=== PATIENT | female | born 1930 | race Caucasian/White ===

== ENCOUNTER → 2016-03-02 | Outpatient (CLI) | payer MEDICARE, BC, OTHER ==
[2016-03-02 13:03] LABS: ABG HCO3 38 mmol/L (21-25); ABG PCO2 56 mmHg (35-45); ABG PH 7.45 (7.35-7.45); ABG PO2 78 mmHg (83-108); ABG TCO2 39 mmol/L (19-24)
[2016-03-02 13:18] LABS: Basophils % (A) 0 %; CH 29.3; CHCM 30.8; Eosinophils % (A) 0 %; HCT 46.3 % (34.0-46.0); HDW 2.17; HGB 14.3 gm/dL (11.4-16.0); Hypochromasia Slight; Luc % (Auto) 1; Lymphocytes % (A) 19 %; MCH 29.6 pg (25.0-35.0); MCHC 30.9 g/dL (31.0-37.0); MCV 95.6 fL (80.0-100.0); Mean Platelet Volume 9.8; Monocytes # (A) 0.5 k/uL (0-1.0); Monocytes % (A) 5 %; Neutrophils # (A) 7.9 k/uL (1.3-7.7); Neutrophils % (A) 75 %; RBC 4.85 m/uL (3.80-5.40); RDW 13.2 % (11.5-15.5); WBC 10.6 k/uL (3.8-10.6); WBC (Perox) 10.98
[2016-03-02 13:56] LABS: Blood Urea Nitrogen 21 mg/dL (7-17); Calcium 10.1 mg/dL (8.4-10.2); Chloride 93 mmol/L (98-107); Glucose 91 mg/dL (74-99); Non-African American GFR(MDRD) >60 (>60 ml/min/1.73 sqM); Potassium 4.5 mmol/L (3.5-5.1); Sodium 142 mmol/L (137-145)
[2016-03-02 14:03] LABS: Anion Gap 7 mmol/L; Appearance,Urine Clear (Clear); Bacteria,Urine Rare /hpf; Bilirubin,Urine Negative (Negative); Glucose,Urine (UA) Negative (Negative); Ketones,Urine Negative (Negative); Leukocyte Esterase,Urine Moderate (Negative); Mucus,Urine Rare /hpf; Nitrite,Urine Negative (Negative); Particle Count 2121; Protein,Urine Negative (Negative); RBC,Urine 15 /hpf (0-5); Specific Gravity,Urine 1.014 (1.001-1.035); Squamous Epithelial Cell,Urine 1 /hpf (0-4); UA Billing (MACRO vs. MICRO) MICRO; Urobilinogen,Urine <2.0 mg/dL (<2.0)
[2016-03-02 14:15] LABS: Carbon Dioxide 42 mmol/L (22-30)
== END | disposition home or self-care (01) ==
LOC: LABWHC1 12:19
PROVIDERS: ATTEND Internal Medicine
DX: N39.0 Urinary tract infection, site not specified (principal); E16.2 Hypoglycemia, unspecified; R35.1 Nocturia; R53.1 Weakness; R53.83 Other fatigue; R06.02 Shortness of breath
CPT/HCPCS: 36415; 36600; 80048; 81001; 82306; 82533; 82805; 83036; 85025; 87086

== ENCOUNTER 2016-03-16 10:03 | Day surgery (SDC) | payer MEDICARE, BC, OTHER ==
[2016-03-14 09:22] VITALS: BMI 29.5
[~2016-03-16 10:03] MED LIST: LACTATED RINGERS 1,000 ML IV SCH; MOXIFLOXACIN HCL 0.5% DROPS 3 ML BTL OP ONE; TETRACAINE 0.5% OPHTH (PF) DROPS 4 ML BTL OP ONE; TIMOLOL 0.5% OPHTH SOLN (PF) 0.2 ML DROPERETTE OP ONE
[2016-03-16] MEDS: CYCLOPENTOLATE 1% OPHTH SOLN 2 ML BTL OP ONE ×3 (12:50→13:03)
[2016-03-16] MEDS: PHENYLEPHRINE 2.5% OPHTH DRP 2ML OP NR ×3 (12:53→13:06)
[2016-03-16 12:54] VITALS: RESP 20; TEMP 97.6
[2016-03-16 13:10] LABS: Glucose,Whole Blood 99 mg/dL (75-99)
[2016-03-16] MEDS ORDERED: BALANCED SALT IRRIG SOLN COMB2 15 ML IRRIG.SOLN INTRAOCULA ONE (13:50)
[2016-03-16] MEDS ORDERED: HYALURONATE SODIUM INTRAOCULAR 1 EACH SYRINGE (12MG/ML) INTRAOCULA ONE (13:50)
[2016-03-16] MEDS ORDERED: LIDOCAINE 1% (PF) 10MG/ML VIAL SQ ONE (13:50)
[2016-03-16] MEDS ORDERED: EPINEPHrine (PF) 0.3 ML in BALANCED SALT IRRIG SOLN COMB2 500 ML IRRIGATION ONE ×4 (13:51)
[2016-03-16] MEDS ORDERED: MIDAZOLAM 2 MG/2 ML VIAL ONE (13:53)
[2016-03-16] MEDS ORDERED: fentaNYL (PF) 50 MCG/ML 2 ML AMP ONE (13:53)
--- NOTE | 2016-03-16 14:21 | P.OP ---
Date of Procedure: 03/16/16 Preoperative Diagnosis: NS & CS & PXS & Fuch's corneal dystrophy Postoperative Diagnosis: same Procedure(s) Performed: PIOL, OS Implants: PCB0 19.50 & 13 mm CTR Anesthesia: MAC Surgeon: Sharad Hawkins Estimated Blood Loss (ml): 0 Pathology: none sent Condition: stable Disposition: same day Indications for Procedure: blurry vision Operative Findings: No complications
[2016-03-16 14:49] VITALS: BP 125/68; PULSE 80
[2016-03-16 14:55] LABS: Glucose,Whole Blood 124 mg/dL (75-99)
--- NOTE | 2016-03-16 21:32 | OP ---
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 POSTOPERATIVE DIAGNOSES: 1. 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 OPERATION: Phacoemulsification of cataract and intraocular lens implant of the left eye with a capsular tension ring implantation. ANESTHESIA: Topical. ESTIMATED BLOOD LOSS: None. SPECIMENS REMOVED: None. COMPLICATIONS: OPERATIVE FINDINGS: DESCRIPTION OF PROCEDURE: NARRATIVE: After obtaining the appropriate consent, the patient was brought to the operating room. There she was placed under cardiac monitoring, prepped and draped in the usual sterile manner. She was approached from her left temporal side and at the 5:00 position a 1.1 mm stab blade was used to create a paracentesis port. Through this opening, 1% Xylocaine MPF 50-50 mix of balanced salt solution was injected into the anterior chamber. This was followed by stabilization of the anterior chamber with Viscoat. At the 3:00 position, a 2.5 mm keratome was used to create a self-sealing corneal flap incision in a Langerman fashion. A cystotome was then introduced to begin a continuous tear capsulorrhexis, which was completed using the Utrata forceps. Hydrodissection and hydrodelineation of the lens was accomplished with balanced salt solution. Phacoemulsification of the lens utilizing phaco chop was accomplished in 20 seconds at 13% power. Additional Xylocaine MPF was instilled into the anterior chamber. This was followed by removal of the remaining cortex under irrigation and aspiration as well as careful polishing of the posterior capsule in capsule vacuum mode. Provisc was then used to stabilize the capsular bag. An ADRYAN model [id number] posterior chamber capsular tension ring was inserted into the capsule capsular bag at the equator without any difficulty. This was followed by implantation of an ADRYAN PCB00 19.5 diopter posterior chamber intraocular lens. The remaining viscoelastic was then removed from in and around the intraocular lens as well as the anterior chamber. The eye was brought to normal intraocular pressure through the paracentesis port with balanced salt solution. She was checked for watertight integrity. She then received 2 drops of 0.5% timolol followed by 2 drops of Vigamox, was lightly patched and shielded in the usual manner. There were no complications from the procedure. She tolerated the procedure well and was returned to outpatient recovery in good condition.
== END 2016-03-16 15:17 | disposition home or self-care (01) ==
LOC: OR 10:03
PROVIDERS: ATTEND Ophthalmology
DX: H18.51 Endothelial corneal dystrophy (principal); H25.13 Age-related nuclear cataract, bilateral; H25.013 Cortical age-related cataract, bilateral; H26.8 Other specified cataract; H40.003 Preglaucoma, unspecified, bilateral; E78.5 Hyperlipidemia, unspecified; J44.9 Chronic obstructive pulmonary disease, unspecified; E07.9 Disorder of thyroid, unspecified; Z87.891 Personal history of nicotine dependence; Z79.1 Long term (current) use of non-steroidal anti-inflammatories (NSAID); Z79.899 Other long term (current) drug therapy; Z88.1 Allergy status to other antibiotic agents; Z88.7 Allergy status to serum and vaccine; Z88.8 Allergy status to other drugs, medicaments and biological substances
CPT/HCPCS: 66984; 65290; L8610; C1780; J2250; J0171; J3010; J2001; 99152; 99153

== ENCOUNTER → 2016-06-30 | Outpatient (CLI) | payer MEDICARE, BC, OTHER ==
[2016-06-30 11:26] LABS: ALT 26 U/L (9-52); AST 19 U/L (14-36); Alkaline Phosphatase 49 U/L (38-126); Anion Gap 9 mmol/L; Blood Urea Nitrogen 14 mg/dL (7-17); Calcium 9.4 mg/dL (8.4-10.2); Carbon Dioxide 34 mmol/L (22-30); Chloride 101 mmol/L (98-107); Cholesterol 156 mg/dL (<200); Glucose 114 mg/dL (74-99); HDL Cholesterol 63 mg/dL (40-60); Non-African American GFR(MDRD) >60 (>60 ml/min/1.73 sqM); Potassium 3.6 mmol/L (3.5-5.1); Sodium 144 mmol/L (137-145); Total Bilirubin 0.7 mg/dL (0.2-1.3); Total Protein 6.9 g/dL (6.3-8.2); Triglycerides 120 mg/dL (<150)
== END ==
LOC: LABWHC1 10:25
PROVIDERS: ATTEND Internal Medicine Interventional Cardiology
DX: E78.2 Mixed hyperlipidemia (principal)
CPT/HCPCS: 36415; 80053; 80061

== ENCOUNTER 2016-08-02 13:55 | Emergency (ER) | payer MEDICARE, BC, OTHER ==
[2016-08-02] MEDS ORDERED: KETOROLAC 60 MG/2 ML VIAL IM STA (14:20)
[2016-08-02] MEDS ORDERED: DIAZEPAM 5 MG TAB PO STA (14:21)
--- NOTE | 2016-08-02 14:32 | ED ---
General Adult HPI - General Chief complaint: Back Pain/Injury Stated complaint: back pain Time Seen by Provider: 08/02/16 14:07 Source: patient, family, RN notes reviewed, old records reviewed Mode of arrival: wheelchair Limitations: no limitations - History of Present Illness Initial comments: 86-year-old female presenting for right low back pain. Patient states symptoms been present for the past 2 months and gradually worsening. She states that last night she had significant worsening of her pain while trying to sleep. She states the pain is made worse by positional changes. She states that she sits up does not move the pain seems to resolve. She has tried acetaminophen and ibuprofen which does help the pain overall. She denies any fall or injury associated. She denies any radiation of the pain down her leg. She denies any gait changes. She denies any fevers or chills. She denies any headaches or visual changes. She denies any chest pain or shortness breath. She denies any abdominal pain associated. - Related Data Home Medications Medication Instructions Recorded Confirmed Levothyroxine Sodium [Synthroid] 50 mcg PO QAM 09/25/13 08/02/16 Simvastatin [Zocor] 40 mg PO HS 09/25/13 08/02/16 Montelukast [Singulair] 10 mg PO HS 02/11/16 08/02/16 Albuterol Nebulized [Ventolin 2.5 mg INHALATION QID 03/14/16 08/02/16 Nebulized] Multivitamins, Thera [Multivitamin] 1 tab PO DAILY 03/14/16 08/02/16 predniSONE 5 mg PO QAM 03/14/16 08/02/16 Acetaminophen [Tylenol] 500 mg PO Q4HR PRN 08/02/16 08/02/16 Biotin 5 mg PO DAILY 08/02/16 08/02/16 Previous Rx's Medication Instructions Recorded Cephalexin [Keflex] 500 mg PO BID #14 cap 08/02/16 Diazepam [Valium] 5 mg PO BID PRN #8 tab 08/02/16 HYDROcodone/APAP 5-325MG [[place] 1 tab PO Q6HR PRN #12 tab 08/02/16 5-325] Allergies Allergy/AdvReac Type Severity Reaction Status Date / Time bacitracin Allergy Rash/Hives Verified 08/02/16 14:28 bacitracin zinc Allergy Rash/Hives Verified 08/02/16 14:28 [From Neosporin ([id number])] dimethicone Allergy Rash/Hives Verified 08/02/16 14:28 [From A & D Emollient] glycerin Allergy Rash/Hives Verified 08/02/16 14:28 [From A & D Emollient] neomycin sulfate Allergy Rash/Hives Verified 08/02/16 14:28 [From Neosporin ([id number])] polymyxin B Allergy Rash/Hives Verified 08/02/16 14:28 [From Neosporin ([id number])] stearyl alcohol Allergy Rash/Hives Verified 08/02/16 14:28 [From A & D Emollient] Tetanus Vaccines and Toxoid Allergy swelling Verified 08/02/16 14:28 and severe redness and hardness at site Review of Systems ROS Statement: Those systems with pertinent positive or pertinent negative responses have been documented in the HPI. ROS Other: All systems not noted in ROS Statement are negative. Past Medical History Past Medical History: COPD, Eye Disorder, Hyperlipidemia, Thyroid Disorder Additional Past Medical History / Comment(s): TEAR IN BILATERAL ROTATOR CUFFS, isabel cataracts, current steroid History of Any Multi-Drug Resistant Organisms: None Reported Past Surgical History: Joint Replacement, Orthopedic Surgery Additional Past Surgical History / Comment(s): ATTEMPTED REPAIR OF RIGHT ROTATOR CUFF. BILATERAL KNEE REPLACEMENTS Past Anesthesia/Blood Transfusion Reactions: No Reported Reaction Additional Past Anesthesia/Blood Transfusion Reaction / Comment(s): no hx blood transfusion Past Psychological History: No Psychological Hx Reported Smoking Status: Former smoker Past Alcohol Use History: Occasional Additional Past Alcohol Use History / Comment(s): quit smoking 1992,smoked approx 42 yrs 1ppd Past Drug Use History: None Reported - Past Family History Mother Family Medical History: No Reported History Additional Family Medical History / Comment(s): mother at age 93 of "old age" Father Family Medical History: No Reported History Additional Family Medical History / Comment(s): states at age 89 with no known medical problems General Exam - General Exam Comments Initial Comments: General: Awake and Alert. No acute distress. Does not appear acutely ill. Eyes: JOCY, EOM intact. No nystagmus. No scleral icterus. HENT: Atraumatic, normocephalic. Mucous membranes moist. Trachea midline. Neck: The neck is supple, there is no tenderness or JVD. Cardiovascular: Regular rate and rhythm. No murmur, rub, or gallop is appreciated. Distal pulses intact. Respiratory: Lungs are clear to auscultation bilaterally. No wheezes, rales, rhonchi. No respiratory distress. Gastrointestinal: Soft, Nontender. No rebound or guarding. Non-distended. No masses or organomegaly noted. No CVA tenderness. Musculoskeletal: Tenderness to the right lower back. No gross deformity. No strength deficits. Neurological: A&Ox3. CN II-XII grossly intact, There are no obvious motor or sensory deficits. Coordination appears grossly intact. Speech is normal. Skin: Skin is warm and dry and no rashes or lesions are noted. Psychiatric: Cooperative, appropriate mood & affect, normal judgment. Limitations: no limitations Course Vital Signs 08/02/16 14:03 Temperature 98.1 F Pulse Rate 70 Respiratory 20 Rate Blood Pressure 133/61 O2 Sat by Pulse 98 Oximetry Medical Decision Making - Medical Decision Making 86-year-old female presenting for right low back pain. Has been present for the past 2 months. No trauma or injury. She has no radiation of the pain. Able to ambulate without issue. Vitals are stable, afebrile. Low suspicion of severe or infectious intra-abdominal etiology at this time. X-ray imaging was performed which shows chronic degenerative changes but no acute fractures. Lower suspicion of acute cord compression or cauda equina syndrome at this time. Patient was given medications with improvement of her pain. Urinalysis with evidence of infection and Rx provided. Discussed likely musculoskeletal cause of pain. Discussed plan for pain medication and muscle relaxer for symptomatic treatment. Discussed stretching and ice as needed. Discussed close follow-up with PCP. Discussed follow-up for MRI imaging in 1 week pain is not improving as well as referral to orthospine by PCP. Discussed concerning signs symptoms for immediate return to the ED. Patient and are agreeable with plan and discharge. - Lab Data Lab Results 08/02/16 Range/Units 15:36 Urine Color Yellow Urine Appearance Turbid H (Clear) Urine pH 7.5 (5.0-8.0) Ur Specific [place] 1.017 (1.001-1.035) Urine Protein Negative (Negative) Urine Glucose (UA) Negative (Negative) Urine Ketones Negative (Negative) Urine Blood Negative (Negative) Urine Nitrite Negative (Negative) Urine Bilirubin Negative (Negative) Urine Urobilinogen <2.0 (<2.0) mg/dL Ur Leukocyte Esterase Large H (Negative) Urine WBC 55 H (0-5) /hpf Ur Squamous Epith Cells 1 (0-4) /hpf Amorphous Sediment Moderate H (None) /hpf Disposition Clinical Impression: Right low back pain, UTI (urinary tract infection) Disposition: HOME SELF-CARE Condition: Stable Instructions: Urinary Tract Infection in Women (ED), Acute Low Back Pain (ED) Additional Instructions: Please follow up with your primary doctor in the next week to reevaluate your pain. If it is not improving, discussed getting and MRI and seeing and client delivery specialist. Prescriptions: Cephalexin [Keflex] 500 mg PO BID #14 cap Diazepam [Valium] 5 mg PO BID PRN #8 tab PRN Reason: back spasm HYDROcodone/APAP 5-325MG [[place] 5-325] 1 tab PO Q6HR PRN #12 tab PRN Reason: Pain Referrals: Maria Alejandra Munoz MD [Primary Care Provider] - 1-2 days Time of Disposition: 15:54
--- NOTE | 2016-08-02 15:11 | XR ---
EXAMINATION TYPE: XR lumbar spine 3V DATE OF EXAM: 08/02/2016 COMPARISON: December 03, 2012 HISTORY: Lower back pain, progressively worse over the last couple months TECHNIQUE: 3 views FINDINGS: The upper lumbar dextrocurvature and lower lumbar levocurvature is similar to the prior mitra dy. The advanced degenerative facet and disc changes seen at every level on the prior study have adva nced in the interim. The heights of the vertebral segments is maintained. There is no malalignment. No evidence of fracture. There are no focal bony lesions, and no incidental paraspinal soft tissue findings. IMPRESSION: NO ACUTE PROCESS.
[2016-08-02 15:48] LABS: Amorphous Sediment,Urine Moderate /hpf; Appearance,Urine Turbid (Clear); Bilirubin,Urine Negative (Negative); Glucose,Urine (UA) Negative (Negative); Ketones,Urine Negative (Negative); Leukocyte Esterase,Urine Large (Negative); Nitrite,Urine Negative (Negative); PH, Urine 7.5 (5.0-8.0); Particle Count 20788; Protein,Urine Negative (Negative); Specific Gravity,Urine 1.017 (1.001-1.035); Squamous Epithelial Cell,Urine 1 /hpf (0-4); UA Billing (MACRO vs. MICRO) MICRO; Urobilinogen,Urine <2.0 mg/dL (<2.0); WBC,Urine 55 /hpf (0-5)
[2016-08-02 16:08] VITALS: BP 128/68; PULSE 56; RESP 18; TEMP 97.5
== END 2016-08-02 16:27 | disposition home or self-care (01) ==
LOC: EC 13:55
DX: N39.0 Urinary tract infection, site not specified (principal); M54.5 Low back pain; M47.816 Spondylosis without myelopathy or radiculopathy, lumbar region; J44.9 Chronic obstructive pulmonary disease, unspecified; E78.5 Hyperlipidemia, unspecified; E07.9 Disorder of thyroid, unspecified; Z96.653 Presence of artificial knee joint, bilateral; Z87.891 Personal history of nicotine dependence; Z79.52 Long term (current) use of systemic steroids; Z79.899 Other long term (current) drug therapy; Z88.1 Allergy status to other antibiotic agents; Z88.7 Allergy status to serum and vaccine; Z88.8 Allergy status to other drugs, medicaments and biological substances
CPT/HCPCS: 81001; 72100; 99284; 96372; J1885

== ENCOUNTER 2016-11-16 09:14 | Day surgery (SDC) | payer MEDICARE, BC, OTHER ==
[2016-11-14 10:22] VITALS: BMI 30.7
[~2016-11-16 09:14] MED LIST changes: +DEXAMETHASONE SOD PHOSPHATE 10 MG/ML 1 ML VIAL IV ONE; +LIDOCAINE 1% 20 ML VIAL (10MG/ML) FOR IV START INTRADERMA PRN; +ONDANSETRON 4 MG/2 ML VIAL IVP ONE
[2016-11-16] MEDS: CYCLOPENTOLATE 1% OPHTH SOLN 2 ML BTL OP ONE ×3 (09:29→09:43)
[2016-11-16] MEDS: PHENYLEPHRINE 2.5% OPHTH DRP 2ML OP NR ×3 (09:32→09:46)
[2016-11-16 09:50] VITALS: TEMP 97.8
[2016-11-16] MEDS ORDERED: MIDAZOLAM 2 MG/2 ML VIAL ONE (10:19)
[2016-11-16] MEDS ORDERED: fentaNYL (PF) 50 MCG/ML 2 ML AMP ONE (10:19)
[2016-11-16] MEDS ORDERED: BALANCED SALT IRRIG SOLN COMB2 15 ML IRRIG.SOLN INTRAOCULA ONE (10:25)
[2016-11-16] MEDS ORDERED: LIDOCAINE 1% (PF) 10MG/ML VIAL SQ ONE (10:25)
[2016-11-16] MEDS ORDERED: EPINEPHrine (PF) 0.3 ML in BALANCED SALT IRRIG SOLN COMB2 500 ML IRRIGATION ONE (10:25)
[2016-11-16] MEDS ORDERED: DUOVISC KIT (GREEN BOX) INTRAOCULA ONE (10:27)
--- NOTE | 2016-11-16 10:49 | P.OP ---
Date of Procedure: 11/16/16 Preoperative Diagnosis: NS & CS & PXS & Fuch's corneal dystrophy Postoperative Diagnosis: same Procedure(s) Performed: PIOL OD Implants: PCB00 +19.50 & [id number] Anesthesia: MAC Surgeon: Sharad Hawkins Estimated Blood Loss (ml): 0 Pathology: none sent Condition: stable Disposition: same day Indications for Procedure: blurry vision Operative Findings: No complications
[2016-11-16 10:56] VITALS: RESP 18
[2016-11-16 11:14] VITALS: BP 128/58; PULSE 84
--- NOTE | 2016-11-16 14:45 | OP ---
OPERATIVE REPORT DATE OF SERVICE: 11/16/2016 PREOPERATIVE DIAGNOSES:: 1. Nuclear sclerosis. 2. Cortical sclerosis. 3. Pseudoexfoliation syndrome. 4. Fuch's endothelial corneal dystrophy. POSTOPERATIVE DIAGNOSIS:: Same. OPERATION:: Phacoemulsification of cataract intraocular lens implant of the right eye. SURGEON: Dr. Sharad Hawkins. ANESTHESIA: Topical. ESTIMATED BLOOD LOSS:: None. SPECIMEN TAKEN:: None. NARRATIVE:: After obtaining the appropriate consent, the patient was brought to the Operating Room. There, she was placed under cardiac monitoring, and prepped and draped in the usual sterile manner. She was approached from her right temporal side. At the 11 o'clock position, a 1.1-mm stab blade was used to create a paracentesis port. Through this opening, 1% lidocaine MPF 50:50 mix with BSS was injected into the anterior chamber. This was followed by stabilization of the anterior chamber with Viscoat. At the 9 o'clock position, a 2.5-mm keratome was used to create a self-sealing corneal flap incision in a Langerman's fashion. Through this opening, a cystatome was introduced to begin a continuous tear capsulorrhexis which was completed using the Utrata forceps. Hydrodissection and hydrodelineation of the lens was accomplished with balanced salt solution. Phacoemulsification of the lens was accomplished in 22.55 seconds at 18% power utilizing phaco chop. Additional lidocaine MPF was instilled into the anterior chamber. This was followed by removal of the remaining cortex with irrigation and aspiration and careful polishing of the posterior capsule in capsule vacuum mode. Provisc was then used to stabilize the capsular bag and an ADRYAN STBL 13US capsular tension ring was placed into the capsular bag without difficulty. This was followed by placement of an ADRYAN PCB00 10.5-diopter posterior chamber intraocular lens into the capsular bag. Removal of the viscoelastic in and around the intraocular lens as well as the anterior chamber was accomplished under irrigation and aspiration. The eye was brought to normal intraocular pressure through the paracentesis port and with balanced salt solution. The wounds were confirmed watertight and she patient then received 2 drops of 0.5% timolol followed by 2 drops of moxifloxacin. She was lightly patched and shielded in the usual manner. There were no complications from the procedure. She tolerated the procedure well and was returned to recovery in good condition. MMODL / IJN: [id number] /
== END 2016-11-16 11:38 | disposition home or self-care (01) ==
LOC: OR 09:14
PROVIDERS: ATTEND Ophthalmology
DX: H18.51 Endothelial corneal dystrophy (principal); H25.011 Cortical age-related cataract, right eye; H25.11 Age-related nuclear cataract, right eye; H52.01 Hypermetropia, right eye; H52.223 Regular astigmatism, bilateral; H52.4 Presbyopia; H52.12 Myopia, left eye; I10 Essential (primary) hypertension; E78.5 Hyperlipidemia, unspecified; J44.9 Chronic obstructive pulmonary disease, unspecified; Z99.81 Dependence on supplemental oxygen; E07.9 Disorder of thyroid, unspecified; Z96.653 Presence of artificial knee joint, bilateral; Z96.1 Presence of intraocular lens; Z79.899 Other long term (current) drug therapy; Z79.52 Long term (current) use of systemic steroids; Z88.1 Allergy status to other antibiotic agents; Z88.7 Allergy status to serum and vaccine; Z88.8 Allergy status to other drugs, medicaments and biological substances
CPT/HCPCS: 66984; L8610; C1780; J2250; J0171; J3010; J2001

== ENCOUNTER → 2017-05-04 | Outpatient (CLI) | payer MEDICARE, BC, OTHER ==
[2017-05-04 13:09] LABS: ALT 24 U/L (9-52); AST 18 U/L (14-36); Cholesterol 147 mg/dL (<200); HDL Cholesterol 48 mg/dL (40-60); LDL Cholesterol,Calculated 77 mg/dL (0-99); Triglycerides 108 mg/dL (<150)
== END | disposition home or self-care (01) ==
LOC: LABWHC1 11:34
PROVIDERS: ATTEND Internal Medicine Interventional Cardiology
DX: E78.2 Mixed hyperlipidemia (principal)
CPT/HCPCS: 36415; 80061; 84450; 84460

== ENCOUNTER 2018-12-06 16:39 | Inpatient (IN) | payer MEDICARE, BC, OTHER ==
--- NOTE | 2018-12-06 16:46 | ED ---
SOB HPI - General Stated Complaint: WEAKNESS Time Seen by Provider: 12/06/18 16:44 Source: RN notes reviewed, old records reviewed Limitations: altered mental status (dementia) - History of Present Illness Initial Comments: This is an 88-year-old female the ER for evaluation presented for evaluation of not feeling well. She has some shortness of breath some sleepiness and fatigue some altered mental status, patient was sent in by visiting care for evaluation and management. Patient mostly is having overall complaining of not feeling well and feeling weak, fatigued. MD Complaint: shortness of breath -: days(s) Radiation: other (no pain) Severity: moderate Severity scale (1-10): 4 Consistency: intermittent Improves With: oxygen, rest, bronchodilators Worsens With: exertion, movement Known History Of: COPD, asthma Context: recent URI Associated Symptoms: cough Treatments Prior to Arrival: none - Related Data Home Medications Medication Instructions Recorded Confirmed Simvastatin [Zocor] 40 mg PO DAILY 09/25/13 12/06/18 Montelukast [Singulair] 10 mg PO DAILY 02/11/16 12/06/18 Albuterol Nebulized [Ventolin 2.5 mg INHALATION RT-BID 03/14/16 12/06/18 Nebulized] Multivitamins, Thera [Multivitamin] 1 tab PO DAILY 03/14/16 12/06/18 Cyanocobalamin (Vitamin B-12) 1,000 mcg PO DAILY 12/06/18 12/06/18 [Vitamin B-12] Furosemide [Lasix] 40 mg PO DAILY 12/06/18 12/06/18 Levothyroxine Sodium [Synthroid] 75 mcg PO DAILY 12/06/18 12/06/18 Potassium Chloride ER [K-Dur 10] 10 meq PO DAILY 12/06/18 12/06/18 Prevagen 1 cap PO DAILY 12/06/18 12/06/18 Vit C/E/Zn/Coppr/Lutein/Zeaxan 1 cap PO BID 12/06/18 12/06/18 [Preservision Areds 2 Softgel] predniSONE 5 mg PO DAILY 12/06/18 12/06/18 Allergies Allergy/AdvReac Type Severity Reaction Status Date / Time bacitracin Allergy Rash/Hives Verified 12/06/18 17:34 bacitracin zinc Allergy Rash/Hives Verified 12/06/18 17:34 [From Neosporin ([id number])] dimethicone Allergy Rash/Hives Verified 12/06/18 17:34 [From A & D Emollient] glycerin Allergy Rash/Hives Verified 12/06/18 17:34 [From A & D Emollient] neomycin sulfate Allergy Rash/Hives Verified 12/06/18 17:34 [From Neosporin ([id number])] polymyxin B Allergy Rash/Hives Verified 12/06/18 17:34 [From Neosporin ([id number])] stearyl alcohol Allergy Rash/Hives Verified 12/06/18 17:34 [From A & D Emollient] Tetanus Vaccines and Toxoid Allergy swelling Verified 12/06/18 17:34 and severe redness and hardness at site Review of Systems ROS Statement: Those systems with pertinent positive or pertinent negative responses have been documented in the HPI. ROS Other: All systems not noted in ROS Statement are negative. Past Medical History Past Medical History: COPD, Eye Disorder, Hyperlipidemia, Thyroid Disorder Additional Past Medical History / Comment(s): TEAR RT ROTATOR CUFFS, RT cataracts, O2 @ 2 liters 12/09 History of Any Multi-Drug Resistant Organisms: None Reported Past Surgical History: Joint Replacement, Orthopedic Surgery Additional Past Surgical History / Comment(s): ATTEMPTED REPAIR OF LEFT ROTATOR CUFF. BILATERAL KNEE REPLACEMENTS, LEFT CATARACT Past Anesthesia/Blood Transfusion Reactions: No Reported Reaction Additional Past Anesthesia/Blood Transfusion Reaction / Comment(s): no hx blood transfusion Smoking Status: Former smoker - Past Family History Mother Family Medical History: No Reported History Additional Family Medical History / Comment(s): mother at age 93 of "old age" Father Family Medical History: No Reported History Additional Family Medical History / Comment(s): states at age 89 with no known medical problems General Exam General appearance: alert, in no apparent distress Head exam: Present: atraumatic, normocephalic, normal inspection Eye exam: Present: normal appearance, PERRL, EOMI. Absent: scleral icterus, con junctival injection, periorbital swelling ENT exam: Present: normal exam, mucous membranes dry Neck exam: Present: normal inspection. Absent: tenderness, meningismus, lymphadenopathy Respiratory exam: Present: normal lung sounds bilaterally, wheezes. Absent: respiratory distress, rales, rhonchi, stridor Cardiovascular Exam: Present: regular rate, normal rhythm, normal heart sounds. Absent: systolic murmur, diastolic murmur, rubs, gallop, clicks GI/Abdominal exam: Present: soft, normal bowel sounds. Absent: distended, tenderness, guarding, rebound, rigid Extremities exam: Present: normal inspection, full ROM, normal capillary refill. Absent: tenderness, pedal edema, joint swelling, calf tenderness Back exam: Present: normal inspection Neurological exam: Present: alert, oriented X3, CN II-XII intact Psychiatric exam: Present: normal affect, normal mood Skin exam: Present: warm, dry, intact, normal color. Absent: rash Course Vital Signs 12/06/18 12/06/18 12/06/18 16:43 16:48 16:51 Temperature 98.2 F Pulse Rate 56 L 70 Respiratory 18 16 Rate Blood Pressure 124/77 100/45 O2 Sat by Pulse 96 98 93 L Oximetry 12/06/18 12/06/18 12/06/18 17:00 17:51 18:00 Temperature Pulse Rate 59 L Respiratory 18 Rate Blood Pressure 124/77 94/54 100/45 O2 Sat by Pulse 93 L 95 Oximetry - Reevaluation(s) Reevaluation #1: 12/06/18 16:46 Medical records reviewed Reevaluation #2: 12/06/18 19:24 Patient still feeling very tired difficulty keeping eye open - Consultations Consultation #1: Spoke with Dr. Binh dove for admission Medical Decision Making - Medical Decision Making 71 female the ER for evaluation of weakness not feeling well sleeping, patient is mildly somnolent in the room, CT x-rays are negative. Patient be admitted for continued hydration and monitoring of mental status - Lab Data Result diagrams: 12/06/18 17:20 12/06/18 17:20 Lab Results 12/06/18 12/06/18 12/06/18 Range/Units 17:20 17:20 17:20 WBC 8.1 (3.8-10.6) k/uL RBC 3.96 (3.80-5.40) m/uL Hgb 12.2 (11.4-16.0) gm/dL Hct 38.8 (34.0-46.0) % MCV 97.9 (80.0-100.0) fL MCH 30.9 (25.0-35.0) pg MCHC 31.5 (31.0-37.0) g/dL RDW 13.3 (11.5-15.5) % Plt Count 151 (150-450) k/uL Neutrophils % 65 % Lymphocytes % 24 % Monocytes % 4 % Eosinophils % 3 % Basophils % 3 % Neutrophils # 5.2 (1.3-7.7) k/uL Lymphocytes # 1.9 (1.0-4.8) k/uL Monocytes # 0.3 (0-1.0) k/uL Eosinophils # 0.3 (0-0.7) k/uL Basophils # 0.2 (0-0.2) k/uL PT (9.0-12.0) sec INR (<1.2) APTT (22.0-30.0) sec Sodium 136 L (137-145) mmol/L Potassium 4.6 (3.5-5.1) mmol/L Chloride 95 L (98-107) mmol/L Carbon Dioxide 37 H (22-30) mmol/L Anion Gap 4 mmol/L BUN 18 H (7-17) mg/dL Creatinine 0.43 L (0.52-1.04) mg/dL Est GFR (CKD-EPI)AfAm >90 (>60 ml/min/1.73 sqM) Est GFR (CKD-EPI)NonAf >90 (>60 ml/min/1.73 sqM) Glucose 124 H (74-99) mg/dL Plasma Lactic Acid Antonio 0.9 (0.7-2.0) mmol/L Calcium 8.9 (8.4-10.2) mg/dL Phosphorus 3.7 (2.5-4.5) mg/dL Magnesium 1.9 (1.6-2.3) mg/dL Total Bilirubin 0.6 (0.2-1.3) mg/dL AST 26 (14-36) U/L ALT 21 (9-52) U/L Alkaline Phosphatase 44 (38-126) U/L Creatine Kinase 27 L (30-135) U/L Troponin I (0.000-0.034) ng/mL Total Protein 6.3 (6.3-8.2) g/dL Albumin 3.5 (3.5-5.0) g/dL 12/06/18 12/06/18 Range/Units 17:20 17:20 WBC (3.8-10.6) k/uL RBC (3.80-5.40) m/uL Hgb (11.4-16.0) gm/dL Hct (34.0-46.0) % MCV (80.0-100.0) fL MCH (25.0-35.0) pg MCHC (31.0-37.0) g/dL RDW (11.5-15.5) % Plt Count (150-450) k/uL Neutrophils % % Lymphocytes % % Monocytes % % Eosinophils % % Basophils % % Neutrophils # (1.3-7.7) k/uL Lymphocytes # (1.0-4.8) k/uL Monocytes # (0-1.0) k/uL Eosinophils # (0-0.7) k/uL Basophils # (0-0.2) k/uL PT 11.1 (9.0-12.0) sec INR 1.0 (<1.2) APTT 23.5 (22.0-30.0) sec Sodium (137-145) mmol/L Potassium (3.5-5.1) mmol/L Chloride (98-107) mmol/L Carbon Dioxide (22-30) mmol/L Anion Gap mmol/L BUN (7-17) mg/dL Creatinine (0.52-1.04) mg/dL Est GFR (CKD-EPI)AfAm (>60 ml/min/1.73 sqM) Est GFR (CKD-EPI)NonAf (>60 ml/min/1.73 sqM) Glucose (74-99) mg/dL Plasma Lactic Acid Antonio (0.7-2.0) mmol/L Calcium (8.4-10.2) mg/dL Phosphorus (2.5-4.5) mg/dL Magnesium (1.6-2.3) mg/dL Total Bilirubin (0.2-1.3) mg/dL AST (14-36) U/L ALT (9-52) U/L Alkaline Phosphatase (38-126) U/L Creatine Kinase (30-135) U/L Troponin I <0.012 (0.000-0.034) ng/mL Total Protein (6.3-8.2) g/dL Albumin (3.5-5.0) g/dL - EKG Data -: EKG Interpreted by Me (EKG shows sinus rhythm rate of 62, VT 198, QRS 124, QTc 462) - Radiology Data Radiology results: report reviewed (CT brain and chest x-rays negative for acute disease), image reviewed Disposition Clinical Impression: Dehydration, Weakness Disposition: ADMITTED IP TO THIS [facility] Condition: Fair Is patient prescribed a controlled substance at d/c from ED?: No Referrals: Maria Alejandra Munoz MD [Primary Care Provider] - 1-2 days
[2018-12-06] MEDS ORDERED: SODIUM CHLORIDE 0.9% 1,000 ML IV STA ×3 (16:55→19:25)
[2018-12-06 17:32] LABS: Basophils # (A) 0.2 k/uL (0-0.2); Basophils % (A) 3 %; Eosinophils # (A) 0.3 k/uL (0-0.7); Eosinophils % (A) 3 %; HCT 38.8 % (34.0-46.0); HGB 12.2 gm/dL (11.4-16.0); Lymphocytes # (A) 1.9 k/uL (1.0-4.8); Lymphocytes % (A) 24 %; MCH 30.9 pg (25.0-35.0); MCHC 31.5 g/dL (31.0-37.0); MCV 97.9 fL (80.0-100.0); Mean Platelet Volume 9.1; Monocytes # (A) 0.3 k/uL (0-1.0); Monocytes % (A) 4 %; Neutrophils # (A) 5.2 k/uL (1.3-7.7); Neutrophils % (A) 65 %; Platelet Count 151 k/uL (150-450); RBC 3.96 m/uL (3.80-5.40); RDW 13.3 % (11.5-15.5); WBC 8.1 k/uL (3.8-10.6)
--- NOTE | 2018-12-06 17:41 | XR ---
EXAMINATION TYPE: XR chest 2V DATE OF EXAM: 12/06/2018 COMPARISON: 12/25/2015 HISTORY: Weakness TECHNIQUE: Frontal and lateral views of the chest are obtained. FINDINGS: There is no heart failure nor confluent pneumonic infiltrate. Costophrenic angles are meghana r. Thoracic aorta is atheromatous. There is spurring in the thoracic spine. IMPRESSION: No active cardiopulmonary disease. No significant change.
[2018-12-06 17:43] LABS: ALT 21 U/L (9-52); AST 26 U/L (14-36); African American GFR (CKD) >90 (>60 ml/min/1.73 sqM); Albumin 3.5 g/dL (3.5-5.0); Alkaline Phosphatase 44 U/L (38-126); Anion Gap 4 mmol/L; Blood Urea Nitrogen 18 mg/dL (7-17); Calcium 8.9 mg/dL (8.4-10.2); Carbon Dioxide 37 mmol/L (22-30); Chloride 95 mmol/L (98-107); Creatine Kinase 27 U/L (30-135); Glucose 124 mg/dL (74-99); Magnesium 1.9 mg/dL (1.6-2.3); Partial Thromboplastin Time 23.5 sec (22.0-30.0); Phosphorus 3.7 mg/dL (2.5-4.5); Prothrombin Time 11.1 sec (9.0-12.0); Sodium 136 mmol/L (137-145); Total Bilirubin 0.6 mg/dL (0.2-1.3); Total Protein 6.3 g/dL (6.3-8.2)
[2018-12-06 17:45] LABS: Potassium 4.6 mmol/L (3.5-5.1)
--- NOTE | 2018-12-06 18:11 | CT ---
EXAMINATION TYPE: CT brain wo con DATE OF EXAM: 12/06/2018 COMPARISON: None HISTORY: Altered mental status and weakness. CT DLP: 1092.4 mGycm Automated exposure control for dose reduction was used. FINDINGS: There is cerebral cortical atrophy. There is no mass effect nor midline shift. There is no sign of in tracranial hemorrhage. There is a hypodense 2 x 1 cm area adjacent to the frontal horn left lateral v entricle related to old lacunar infarct. There is mild enlargement of the frontal horn left lateral v entricle. Calvarium is intact. IMPRESSION: CEREBRAL ATROPHY. 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 NO ACUTE ABNORMALITY.
[2018-12-06 20:12] LABS: Amorphous Sediment,Urine Rare /hpf; Appearance,Urine Cloudy (Clear); Bilirubin,Urine Negative (Negative); Blood,Urine Negative (Negative); Color,Urine Yellow; Glucose,Urine (UA) Negative (Negative); Ketones,Urine Negative (Negative); Leukocyte Esterase,Urine Moderate (Negative); Mucus,Urine Rare /hpf; Nitrite,Urine Negative (Negative); Protein,Urine Negative (Negative); RBC,Urine 1 /hpf (0-5); Specific Gravity,Urine 1.016 (1.001-1.035); Squamous Epithelial Cell,Urine 1 /hpf (0-4); Urobilinogen,Urine <2.0 mg/dL (<2.0); WBC,Urine 15 /hpf (0-5)
[2018-12-07] MEDS: LEVOTHYROXINE 75 MCG TAB PO SCH (05:58)
[2018-12-07] MEDS: MONTELUKAST 10 MG TAB PO SCH (07:51)
[2018-12-07] MEDS: ATORVASTATIN 20 MG TAB PO SCH (07:51)
[2018-12-07] MEDS: predniSONE 5 MG TAB PO SCH (07:55)
[2018-12-07] MEDS: ALBUTEROL NEBULIZED 2.5 MG/3 ML INHALATION SCH ×2 (08:31→19:05)
[2018-12-07] MEDS: FUROSEMIDE 40 MG TAB PO SCH (11:21)
--- NOTE | 2018-12-07 15:38 | HP ---
HISTORY AND PHYSICAL DATE OF SERVICE: 12/07/2018 CHIEF COMPLAINTS: Change in mental status, drowsiness, weakness and sleepiness. HISTORY OF PRESENT ILLNESS: This 88-year-old woman with a past medical history of multiple medical problems, including COPD, history of hypertension, hyperlipidemia, history of DJD, being followed by Dr. Munoz in the outpatient setting, is apparently living with her with significant 24-hour care. The family lives in the [place] area. The patient was noted to have some change in mental status and sleepiness and drowsiness. Patient was taken to [facility] and admitted for further evaluation and treatment. There is no history of any fever, rigor or chills. No history of headache, loss of consciousness, seizures at this time. Patient has a history of previous right diabetic ulcer. PAST MEDICAL HISTORY: 1. History of COPD. 2. Hyperlipidemia. 3. Hypothyroidism. 4. History of DJD. 5. History of nicotine dependence. HOME MEDICATIONS: 1. Prednisone 5 mg p.o. daily. 2. Vitamin C/zinc 1 p.o. daily. 3. Zocor 40 mg p.o. daily. 4. Prevagen 1 capsule p.o. daily. 5. K-Dur 10 mEq p.o. daily. 6. Multivitamins 1 p.o. daily. 7. Singulair 10 mg p.o. daily. 8. Synthroid 75 mcg p.o. daily. 9. Lasix 40 mg p.o. daily. 10.Vitamin B12 1000 mcg p.o. daily. 11.Albuterol 2.5 b.i.d. ALLERGIES: MULTIPLE: 1. BACITRACIN. 2. ZINC. 3. DIMETHICONE. 4. GLYCERINE. 5. NEOMYCIN. 6. POLYMYXIN. 7. STEARYL ALCOHOL. 8. TETANUS VACCINE. SOCIAL HISTORY: No history of heart disease or strokes in the family. SOCIAL HISTORY: History of previous smoking. Occasional alcohol intake. REVIEW OF SYSTEMS: ENT: Diminished hearing. Diminished vision. CARDIOVASCULAR SYSTEM: No angina, palpitations. RESPIRATORY SYSTEM: As mentioned earlier. GI: No nausea, vomiting. : No dysuria or retention. NERVOUS SYSTEM: No numbness, weakness. ALLERGY/IMMUNOLOGY: No asthma, hayfever. MUSCULOSKELETAL: As mentioned earlier. HEMATOLOGY/ONCOLOGY: No history of anemia. ENDOCRINE: No history of diabetes, hypothyroidism. CONSTITUTIONAL: As mentioned earlier. DERMATOLOGY: Negative. RHEUMATOLOGY: Negative. PSYCHIATRY: As mentioned earlier. PHYSICAL EXAMINATION: Patient alert and oriented x3. Pulse is 80, blood pressure 119/61, respiration 18, temperature 98.5, pulse ox 96% on 2 L. HEENT: Conjunctivae normal. NECK: No jugular venous distention. CARDIOVASCULAR SYSTEM: S1, S2 muffled. RESPIRATORY SYSTEM: Breath sounds diminished at the bases. A few scattered rhonchi. No crackles. ABDOMEN: Soft, non-tender. No mass palpable. LEGS: No edema. No swelling. NERVOUS SYSTEM: Higher functions as mentioned earlier. Moves all 4 limbs. No focal motor or sensory deficit. LYMPHATICS: No lymph node palpable in neck, axillae or groin. SKIN: No ulcer, rash, bleeding. JOINTS: No active deforming arthropathy. LABS: Labs at this time show WBC 8.1, hemoglobin 12.2. Sodium 136, potassium 4.6. UA noted. ASSESSMENT: 1. Change in mental status, acute metabolic encephalopathy, possibly secondary to urinary tract infection. 2. Urinary tract infection with sepsis possibly, present on admission. 3. 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 Rule out TIA. 4. Hyponatremia. 5. History of chronic obstructive pulmonary disease. 6. Hyperlipidemia. 7. History of hypothyroidism. 8. History of degenerative joint disease. 9. Remote history of nicotine dependence. 10.Obesity; body mass index 31.6. RECOMMENDATIONS AND DISCUSSION: In this 88-year-old women who presented with multiple medical issues, we will monitor the patient closely, continue the current medications, continue with symptomatic treatment. Otherwise, CT scan of the brain was done as part of workup of the emergency room admission which showed an old left frontal lobe lateral infarct. Will continue to monitor. Neurology also will be consulted. I would also recommend broad-spectrum IV antibiotics empirically with cultures to follow up. Overall prognosis is guarded because of multiple complex medical issues. Further recommendations to follow. Discussed with the family at length. A copy of this dictation is being forwarded to Dr. Munoz, who is the primary physician. MMODL / IJN: [id number] /
--- NOTE | 2018-12-07 19:54 | P.CNNES ---
History of Present Illness Consult date: 12/07/18 Requesting physician: Falguni Purcell Reason for Consult: Altered mental status History of Present Illness: Patient is a 88-year-old female, who states that for the last 2 weeks she has been feeling not completely well. She feels like is in a fog. She does not remember what she said 3 minutes ago or what she was doing. Her and other family members also noticed it and it kept on getting worse. As his symptoms persisted, patient was brought to the hospital. Patient admits to not taking enough fluids. Patient underwent computed tomography scan of the head which revealed cerebral atrophy, old left frontal lobe lacunar infarct. No acute abnormality. EKG shows normal sinus rhythm. Chest x-ray showed no acute cardiopulmonary disease. Patient states that she had history of a stroke while she was living in [place] in 2013. She was hospitalized for 8 days and then went to rehab for 3 weeks. Patient denies any hypertension, diabetes. She smoked three fourths pack per day in the past, but quit long time ago. Denies any heavy drinking. Review of Systems Patient denies any problems with vision, headaches, dysphagia, dysarthria, shortness of breath, chest pain, wheezing, abdominal pain. She does have arthritis of her knees, bilateral knee replacements in the past. Past Medical History Past Medical History: COPD, Eye Disorder, Hyperlipidemia, Thyroid Disorder Additional Past Medical History / Comment(s): TEAR RT ROTATOR CUFFS, RT cataracts, O2 @ 2 liters 24/ History of Any Multi-Drug Resistant Organisms: None Reported Past Surgical History: Joint Replacement, Orthopedic Surgery Additional Past Surgical History / Comment(s): ATTEMPTED REPAIR OF LEFT ROTATOR CUFF. BILATERAL KNEE REPLACEMENTS, LEFT CATARACT Past Anesthesia/Blood Transfusion Reactions: No Reported Reaction Additional Past Anesthesia/Blood Transfusion Reaction / Comment(s): no hx blood transfusion Past Psychological History: No Psychological Hx Reported Smoking Status: Former smoker Past Alcohol Use History: None Reported Additional Past Alcohol Use History / Comment(s): quit smoking 1992,smoked ap prox 42 yrs 1ppd Past Drug Use History: None Reported - Past Family History Mother Family Medical History: No Reported History Additional Family Medical History / Comment(s): mother at age 93 of "old age" Father Family Medical History: No Reported History Additional Family Medical History / Comment(s): states at age 89 with no known medical problems Medications and Allergies Home Medications Medication Instructions Recorded Confirmed Type Simvastatin [Zocor] 40 mg PO DAILY 09/25/13 12/06/18 History Montelukast [Singulair] 10 mg PO DAILY 02/11/16 12/06/18 History Albuterol Nebulized [Ventolin 2.5 mg INHALATION RT-BID 03/14/16 12/06/18 History Nebulized] Multivitamins, Thera [Multivitamin] 1 tab PO DAILY 03/14/16 12/06/18 History Cyanocobalamin (Vitamin B-12) 1,000 mcg PO DAILY 12/06/18 12/06/18 History [Vitamin B-12] Furosemide [Lasix] 40 mg PO DAILY 12/06/18 12/06/18 History Levothyroxine Sodium [Synthroid] 75 mcg PO DAILY 12/06/18 12/06/18 History Potassium Chloride ER [K-Dur 10] 10 meq PO DAILY 12/06/18 12/06/18 History Prevagen 1 cap PO DAILY 12/06/18 12/06/18 History Vit C/E/Zn/Coppr/Lutein/Zeaxan 1 cap PO BID 12/06/18 12/06/18 History [Preservision Areds 2 Softgel] predniSONE 5 mg PO DAILY 12/06/18 12/06/18 History Allergies Allergy/AdvReac Type Severity Reaction Status Date / Time bacitracin Allergy Rash/Hives Verified 12/06/18 17:34 bacitracin zinc Allergy Rash/Hives Verified 12/06/18 17:34 [From Neosporin ([id number])] dimethicone Allergy Rash/Hives Verified 12/06/18 17:34 [From A & D Emollient] glycerin Allergy Rash/Hives Verified 12/06/18 17:34 [From A & D Emollient] neomycin sulfate Allergy Rash/Hives Verified 12/06/18 17:34 [From Neosporin ([id number])] polymyxin B Allergy Rash/Hives Verified 12/06/18 17:34 [From Neosporin ([id number])] stearyl alcohol Allergy Rash/Hives Verified 12/06/18 17:34 [From A & D Emollient] Tetanus Vaccines and Toxoid Allergy swelling Verified 12/06/18 17:34 and severe redness and hardness at site Physical Examination - Vital Signs Vital Signs: Vital Signs Temp Pulse Pulse Resp BP BP BP 12/07/18 19:15 80 16 12/07/18 19:05 85 16 12/07/18 16:11 133/61 118/61 115/60 12/07/18 15:47 12/07/18 13:56 98.8 F 57 L 18 12/07/18 08:46 82 12/07/18 08:36 80 12/07/18 05:34 98.5 F 70 18 12/06/18 20:23 97.7 F 71 18 132/58 BP Pulse Ox 12/07/18 19:15 12/07/18 19:05 12/07/18 16:11 12/07/18 15:47 97 12/07/18 13:56 111/69 97 12/07/18 08:46 12/07/18 08:36 12/07/18 05:34 119/61 96 12/06/18 20:23 97 Intake and Output 12/07/18 12/07/18 12/07/18 06:59 14:59 22:59 Intake Total 540 Balance 540 Intake: Oral 540 Other: Voiding Method Bedside Commode Bedside Commode # Voids 1 4 On examination patient is an elderly female, very pleasant, in no acute distress. Patient is alert and awake oriented Pleasant person. Patient knows it is November 2018, and that she is in [facility], and the current president, her date of , and her age. Affect is normal. Speech and language functions are normal. On cranial nerve examination pupils are round and reacting to light. Visual lazo are full. Extraocular muscles are intact. Face is symmetric and tongue protrudes to the midline. On muscle strength testing there is no pronator drift and the strength is normal in arms and legs distally and proximally. Reflexes are very hypoactive and plantars downgoing. Tone and bulk of muscles normal. No ataxia for [id number] testing. Gait deferred. No obvious bruit, S1 and S2 is audible. Results Patient's cholesterol is 147, LDL 69, HDL 48 and triglycerides 108. Hemoglobin A1c 6.0 on 03/02/2016. Urine showed moderate leukocyte esterase, 15 WBCs and rare bacteria. - Laboratory Findings CBC and BMP: 12/06/18 17:20 12/06/18 17:20 Abnormal Lab Findings: Abnormal Labs 12/06/18 12/06/18 17:20 19:54 Sodium 136 L Chloride 95 L Carbon Dioxide 37 H BUN 18 H Creatinine 0.43 L Glucose 124 H Creatine Kinase 27 L Urine Appearance Cloudy H Ur Leukocyte Esterase Moderate H Urine WBC 15 H Amorphous Sediment Rare H Urine Mucus Rare H Assessment and Plan Assessment: * Altered mental status, likely due to metabolic encephalopathy. Exact cause is uncertain, possibly due to dehydration, hyponatremia and possible ?UTI. * Abnormal CT head, with evidence of old stroke in the left frontal subcortical region. This occurred in 2013, and patient has no residual deficits. Plan: * Hydration * Patient is on antibiotics for possible UTI. * We will check B12, folate, TSH. * Suggest starting aspirin 81 mg daily for stroke prevention, if no medical contraindication. Will defer to internal medicine. * Neurology coverage not available on the weekend. * Thank you very much for allowing me to participate in care of your patient.
[2018-12-08] MEDS: LEVOTHYROXINE 75 MCG TAB PO SCH (05:35)
[2018-12-08] MEDS: ALBUTEROL NEBULIZED 2.5 MG/3 ML INHALATION SCH ×2 (07:28→19:50)
[2018-12-08] MEDS: ATORVASTATIN 20 MG TAB PO SCH (07:58)
[2018-12-08] MEDS: CYANOCOBALAMIN 500 MCG TAB PO SCH (07:58)
[2018-12-08] MEDS: FUROSEMIDE 40 MG TAB PO SCH (07:58)
[2018-12-08] MEDS: POTASSIUM CHLORIDE ER 10 MEQ TAB.ER.PRT PO SCH (07:58)
[2018-12-08] MEDS: MULTIVITAMINS, THERA 1 EACH TAB PO SCH (07:58)
[2018-12-08] MEDS: MONTELUKAST 10 MG TAB PO SCH (07:58)
[2018-12-08] MEDS: predniSONE 5 MG TAB PO SCH (08:03)
[2018-12-08 08:08] LABS: Basophils # (A) 0.1 k/uL (0-0.2); Basophils % (A) 1 %; Eosinophils # (A) 0.2 k/uL (0-0.7); Eosinophils % (A) 2 %; HCT 37.7 % (34.0-46.0); HGB 11.4 gm/dL (11.4-16.0); Hypochromasia Slight; Lymphocytes # (A) 2.1 k/uL (1.0-4.8); Lymphocytes % (A) 28 %; MCH 30.3 pg (25.0-35.0); MCHC 30.2 g/dL (31.0-37.0); MCV 100.3 fL (80.0-100.0); Mean Platelet Volume 9.2; Monocytes # (A) 0.4 k/uL (0-1.0); Monocytes % (A) 6 %; Neutrophils # (A) 4.6 k/uL (1.3-7.7); Neutrophils % (A) 62 %; Platelet Count 130 k/uL (150-450); RBC 3.76 m/uL (3.80-5.40); RDW 13.1 % (11.5-15.5); WBC 7.5 k/uL (3.8-10.6)
[2018-12-08 08:23] LABS: African American GFR (CKD) >90 (>60 ml/min/1.73 sqM); Anion Gap 3 mmol/L; Blood Urea Nitrogen 12 mg/dL (7-17); Calcium 8.6 mg/dL (8.4-10.2); Carbon Dioxide 36 mmol/L (22-30); Chloride 100 mmol/L (98-107); Glucose 103 mg/dL (74-99); Potassium 4.3 mmol/L (3.5-5.1); Sodium 139 mmol/L (137-145)
[2018-12-08] MEDS: IOPAMIDOL CONTRAST (ORAL USE) VIAL PO PRN ×2 (11:47→12:46)
--- NOTE | 2018-12-08 13:31 | US ---
EXAMINATION TYPE: US venous doppler duplex LE LT DATE OF EXAM: 12/08/2018 1:09 PM COMPARISON: NONE CLINICAL HISTORY: Left leg swelling. Left leg swelling. SIDE PERFORMED: Left TECHNIQUE: The lower extremity deep venous system is examined utilizing real time linear array sonog sheila with graded compression, doppler sonography and color-flow sonography. VESSELS IMAGED: External Iliac Vein (EIV) Common Femoral Vein Deep Femoral Vein Greater Saphenous Vein * Femoral Vein Popliteal Vein Small Saphenous Vein * Proximal Calf Veins (* superficial vessels) Left Leg: Negative for DVT No popliteal fossa lesion is seen. IMPRESSION: EXAMINATION IS NEGATIVE FOR DVT IN THE LEFT LEG.
--- NOTE | 2018-12-08 14:14 | CT ---
EXAMINATION TYPE: CT abdomen pelvis wo con DATE OF EXAM: 12/08/2018 COMPARISON: 07/01/2008 HISTORY: distention CT DLP: 1065.3 mGycm Automated exposure control for dose reduction was used. TECHNIQUE: Helical acquisition of images was performed from the lung bases through the pelvis. There is oral contrast. FINDINGS: There is some infiltrate and atelectasis and pleural thickening at the left lung base. Heart size is normal. There is decreased attenuation in the posterior spleen that could relate to splenic cyst or infarct. Liver shows no focal defect. There are small calcified gallstones. There is no evidence of pancreatic mass. The stomach appears intact. There is no adrenal mass. Kidneys have normal size. There is no hydronephrosis. There is no retroperi toneal adenopathy. Ureters are not dilated. Bladder distends smoothly. There is no inguinal hernia. T here is wall thickening of the mid sigmoid colon. There are numerous sigmoid diverticula. There is no mesenteric edema. There is no ascites or free air. There is no sign of a bowel obstructio n. There are multiple diverticula throughout the remainder of the colon. Appendix appears normal. The re is multilevel spondylotic changes in the lumbar spine. There is mild thoracolumbar dextroscoliosis . There is no compression fracture. Bony pelvis is intact. IMPRESSION: EXTENSIVE COLONIC DIVERTICULOSIS WITHOUT DEFINITE DIVERTICULITIS. CHOLELITHIASIS. LEFT BASILAR PULMONARY INFILTRATES AND ATELECTASIS IN PLEURAL THICKENING THAT IS NEW COMPARED TO OLD EXAM.
--- NOTE | 2018-12-08 17:35 | PN ---
PROGRESS NOTE DATE OF SERVICE: 12/08/2018 This 88-year-old woman who was admitted with change in mental status and acute metabolic encephalopathy secondary to UTI is being closely monitored. The patient also had possible sepsis. The patient also had multiple CT scans, including CT scan of the abdomen and pelvis because of persistent discomfort, which showed extensive colonic diverticulosis, without any diverticulitis, and cholelithiasis. Left basilar atelectasis also was noted. The patient is on broad-spectrum IV antibiotics. Cultures are pending at this time. Multiple consultants are following the patient closely. Neurology also has seen the patient and recommended antiplatelet agents in the form of aspirin [address] scan showed evidence of old stroke in the left frontal subcortical region which occurred in 2013. Past medical history reviewed. REVIEW OF SYSTEMS: CARDIOVASCULAR SYSTEM: No angina, palpitations. RESPIRATORY SYSTEM: No cough. GI: As mentioned earlier. : No dysuria or retention. NERVOUS SYSTEM: As mentioned earlier. CURRENT MEDICATIONS: Reviewed. They include: 1. Ventolin 2.5 b.i.d. 2. Lipitor 20 mg daily. 3. Rocephin 1 gram IV daily. 4. Vitamin B12 1000 mcg p.o. daily. 5. Lasix 40 mg daily. 6. Synthroid 75 mcg p.o. daily. 7. Singulair 10 mg p.o. daily. 8. Multivitamins 1 p.o. daily. 9. K-Dur. 10.Prednisone 5 mg p.o. daily. PHYSICAL EXAMINATION: Patient is alert, oriented x3. Pulse 71, blood pressure 123/72, respirations 16, temperature 98.2, pulse ox 96% on 2 L. HEENT: Conjunctivae normal. NECK: No jugular venous distention. CARDIOVASCULAR SYSTEM: S1, S2 muffled. RESPIRATORY SYSTEM: Breath sounds diminished at the bases. No rhonchi. No crackles. ABDOMEN: Soft, non-tender. No mass palpable. LEGS: No edema. No swelling. NERVOUS SYSTEM: Higher functions as mentioned earlier. Moves all 4 limbs. Mild diffuse weakness. No focal deficit. LYMPHATICS: No lymph node palpable in neck, axillae or groin. SKIN: No ulcer, rash, bleeding. JOINTS: No active deforming arthropathy. LABS: WBC 7.5, hemoglobin 11.4. Sodium 139, potassium 4.3. Creatinine is 0.40. Otherwise, vitamin B12 was 1946 and cortisol is 13. UA noted. Cultures are pending at this time. ASSESSMENT: 1. Change in mental status, acute metabolic encephalopathy, possibly secondary to urinary tract infection. 2. Urinary tract infection with possible sepsis, present on admission. 3. 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 4. Hyponatremia. 5. History of chronic obstructive pulmonary disease. 6. Hyperlipidemia. 7. History of hypothyroidism. 8. History of degenerative joint disease. 9. Remote history of nicotine dependence. 10.Obesity with body mass index of 31.6. RECOMMENDATIONS AND DISCUSSION: I recommend to continue current medications, continue with the monitoring, symptomatic treatment. Continue with the antiplatelet agents. Continue with antibiotics. Follow the cultures. Continue the DVT prophylaxis. Repeat labs will be ordered. Guarded prognosis because of multiple complex medical issues. PT/OT evaluation. Increase ambulation. I had a detailed discussion with the family yesterday. Further recommendations to follow. MMODL / IJN: [id number] /
[2018-12-08] MEDS: HEPARIN SODIUM,PORCINE 5,000 UNIT/ML 1 ML VIAL SQ SCH (21:20)
[2018-12-09] MEDS: LEVOTHYROXINE 75 MCG TAB PO SCH (05:27)
[2018-12-09] MEDS: ALBUTEROL NEBULIZED 2.5 MG/3 ML INHALATION SCH ×2 (07:45→21:01)
[2018-12-09] MEDS: FUROSEMIDE 40 MG TAB PO SCH (08:21)
[2018-12-09] MEDS: MULTIVITAMINS, THERA 1 EACH TAB PO SCH (08:21)
[2018-12-09] MEDS: CYANOCOBALAMIN 500 MCG TAB PO SCH (08:21)
[2018-12-09] MEDS: predniSONE 5 MG TAB PO SCH (08:21)
[2018-12-09] MEDS: POTASSIUM CHLORIDE ER 10 MEQ TAB.ER.PRT PO SCH (08:21)
[2018-12-09] MEDS: HEPARIN SODIUM,PORCINE 5,000 UNIT/ML 1 ML VIAL SQ SCH ×2 (08:21→21:43)
[2018-12-09] MEDS: ATORVASTATIN 20 MG TAB PO SCH (08:21)
[2018-12-09] MEDS: MONTELUKAST 10 MG TAB PO SCH (08:21)
[2018-12-09 09:36] LABS: Basophils % (A) 1 %; Eosinophils # (A) 0.2 k/uL (0-0.7); Eosinophils % (A) 2 %; HCT 40.8 % (34.0-46.0); HGB 12.6 gm/dL (11.4-16.0); Hypochromasia Slight; Lymphocytes # (A) 3.1 k/uL (1.0-4.8); Lymphocytes % (A) 35 %; MCH 30.7 pg (25.0-35.0); MCHC 30.9 g/dL (31.0-37.0); MCV 99.4 fL (80.0-100.0); Mean Platelet Volume 8.5; Monocytes # (A) 0.3 k/uL (0-1.0); Monocytes % (A) 4 %; Neutrophils # (A) 5.1 k/uL (1.3-7.7); Neutrophils % (A) 57 %; Platelet Count 156 k/uL (150-450); RBC 4.11 m/uL (3.80-5.40); RDW 12.9 % (11.5-15.5); WBC 8.8 k/uL (3.8-10.6)
[2018-12-09 09:41] LABS: African American GFR (CKD) >90 (>60 ml/min/1.73 sqM); Anion Gap 8 mmol/L; Blood Urea Nitrogen 11 mg/dL (7-17); Calcium 8.8 mg/dL (8.4-10.2); Carbon Dioxide 35 mmol/L (22-30); Chloride 97 mmol/L (98-107); Glucose 185 mg/dL (74-99); Potassium 4.2 mmol/L (3.5-5.1); Sodium 140 mmol/L (137-145)
--- NOTE | 2018-12-09 20:41 | PN ---
PROGRESS NOTE DATE OF SERVICE: 12/09/2018 This 88-year-old woman who was admitted with generalized weakness and change in mental status and possible UTI. After antibiotics the patient improved significantly. No chest pain. No palpitations. No fever. Patient also had abdominal and pelvis CAT scan because of increased abdominal swelling, which showed extensive colon diverticulosis and cholelithiasis. Otherwise, no other acute abnormality was noted. The patient also had venous Doppler which showed no evidence of any DVT in the left leg. No chest pain. No palpitations. No fever. EXAM: Alert and oriented x3. Pulse is 75, blood pressure 130/72. No orthostatic changes. Respiration 20, temperature 98, pulse ox 98% on 2 L. HEENT: Conjunctivae normal. Oral mucosa moist. NECK: No jugular venous distention. No lymph node enlargement. CARDIOVASCULAR: S1, S2. RESPIRATORY: Diminished breath sounds at the bases. Scattered rhonchi and crackles. ABDOMEN: Soft, nontender. LEGS: No edema, no swelling. NERVOUS SYSTEM: No focal deficits. LAB STUDIES: CBC within normal. Sodium 140, potassium 4.2. ASSESSMENT: 1. Change in mental status metabolic encephalopathy possibly secondary to urinary tract infection. 2. Urinary tract infection with possible sepsis, present on admission. 3. Old left frontal infarct. 4. Hyponatremia. 5. History of chronic obstructive pulmonary disease. 6. Hyperlipidemia. 7. History of hypothyroidism. 8. History of degenerative joint disease. 9. Remote history of nicotine dependence. 10.Obesity with body mass index 31.6. RECOMMENDATIONS AND DISCUSSION: In this 88-year-old woman with multiple complex medical issues, we will monitor the patient closely, continue the current management and symptomatic treatment. Continue the antibiotics. Cultures are pending. PT/OT evaluation, increase ambulation. Possible return home once the patient is improved significantly. Further recommendations to follow. MMODL / IJN: [id number] /
[2018-12-10] MEDS: LEVOTHYROXINE 75 MCG TAB PO SCH (05:13)
[2018-12-10] MEDS: ALBUTEROL NEBULIZED 2.5 MG/3 ML INHALATION SCH ×2 (08:18→20:30)
[2018-12-10] MEDS: FUROSEMIDE 40 MG TAB PO SCH (08:59)
[2018-12-10] MEDS: POTASSIUM CHLORIDE ER 10 MEQ TAB.ER.PRT PO SCH (08:59)
[2018-12-10] MEDS: MULTIVITAMINS, THERA 1 EACH TAB PO SCH (08:59)
[2018-12-10] MEDS: CYANOCOBALAMIN 500 MCG TAB PO SCH (08:59)
[2018-12-10] MEDS: MONTELUKAST 10 MG TAB PO SCH (08:59)
[2018-12-10] MEDS: HEPARIN SODIUM,PORCINE 5,000 UNIT/ML 1 ML VIAL SQ SCH ×2 (08:59→21:08)
[2018-12-10] MEDS: ATORVASTATIN 20 MG TAB PO SCH (08:59)
[2018-12-10] MEDS: predniSONE 5 MG TAB PO SCH (09:00)
[2018-12-10 11:38] LABS: African American GFR (CKD) >90 (>60 ml/min/1.73 sqM); Anion Gap 4 mmol/L; Blood Urea Nitrogen 12 mg/dL (7-17); Calcium 9.2 mg/dL (8.4-10.2); Carbon Dioxide 37 mmol/L (22-30); Chloride 99 mmol/L (98-107); Glucose 112 mg/dL (74-99); Potassium 3.8 mmol/L (3.5-5.1); Sodium 140 mmol/L (137-145)
[2018-12-10 12:02] LABS: Basophils % (A) 1 %; Eosinophils # (A) 0.2 k/uL (0-0.7); Eosinophils % (A) 3 %; HGB 12.7 gm/dL (11.4-16.0); Hypochromasia Slight; Lymphocytes # (A) 2.1 k/uL (1.0-4.8); Lymphocytes % (A) 27 %; MCH 31.2 pg (25.0-35.0); MCHC 31.8 g/dL (31.0-37.0); MCV 98.1 fL (80.0-100.0); Mean Platelet Volume 8.5; Monocytes # (A) 0.5 k/uL (0-1.0); Monocytes % (A) 6 %; Neutrophils # (A) 4.9 k/uL (1.3-7.7); Neutrophils % (A) 62 %; Platelet Count 157 k/uL (150-450); RBC 4.08 m/uL (3.80-5.40); RDW 12.8 % (11.5-15.5); WBC 7.9 k/uL (3.8-10.6)
[2018-12-10] MEDS: ASPIRIN 81 MG PO SCH (12:38)
--- NOTE | 2018-12-10 18:01 | P.PN ---
Subjective Progress Note Date: 12/10/18 Patient feels tired. Offers no neurological symptoms. Objective - Vital Signs Vital signs: Vital Signs Temp 97.4 F L 12/10/18 12:55 Pulse 70 12/10/18 12:55 Resp 18 12/10/18 15:57 BP 147/76 12/10/18 12:55 Pulse Ox 96 12/10/18 12:55 Intake & Output 12/09/18 12/10/18 12/10/18 18:59 06:59 18:59 Intake Total 540 Balance 540 Intake: Oral 540 Other: Voiding Method Bedside Commode Bedside Commode Bedside Commode # Voids 2 1 3 # Bowel Movements 0 2 - Exam Her mental status, speech and language functions are normal. Patient is well oriented. Strength is normal. - Labs CBC & Chem 7: 12/10/18 10:36 12/10/18 10:36 Labs: Abnormal Lab Results - Last 24 Hours (Table) 12/10/18 Range/Units 10:36 Carbon Dioxide 37 H (22-30) mmol/L Glucose 112 H (74-99) mg/dL Assessment and Plan Assessment: * Altered mental status, likely due to metabolic encephalopathy. Exact cause is uncertain, possibly due to dehydration, hyponatremia and possible ?UTI. * Abnormal CT head, with evidence of old stroke in the left frontal subcortical region. This occurred in 2013, and patient has no residual deficits. Plan: * Hydration * Patient is on antibiotics for possible UTI. * B12 1946, folate >24, TSH 2.63 normal. * Continue aspirin 81 mg daily. * Neurologically clear for discharge. * Will sign off.
--- NOTE | 2018-12-10 22:03 | P.PN ---
Subjective Progress Note Date: 12/10/18 Principal diagnosis: Altered mental status secondary to metabolic encephalopathy and infection Acute urinary tract infection Patient is a 88-year-old female with a known history of hypothyroidism, hyperlipidemia, COPD on home oxygen and previous history of smoking was admitted due to altered mental status and possible urinary tract infection. Patient was also complaining of abdominal pain on admission and CT of the abdomen and pelvis showed diverticulosis. No evidence of diverticulitis. Bilateral lower extremity duplex scan is negative. Patient was seen by neurology due to altered mental status. Neurologic workup has been negative so far. Patient does have a history of prior CVA. Aspirin was started. On 12/10/2018 Patient says that she feels very weak and does get short of breath and walk to the bathroom. Patient does have underlying COPD and wears 2 L oxygen by nasal cannula. No evidence of wheezing on examination. Patient is being continued on ceftriaxone for possible urinary tract infection. Cultures showed no growth so far. B12 1946, folate >24, TSH 2.63 normal. Patient has been afebrile overnight. Encourage ambulation. PTOT and Possible discharge in next 24 hours. Objective - Vital Signs Vital signs: Vital Signs Temp 97.4 F L 12/10/18 12:55 Pulse 76 12/10/18 20:42 Resp 18 12/10/18 15:57 BP 147/76 12/10/18 12:55 Pulse Ox 96 12/10/18 12:55 Intake & Output 12/10/18 12/10/18 12/11/18 06:59 18:59 06:59 Intake Total 540 Balance 540 Intake: Oral 540 Other: Voiding Method Bedside Commode Bedside Commode # Voids 1 3 # Bowel Movements 2 - Exam PHYSICAL EXAMINATION: Patient is lying in the bed comfortably, no acute distress, awake alert and oriented. Generalized weakness.. HEENT: Normocephalic. Neck is supple. Pupils reactive. Nostrils clear. Oral cavity is moist. Ears reveal no drainage. Neck reveals no JVD, carotid bruits, or thyromegaly. CHEST EXAMINATION: Trachea is central. Symmetrical expansion. Bibasilar diminished air entry. Lung lazo clear to auscultation and percussion. CARDIAC: Normal S1, S2 with no gallops. No murmurs ABDOMEN: Soft. Bowel sounds normal. No organomegaly. No abdominal bruits. Extremities: reveal no edema. No clubbing or cyanosis Neurologically awake, alert, oriented x3 with well-coordinated movements. Able to move all extremities while in bed. No focal deficits noted Skin: No rash or skin lesions. Psychiatric: Coperative. Nonsuicidal Musculoskeletal: No joint swelling or deformity. Normal range of motion. - Labs CBC & Chem 7: 12/10/18 10:36 12/10/18 10:36 Labs: Abnormal Lab Results - Last 24 Hours (Table) 12/10/18 Range/Units 10:36 Carbon Dioxide 37 H (22-30) mmol/L Glucose 112 H (74-99) mg/dL Assessment and Plan Assessment: Altered mental status possible metabolic encephalopathy improved now Acute urinary tract infection Previous history of CVA With old left frontal infarct Medical debility COPD on home oxygen and steroid dependent Chronic hypoxic respiratory failure secondary to COPD Hypothyroidism Degenerative joint disease Obesity with BMI 31.6 History of smoking DVT prophylaxis with heparin subcu Plan: Patient will be continued on antibiotics in the form of ceftriaxone. PTOT and increase ambulation. Continue with oxygen therapy and breathing treatments as needed. Anticipate discharged home tomorrow. Further recommendations based on the clinical course. Prognosis is guarded. Time with Patient: Greater than 30
[2018-12-11] MEDS: LEVOTHYROXINE 75 MCG TAB PO SCH (05:53)
[2018-12-11] MEDS: ALBUTEROL NEBULIZED 2.5 MG/3 ML INHALATION SCH (09:05)
[2018-12-11] MEDS: HEPARIN SODIUM,PORCINE 5,000 UNIT/ML 1 ML VIAL SQ SCH (09:35)
[2018-12-11] MEDS: CYANOCOBALAMIN 500 MCG TAB PO SCH (09:36)
[2018-12-11] MEDS: MONTELUKAST 10 MG TAB PO SCH (09:36)
[2018-12-11] MEDS: MULTIVITAMINS, THERA 1 EACH TAB PO SCH (09:36)
[2018-12-11] MEDS: POTASSIUM CHLORIDE ER 10 MEQ TAB.ER.PRT PO SCH (09:36)
[2018-12-11] MEDS: FUROSEMIDE 40 MG TAB PO SCH (09:36)
[2018-12-11] MEDS: ATORVASTATIN 20 MG TAB PO SCH (09:36)
[2018-12-11] MEDS: ASPIRIN 81 MG PO SCH (09:36)
[2018-12-11] MEDS: predniSONE 5 MG TAB PO SCH (09:36)
[2018-12-11 15:48] VITALS: BP 113/59; PULSE 89; RESP 16; TEMP 97.7
--- NOTE | 2018-12-11 16:12 | P.DS ---
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 Patient will follow-up with primary care provider upon discharge. Total time taken is 35 minutes. History of present illness This is an 88-year-old female who was recently admitted with altered mental status and possible urinary tract infection and was being closely monitored. During hospitalization patient was also having abdominal pain and CT of the abdomen and pelvis was done showing diverticulosis with no evidence of diverticulitis. Patient also underwent a Doppler study of the bilateral lower extremity showing negative at this time. During hospitalization patient was seen by neurology and was cleared for discharge with the start of aspirin and will follow-up with primary care provider upon discharge. Patient is O2 dependent via nasal cannula at 2 L and is maintaining that at this time. Patient would like to go home today. Patient states that she feels better and has more strength. Currently patient's condition is stable and will be discharged today. Patient denies any chest pain, shortness of breath, or palpitations at this time. Patient is afebrile. Patient denies any nausea or vomiting and is tolerating diet. Cultures of the urine have remained negative and patient was treated adequately for 5 days on IV ceftriaxone. Guarded prognosis. On exam vital signs are stable. Temp is 98F, pulse is 71, respirations are 18, blood pressure is 109/52, oxygen saturation is 98% on 2 L via nasal cannula. Cardio S1 and S2 are present. Respiratory system shows diminished breath sounds at the bases with no wheezing noted. Abdomen is soft and nontender. Nervous system shows no focal deficits. Please refer to medication reconciliation sheet for a list of medications. Patient Condition at Discharge: Fair Plan - Discharge Summary Discharge Rx Participant: No New Discharge Prescriptions: New Aspirin 81 mg PO DAILY 30 Days #30 chew Continue Simvastatin [Zocor] 40 mg PO DAILY Montelukast [Singulair] 10 mg PO DAILY Multivitamins, Thera [Multivitamin (formulary)] 1 tab PO DAILY Albuterol Nebulized [Ventolin Nebulized] 2.5 mg INHALATION RT-BID predniSONE 5 mg PO DAILY Levothyroxine Sodium [Synthroid] 75 mcg PO DAILY Furosemide [Lasix] 40 mg PO DAILY Vit C/E/Zn/Coppr/Lutein/Zeaxan [Preservision Areds 2 Softgel] 1 cap PO BID Prevagen 1 cap PO DAILY Potassium Chloride ER [K-Dur 10] 10 meq PO DAILY Cyanocobalamin (Vitamin B-12) [Vitamin B-12] 1,000 mcg PO DAILY Discharge Medication List Simvastatin [Zocor] 40 mg PO DAILY 09/25/13 [History] Montelukast [Singulair] 10 mg PO DAILY 02/11/16 [History] Albuterol Nebulized [Ventolin Nebulized] 2.5 mg INHALATION RT-BID 03/14/16 [History] Multivitamins, Thera [Multivitamin (formulary)] 1 tab PO DAILY 03/14/16 [History] Cyanocobalamin (Vitamin B-12) [Vitamin B-12] 1,000 mcg PO DAILY 12/06/18 [History] Furosemide [Lasix] 40 mg PO DAILY 12/06/18 [History] Levothyroxine Sodium [Synthroid] 75 mcg PO DAILY 12/06/18 [History] Potassium Chloride ER [K-Dur 10] 10 meq PO DAILY 12/06/18 [History] Prevagen 1 cap PO DAILY 12/06/18 [History] Vit C/E/Zn/Coppr/Lutein/Zeaxan [Preservision Areds 2 Softgel] 1 cap PO BID 12/06/18 [History] predniSONE 5 mg PO DAILY 12/06/18 [History] Aspirin 81 mg PO DAILY 30 Days #30 chew 12/11/18 [Rx] Follow up Appointment(s)/Referral(s): Maria Alejandra Munoz MD [Primary Care Provider] - 12/27/18 2:45 pm (will See RITESH Self :)) Patient Instructions/Handouts: Urinary Tract Infection in Women (DC) Activity/Diet/Wound Care/Special Instructions: [facility] [phone] Activity limited until follow up follow up with primary care provider upon discharge continue current diet Discharge Disposition: HOME WITH HOME HEALTH SERVICES
--- NOTE | 2018-12-15 13:44 | CDI ---
Documentation Clarification Form Date: 12/15/18 From: Maral Jackson box office agent Phone: If you have a question about this query, please contact Mikala Najera, Head Animal Keeper at [phone] between 8am and 5pm. Admit Date: 12/10/18 Discharge Date: 12/11/18 Patient Name: Autumn Rubio Visit Number: [id number] ATTENTION: The Clinical Documentation Specialists (CDI) and [facility] Coding Staff appreciate your assistance in clarifying documentation. Please respond to the clarification below the line at the bottom and electronically sign. The CDI & [facility] Coding staff will review the response and follow-up if needed. Please note: Queries are made part of the Legal Health Record. If you have any questions, please contact the author of this message via ITS. Dear Dr. Aron Purcell The patient presented with dehydration and weakness. Possible sepsis is documented in your 12/07 - 12/09 progress notes but not documented in the discharge summary or day of discharge. History/Risk Factors: UTI, metabolic encephalopathy Clinical Indicators: No fever, no elevated white count, normal lactic acid WBC: 8.1 Lactic acid: 0.9 Blood cultures: Not tested Vitals signs on admission: T. 98.2, P. 56, R. 18, BP 124/77 Treatment: Antibiotics: IV Rocephin IV Bolus: 1 liter bolus then at 100 mls/hr In your professional opinion, please clarify if these findings signify one of the following conditions: Condition Sepsis ruled out SIRS, without underlying infectious process Sepsis Other, please specify Unable to determine Sepsis MTDD
== END 2018-12-11 17:08 | disposition home health service (06) | DRG 871 ==
LOC: EC 16:39 → 4MS4W 19:24 → OBSVTOIN 12-10 13:52
PROVIDERS: ADMIT Hospitalist; ATTEND Hospitalist
DX: A41.9 Sepsis, unspecified organism (principal); G93.41 Metabolic encephalopathy; N39.0 Urinary tract infection, site not specified; E87.1 Hypo-osmolality and hyponatremia; J96.11 Chronic respiratory failure with hypoxia; J98.11 Atelectasis; E86.0 Dehydration; J44.9 Chronic obstructive pulmonary disease, unspecified; Z99.81 Dependence on supplemental oxygen; F03.90 Unspecified dementia, unspecified severity, without behavioral disturbance, psychotic disturbance, mood disturbance, and anxiety; E03.9 Hypothyroidism, unspecified; E66.9 Obesity, unspecified; E78.5 Hyperlipidemia, unspecified; I10 Essential (primary) hypertension; K57.30 Diverticulosis of large intestine without perforation or abscess without bleeding; K80.20 Calculus of gallbladder without cholecystitis without obstruction; M19.90 Unspecified osteoarthritis, unspecified site; H26.9 Unspecified cataract; R19.00 Intra-abdominal and pelvic swelling, mass and lump, unspecified site; Z68.31 Body mass index [BMI] 31.0-31.9, adult; Z86.73 Personal history of transient ischemic attack (TIA), and cerebral infarction without residual deficits; Z87.891 Personal history of nicotine dependence; Z96.653 Presence of artificial knee joint, bilateral; Z98.42 Cataract extraction status, left eye; Z96.1 Presence of intraocular lens; Z79.52 Long term (current) use of systemic steroids; Z79.890 Hormone replacement therapy; Z79.899 Other long term (current) drug therapy; Z88.1 Allergy status to other antibiotic agents; Z88.7 Allergy status to serum and vaccine; Z88.8 Allergy status to other drugs, medicaments and biological substances
CPT/HCPCS: 36415; 70450; 71046; 74176; 80048; 80053; 81001; 82533; 82550; 82607; 82746; 83605; 83735; 84100; 84443; 84484; 85025; 85610; 85730; 87086; 93005; 94640; 94760; 96360; 96361; 99285

== ENCOUNTER 2019-04-19 16:36 | Inpatient (IN) | payer MEDICARE, BC, OTHER ==
[2019-04-19] MEDS ORDERED: methylPREDNISolone SOD SUCCI 125 MG/2 ML VIAL IV STA (16:47)
--- NOTE | 2019-04-19 16:51 | ED ---
SOB HPI - General Chief Complaint: Shortness of Breath Stated Complaint: ROBERT, weakness Time Seen by Provider: 04/19/19 16:36 Source: patient, EMS, RN notes reviewed Mode of arrival: EMS - History of Present Illness Initial Comments: This is a 88-year-old female who presents by EMS with complaints of shortness of breath. It has been going on for the last week getting progressively worse she's had a cough but no overt phlegm. She has generalized weakness she denies any overt fevers chills or sweats. She has of a history of COPD and is on home oxygen. She was given the last treatment in route she does states she feels improved. She has been taking Lasix. She denies any new peripheral edema no phlegm production with her cough no trouble urinating. No other modifying f actors MD Complaint: shortness of breath - Related Data Home Medications Medication Instructions Recorded Confirmed Simvastatin [Zocor] 40 mg PO DAILY 09/25/13 12/06/18 Montelukast [Singulair] 10 mg PO DAILY 02/11/16 12/06/18 Albuterol Nebulized [Ventolin 2.5 mg INHALATION RT-BID 03/14/16 12/06/18 Nebulized] Multivitamins, Thera [Multivitamin 1 tab PO DAILY 03/14/16 12/06/18 (formulary)] Cyanocobalamin (Vitamin B-12) 1,000 mcg PO DAILY 12/06/18 12/06/18 [Vitamin B-12] Furosemide [Lasix] 40 mg PO DAILY 12/06/18 12/06/18 Levothyroxine Sodium [Synthroid] 75 mcg PO DAILY 12/06/18 12/06/18 Potassium Chloride ER [K-Dur 10] 10 meq PO DAILY 12/06/18 12/06/18 Prevagen 1 cap PO DAILY 12/06/18 12/06/18 Vit C/E/Zn/Coppr/Lutein/Zeaxan 1 cap PO BID 12/06/18 12/06/18 [Preservision Areds 2 Softgel] predniSONE 5 mg PO DAILY 12/06/18 12/06/18 Previous Rx's Medication Instructions Recorded Aspirin 81 mg PO DAILY 30 Days #30 chew 12/11/18 Allergies Allergy/AdvReac Type Severity Reaction Status Date / Time bacitracin Allergy Rash/Hives Verified 12/06/18 17:34 bacitracin zinc Allergy Rash/Hives Verified 12/06/18 17:34 [From Neosporin ([id number])] dimethicone Allergy Rash/Hives Verified 12/06/18 17:34 [From A & D Emollient] glycerin Allergy Rash/Hives Verified 12/06/18 17:34 [From A & D Emollient] neomycin sulfate Allergy Rash/Hives Verified 12/06/18 17:34 [From Neosporin ([id number])] polymyxin B Allergy Rash/Hives Verified 12/06/18 17:34 [From Neosporin ([id number])] stearyl alcohol Allergy Rash/Hives Verified 12/06/18 17:34 [From A & D Emollient] Tetanus Vaccines and Toxoid Allergy swelling Verified 12/06/18 17:34 and severe redness and hardness at site Review of Systems ROS Statement: Those systems with pertinent positive or pertinent negative responses have been documented in the HPI. ROS Other: All systems not noted in ROS Statement are negative. Past Medical History Past Medical History: COPD, Eye Disorder, Hyperlipidemia, Thyroid Disorder Additional Past Medical History / Comment(s): TEAR RT ROTATOR CUFFS, RT cataracts, O2 @ 2 liters 24/ History of Any Multi-Drug Resistant Organisms: None Reported Past Surgical History: Joint Replacement, Orthopedic Surgery Additional Past Surgical History / Comment(s): ATTEMPTED REPAIR OF LEFT ROTATOR CUFF. BILATERAL KNEE REPLACEMENTS, LEFT CATARACT Past Anesthesia/Blood Transfusion Reactions: No Reported Reaction Additional Past Anesthesia/Blood Transfusion Reaction / Comment(s): no hx blood transfusion Past Psychological History: No Psychological Hx Reported Smoking Status: Former smoker Past Alcohol Use History: Daily Past Drug Use History: None Reported - Past Family History Mother Family Medical History: No Reported History Additional Family Medical History / Comment(s): mother at age 93 of "old age" Father Family Medical History: No Reported History Additional Family Medical History / Comment(s): states at age 89 with no known medical problems General Exam - General Exam Comments Initial Comments: This is a well-developed well-nourished awake alert oriented 3 female Limitations: no limitations General appearance: alert, anxious Head exam: Present: atraumatic, normocephalic, normal inspection Eye exam: Present: normal appearance, PERRL, EOMI. Absent: scleral icterus, conjunctival injection, periorbital swelling ENT exam: Present: mucous membranes dry Neck exam: Present: normal inspection, full ROM, other (No stridor JVD or bruits). Absent: tenderness, meningismus, lymphadenopathy Respiratory exam: Present: decreased breath sounds. Absent: respiratory distress, wheezes, rales, rhonchi, stridor Cardiovascular Exam: Present: regular rate, normal rhythm, normal heart sounds. Absent: systolic murmur, diastolic murmur, rubs, gallop, clicks GI/Abdominal exam: Present: soft, normal bowel sounds. Absent: distended, tenderness, guarding, rebound, rigid Extremities exam: Present: normal inspection, full ROM, normal capillary refill. Absent: tenderness, pedal edema, joint swelling, calf tenderness Back exam: Present: normal inspection Neurological exam: Present: alert, oriented X3, CN II-XII intact Psychiatric exam: Present: normal affect, normal mood Skin exam: Present: warm, dry, intact, normal color. Absent: rash Course Vital Signs 04/19/19 04/19/19 04/19/19 16:37 16:45 17:19 Temperature 97.8 F Pulse Rate 98 84 Respiratory 22 20 18 Rate Blood Pressure 143/62 98/76 O2 Sat by Pulse 99 96 Oximetry 04/19/19 18:25 Temperature Pulse Rate 76 Respiratory 18 Rate Blood Pressure 127/57 O2 Sat by Pulse 97 Oximetry - Reevaluation(s) Reevaluation #1: 04/19/19 18:59 Reevaluation patient reveals improvement breast sounds show diminished however. Medical Decision Making - Medical Decision Making Did discuss the findings with the patient the patient family presentation consistent with COPD exacerbation dehydration - Lab Data Result diagrams: 04/19/19 16:55 04/19/19 16:55 Lab Results 04/19/19 04/19/19 04/19/19 Range/Units 16:55 16:55 16:55 WBC 13.4 H (3.8-10.6) k/uL RBC 4.25 (3.80-5.40) m/uL Hgb 12.7 (11.4-16.0) gm/dL Hct 40.7 (34.0-46.0) % MCV 95.8 (80.0-100.0) fL MCH 29.9 (25.0-35.0) pg MCHC 31.2 (31.0-37.0) g/dL RDW 12.8 (11.5-15.5) % Plt Count 142 L (150-450) k/uL Neutrophils % 75 % Lymphocytes % 20 % Monocytes % 3 % Eosinophils % 1 % Basophils % 0 % Neutrophils # 10.0 H (1.3-7.7) k/uL Lymphocytes # 2.7 (1.0-4.8) k/uL Monocytes # 0.4 (0-1.0) k/uL Eosinophils # 0.2 (0-0.7) k/uL Basophils # 0.0 (0-0.2) k/uL PT 10.9 (9.0-12.0) sec INR 1.1 (<1.2) APTT 20.3 L (22.0-30.0) sec Sodium 136 L (137-145) mmol/L Potassium 4.8 (3.5-5.1) mmol/L Chloride 90 L (98-107) mmol/L Carbon Dioxide 39 H (22-30) mmol/L Anion Gap 7 mmol/L BUN 18 H (7-17) mg/dL Creatinine 0.40 L (0.52-1.04) mg/dL Est GFR (CKD-EPI)AfAm >90 (>60 ml/min/1.73 sqM) Est GFR (CKD-EPI)NonAf >90 (>60 ml/min/1.73 sqM) Glucose 104 H (74-99) mg/dL Plasma Lactic Acid Antonio (0.7-2.0) mmol/L Calcium 9.5 (8.4-10.2) mg/dL Magnesium 2.1 (1.6-2.3) mg/dL Total Bilirubin 0.7 (0.2-1.3) mg/dL AST 32 (14-36) U/L ALT 16 (4-34) U/L Alkaline Phosphatase 55 (38-126) U/L Creatine Kinase 24 L (30-135) U/L Troponin I (0.000-0.034) ng/mL NT-Pro-B Natriuret Pep pg/mL Total Protein 7.1 (6.3-8.2) g/dL Albumin 4.0 (3.5-5.0) g/dL Influenza Type A RNA (Not Detectd) Influenza Type B (PCR) (Not Detectd) 04/19/19 04/19/19 04/19/19 Range/Units 16:55 16:55 16:55 WBC (3.8-10.6) k/uL RBC (3.80-5.40) m/uL Hgb (11.4-16.0) gm/dL Hct (34.0-46.0) % MCV (80.0-100.0) fL MCH (25.0-35.0) pg MCHC (31.0-37.0) g/dL RDW (11.5-15.5) % Plt Count (150-450) k/uL Neutrophils % % Lymphocytes % % Monocytes % % Eosinophils % % Basophils % % Neutrophils # (1.3-7.7) k/uL Lymphocytes # (1.0-4.8) k/uL Monocytes # (0-1.0) k/uL Eosinophils # (0-0.7) k/uL Basophils # (0-0.2) k/uL PT (9.0-12.0) sec INR (<1.2) APTT (22.0-30.0) sec Sodium (137-145) mmol/L Potassium (3.5-5.1) mmol/L Chloride (98-107) mmol/L Carbon Dioxide (22-30) mmol/L Anion Gap mmol/L BUN (7-17) mg/dL Creatinine (0.52-1.04) mg/dL Est GFR (CKD-EPI)AfAm (>60 ml/min/1.73 sqM) Est GFR (CKD-EPI)NonAf (>60 ml/min/1.73 sqM) Glucose (74-99) mg/dL Plasma Lactic Acid Antonio 1.2 (0.7-2.0) mmol/L Calcium (8.4-10.2) mg/dL Magnesium (1.6-2.3) mg/dL Total Bilirubin (0.2-1.3) mg/dL AST (14-36) U/L ALT (4-34) U/L Alkaline Phosphatase (38-126) U/L Creatine Kinase (30-135) U/L Troponin I 0.013 (0.000-0.034) ng/mL NT-Pro-B Natriuret Pep 1450 pg/mL Total Protein (6.3-8.2) g/dL Albumin (3.5-5.0) g/dL Influenza Type A RNA (Not Detectd) Influenza Type B (PCR) (Not Detectd) 04/19/19 Range/Units 16:55 WBC (3.8-10.6) k/uL RBC (3.80-5.40) m/uL Hgb (11.4-16.0) gm/dL Hct (34.0-46.0) % MCV (80.0-100.0) fL MCH (25.0-35.0) pg MCHC (31.0-37.0) g/dL RDW (11.5-15.5) % Plt Count (150-450) k/uL Neutrophils % % Lymphocytes % % Monocytes % % Eosinophils % % Basophils % % Neutrophils # (1.3-7.7) k/uL Lymphocytes # (1.0-4.8) k/uL Monocytes # (0-1.0) k/uL Eosinophils # (0-0.7) k/uL Basophils # (0-0.2) k/uL PT (9.0-12.0) sec INR (<1.2) APTT (22.0-30.0) sec Sodium (137-145) mmol/L Potassium (3.5-5.1) mmol/L Chloride (98-107) mmol/L Carbon Dioxide (22-30) mmol/L Anion Gap mmol/L BUN (7-17) mg/dL Creatinine (0.52-1.04) mg/dL Est GFR (CKD-EPI)AfAm (>60 ml/min/1.73 sqM) Est GFR (CKD-EPI)NonAf (>60 ml/min/1.73 sqM) Glucose (74-99) mg/dL Plasma Lactic Acid Antonio (0.7-2.0) mmol/L Calcium (8.4-10.2) mg/dL Magnesium (1.6-2.3) mg/dL Total Bilirubin (0.2-1.3) mg/dL AST (14-36) U/L ALT (4-34) U/L Alkaline Phosphatase (38-126) U/L Creatine Kinase (30-135) U/L Troponin I (0.000-0.034) ng/mL NT-Pro-B Natriuret Pep pg/mL Total Protein (6.3-8.2) g/dL Albumin (3.5-5.0) g/dL Influenza Type A RNA Not Detected (Not Detectd) Influenza Type B (PCR) Not Detected (Not Detectd) - EKG Data -: EKG Interpreted by Me (Sinus rhythm first-degree AV block rate was 85. Interval 3 QRS duration 12) - Radiology Data Radiology results: report reviewed (I did review the imaging and report no acute findings.), image reviewed Disposition Clinical Impression: Acute exacerbation of chronic obstructive pulmonary disease, Dehydration, Renal insufficiency syndrome Disposition: ADMITTED IP TO THIS HOSP Condition: Fair Referrals: Maria Alejandra Munoz MD [Primary Care Provider] - 1-2 days
[2019-04-19 17:07] LABS: Basophils % (A) 0 %; Eosinophils # (A) 0.2 k/uL (0-0.7); Eosinophils % (A) 1 %; HCT 40.7 % (34.0-46.0); HGB 12.7 gm/dL (11.4-16.0); Lymphocytes # (A) 2.7 k/uL (1.0-4.8); Lymphocytes % (A) 20 %; MCH 29.9 pg (25.0-35.0); MCHC 31.2 g/dL (31.0-37.0); MCV 95.8 fL (80.0-100.0); Mean Platelet Volume 10.4; Monocytes # (A) 0.4 k/uL (0-1.0); Monocytes % (A) 3 %; Neutrophils % (A) 75 %; Platelet Count 142 k/uL (150-450); RBC 4.25 m/uL (3.80-5.40); RDW 12.8 % (11.5-15.5); WBC 13.4 k/uL (3.8-10.6)
[2019-04-19 17:17] LABS: ALT 16 U/L (4-34); AST 32 U/L (14-36); African American GFR (CKD) >90 (>60 ml/min/1.73 sqM); Alkaline Phosphatase 55 U/L (38-126); Blood Urea Nitrogen 18 mg/dL (7-17); Calcium 9.5 mg/dL (8.4-10.2); Chloride 90 mmol/L (98-107); Creatine Kinase 24 U/L (30-135); Glucose 104 mg/dL (74-99); Magnesium 2.1 mg/dL (1.6-2.3); Non-African American GFR(CKD) >90 (>60 ml/min/1.73 sqM); Sodium 136 mmol/L (137-145); Total Bilirubin 0.7 mg/dL (0.2-1.3); Total Protein 7.1 g/dL (6.3-8.2)
--- NOTE | 2019-04-19 17:22 | XR ---
EXAMINATION TYPE: XR chest 2V DATE OF EXAM: 04/19/2019 COMPARISON: Prior chest x-ray December 06, 2018. HISTORY: Difficulty breathing. TECHNIQUE: Frontal and lateral views of the chest are obtained. FINDINGS: There is no new suspicious focal air space opacity, pleural effusion, or pneumothorax seen . Persistent elevated left hemidiaphragm and cardiomegaly with atherosclerotic thoracic aorta. Persis tent degenerative change in spine and both shoulders. IMPRESSION: Chronic changes and cardiomegaly without new suspicious acute pulmonary process.
[2019-04-19 17:23] LABS: INR 1.1 (<1.2); Prothrombin Time 10.9 sec (9.0-12.0)
[2019-04-19 17:24] LABS: Anion Gap 7 mmol/L; Carbon Dioxide 39 mmol/L (22-30)
[2019-04-19 17:25] LABS: Potassium 4.8 mmol/L (3.5-5.1)
[2019-04-19 17:27] LABS: Partial Thromboplastin Time 20.3 sec (22.0-30.0)
[2019-04-19] MEDS: IPRATROPIUM-ALBUTEROL 3 ML NEB INHALATION SCH (19:29)
[2019-04-19] MEDS: SODIUM CHLORIDE 0.9% 1,000 ML IV SCH (20:14)
[2019-04-19] MEDS: VIT A,C & E-LUTEIN-MINERALS 1 EACH TAB PO SCH (21:12)
[2019-04-20] MEDS: IPRATROPIUM-ALBUTEROL 3 ML NEB INHALATION SCH ×6 (00:33→20:34)
[2019-04-20] MEDS: methylPREDNISolone SOD SUCCI 125 MG/2 ML VIAL IV SCH ×3 (01:36→12:14)
[2019-04-20] MEDS: SODIUM CHLORIDE 0.9% 1,000 ML IV SCH ×3 (05:20→20:58)
[2019-04-20] MEDS: LEVOTHYROXINE 75 MCG TAB PO SCH (06:00)
[2019-04-20] MEDS: MULTIVITAMINS, THERA 1 EACH TAB PO SCH (08:28)
[2019-04-20] MEDS: CYANOCOBALAMIN 500 MCG TAB PO SCH (08:28)
[2019-04-20] MEDS: POTASSIUM CHLORIDE ER 10 MEQ TAB.ER.PRT PO SCH (08:28)
[2019-04-20] MEDS: ASPIRIN 81 MG PO SCH (08:28)
[2019-04-20] MEDS: MONTELUKAST 10 MG TAB PO SCH (08:28)
[2019-04-20] MEDS: ATORVASTATIN 20 MG TAB PO SCH (08:28)
[2019-04-20] MEDS: VIT A,C & E-LUTEIN-MINERALS 1 EACH TAB PO SCH ×2 (08:29→20:57)
[2019-04-20] MEDS ORDERED: NON FORMULARY DRUG (Prevagen 1 CAP) PO SCH (09:00)
[2019-04-20] MEDS ORDERED: FUROSEMIDE 40 MG TAB PO SCH (09:00)
[2019-04-20] MEDS ORDERED: ONDANSETRON 4 MG/2 ML VIAL IVP PRN (13:13)
--- NOTE | 2019-04-20 13:53 | P.HPIM ---
History of Present Illness a 71-year-old pleasant female came in with complaint of nausea vomiting denied any significant epigastric abdominal pain. Patient is actually admitted for shortness of breath she does have some shortness of breath and not in signifi cant COPD exacerbation denied any fever chills denied any significant cough. Patient does have history of COPD on home oxygen uses 2 L of oxygen. Patient denied anyfever chills chest x-ray did not show any pneumonia patient denied any dysuria. Review of Systems REVIEW OF SYSTEMS: CONSTITUTIONAL: No fever, no malaise, no fatigue. HEENT: No recent visual problems or hearing problems. Denied any sore throat. CARDIOVASCULAR: No chest pain, orthopnea, PND, no palpitations, no syncope. PULMONARY: no hemoptysis. GASTROINTESTINAL: as mentioned in HPI NEUROLOGICAL: No headaches, no weakness, no numbness. HEMATOLOGICAL: Denies any bleeding or petechiae. GENITOURINARY: Denies any burning micturition, frequency, or urgency. MUSCULOSKELETAL/RHEUMATOLOGICAL: Denies any joint pain, swelling, or any muscle pain. ENDOCRINE: Denies any polyuria or polydipsia. The rest of the 14-point review of systems is negative. Past Medical History Past Medical History: COPD, Eye Disorder, Hyperlipidemia, Thyroid Disorder Additional Past Medical History / Comment(s): TEAR RT ROTATOR CUFFS, RT cataracts, O2 @ 2 liters 12/09 History of Any Multi-Drug Resistant Organisms: None Reported Past Surgical History: Joint Replacement, Orthopedic Surgery Additional Past Surgical History / Comment(s): ATTEMPTED REPAIR OF LEFT ROTATOR CUFF. BILATERAL KNEE REPLACEMENTS, LEFT CATARACT Past Anesthesia/Blood Transfusion Reactions: No Reported Reaction Additional Past Anesthesia/Blood Transfusion Reaction / Comment(s): no hx blood transfusion Past Psychological History: No Psychological Hx Reported Smoking Status: Former smoker Past Alcohol Use History: Daily Additional Past Alcohol Use History / Comment(s): quit smoking 1992,smoked approx 42 yrs 1ppd Past Drug Use History: None Reported - Past Family History Mother Family Medical History: No Reported History Additional Family Medical History / Comment(s): mother at age 93 of "old age" Father Family Medical History: No Reported History Additional Family Medical History / Comment(s): states at age 89 with no known medical problems Medications and Allergies Home Medications Medication Instructions Recorded Confirmed Type Simvastatin [Zocor] 40 mg PO HS 09/25/13 04/19/19 History Montelukast [Singulair] 10 mg PO HS 02/11/16 04/19/19 History Albuterol Nebulized [Ventolin 2.5 mg INHALATION RT-QID PRN 03/14/16 04/19/19 History Nebulized] Multivitamins, Thera [Multivitamin 1 tab PO DAILY 03/14/16 04/19/19 History (formulary)] Cyanocobalamin (Vitamin B-12) 1,000 mcg PO DAILY 12/06/18 04/19/19 History [Vitamin B-12] Furosemide [Lasix] 40 mg PO DAILY 12/06/18 04/19/19 History Levothyroxine Sodium [Synthroid] 75 mcg PO DAILY 12/06/18 04/19/19 History Potassium Chloride ER [K-Dur 10] 10 meq PO DAILY 12/06/18 04/19/19 History Prevagen 1 cap PO DAILY 12/06/18 04/19/19 History Vit C/E/Zn/Coppr/Lutein/Zeaxan 1 cap PO BID 12/06/18 04/19/19 History [Preservision Areds 2 Softgel] predniSONE 5 mg PO DAILY 12/06/18 04/19/19 History Aspirin 81 mg PO DAILY 30 Days #30 chew 12/11/18 04/19/19 Rx Acetaminophen [Tylenol Extra 500 mg PO DAILY PRN 04/19/19 04/19/19 History Strength] Biotin 10,000 mcg PO DAILY 04/19/19 04/19/19 History Furosemide [Lasix] 20 mg PO HS PRN 04/19/19 04/19/19 History Allergies Allergy/AdvReac Type Severity Reaction Status Date / Time bacitracin Allergy Rash/Hives Verified 04/19/19 19:55 bacitracin zinc Allergy Rash/Hives Verified 04/19/19 19:55 [From Neosporin ([id number])] dimethicone Allergy Rash/Hives Verified 04/19/19 19:55 [From A & D Emollient] glycerin Allergy Rash/Hives Verified 04/19/19 19:55 [From A & D Emollient] neomycin sulfate Allergy Rash/Hives Verified 04/19/19 19:55 [From Neosporin ([id number])] polymyxin B Allergy Rash/Hives Verified 04/19/19 19:55 [From Neosporin ([id number])] stearyl alcohol Allergy Rash/Hives Verified 04/19/19 19:55 [From A & D Emollient] Tetanus Vaccines and Toxoid Allergy swelling Verified 04/19/19 19:55 and severe redness and hardness at site Physical Exam Vitals: Vital Signs Temp Pulse Pulse Resp BP BP Pulse Ox 04/20/19 12:29 97.5 F L 85 16 119/56 96 04/20/19 11:38 68 04/20/19 11:27 64 04/20/19 08:08 76 04/20/19 08:03 68 04/20/19 05:11 98.0 F 51 L 16 120/67 98 04/19/19 21:20 98.3 F 83 18 149/72 96 04/19/19 20:17 98.6 F 70 22 123/66 95 04/19/19 20:14 98.6 F 70 22 123/66 95 04/19/19 19:38 87 04/19/19 19:31 82 04/19/19 18:25 76 18 127/57 97 04/19/19 17:19 84 18 98/76 96 04/19/19 16:45 20 04/19/19 16:37 97.8 F 98 22 143/62 99 Intake and Output 04/19/19 04/20/19 04/20/19 22:59 06:59 14:59 Intake Total 800 Balance 800 Intake: Oral 800 Other: Voiding Method Toilet Toilet # Voids 1 2 1 Weight 83.007 kg PHYSICAL EXAMINATION: GENERAL: The patient is alert and oriented x3, not in any acute distress. Well developed, well nourished. HEENT: Pupils are round and equally reacting to light. EOMI. No scleral icterus. No conjunctival pallor. Normocephalic, atraumatic. No pharyngeal erythema. No thyromegaly. CARDIOVASCULAR: S1 and S2 present. No murmurs, rubs, or gallops. PULMONARY: mildly decreased air entry into bilateral lung lazo ABDOMEN: Soft, nontender, nondistended, normoactive bowel sounds. No palpable organomegaly. MUSCULOSKELETAL: No joint swelling or deformity. EXTREMITIES: No cyanosis, clubbing, or pedal edema. NEUROLOGICAL: Gross neurological examination did not reveal any focal deficits. SKIN: No rashes. Results CBC & Chem 7: 04/19/19 16:55 04/19/19 16:55 Labs: Abnormal Lab Results - Last 24 Hours (Table) 04/19/19 04/19/19 04/19/19 Range/Units 16:55 16:55 16:55 WBC 13.4 H (3.8-10.6) k/uL Plt Count 142 L (150-450) k/uL Neutrophils # 10.0 H (1.3-7.7) k/uL APTT 20.3 L (22.0-30.0) sec Sodium 136 L (137-145) mmol/L Chloride 90 L (98-107) mmol/L Carbon Dioxide 39 H (22-30) mmol/L BUN 18 H (7-17) mg/dL Creatinine 0.40 L (0.52-1.04) mg/dL Glucose 104 H (74-99) mg/dL Creatine Kinase 24 L (30-135) U/L Thrombosis Risk Factor Assmnt - Choose All That Apply Any of the Below Risk Factors Present?: Yes Each Factor Represents 1 point: Abnormal pulmonary function (COPD), Obesity (BMI >25) Other Risk Factors: Yes Each Risk Factor Represents 3 Points: Age 75 years or older Other congenital or acquired thrombophilia - If yes, enter type in comment: No Thrombosis Risk Factor Assessment Total Risk Factor Score: 5 Thrombosis Risk Factor Assessment Level: High Risk Assessment and Plan Plan: -nausea vomiting: Secondary to possibly peptic ulcer disease or gastritis patient is on the steroids at home. Patient was started on Protonix Zofran will monitor overnight patient is a concern for cc of normal saline which will be continued -COPD with mild exacerbation patient will not require any systemic steroids patient will be started on inhaled steroids and inhalational treatments -leukocytosis secondary to systemic steroids no evidence of infection of pneumonia -hyperlipidemia Hypothyroidism
[2019-04-20] MEDS: PANTOPRAZOLE 40 MG/10 ML VIAL IVP SCH ×2 (15:10→20:57)
[2019-04-20] MEDS: BUDESONIDE 0.5 MG/2 ML NEBU INHALATION SCH (20:34)
[2019-04-21] MEDS: IPRATROPIUM-ALBUTEROL 3 ML NEB INHALATION SCH ×7 (00:59→23:57)
[2019-04-21] MEDS: LEVOTHYROXINE 75 MCG TAB PO SCH (05:50)
[2019-04-21] MEDS: BUDESONIDE 0.5 MG/2 ML NEBU INHALATION SCH ×2 (07:51→20:40)
[2019-04-21] MEDS: PANTOPRAZOLE 40 MG/10 ML VIAL IVP SCH (08:04)
[2019-04-21] MEDS: ENOXAPARIN 40 MG/0.4 ML SYRINGE SQ SCH (08:05)
[2019-04-21] MEDS: MONTELUKAST 10 MG TAB PO SCH (10:04)
[2019-04-21] MEDS: MULTIVITAMINS, THERA 1 EACH TAB PO SCH (10:04)
[2019-04-21] MEDS: CYANOCOBALAMIN 500 MCG TAB PO SCH (10:04)
[2019-04-21] MEDS: VIT A,C & E-LUTEIN-MINERALS 1 EACH TAB PO SCH ×2 (10:04→19:56)
[2019-04-21] MEDS: ASPIRIN 81 MG PO SCH (10:04)
[2019-04-21] MEDS: ATORVASTATIN 20 MG TAB PO SCH (10:04)
[2019-04-21] MEDS: POTASSIUM CHLORIDE ER 10 MEQ TAB.ER.PRT PO SCH (10:04)
[2019-04-21] MEDS: predniSONE 5 MG TAB PO SCH (10:05)
[2019-04-21] MEDS: SODIUM CHLORIDE 0.9% 1,000 ML IV SCH (10:08)
--- NOTE | 2019-04-21 14:16 | P.PN ---
Subjective a 88-year-old female came in with nausea vomiting which was believed secondary to gastritis or peptic is a disease patient is on Protonix doing better today nausea improved but still unable to eatmuch of her breakfast prefer to stay 1 more night in the hospital. Patient had mild COPD exacerbation wheezing completely resolved at this time decreased air entry into bilateral lung lazo Constitutional: Denied any fatigue denied any fever. Cardio vascular: denied any chest pain, palpitations Gastrointestinal denied any nausea vomiting Pulmonary: Denied any shortness of breath cough Neurologic denied any new focal deficits All inpatient medications were reviewed and appropriate changes in these medications as dictated in the interval history and assessment and plan. Objective - Vital Signs Vital signs: Vital Signs Temp 97.0 F L 04/21/19 13:08 Pulse 97 04/21/19 13:08 Resp 18 04/21/19 13:08 BP 109/66 04/21/19 13:08 Pulse Ox 98 04/21/19 13:08 Intake & Output 04/20/19 04/21/19 04/21/19 18:59 06:59 18:59 Intake Total 800 700 Balance 800 700 Intake: Oral 800 700 Other: Voiding Method Toilet Toilet Toilet # Voids 1 1 1 # Bowel Movements 1 - Exam PHYSICAL EXAMINATION: GENERAL: The patient is alert and oriented x3, not in any acute distress. Well developed, well nourished. HEENT: Pupils are round and equally reacting to light. EOMI. No scleral icterus. No conjunctival pallor. Normocephalic, atraumatic. No pharyngeal erythema. No thyromegaly. CARDIOVASCULAR: S1 and S2 present. No murmurs, rubs, or gallops. PULMONARY: decreased air entry into bilateral lung lazo. ABDOMEN: Soft, nontender, nondistended, normoactive bowel sounds. No palpable organomegaly. MUSCULOSKELETAL: No joint swelling or deformity. EXTREMITIES: No cyanosis, clubbing, or pedal edema. NEUROLOGICAL: Gross neurological examination did not reveal any focal deficits. SKIN: No rashes. - Labs CBC & Chem 7: 04/19/19 16:55 04/19/19 16:55 Labs: Microbiology - Last 24 Hours (Table) 04/19/19 17:00 Blood Culture - Preliminary Blood No Growth after 24 hours Assessment and Plan Plan: -nausea vomiting: Secondary to possibly peptic ulcer disease or gastritis patient is on the steroids at home. Patient was started on Protonix Zofran , doing better possibility of discharge tomorrow -COPD with mild exacerbation patient will not require any systemic steroids patient will be started on inhaled steroids and inhalational treatments -leukocytosis secondary to systemic steroids no evidence of infection of pneumonia -hyperlipidemia Hypothyroidism
[2019-04-21] MEDS: PANTOPRAZOLE 40 MG TABLET PO SCH (17:06)
[2019-04-22] MEDS: IPRATROPIUM-ALBUTEROL 3 ML NEB INHALATION SCH ×6 (02:01→23:36)
[2019-04-22] MEDS: LEVOTHYROXINE 75 MCG TAB PO SCH (05:40)
[2019-04-22] MEDS: ASPIRIN 81 MG PO SCH (07:03)
[2019-04-22] MEDS: ENOXAPARIN 40 MG/0.4 ML SYRINGE SQ SCH (07:04)
[2019-04-22] MEDS: MONTELUKAST 10 MG TAB PO SCH (07:04)
[2019-04-22] MEDS: predniSONE 5 MG TAB PO SCH (07:04)
[2019-04-22] MEDS: MULTIVITAMINS, THERA 1 EACH TAB PO SCH (07:04)
[2019-04-22] MEDS: ATORVASTATIN 20 MG TAB PO SCH (07:04)
[2019-04-22] MEDS: PANTOPRAZOLE 40 MG TABLET PO SCH ×2 (07:04→16:02)
[2019-04-22] MEDS: POTASSIUM CHLORIDE ER 10 MEQ TAB.ER.PRT PO SCH (07:04)
[2019-04-22] MEDS: CYANOCOBALAMIN 500 MCG TAB PO SCH (07:04)
[2019-04-22] MEDS: VIT A,C & E-LUTEIN-MINERALS 1 EACH TAB PO SCH ×2 (07:04→20:50)
[2019-04-22] MEDS: SODIUM CHLORIDE 0.9% 1,000 ML IV SCH (07:05)
[2019-04-22 08:09] LABS: HCT 37.2 % (34.0-46.0); HGB 11.3 gm/dL (11.4-16.0); Hypochromasia Slight; MCHC 30.3 g/dL (31.0-37.0); MCV 98.9 fL (80.0-100.0); Mean Platelet Volume 10.2; Platelet Count 139 k/uL (150-450); RBC 3.76 m/uL (3.80-5.40); RDW 13.3 % (11.5-15.5); WBC 14.1 k/uL (3.8-10.6)
[2019-04-22 08:35] LABS: African American GFR (CKD) >90 (>60 ml/min/1.73 sqM); Anion Gap 6 mmol/L; Blood Urea Nitrogen 17 mg/dL (7-17); Carbon Dioxide 33 mmol/L (22-30); Chloride 98 mmol/L (98-107); Glucose 127 mg/dL (74-99); Non-African American GFR(CKD) 87 (>60 ml/min/1.73 sqM); Potassium 4.9 mmol/L (3.5-5.1); Sodium 137 mmol/L (137-145)
[2019-04-22] MEDS ORDERED: FUROSEMIDE 20 MG TAB PO SCH (10:15)
--- NOTE | 2019-04-22 11:02 | XR ---
EXAMINATION TYPE: XR chest 2V DATE OF EXAM: 04/22/2019 COMPARISON: 04/19/2019 HISTORY: Shortness of breath TECHNIQUE: Frontal and lateral views of the chest are obtained. FINDINGS: There are trace bilateral pleural effusions, left greater than right and mild interstitial pulmonary edema. Associated bibasilar airspace disease likely atelectasis. Cardiomediastinal silhoue tte is upper limits of normal. Diffuse osseous demineralization is seen with moderate degenerative ch sofi of the spine. Degenerative changes of the shoulders are also noted. Pulmonary hyperinflation and flattening of the diaphragms relates underlying COPD. IMPRESSION: 1. Fluid overload with mild interstitial edema and trace pleural effusions (left greater than right). Consider cardiogenic fluid overload. 2. Radiographic sequela of COPD.
[2019-04-22] MEDS: BUDESONIDE 0.5 MG/2 ML NEBU INHALATION SCH ×2 (11:03→19:23)
--- NOTE | 2019-04-22 12:40 | P.CNPUL ---
History of Present Illness Consult date: 04/22/19 Reason for consult: dyspnea, COPD Chief complaint: Dyspnea, weakness History of present illness: 88-year-old white female patient who follows with Dr. Savage for primary care services with past medical history of severe COPD with the baseline FEV1 of 0.77 L or 40% of predicted, on maintenance dose of prednisone, chronic hypoxemic respiratory failure on home oxygen, hypothyroidism, former smoker, osteoarthritis with previous history of bilateral knee replacements, left cataract surgery. Patient was brought into the hospital per EMS on 04/19/2019 for evaluation of worsening shortness of breath that has been going on for over a week. Patient had a cough but no phlegm production, she is complaining of generalized weakness, but denied any fever, chills or sweats. Patient was also complaining of nausea and vomiting. Patient denied any new peripheral edema, denied any chest pain, denied any hemoptysis. Chest x-ray showed chronic changes with cardiomegaly, without new suspicious acute pulmonary process. Bloo d work showed white blood cell count of 13.4, hemoglobin of 12.7, sodium was 136, potassium is 4.8, chloride was 90, CO2 is 39, BUN was 18 and creatinine was 0.40, LFTs are within normal limits, plasma lactic acid was normal at 1.2, proBNP was 1450, troponin was 0.013, influenza screen was negative. Patient was started on breathing treatments, Pulmicort, she is on her maintenance dose of prednisone. Today's follow-up chest x-ray showed of fluid overload with mild interstitial edema and trace pleural effusions left greater than right, and patient was started on IV Lasix at 20 mg twice daily Review of Systems All systems: negative Constitutional: Reports weakness, Denies chills, Denies fever Eyes: denies blurred vision, denies pain Ears, nose, mouth and throat: Denies headache, Denies sore throat Cardiovascular: Denies shortness of breath Respiratory: Reports cough, Reports dyspnea, Reports home oxygen, Reports wheezing Gastrointestinal: Reports nausea, Reports vomiting, Denies abdominal pain, Denies diarrhea Genitourinary: Denies dysuria, Denies hematuria Musculoskeletal: Denies myalgias Integumentary: Denies pruritus, Denies rash Neurological: Denies numbness, Denies weakness Psychiatric: Denies anxiety, Denies depression Endocrine: Denies fatigue, Denies weight change Past Medical History Past Medical History: COPD, Eye Disorder, Hyperlipidemia, Thyroid Disorder Additional Past Medical History / Comment(s): TEAR RT ROTATOR CUFFS, RT cataracts, O2 @ 2 liters 12/09 History of Any Multi-Drug Resistant Organisms: None Reported Past Surgical History: Joint Replacement, Orthopedic Surgery Additional Past Surgical History / Comment(s): ATTEMPTED REPAIR OF LEFT ROTATOR CUFF. BILATERAL KNEE REPLACEMENTS, LEFT CATARACT Past Anesthesia/Blood Transfusion Reactions: No Reported Reaction Additional Past Anesthesia/Blood Transfusion Reaction / Comment(s): no hx blood transfusion Past Psychological History: No Psychological Hx Reported Smoking Status: Former smoker Past Alcohol Use History: Daily Additional Past Alcohol Use History / Comment(s): quit smoking 1992,smoked approx 42 yrs 1ppd Past Drug Use History: None Reported - Past Family History Mother Family Medical History: No Reported History Additional Family Medical History / Comment(s): mother at age 93 of "old age" Father Family Medical History: No Reported History Additional Family Medical History / Comment(s): states at age 89 with no known medical problems Medications and Allergies Home Medications Medication Instructions Recorded Confirmed Type Simvastatin [Zocor] 40 mg PO HS 09/25/13 04/19/19 History Montelukast [Singulair] 10 mg PO HS 02/11/16 04/19/19 History Albuterol Nebulized [Ventolin 2.5 mg INHALATION RT-QID PRN 03/14/16 04/19/19 History Nebulized] Multivitamins, Thera [Multivitamin 1 tab PO DAILY 03/14/16 04/19/19 History (formulary)] Cyanocobalamin (Vitamin B-12) 1,000 mcg PO DAILY 12/06/18 04/19/19 History [Vitamin B-12] Furosemide [Lasix] 40 mg PO DAILY 12/06/18 04/19/19 History Levothyroxine Sodium [Synthroid] 75 mcg PO DAILY 12/06/18 04/19/19 History Potassium Chloride ER [K-Dur 10] 10 meq PO DAILY 12/06/18 04/19/19 History Prevagen 1 cap PO DAILY 12/06/18 04/19/19 History Vit C/E/Zn/Coppr/Lutein/Zeaxan 1 cap PO BID 12/06/18 04/19/19 History [Preservision Areds 2 Softgel] predniSONE 5 mg PO DAILY 12/06/18 04/19/19 History Aspirin 81 mg PO DAILY 30 Days #30 chew 12/11/18 04/19/19 Rx Acetaminophen [Tylenol Extra 500 mg PO DAILY PRN 04/19/19 04/19/19 History Strength] Biotin 10,000 mcg PO DAILY 04/19/19 04/19/19 History Furosemide [Lasix] 20 mg PO HS PRN 04/19/19 04/19/19 History Allergies Allergy/AdvReac Type Severity Reaction Status Date / Time bacitracin Allergy Rash/Hives Verified 04/19/19 19:55 bacitracin zinc Allergy Rash/Hives Verified 04/19/19 19:55 [From Neosporin ([id number])] dimethicone Allergy Rash/Hives Verified 04/19/19 19:55 [From A & D Emollient] glycerin Allergy Rash/Hives Verified 04/19/19 19:55 [From A & D Emollient] neomycin sulfate Allergy Rash/Hives Verified 04/19/19 19:55 [From Neosporin ([id number])] polymyxin B Allergy Rash/Hives Verified 04/19/19 19:55 [From Neosporin ([id number])] stearyl alcohol Allergy Rash/Hives Verified 04/19/19 19:55 [From A & D Emollient] Tetanus Vaccines and Toxoid Allergy swelling Verified 04/19/19 19:55 and severe redness and hardness at site Physical Exam Vitals: Vital Signs Temp Pulse Pulse Resp BP Pulse Ox 04/22/19 11:24 96 04/22/19 11:04 96 04/22/19 06:09 102 H 04/22/19 05:58 92 L 04/22/19 05:56 102 H 04/22/19 04:30 97.5 F L 63 20 158/57 100 04/21/19 21:15 97.3 F L 90 22 144/74 98 04/21/19 20:51 80 16 04/21/19 20:40 84 16 04/21/19 15:18 76 04/21/19 15:08 84 04/21/19 13:08 97.0 F L 97 18 109/66 98 Intake and Output 04/21/19 04/22/19 04/22/19 22:59 06:59 14:59 Intake Total 900 100 Balance 900 100 Intake: Oral 900 100 Other: Voiding Method Toilet Bedside Commode # Voids 1 2 2 GENERAL EXAM: Alert, very pleasant, 88-year-old white female on 2 L of oxygen a pulse ox of 97% comfortable in no apparent distress. HEAD: Normocephalic/atraumatic. EYES: Normal reaction of pupils, equal size. Conjunctiva pink, sclera white. NOSE: Clear with pink turbinates. THROAT: No erythema or exudates. NECK: No masses, no JVD, no thyroid enlargement, no adenopathy. CHEST: No chest wall deformity. Symmetrical expansion. LUNGS: Equal air entry with some bibasilar crackles, overall diminished breath sounds, CVS: Regular rate and rhythm, normal S1 and S2, no gallops, no murmurs, no rubs ABDOMEN: Soft, nontender. No hepatosplenomegaly, normal bowel sounds, no guarding or rigidity. EXTREMITIES: No clubbing, mild pretibial edema, no cyanosis, 2+ pulses and upper and lower extremities. MUSCULOSKELETAL: Muscle strength and tone normal. SPINE: No scoliosis or deformity SKIN: No rashes CENTRAL NERVOUS SYSTEM: Alert and oriented -3. No focal deficits, tone is normal in all 4 extremities. PSYCHIATRIC: Alert and oriented -3. Appropriate affect. Intact judgment and insight. Results - Laboratory Findings CBC and BMP: 04/22/19 07:37 04/22/19 07:37 PT/INR, D-dimer PT 10.9 sec (9.0-12.0) 04/19/19 16:55 INR 1.1 (<1.2) 04/19/19 16:55 Abnormal lab findings: Abnormal Labs 04/19/19 04/19/19 04/19/19 16:55 16:55 16:55 WBC 13.4 H RBC Hgb MCHC Plt Count 142 L Neutrophils # 10.0 H APTT 20.3 L Sodium 136 L Chloride 90 L Carbon Dioxide 39 H BUN 18 H Creatinine 0.40 L Glucose 104 H Calcium Creatine Kinase 24 L 04/22/19 04/22/19 07:37 07:37 WBC 14.1 H RBC 3.76 L Hgb 11.3 L MCHC 30.3 L Plt Count 139 L Neutrophils # APTT Sodium Chloride Carbon Dioxide 33 H BUN Creatinine 0.51 L Glucose 127 H Calcium 8.0 L Creatine Kinase - Diagnostic Findings Chest x-ray: report reviewed, image reviewed Assessment and Plan Plan: Assessment: #1. Acute exacerbation of chronic obstructive pulmonary disease, and component of fluid overload evident on today's chest x-ray on 04/22/2019. Initial chest x-ray on presentation on 04/19/2019 did not show evidence of acute pulmonary process. Influenza screen is negative, patient is afebrile #2. Nausea and vomiting, on presentation, improved #3. Chronic hypoxemic respiratory failure related to severe COPD, and patient has an FEV1 of 0.77 L or 40% of predicted. Patient is also on maintenance dose of prednisone #4. Hypothyroidism #5. Hyperlipidemia #6. Former smoker #7. Osteoarthritis, with history of bilateral knee replacement #8. Cataracts Plan: Continue current medical treatment, IV Lasix, nebulized bronchodilators, steroids. Repeat chest x-ray in the morning, repeat lab work in the morning. We'll continue to follow I performed a history & physical examination of the patient and discussed their management with my nurse practitioner, Lin Martinez. I reviewed the nurse practitioner's note and agree with the documented findings and plan of care. Lung sounds are positive for some basilar crackles. The findings and the impression was discussed with the patient. I attest to the documentation by the nurse practitioner. Time with Patient: Greater than 30
--- NOTE | 2019-04-22 13:05 | P.PN ---
Subjective Progress Note Date: 04/22/19 Principal diagnosis: 88-year-old female came in with nausea vomiting which was believed secondary to gastritis or peptic is a disease patient is on Protonix doing better today naus ea improved but still unable to eatmuch of her breakfast prefer to stay 1 more night in the hospital. Patient had mild COPD exacerbation wheezing completely resolved at this time decreased air entry into bilateral lung lazo Constitutional: Denied any fatigue denied any fever. Cardio vascular: denied any chest pain, palpitations Gastrointestinal denied any nausea vomiting Pulmonary: Denied any shortness of breath cough Neurologic denied any new focal deficits 04/22/2019 Patient is seen and evaluated in follow-up today stating that she is having some shortness of breath and had some labored breathing overnight and felt like she was unable to catch her breath. Repeat chest x-ray was done today showing some mild fluid overload with a trace of pleural effusions left greater than right. Will resume Lasix and give 20 mg twice daily of IV and will likely transition back to oral tomorrow. Repeat chest x-ray in the morning. Patient to continue on home dose of prednisone along with breathing treatments. Instructed the patient to increase activity as tolerated she has been laying in bed. Currently no reports of chest pain or palpitations. Patient is afebrile. Nausea and vomiting has subsided and patient is tolerating diet. Objective - Vital Signs Vital signs: Vital Signs Temp 97.5 F L 04/22/19 04:30 Pulse 96 04/22/19 11:24 Resp 20 04/22/19 04:30 BP 158/57 04/22/19 04:30 Pulse Ox 92 L 04/22/19 05:58 Intake & Output 04/21/19 04/22/19 04/22/19 18:59 06:59 18:59 Intake Total 1000 700 Balance 1000 700 Intake: Oral 1000 700 Other: Voiding Method Toilet Bedside Commode # Voids 1 2 2 - Exam GENERAL: The patient is alert and oriented x3, not in any acute distress. Well developed, well nourished. HEENT: Pupils are round and equally reacting to light. EOMI. No scleral icterus. No conjunctival pallor. Normocephalic, atraumatic. No pharyngeal erythema. No thyromegaly. CARDIOVASCULAR: S1 and S2 present. No murmurs, rubs, or gallops. PULMONARY: decreased air entry into bilateral lung lazo. Mild crackles noted on exam ABDOMEN: Soft, nontender, nondistended, normoactive bowel sounds. No palpable organomegaly. MUSCULOSKELETAL: No joint swelling or deformity. EXTREMITIES: No cyanosis, clubbing, or pedal edema. NEUROLOGICAL: Gross neurological examination did not reveal any focal deficits. SKIN: No rashes. - Labs CBC & Chem 7: 04/22/19 07:37 04/22/19 07:37 Labs: Abnormal Lab Results - Last 24 Hours (Table) 04/22/19 04/22/19 Range/Units 07:37 07:37 WBC 14.1 H (3.8-10.6) k/uL RBC 3.76 L (3.80-5.40) m/uL Hgb 11.3 L (11.4-16.0) gm/dL MCHC 30.3 L (31.0-37.0) g/dL Plt Count 139 L (150-450) k/uL Carbon Dioxide 33 H (22-30) mmol/L Creatinine 0.51 L (0.52-1.04) mg/dL Glucose 127 H (74-99) mg/dL Calcium 8.0 L (8.4-10.2) mg/dL Microbiology - Last 24 Hours (Table) 04/19/19 17:00 Blood Culture - Preliminary Blood No Growth after 48 hours Assessment and Plan Assessment: -nausea vomiting: Secondary to possibly peptic ulcer disease or gastritis patient is on the steroids at home. Patient was started on Protonix Zofran, resolved. Patient is tolerating diet -COPD with mild exacerbation patient will not require any systemic steroids patient will be started on inhaled steroids and inhalational treatments -Shortness of breath secondary to mild fluid overload as seen on chest x-ray, will resume Lasix and repeat chest x-ray tomorrow -leukocytosis secondary to systemic steroids no evidence of infection of pneumonia -hyperlipidemia -Hypothyroidism
[2019-04-22] MEDS: FUROSEMIDE 10 MG/ML 2 ML VIAL IV SCH (20:50)
[2019-04-23] MEDS: IPRATROPIUM-ALBUTEROL 3 ML NEB INHALATION SCH ×3 (03:55→11:12)
[2019-04-23 05:28] VITALS: BP 123/71; RESP 22; TEMP 97.9
[2019-04-23] MEDS: LEVOTHYROXINE 75 MCG TAB PO SCH (05:39)
[2019-04-23] MEDS: BUDESONIDE 0.5 MG/2 ML NEBU INHALATION SCH (07:30)
--- NOTE | 2019-04-23 07:53 | XR ---
EXAMINATION TYPE: XR chest 1V portable DATE OF EXAM: 04/23/2019 COMPARISON: 04/22/2019 HISTORY: Shortness of breath TECHNIQUE: Single frontal view of the chest is obtained. FINDINGS: Bilateral consolidation and pleural effusion noted. The heart is enlarged. Arthropathy of the shoulders. No sizable pneumothorax. Hyperinflation suggests COPD. Atherosclerotic change aorta. IMPRESSION: 1. COPD with superimposed CHF favored over interstitial pneumonia correlate clinically. No significan t interval change.
[2019-04-23] MEDS: ENOXAPARIN 40 MG/0.4 ML SYRINGE SQ SCH (09:04)
[2019-04-23] MEDS: ATORVASTATIN 20 MG TAB PO SCH (09:04)
[2019-04-23] MEDS: PANTOPRAZOLE 40 MG TABLET PO SCH (09:05)
[2019-04-23] MEDS: VIT A,C & E-LUTEIN-MINERALS 1 EACH TAB PO SCH (09:05)
[2019-04-23] MEDS: MONTELUKAST 10 MG TAB PO SCH (09:05)
[2019-04-23] MEDS: FUROSEMIDE 10 MG/ML 2 ML VIAL IV SCH (09:05)
[2019-04-23] MEDS: MULTIVITAMINS, THERA 1 EACH TAB PO SCH (09:05)
[2019-04-23] MEDS: CYANOCOBALAMIN 500 MCG TAB PO SCH (09:05)
[2019-04-23] MEDS: ASPIRIN 81 MG PO SCH (09:05)
[2019-04-23] MEDS: POTASSIUM CHLORIDE ER 10 MEQ TAB.ER.PRT PO SCH (09:05)
[2019-04-23] MEDS: predniSONE 5 MG TAB PO SCH (09:06)
[2019-04-23 10:01] LABS: African American GFR (CKD) >90 (>60 ml/min/1.73 sqM); Anion Gap 6 mmol/L; Blood Urea Nitrogen 12 mg/dL (7-17); Calcium 8.1 mg/dL (8.4-10.2); Carbon Dioxide 34 mmol/L (22-30); Chloride 96 mmol/L (98-107); Glucose 184 mg/dL (74-99); Non-African American GFR(CKD) 84 (>60 ml/min/1.73 sqM); Potassium 4.4 mmol/L (3.5-5.1); Sodium 136 mmol/L (137-145)
[2019-04-23 11:24] VITALS: PULSE 98
--- NOTE | 2019-04-23 13:08 | P.PN ---
Subjective Progress Note Date: 04/23/19 Principal diagnosis: Dyspnea, COPD 88-year-old white female patient who follows with Dr. Savage for primary care services with past medical history of severe COPD with the baseline FEV1 of 0.77 L or 40% of predicted, on maintenance dose of prednisone, chronic hypoxemic respiratory failure on home oxygen, hypothyroidism, former smoker, osteoarthritis with previous history of bilateral knee replacements, left cataract surgery. Patient was brought into the hospital per EMS on 04/19/2019 for evaluation of worsening shortness of breath that has been going on for over a week. Patient had a cough but no phlegm production, she is complaining of generalized weakness, but denied any fever, chills or sweats. Patient was also complaining of nausea and vomiting. Patient denied any new peripheral edema, denied any chest pain, denied any hemoptysis. Chest x-ray showed chronic c hanges with cardiomegaly, without new suspicious acute pulmonary process. Blood work showed white blood cell count of 13.4, hemoglobin of 12.7, sodium was 136, potassium is 4.8, chloride was 90, CO2 is 39, BUN was 18 and creatinine was 0.40, LFTs are within normal limits, plasma lactic acid was normal at 1.2, proBNP was 1450, troponin was 0.013, influenza screen was negative. Patient was started on breathing treatments, Pulmicort, she is on her maintenance dose of prednisone. Today's follow-up chest x-ray showed of fluid overload with mild interstitial edema and trace pleural effusions left greater than right, and patient was started on IV Lasix at 20 mg twice daily. On 04/23/2019 patient seen in follow-up on medical surgical floor, she states her breathing is improving, she has been diuresed, she is in negative fluid balance, today's chest x-ray has been reviewed showing interstitial prominence likely related to fluid overload, clinically patient is feeling better, less dyspneic, she is on 2 L of oxygen her pulse ox of 91%. Patient is hoping to be able to go home today, from pulmonary perspective she stable for discharge home, she can continue on oral prednisone oral diuretics, nebulized treatments at home. She will need outpatient follow-up Objective - Vital Signs Vital signs: Vital Signs Temp 97.9 F 04/23/19 05:26 Pulse 98 04/23/19 11:24 Resp 22 04/23/19 05:26 BP 123/71 04/23/19 05:26 Pulse Ox 91 L 04/23/19 05:26 Intake & Output 04/22/19 04/23/19 04/23/19 18:59 06:59 18:59 Other: Voiding Method Bedside Commode Bedside Commode # Voids 4 2 # Bowel Movements 1 - Exam GENERAL EXAM: Alert, very pleasant, 88-year-old white female on 2 L of oxygen a pulse ox of 97% comfortable in no apparent distress. HEAD: Normocephalic/atraumatic. EYES: Normal reaction of pupils, equal size. Conjunctiva pink, sclera white. NOSE: Clear with pink turbinates. THROAT: No erythema or exudates. NECK: No masses, no JVD, no thyroid enlargement, no adenopathy. CHEST: No chest wall deformity. Symmetrical expansion. LUNGS: Equal air entry with some bibasilar crackles, overall diminished breath sounds, CVS: Regular rate and rhythm, normal S1 and S2, no gallops, no murmurs, no rubs ABDOMEN: Soft, nontender. No hepatosplenomegaly, normal bowel sounds, no guarding or rigidity. EXTREMITIES: No clubbing, mild pretibial edema, no cyanosis, 2+ pulses and upper and lower extremities. MUSCULOSKELETAL: Muscle strength and tone normal. SPINE: No scoliosis or deformity SKIN: No rashes CENTRAL NERVOUS SYSTEM: Alert and oriented -3. No focal deficits, tone is normal in all 4 extremities. PSYCHIATRIC: Alert and oriented -3. Appropriate affect. Intact judgment and insight. - Labs CBC & Chem 7: 04/22/19 07:37 04/23/19 08:42 Labs: Abnormal Lab Results - Last 24 Hours (Table) 04/23/19 Range/Units 08:42 Sodium 136 L (137-145) mmol/L Chloride 96 L (98-107) mmol/L Carbon Dioxide 34 H (22-30) mmol/L Glucose 184 H (74-99) mg/dL Calcium 8.1 L (8.4-10.2) mg/dL Microbiology - Last 24 Hours (Table) 04/19/19 17:00 Blood Culture - Preliminary Blood No Growth after 72 hours Assessment and Plan Plan: Assessment: #1. Acute exacerbation of chronic obstructive pulmonary disease, and component of fluid overload evident on today's chest x-ray on 04/22/2019. Initial chest x-ray on presentation on 04/19/2019 did not show evidence of acute pulmonary process. Influenza screen is negative, patient is afebrile #2. Nausea and vomiting, on presentation, improved #3. Chronic hypoxemic respiratory failure related to severe COPD, and patient has an FEV1 of 0.77 L or 40% of predicted. Patient is also on maintenance dose of prednisone #4. Hypothyroidism #5. Hyperlipidemia #6. Former smoker #7. Osteoarthritis, with history of bilateral knee replacement #8. Cataracts Plan: Patient can be switched over to oral Lasix, she is feeling better, less dyspneic and wheezy, vital signs are stable, open to be able to go home today, from pulmo nary perspective she is stable for discharge, she can continue on her maintenance dose of oral prednisone 5 mg daily, oral steroids, and breathing treatments, she'll need outpatient follow-up with Dr. Amos in the office in one to 2 weeks I performed a history & physical examination of the patient and discussed their management with my nurse practitioner, Lin Martinez. I reviewed the nurse practitioner's note and agree with the documented findings and plan of care. Lung sounds are positive for some basilar crackles. The findings and the impression was discussed with the patient. I attest to the documentation by the nurse practitioner. Time with Patient: Less than 30
--- NOTE | 2019-04-23 13:40 | P.DS ---
Providers Date of admission: 04/21/19 08:25 Expected date of discharge: 04/23/19 Attending physician: Rosalinda Banks Consults: 04/20/19 13:51 Consult Physician Routine Consulting Provider: Jae Lau Consult Reason/Comments: copd Do you want consulting provider notified?: Yes Primary care physician: Maria Alejandra Munoz [facility] Course: Final diagnosis -nausea vomiting: Secondary to possibly peptic ulcer disease or gastritis -COPD with mild exacerbation -Shortness of breath secondary to mild fluid overload -leukocytosis secondary to systemic steroids -hyperlipidemia -Hypothyroidism Discharge disposition Patient is being discharged in a stable condition with guarded prognosis to home and will follow-up with Dr. Munoz in the outpatient setting upon discharge. Patient will continue with home care with [facility] along with [facility] in the outpatient setting. Total time taken is 35 minutes. History of present illness This is an 88-year-old female who was recently admitted with nausea and vomiting that was possibly due to gastritis or peptic ulcer disease and was being closely monitored. Patient was also found to have a mild acute exacerbation of her COPD with some slight wheezing noted on exam along with shortness of breath. Chest x-ray yesterday showed some mild fluid volume overload and her Lasix was resumed but as IV. Patient will resume resumed on her normal dose of 40 mg in the morning and 20 mg at night and will be following up with Dr. Munoz in the outpatient setting as discussed and scheduled. Patient normally wears 2-3 L of oxygen all the time and will continue with this. Repeat chest x-ray today shows improvement. Currently no reports of chest pain, shortness of breath, or palpitations. Patient is afebrile. No reports of nausea vomiting and patient is tolerating diet. Patient would like to go home today. Currently patient's condition is stable and is ready for discharge today. On exam vital signs are stable. Temp is 97.9F, pulse is 90, respirations are 22, blood pressure 123/71, oxygen saturation is 91-93% on 2 L via nasal cannula. Cardio S1, S2 are muffled. Respiratory shows diminished breath sounds at the bases with no wheezing or rhonchi noted. Abdomen is soft, mildly distended, nontender. Nervous system shows no focal deficits. Please refer to medication reconciliation sheet for a list of medications. Patient Condition at Discharge: Fair Plan - Discharge Summary Discharge Rx Participant: No New Discharge Prescriptions: Continue Simvastatin [Zocor] 40 mg PO HS Montelukast [Singulair] 10 mg PO HS Multivitamins, Thera [Multivitamin (formulary)] 1 tab PO DAILY Albuterol Nebulized [Ventolin Nebulized] 2.5 mg INHALATION RT-QID PRN PRN Reason: Shortness Of Breath predniSONE 5 mg PO DAILY Levothyroxine Sodium [Synthroid] 75 mcg PO DAILY Furosemide [Lasix] 40 mg PO DAILY Vit C/E/Zn/Coppr/Lutein/Zeaxan [Preservision Areds 2 Softgel] 1 cap PO BID Prevagen 1 cap PO DAILY Potassium Chloride ER [K-Dur 10] 10 meq PO DAILY Cyanocobalamin (Vitamin B-12) [Vitamin B-12] 1,000 mcg PO DAILY Aspirin 81 mg PO DAILY 30 Days #30 chew Furosemide [Lasix] 20 mg PO HS PRN PRN Reason: Edema Biotin 10,000 mcg PO DAILY Acetaminophen [Tylenol Extra Strength] 500 mg PO DAILY PRN PRN Reason: Pain Discharge Medication List Simvastatin [Zocor] 40 mg PO HS 09/25/13 [History] Montelukast [Singulair] 10 mg PO HS 02/11/16 [History] Albuterol Nebulized [Ventolin Nebulized] 2.5 mg INHALATION RT-QID PRN 03/14/16 [History] Multivitamins, Thera [Multivitamin (formulary)] 1 tab PO DAILY 03/14/16 [History] Cyanocobalamin (Vitamin B-12) [Vitamin B-12] 1,000 mcg PO DAILY 12/06/18 [History] Furosemide [Lasix] 40 mg PO DAILY 12/06/18 [History] Levothyroxine Sodium [Synthroid] 75 mcg PO DAILY 12/06/18 [History] Potassium Chloride ER [K-Dur 10] 10 meq PO DAILY 12/06/18 [History] Prevagen 1 cap PO DAILY 12/06/18 [History] Vit C/E/Zn/Coppr/Lutein/Zeaxan [Preservision Areds 2 Softgel] 1 cap PO BID 12/06/18 [History] predniSONE 5 mg PO DAILY 12/06/18 [History] Aspirin 81 mg PO DAILY 30 Days #30 chew 12/11/18 [Rx] Acetaminophen [Tylenol Extra Strength] 500 mg PO DAILY PRN 04/19/19 [History] Biotin 10,000 mcg PO DAILY 04/19/19 [History] Furosemide [Lasix] 20 mg PO HS PRN 04/19/19 [History] Follow up Appointment(s)/Referral(s): Maria Alejandra Munoz MD [Primary Care Provider] - 04/30/19 9:45 am Patient Instructions/Handouts: Dehydration (DC), COPD (Chronic Obstructive Pulmonary Disease) (DC) Activity/Diet/Wound Care/Special Instructions: [facility] [phone] Activity limited until follow up follow up with primary care provider upon discharge continue current diet Discharge Disposition: HOME WITH HOME HEALTH SERVICES
== END 2019-04-23 13:48 | disposition home health service (06) | DRG 191 ==
LOC: EC 16:36 → 6NMEDSUR 19:02 → OBSVTOIN 04-21 08:25
PROVIDERS: ADMIT Internal Medicine; ATTEND Internal Medicine
DX: J44.1 Chronic obstructive pulmonary disease with (acute) exacerbation (principal); J96.11 Chronic respiratory failure with hypoxia; D72.829 Elevated white blood cell count, unspecified; T38.0X5A Adverse effect of glucocorticoids and synthetic analogues, initial encounter; E87.70 Fluid overload, unspecified; E03.9 Hypothyroidism, unspecified; E78.5 Hyperlipidemia, unspecified; E86.0 Dehydration; K29.70 Gastritis, unspecified, without bleeding; M19.90 Unspecified osteoarthritis, unspecified site; N28.9 Disorder of kidney and ureter, unspecified; K27.9 Peptic ulcer, site unspecified, unspecified as acute or chronic, without hemorrhage or perforation; Z98.42 Cataract extraction status, left eye; Z79.82 Long term (current) use of aspirin; Z79.890 Hormone replacement therapy; Z79.899 Other long term (current) drug therapy; Z87.891 Personal history of nicotine dependence; Z96.653 Presence of artificial knee joint, bilateral; Z99.81 Dependence on supplemental oxygen; Z88.1 Allergy status to other antibiotic agents; Z88.8 Allergy status to other drugs, medicaments and biological substances
CPT/HCPCS: 36415; 71045; 71046; 80048; 80053; 82550; 83605; 83735; 83880; 84484; 85025; 85027; 85610; 85730; 87040; 87502; 93005; 94640; 96374; 99285

== ENCOUNTER 2019-04-24 12:14 | Inpatient (IN) | payer MEDICARE, BC, OTHER ==
--- NOTE | 2019-04-24 13:04 | ED ---
General Adult HPI - General Chief complaint: Shortness of Breath Stated complaint: SOB Time Seen by Provider: 04/24/19 12:20 Source: patient, RN notes reviewed, old records reviewed Mode of arrival: ambulatory Limitations: no limitations - History of Present Illness Initial comments: This is an 89-year-old female presents emergency Department with difficulty breathing. Patient states she has a history of COPD and congestive heart failure. Patient states she just discharged from the hospital yesterday. Patient states this morning she woke up and she just had a hard time breathing she took inhaler and her nebulized treatment and she states it only helped her for a short period time and she felt like she couldn't get a deep breath. Patient did not take her pulse ox at home but when the fire department came they told her she was 96%. Patient states she wears oxygen 24 7. Patient denies any chest pain or palpitations. Patient denies any cough today. Patient denies any fever. Patient denies any abdominal pain patient denies nausea vomiting diarrhea. Patient denies any lightheadedness or dizziness. - Related Data Home Medications Medication Instructions Recorded Confirmed Simvastatin [Zocor] 40 mg PO HS 09/25/13 04/19/19 Montelukast [Singulair] 10 mg PO HS 02/11/16 04/19/19 Albuterol Nebulized [Ventolin 2.5 mg INHALATION RT-QID PRN 03/14/16 04/19/19 Nebulized] Multivitamins, Thera [Multivitamin 1 tab PO DAILY 03/14/16 04/19/19 (formulary)] Cyanocobalamin (Vitamin B-12) 1,000 mcg PO DAILY 12/06/18 04/19/19 [Vitamin B-12] Furosemide [Lasix] 40 mg PO DAILY 12/06/18 04/19/19 Levothyroxine Sodium [Synthroid] 75 mcg PO DAILY 12/06/18 04/19/19 Potassium Chloride ER [K-Dur 10] 10 meq PO DAILY 12/06/18 04/19/19 Prevagen 1 cap PO DAILY 12/06/18 04/19/19 Vit C/E/Zn/Coppr/Lutein/Zeaxan 1 cap PO BID 12/06/18 04/19/19 [Preservision Areds 2 Softgel] predniSONE 5 mg PO DAILY 12/06/18 04/19/19 Acetaminophen [Tylenol Extra 500 mg PO DAILY PRN 04/19/19 04/19/19 Strength] Biotin 10,000 mcg PO DAILY 04/19/19 04/19/19 Furosemide [Lasix] 20 mg PO HS PRN 04/19/19 04/19/19 Previous Rx's Medication Instructions Recorded Aspirin 81 mg PO DAILY 30 Days #30 chew 12/11/18 Allergies Allergy/AdvReac Type Severity Reaction Status Date / Time bacitracin Allergy Rash/Hives Verified 04/24/19 12:25 bacitracin zinc Allergy Rash/Hives Verified 04/24/19 12:25 [From Neosporin ([id number])] dimethicone Allergy Rash/Hives Verified 04/24/19 12:25 [From A & D Emollient] glycerin Allergy Rash/Hives Verified 04/24/19 12:25 [From A & D Emollient] neomycin sulfate Allergy Rash/Hives Verified 04/24/19 12:25 [From Neosporin ([id number])] polymyxin B Allergy Rash/Hives Verified 04/24/19 12:25 [From Neosporin ([id number])] stearyl alcohol Allergy Rash/Hives Verified 04/24/19 12:25 [From A & D Emollient] Tetanus Vaccines and Toxoid Allergy swelling Verified 04/24/19 12:25 and severe redness and hardness at site Review of Systems ROS Statement: Those systems with pertinent positive or pertinent negative responses have been documented in the HPI. ROS Other: All systems not noted in ROS Statement are negative. Past Medical History Past Medical History: COPD, Eye Disorder, Hyperlipidemia, Thyroid Disorder Additional Past Medical History / Comment(s): TEAR RT ROTATOR CUFFS, RT cataracts, O2 @ 2 liters 24/ History of Any Multi-Drug Resistant Organisms: None Reported Past Surgical History: Joint Replacement, Orthopedic Surgery Additional Past Surgical History / Comment(s): ATTEMPTED REPAIR OF LEFT ROTATOR CUFF. BILATERAL KNEE REPLACEMENTS, LEFT CATARACT Past Anesthesia/Blood Transfusion Reactions: No Reported Reaction Additional Past Anesthesia/Blood Transfusion Reaction / Comment(s): no hx blood transfusion Past Psychological History: No Psychological Hx Reported Smoking Status: Former smoker Past Alcohol Use History: Daily Past Drug Use History: None Reported - Past Family History Mother Family Medical History: No Reported History Additional Family Medical History / Comment(s): mother at age 93 of "old age" Father Family Medical History: No Reported History Additional Family Medical History / Comment(s): states at age 89 with no known medical problems General Exam - General Exam Comments Initial Comments: GENERAL: Patient is well-developed and well-nourished. Patient is nontoxic and well- hydrated and is in mild distress. ENT: Neck is soft and supple. No significant lymphadenopathy is noted. Oropharynx is clear. Moist mucous membranes. Neck has full range of motion without monica citing any pain. EYES: The sclera were anicteric and conjunctiva were pink and moist. Extraocular movements were intact and pupils were equal round and reactive to light. Eyelids were unremarkable. PULMONARY: Diminished breath sounds throughout CARDIOVASCULAR: There is a regular rate and rhythm without any murmurs gallops or rubs. ABDOMEN: Soft and nontender with normal bowel sounds. SKIN: Skin is clear with no lesions or rashes and otherwise unremarkable. NEUROLOGIC: Patient is alert and oriented x3. Cranial nerves II through XII are grossly intact. Motor and sensory are also intact. Normal speech, volume and content. Symmetrical smile. MUSCULOSKELETAL: Normal extremities with adequate strength and full range of motion. LYMPHATICS: No significant lymphadenopathy is noted PSYCHIATRIC: Normal psychiatric evaluation. Limitations: no limitations Course Vital Signs 04/24/19 04/24/19 04/24/19 12:20 13:07 15:20 Temperature 98.3 F Pulse Rate 89 89 87 Respiratory 26 H 18 18 Rate Blood Pressure 125/73 122/50 114/52 O2 Sat by Pulse 94 L 91 L 93 L Oximetry Medical Decision Making - Medical Decision Making EKG shows sinus rhythm at 92 bpm ND interval 64. QRS is under 12 QT interval 334 QTC is 413. Patient's EKG shows right bundle branch block. Patient has T- wave inversions in all precordial leads. This was seen on previous EKG. There. Chest x-ray shows congestive heart.. I gave the patient Nitropaste and I gave the patient some Lasix. Spoke with Dr. Purcell he agreed to admit the patient admitted the patient continued Lasix Nitropaste on the floor. I consult cardiology. I wrote admitting orders. - Lab Data Result diagrams: 04/24/19 13:32 04/24/19 13:32 Lab Results 0304/24/19 04/24/19 Range/Units 13:32 13:32 13:32 WBC 12.0 H (3.8-10.6) k/uL RBC 3.83 (3.80-5.40) m/uL Hgb 11.6 (11.4-16.0) gm/dL Hct 37.4 (34.0-46.0) % MCV 97.7 (80.0-100.0) fL MCH 30.3 (25.0-35.0) pg MCHC 31.0 (31.0-37.0) g/dL RDW 13.2 (11.5-15.5) % Plt Count 142 L (150-450) k/uL Neutrophils % 85 % Lymphocytes % 11 % Monocytes % 2 % Eosinophils % 1 % Basophils % 0 % Neutrophils # 10.3 H (1.3-7.7) k/uL Lymphocytes # 1.3 (1.0-4.8) k/uL Monocytes # 0.3 (0-1.0) k/uL Eosinophils # 0.1 (0-0.7) k/uL Basophils # 0.0 (0-0.2) k/uL PT 10.9 (9.0-12.0) sec INR 1.1 (<1.2) APTT 19.1 L (22.0-30.0) sec Sodium 139 (137-145) mmol/L Potassium 4.7 (3.5-5.1) mmol/L Chloride 97 L (98-107) mmol/L Carbon Dioxide 37 H (22-30) mmol/L Anion Gap 5 mmol/L BUN 15 (7-17) mg/dL Creatinine 0.39 L (0.52-1.04) mg/dL Est GFR (CKD-EPI)AfAm >90 (>60 ml/min/1.73 sqM) Est GFR (CKD-EPI)NonAf >90 (>60 ml/min/1.73 sqM) Glucose 145 H (74-99) mg/dL Plasma Lactic Acid Antonio (0.7-2.0) mmol/L Calcium 8.7 (8.4-10.2) mg/dL Magnesium 2.1 (1.6-2.3) mg/dL Total Bilirubin 1.0 (0.2-1.3) mg/dL AST 55 H (14-36) U/L ALT 80 H (4-34) U/L Alkaline Phosphatase 48 (38-126) U/L Troponin I (0.000-0.034) ng/mL NT-Pro-B Natriuret Pep pg/mL Total Protein 6.5 (6.3-8.2) g/dL Albumin 3.7 (3.5-5.0) g/dL 04/24/19 04/24/19 04/24/19 Range/Units 13:32 13:32 13:32 WBC (3.8-10.6) k/uL RBC (3.80-5.40) m/uL Hgb (11.4-16.0) gm/dL Hct (34.0-46.0) % MCV (80.0-100.0) fL MCH (25.0-35.0) pg MCHC (31.0-37.0) g/dL RDW (11.5-15.5) % Plt Count (150-450) k/uL Neutrophils % % Lymphocytes % % Monocytes % % Eosinophils % % Basophils % % Neutrophils # (1.3-7.7) k/uL Lymphocytes # (1.0-4.8) k/uL Monocytes # (0-1.0) k/uL Eosinophils # (0-0.7) k/uL Basophils # (0-0.2) k/uL PT (9.0-12.0) sec INR (<1.2) APTT (22.0-30.0) sec Sodium (137-145) mmol/L Potassium (3.5-5.1) mmol/L Chloride (98-107) mmol/L Carbon Dioxide (22-30) mmol/L Anion Gap mmol/L BUN (7-17) mg/dL Creatinine (0.52-1.04) mg/dL Est GFR (CKD-EPI)AfAm (>60 ml/min/1.73 sqM) Est GFR (CKD-EPI)NonAf (>60 ml/min/1.73 sqM) Glucose (74-99) mg/dL Plasma Lactic Acid Antonio 1.5 (0.7-2.0) mmol/L Calcium (8.4-10.2) mg/dL Magnesium (1.6-2.3) mg/dL Total Bilirubin (0.2-1.3) mg/dL AST (14-36) U/L ALT (4-34) U/L Alkaline Phosphatase (38-126) U/L Troponin I 0.022 (0.000-0.034) ng/mL NT-Pro-B Natriuret Pep 2660 pg/mL Total Protein (6.3-8.2) g/dL Albumin (3.5-5.0) g/dL Disposition Clinical Impression: Acute pulmonary edema Disposition: ADMITTED IP TO THIS HOSP Referrals: Maria Alejandra Munoz MD [Primary Care Provider] - 1-2 days Time of Disposition: 16:15
--- NOTE | 2019-04-24 13:24 | XR ---
EXAMINATION TYPE: XR chest 2V DATE OF EXAM: 04/24/2019 COMPARISON: 04/23/2019 TECHNIQUE: PA and lateral views submitted. HISTORY: Shortness of breath FINDINGS: Diffuse interstitial pattern with small bilateral effusions and basilar consolidation. Atheroscleroti c change aorta. Heart size stable. Hypertrophic degenerative changes spine. Arthropathy shoulders. IMPRESSION: 1. Correlate for CHF.
[2019-04-24 13:56] LABS: Basophils % (A) 0 %; Eosinophils # (A) 0.1 k/uL (0-0.7); Eosinophils % (A) 1 %; HCT 37.4 % (34.0-46.0); HGB 11.6 gm/dL (11.4-16.0); Lymphocytes # (A) 1.3 k/uL (1.0-4.8); Lymphocytes % (A) 11 %; MCH 30.3 pg (25.0-35.0); MCV 97.7 fL (80.0-100.0); Mean Platelet Volume 10.4; Monocytes # (A) 0.3 k/uL (0-1.0); Monocytes % (A) 2 %; Neutrophils # (A) 10.3 k/uL (1.3-7.7); Neutrophils % (A) 85 %; Platelet Count 142 k/uL (150-450); RBC 3.83 m/uL (3.80-5.40); RDW 13.2 % (11.5-15.5)
[2019-04-24 14:14] LABS: ALT 80 U/L (4-34); AST 55 U/L (14-36); African American GFR (CKD) >90 (>60 ml/min/1.73 sqM); Albumin 3.7 g/dL (3.5-5.0); Alkaline Phosphatase 48 U/L (38-126); Anion Gap 5 mmol/L; Blood Urea Nitrogen 15 mg/dL (7-17); Calcium 8.7 mg/dL (8.4-10.2); Carbon Dioxide 37 mmol/L (22-30); Chloride 97 mmol/L (98-107); Glucose 145 mg/dL (74-99); Magnesium 2.1 mg/dL (1.6-2.3); Non-African American GFR(CKD) >90 (>60 ml/min/1.73 sqM); Sodium 139 mmol/L (137-145); Total Protein 6.5 g/dL (6.3-8.2)
[2019-04-24 14:18] LABS: Potassium 4.7 mmol/L (3.5-5.1)
[2019-04-24 14:24] LABS: INR 1.1 (<1.2); Prothrombin Time 10.9 sec (9.0-12.0)
[2019-04-24 14:39] LABS: Partial Thromboplastin Time 19.1 sec (22.0-30.0)
[2019-04-24] MEDS ORDERED: FUROSEMIDE 10 MG/ML 4 ML VIAL IV STA (15:38)
[2019-04-24] MEDS ORDERED: NITROGLYCERIN OINT 1 INCH/GM PACKET TOPICAL STA (15:38)
[2019-04-24] MEDS ORDERED: ASPIRIN 325 MG TAB PO STA (16:15)
[2019-04-24] MEDS ORDERED: ACETAMINOPHEN TAB 500 MG TAB PO PRN (19:23)
[2019-04-24] MEDS ORDERED: IPRATROPIUM-ALBUTEROL 3 ML NEB INHALATION PRN (19:24)
--- NOTE | 2019-04-24 20:09 | HP ---
HISTORY AND PHYSICAL CHIEF COMPLAINT: Shortness of breath. HISTORY OF PRESENT ILLNESS: This 89-year-old woman with a past medical history of multiple medical problems, including COPD, history of hypertension, hyperlipidemia, history of possible CHF, being followed by Dr. Munoz in the outpatient setting, was recently admitted with nausea and vomiting with possible acute gastritis as well as some shortness of breath. Patient improved significantly. Patient went home, but after going home the patient's family noted that the patient was extremely short of breath and the patient had a hard time breathing despite nebulizer treatment. Because of increasing shortness of breath, the patient was taken to [facility] and admitted for evaluation and treatment. The patient wears oxygen /, pulse ox found to be 96%. Chest x-ray showed evidence of CHF. Patient was admitted for further evaluation and treatment. Other evaluation showed a BNP of 2660, troponin 0.022. EKG showed right bundle branch block. The patient has seen Cardiology previously. There is no history of any fever, rigor or chills. No history of headache, loss of consciousness, seizures at this time. PAST MEDICAL HISTORY: History of COPD, history of hypertension, hyperlipidemia, history of CHF, DJD. HOME MEDICATIONS: 1. Prednisone 5 mg p.o. daily. 2. Vitamin C and zinc 1 p.o. daily. 3. Zocor 40 mg at bedtime. 4. Prevagen 1 capsule p.o. daily. 5. K-Dur 10 mEq p.o. daily. 6. Multivitamins 1 p.o. daily. 7. Singulair 10 mg at bedtime. 8. Synthroid 75 mcg p.o. daily. 9. Lasix 20 mg at bedtime p.r.n. and 40 mg p.o. daily. 10.Vitamin B12 1000 mcg p.o. daily. 11.Biotin 10,000 mcg p.o. daily. 12.Aspirin 81 mg daily. 13.Ventolin 2.5 q.i.d. p.r.n. 14.Tylenol 500 mg daily p.r.n. ALLERGIES: BACTRIM, BACITRACIN, GLYCERINE, NEOMYCIN, POLYMYXIN B FAMILY HISTORY: No history of heart disease or strokes in the family. SOCIAL HISTORY: Previous history of smoking. Occasional alcohol intake. REVIEW OF SYSTEMS: ENT: Diminished hearing. Diminished vision. CARDIOVASCULAR SYSTEM: As mentioned earlier. RESPIRATORY SYSTEM: As mentioned earlier. GI: No nausea, vomiting, diarrhea. : No dysuria or retention. NERVOUS SYSTEM: No numbness, weakness. ALLERGY/IMMUNOLOGY: No asthma, hayfever. MUSCULOSKELETAL: As mentioned earlier. HEMATOLOGY/ONCOLOGY: No history of anemia. ENDOCRINE: No history of diabetes, hypothyroidism. CONSTITUTIONAL: As mentioned earlier. DERMATOLOGY: Negative. RHEUMATOLOGY: Negative. PSYCHIATRY: As mentioned earlier. PHYSICAL EXAMINATION: Patient alert and oriented x3. Pulse is 89, blood pressure 125/73, respiration 26, temperature 98.3, pulse ox 94% on 2 L. HEENT: Conjunctivae normal. Oral mucosa moist. NECK: No jugular venous distention. No carotid bruit. No lymph node enlargement. CARDIOVASCULAR SYSTEM: S1, S2 muffled. No S3. No S4. RESPIRATORY SYSTEM: Breath sounds diminished at the bases. Bilateral scattered rhonchi and crackles. Expiratory wheezing also present. ABDOMEN: Soft, non-tender. LEGS: Minimal edema. NERVOUS SYSTEM: Higher functions as mentioned earlier. Moves all 4 limbs. No focal motor or sensory deficit. LYMPHATICS: No lymph node palpable in neck, axillae or groin. SKIN: No ulcer, rash, bleeding. JOINTS: No active deforming arthropathy. LABS/IMAGING: WBC 12, hemoglobin 11.6. Sodium 139, potassium 4.7. Glucose is 145. AST is 55, ALT is 80. Troponin 0.022. NT-proBNP is 2660. Chest x-ray was reviewed personally by me. ASSESSMENT: 1. Shortness of breath, possibly a combination of congestive heart failure, acute exacerbation, ejection fraction unknown, as well as chronic obstructive pulmonary disease, acute exacerbation. 2. Increased white count. 3. Increased AST, ALT, possibly secondary to congestive heart failure. 4. Increased carbon dioxide. 5. Chronic obstructive pulmonary disease history. 6. Right bundle branch block on EKG. 7. Hyperlipidemia. 8. Hypothyroidism. 9. Degenerative joint disease. 10.Rotator cuff tear. 11.Remote history of nicotine dependence. RECOMMENDATIONS AND DISCUSSION: In this 89-year-old woman who presented with multiple complex medical issues, we will monitor the patient closely. Will institute intensive bronchodilator treatment as well as IV Lasix. Monitor fluid/electrolyte balance closely. Fluid restriction 1200 mL per 24 hours. Consult Cardiology and Pulmonology. I would recommend a 2D echo with Doppler, a set of troponins. The family is also inquiring about the feasibility of stent placement if it is indicated. Discussed the various diagnoses, prognosis and implications. Will await the consultants' input, also. Otherwise, resume the home medications. Prognosis extremely guarded, as mentioned earlier. Proton pump inhibitors as well as DVT prophylaxis also will be done. Will continue to monitor. Prognosis guarded. Discussed with the patient, as mentioned earlier, and the family, who understand and agree. Further recommendations to follow. MMODL / IJN: [id number] / RACHAEL
[2019-04-24 20:57] LABS: Glucose,Whole Blood 222 mg/dL (75-99)
[2019-04-24 21:02] LABS: ALT 80 U/L (4-34); AST 44 U/L (14-36); African American GFR (CKD) >90 (>60 ml/min/1.73 sqM); Albumin 3.8 g/dL (3.5-5.0); Alkaline Phosphatase 57 U/L (38-126); Anion Gap 6 mmol/L; Blood Urea Nitrogen 16 mg/dL (7-17); Calcium 8.9 mg/dL (8.4-10.2); Carbon Dioxide 39 mmol/L (22-30); Chloride 93 mmol/L (98-107); Glucose 167 mg/dL (74-99); Non-African American GFR(CKD) 87 (>60 ml/min/1.73 sqM); Potassium 4.4 mmol/L (3.5-5.1); Sodium 138 mmol/L (137-145); Total Bilirubin 0.5 mg/dL (0.2-1.3); Total Protein 6.6 g/dL (6.3-8.2)
[2019-04-24] MEDS: methylPREDNISolone SOD SUCCI 125 MG/2 ML VIAL IV SCH (21:26)
[2019-04-24] MEDS: INSULIN ASPART (NovoLOG) 100 UNIT/ML VIAL SQ SCH (21:26)
[2019-04-24] MEDS: ATORVASTATIN 20 MG TAB PO SCH (21:27)
[2019-04-24] MEDS: PANTOPRAZOLE 40 MG/10 ML VIAL IVP SCH (21:27)
[2019-04-24] MEDS: MONTELUKAST 10 MG TAB PO SCH (21:27)
[2019-04-24] MEDS: NITROGLYCERIN OINT 1 INCH/GM PACKET TOPICAL SCH (21:27)
[2019-04-24] MEDS: HEPARIN SODIUM,PORCINE 5,000 UNIT/ML 1 ML VIAL SQ SCH (21:27)
[2019-04-24] MEDS: VIT A,C & E-LUTEIN-MINERALS 1 EACH TAB PO SCH (21:30)
[2019-04-24] MEDS: IPRATROPIUM-ALBUTEROL 3 ML NEB INHALATION SCH (21:55)
[2019-04-24] MEDS: SYMBICORT 160-4.5 MCG INHALER INHALATION SCH (21:55)
[2019-04-24] MEDS: FUROSEMIDE 10 MG/ML 4 ML VIAL IV SCH (23:38)
[2019-04-25 00:04] LABS: Appearance,Urine Clear (Clear); Bacteria,Urine Rare /hpf; Bilirubin,Urine Negative (Negative); Blood,Urine Negative (Negative); Color,Urine Yellow; Glucose,Urine (UA) Negative (Negative); Hyaline Casts,Urine 3 /lpf (0-2); Ketones,Urine Trace (Negative); Leukocyte Esterase,Urine Small (Negative); Mucus,Urine Occasional /hpf; Nitrite,Urine Negative (Negative); PH, Urine 5.5 (5.0-8.0); Protein,Urine Trace (Negative); RBC,Urine <1 /hpf (0-5); Specific Gravity,Urine 1.021 (1.001-1.035); Squamous Epithelial Cell,Urine <1 /hpf (0-4); Urobilinogen,Urine <2.0 mg/dL (<2.0); WBC,Urine 10 /hpf (0-5)
[2019-04-25] MEDS: methylPREDNISolone SOD SUCCI 125 MG/2 ML VIAL IV SCH ×3 (00:38→12:06)
[2019-04-25 06:04] LABS: Glucose,Whole Blood 157 mg/dL (75-99)
[2019-04-25] MEDS: LEVOTHYROXINE 75 MCG TAB PO SCH (06:37)
[2019-04-25] MEDS: INSULIN ASPART (NovoLOG) 100 UNIT/ML VIAL SQ SCH ×4 (06:37→21:01)
[2019-04-25] MEDS: NITROGLYCERIN OINT 1 INCH/GM PACKET TOPICAL SCH (08:16)
[2019-04-25] MEDS: CYANOCOBALAMIN 500 MCG TAB PO SCH (08:16)
[2019-04-25] MEDS: HEPARIN SODIUM,PORCINE 5,000 UNIT/ML 1 ML VIAL SQ SCH (08:16)
[2019-04-25] MEDS: PANTOPRAZOLE 40 MG/10 ML VIAL IVP SCH ×2 (08:16→20:43)
[2019-04-25] MEDS: FUROSEMIDE 10 MG/ML 4 ML VIAL IV SCH ×2 (08:17→20:43)
[2019-04-25] MEDS: MULTIVITAMINS, THERA 1 EACH TAB PO SCH (08:17)
[2019-04-25] MEDS: VIT A,C & E-LUTEIN-MINERALS 1 EACH TAB PO SCH ×2 (08:17→20:43)
[2019-04-25] MEDS: POTASSIUM CHLORIDE ER 10 MEQ TAB.ER.PRT PO SCH (08:17)
[2019-04-25] MEDS: IPRATROPIUM-ALBUTEROL 3 ML NEB INHALATION SCH ×4 (08:49→20:43)
[2019-04-25] MEDS: SYMBICORT 160-4.5 MCG INHALER INHALATION SCH ×2 (08:49→20:43)
[2019-04-25] MEDS ORDERED: NON FORMULARY DRUG (Prevagen 1 CAP) PO SCH (09:00)
[2019-04-25] MEDS ORDERED: NON FORMULARY DRUG (Biotin [Biotin] 10,000 MCG) PO SCH (09:00)
--- NOTE | 2019-04-25 11:08 | CONS ---
CONSULTATION Mrs. Rubio is an 89-year-old female with a known history of hyperlipidemia, history of chronic obstructive lung disease, who was recently discharged from the hospital after admission with dyspnea. She was thought to be have evidence of COPD. After going home, she came back with persistent dyspnea, mild cough. She had no chest pain. She had no dizziness or palpitation. She has no significant peripheral edema. No clear PND nor orthopnea. Her prior workup including an echocardiogram 2015 that revealed no evidence of segmental wall motion abnormality with mild mitral and tricuspid regurgitation. She had a cardiac catheterization in 2007 that showed no evidence of obstructive disease. The patient has not been taking her diuretics on a regular basis. MEDICATION: Her medications at home included prednisone, simvastatin 40 mg daily, Singulair, Lasix, which she has not been taking regularly, levothyroxine 0.075 mg daily and aspirin once a day. REVIEW OF SYSTEMS: RESPIRATORY SYSTEM: She had dyspnea on exertion, the cough. She has history of obstructive lung disease. GI SYSTEM: No recent GI bleed. No peptic ulcer disease. She was nauseated. SYSTEM: No dysuria or hematuria. NERVOUS SYSTEM: No stroke or seizure. PHYSICAL EXAMINATION: She is an 89-year-old female, alert, oriented, in no apparent distress. Blood pressure 127/70 with the heart rate in 70s. HEAD: Normocephalic. EYES: Sclerae nonicteric. NECK: Good upstroke. No bruit. LUNGS: With decreased air exchange. She has few scattered rhonchi. HEART: Regular rate and rhythm. S1, S2. No S3 with systolic murmur. No diastolic murmur. No rub. ABDOMEN: Soft, nontender, obese. Positive bowel sounds. No organomegaly. EXTREMITIES: Trace edema. LAB DATA: EKG revealed a right bundle branch block with what appeared to be atrial tachycardia with a rate of 92. NT proBNP 2660. Troponin 0.022. BUN and creatinine 15 and 0.39. Potassium 4.7. Hemoglobin of 11.6. Chest x-ray is suggestive of congestion. Reviewing her old EKG, she had similar arrhythmia during her last admission. IMPRESSION: 1. Symptoms of progressive dyspnea probably related to an element of congestive heart failure. In the past, she had preserved systolic function. She may have had an element of chronic obstructive pulmonary disease exacerbation. 2. Atrial tachycardia versus atrial flutter was not noted on an EKG done in November of 2018. New, the patient is unaware of the arrhythmia. 3. History of hyperlipidemia. RECOMMENDATION: From the cardiac standpoint, the patient has been initiated on intravenous diuretics. I will obtain echocardiogram with Doppler to further evaluate her left ventricular systolic function. Will continue her on IV diuretic for another 24 hours. I will initiate treatment with anticoagulation. Follow her renal function and depending on her progress, further recommendation will be made. Thank you for this consult. We will follow with you. PAOLAL / IJN: [id number] /
--- NOTE | 2019-04-25 11:22 | ECHOF ---
Referral Reason:chf MEASUREMENTS -------- HEIGHT: 167.6 cm WEIGHT: 81.6 kg BP: 104/56 RVIDd: 3.6 cm (< 3.3) IVSd: 1.4 cm (0.6 - 1.1) LVIDd: 3.7 cm (3.9 - 5.3) LVPWd: 1.5 cm (0.6 - 1.1) IVSs: 2.2 cm LVIDs: 1.6 cm LVPWs: 1.2 cm LAESV Index (A-L): 47.19 ml/m Ao Diam: 3.0 cm (2.0 - 3.7) AV Cusp: 1.6 cm (1.5 - 2.6) LA Diam: 4.2 cm (2.7 - 3.8) MV EXCURSION: 12.104 mm (> 18.000) MV EF SLOPE: 76 mm/s (70 - 150) EPSS: 0.4 cm MV E Paul: 1.00 m/s MV DecT: 227 ms MV A Paul: 0.37 m/s MV E/A Ratio: 2.69 RAP: 5.00 mmHg RVSP: 44.85 mmHg TAPSE: 23.43 mm FINDINGS -------- Sinus rhythm. This was a technically difficult study with suboptimal views. The left ventricular size is normal. There is moderate concentric left ventricular hypertrophy. O verall left ventricular systolic function is normal with, an EF between 55 - 60 %. Increased LAP Gr reagan 2 Diastolic Dysfunction. The right ventricle is mildly enlarged. LA is severely dilated >40 ml/m2 The right atrial size is normal. Lumason used The aortic valve is trileaflet and appears structurally normal. The mitral valve is normal. There is trace mitral regurgitation. The tricuspid valve appears structurally normal. Mild tricuspid regurgitation present. There is m ild to moderate pulmonary hypertension. The right ventricular systolic pressure, as measured by Dop pler, is 44.85mmHg. There is no pulmonic regurgitation present. The aortic root size is normal. IVC Not well visulized. There is a trivial pericardial effusion present. CONCLUSIONS -------- 1. Sinus rhythm. 2. This was a technically difficult study with suboptimal views. 3. The left ventricular size is normal. 4. There is moderate concentric left ventricular hypertrophy. 5. Overall left ventricular systolic function is normal with, an EF between 55 - 60 %. 6. Increased LAP Grade 2 Diastolic Dysfunction. 7. The right ventricle is mildly enlarged. 8. LA is severely dilated >40 ml/m2 9. The right atrial size is normal. 10. Lumason used 11. The aortic valve is trileaflet and appears structurally normal. 12. The mitral valve is normal. 13. There is trace mitral regurgitation. 14. The tricuspid valve appears structurally normal. 15. Mild tricuspid regurgitation present. 16. There is mild to moderate pulmonary hypertension. 17. The right ventricular systolic pressure, as measured by Doppler, is 44.85mmHg. 18. There is no pulmonic regurgitation present. 19. The aortic root size is normal. 20. IVC Not well visulized. 21. There is a trivial pericardial effusion present. MACHINIST APPRENTICE WOOD: Sloane Garcia RDCS
[2019-04-25 11:53] LABS: Glucose,Whole Blood 237 mg/dL (75-99)
[2019-04-25] MEDS ORDERED: ASPIRIN 325 MG TAB PO SCH (12:00)
[2019-04-25] MEDS: APIXABAN 2.5 MG TABLET PO SCH ×2 (12:05→20:43)
[2019-04-25] MEDS: METOPROLOL TARTRATE 25 MG TAB PO SCH ×2 (12:05→20:43)
[2019-04-25 13:28] VITALS: BMI 29.0
--- NOTE | 2019-04-25 13:38 | P.CNPUL ---
History of Present Illness Consult date: 04/25/19 Reason for consult: dyspnea History of present illness: 88-year-old female patient was recently hospitalized for COPD exacerbation and CHF exacerbation and mild fluid overload. She also had some nausea and emesis secondary to peptic ulcer disease/gastritis. The patient was admitted to the hospital on 04/20/2019 4D symptoms. She was also found to be in respiratory distress. Chest x-ray showed some mild fluid overload. She was given Lasix IV. Her outpatient medications were resumed and ultimately she was discharged home on oral Lasix 40 mg in the morning and 20 mg in the evening. The patient wears oxygen between 2 and 3 L per minute nasal cannula. Her chest x-ray at the time of discharge had shown improvement in the volume status. She was afebrile. Following her discharge, the patient became again shortness of breath and she came back to the emergency department. She stated that she woke up and she was having hard time breathing. She took her inhalers and nebulized medication which gave her limited relief and she stated she was unable to breathe in deep. The fire department came in and her pulse ox was 96%. She was on oxygen at 2 L. No fever. No nausea vomiting or abdominal pain. No lightheadedness or dizziness. In comparison, the chest x-ray is showing small bilateral pleural effusions and mild pulmonary vessel congestion. The white cell count was 12. The renal function was stable at creatinine of 0.5. Coagulation profile was within normal limits. The proBNP level was 2660. TSH was 0.7. Echo that was done showed an ejection fraction of 55-60% with grade 2 diastolic heart failure and the RV was mildly enlarged and there was evidence of mild to moderate pulmonary hypertension with a PA pressure of 44. No other significant valvular abnormalities in the aortic valve and a mitral valve was structurally within normal limits. Influenza screen was negative. She is currently on IV Lasix 40 mg every 12 hours. She is also on Symbicort as maintenance, IV Solu-Medrol, DuoNeb nebulized treatments around the clock and she is on long-term and anticoagulation with Eliquis. past medical history of severe COPD with the baseline FEV1 of 0.77 L or 40% of predicted, on maintenance dose of prednisone, chronic hypoxemic respiratory failure on home oxygen, hypothyroidism, former smoker, osteoarthritis with previous history of bilateral knee replacements, left cataract surgery Review of Systems Constitutional: Reports weakness, Denies chills, Denies fever Eyes: denies blurred vision, denies pain Ears, nose, mouth and throat: Denies headache, Denies sore throat Cardiovascular: Denies shortness of breath Respiratory: Reports cough, Reports dyspnea, Reports home oxygen, Reports wheezing Gastrointestinal: Reports nausea, Reports vomiting, Denies abdominal pain, Denies diarrhea Genitourinary: Denies dysuria, Denies hematuria Musculoskeletal: Denies myalgias Integumentary: Denies pruritus, Denies rash Neurological: Denies numbness, Denies weakness Psychiatric: Denies anxiety, Denies depression Endocrine: Denies fatigue, Denies weight change Past Medical History Past Medical History: COPD, Eye Disorder, Hyperlipidemia, Thyroid Disorder Additional Past Medical History / Comment(s): TEAR RT ROTATOR CUFFS, RT cataracts, O2 @ 2 liters 12/09 History of Any Multi-Drug Resistant Organisms: None Reported Past Surgical History: Joint Replacement, Orthopedic Surgery Additional Past Surgical History / Comment(s): ATTEMPTED REPAIR OF RT ROTATOR CUFF. BILATERAL KNEE REPLACEMENTS, LEFT CATARACT Past Anesthesia/Blood Transfusion Reactions: No Reported Reaction Additional Past Anesthesia/Blood Transfusion Reaction / Comment(s): no hx blood transfusion Past Psychological History: No Psychological Hx Reported Smoking Status: Former smoker Past Alcohol Use History: Daily Additional Past Alcohol Use History / Comment(s): quit smoking 1992,smoked approx 42 yrs 1ppd Past Drug Use History: None Reported - Past Family History Mother Family Medical History: No Reported History Additional Family Medical History / Comment(s): mother at age 93 of "old age" Father Family Medical History: No Reported History Additional Family Medical History / Comment(s): states at age 89 with no known medical problems Medications and Allergies Home Medications Medication Instructions Recorded Confirmed Type Simvastatin [Zocor] 40 mg PO HS 09/25/04/24/19 History Montelukast [Singulair] 10 mg PO HS 02/11/16 04/24/19 History Albuterol Nebulized [Ventolin 2.5 mg INHALATION RT-Q4H PRN 03/14/16 04/25/19 History Nebulized] Multivitamins, Thera [Multivitamin 1 tab PO DAILY 03/14/16 04/24/19 History (formulary)] Cyanocobalamin (Vitamin B-12) 1,000 mcg PO DAILY 12/06/18 04/24/19 History [Vitamin B-12] Furosemide [Lasix] 40 mg PO DAILY 12/06/18 04/24/19 History Levothyroxine Sodium [Synthroid] 75 mcg PO DAILY 12/06/18 04/24/19 History Potassium Chloride ER [K-Dur 10] 10 meq PO DAILY 12/06/18 04/24/19 History Prevagen 1 cap PO DAILY 12/06/18 04/24/19 History Vit C/E/Zn/Coppr/Lutein/Zeaxan 1 cap PO BID 12/06/18 04/24/19 History [Preservision Areds 2 Softgel] predniSONE 5 mg PO DAILY 12/06/18 04/24/19 History Aspirin 81 mg PO DAILY 30 Days #30 chew 12/11/18 04/24/19 Rx Acetaminophen [Tylenol Extra 500 mg PO DAILY PRN 04/19/19 04/24/19 History Strength] Biotin 10,000 mcg PO DAILY 04/19/19 04/24/19 History Furosemide [Lasix] 20 mg PO HS PRN 04/19/19 04/24/19 History Allergies Allergy/AdvReac Type Severity Reaction Status Date / Time bacitracin Allergy Rash/Hives Verified 04/24/19 18:43 bacitracin zinc Allergy Rash/Hives Verified 04/24/19 18:43 [From Neosporin ([id number])] dimethicone Allergy Rash/Hives Verified 04/24/19 18:43 [From A & D Emollient] glycerin Allergy Rash/Hives Verified 04/24/19 18:43 [From A & D Emollient] neomycin sulfate Allergy Rash/Hives Verified 04/24/19 18:43 [From Neosporin ([id number])] polymyxin B Allergy Rash/Hives Verified 04/24/19 18:43 [From Neosporin ([id number])] stearyl alcohol Allergy Rash/Hives Verified 04/24/19 18:43 [From A & D Emollient] Tetanus Vaccines and Toxoid Allergy swelling Verified 04/24/19 18:43 and severe redness and hardness at site Physical Exam Vitals: Vital Signs Temp Pulse Pulse Resp BP BP Pulse Ox 04/25/19 12:00 87 16 108/63 98 04/25/19 11:49 16 04/25/19 09:00 77 04/25/19 08:49 76 04/25/19 08:00 97.5 F L 65 16 127/74 95 04/25/19 03:55 97.1 F L 60 18 104/56 96 04/25/19 00:39 97.8 F 79 16 136/72 95 04/24/19 22:06 84 04/24/19 21:56 88 04/24/19 21:15 98.1 F 87 18 126/78 96 04/24/19 18:11 88 16 120/72 4 L 04/24/19 15:20 87 18 114/52 93 L Intake and Output 04/24/19 04/25/19 04/25/19 22:59 06:59 14:59 Output Total 850 1150 250 Balance -850 -1150 -250 Output: Urine 850 1150 250 Other: # Voids 1 Weight 81.647 kg 81.647 kg Results - Laboratory Findings CBC and BMP: 04/24/19 13:32 04/24/19 19:39 ABG WBC 12.0 k/uL (3.8-10.6) H 04/24/19 13:32 RBC 3.83 m/uL (3.80-5.40) 04/24/19 13:32 Hgb 11.6 gm/dL (11.4-16.0) 04/24/19 13:32 Hct 37.4 % (34.0-46.0) 04/24/19 13:32 MCV 97.7 fL (80.0-100.0) 04/24/19 13:32 MCH 30.3 pg (25.0-35.0) 04/24/19 13:32 MCHC 31.0 g/dL (31.0-37.0) 04/24/19 13:32 RDW 13.2 % (11.5-15.5) 04/24/19 13:32 Plt Count 142 k/uL (150-450) L 04/24/19 13:32 Neutrophils % 85 % 04/24/19 13:32 Lymphocytes % 11 % 04/24/19 13:32 Monocytes % 2 % 04/24/19 13:32 Eosinophils % 1 % 04/24/19 13:32 Basophils % 0 % 04/24/19 13:32 Neutrophils # 10.3 k/uL (1.3-7.7) H 04/24/19 13:32 Lymphocytes # 1.3 k/uL (1.0-4.8) 04/24/19 13:32 Monocytes # 0.3 k/uL (0-1.0) 04/24/19 13:32 Eosinophils # 0.1 k/uL (0-0.7) 04/24/19 13:32 Basophils # 0.0 k/uL (0-0.2) 04/24/19 13:32 PT 10.9 sec (9.0-12.0) 04/24/19 13:32 INR 1.1 (<1.2) 04/24/19 13:32 APTT 19.1 sec (22.0-30.0) L 04/24/19 13:32 Sodium 138 mmol/L (137-145) 04/24/19 19:39 Potassium 4.4 mmol/L (3.5-5.1) 04/24/19 19:39 Chloride 93 mmol/L (98-107) L 04/24/19 19:39 Carbon Dioxide 39 mmol/L (22-30) H 04/24/19 19:39 Anion Gap 6 mmol/L 04/24/19 19:39 BUN 16 mg/dL (7-17) 04/24/19 19:39 Creatinine 0.50 mg/dL (0.52-1.04) L 04/24/19 19:39 Est GFR (CKD-EPI)AfAm >90 (>60 ml/min/1.73 sqM) 04/24/19 19:39 Est GFR (CKD-EPI)NonAf 87 (>60 ml/min/1.73 sqM) 04/24/19 19:39 Glucose 167 mg/dL (74-99) H 04/24/19 19:39 POC Glucose (mg/dL) 237 mg/dL (75-99) H 04/25/19 11:52 POC Glu Caustics Loader ID Sherri Bello 04/25/19 11:52 Plasma Lactic Acid Antonio 1.5 mmol/L (0.7-2.0) 04/24/19 13:32 Calcium 8.9 mg/dL (8.4-10.2) 04/24/19 19:39 Magnesium 2.1 mg/dL (1.6-2.3) 04/24/19 13:32 Total Bilirubin 0.5 mg/dL (0.2-1.3) 04/24/19 19:39 AST 44 U/L (14-36) H 04/24/19 19:39 ALT 80 U/L (4-34) H 04/24/19 19:39 Alkaline Phosphatase 57 U/L (38-126) 04/24/19 19:39 Troponin I 0.022 ng/mL (0.000-0.034) 04/24/19 13:32 NT-Pro-B Natriuret Pep 2660 pg/mL 04/24/19 13:32 Total Protein 6.6 g/dL (6.3-8.2) 04/24/19 19:39 Albumin 3.8 g/dL (3.5-5.0) 04/24/19 19:39 TSH 0.727 mIU/L (0.465-4.680) 04/24/19 19:39 Urine Color Yellow 04/24/19 23:49 Urine Appearance Clear (Clear) 04/24/19 23:49 Urine pH 5.5 (5.0-8.0) 04/24/19 23:49 Ur Specific [place] 1.021 (1.001-1.035) 04/24/19 23:49 Urine Protein Trace (Negative) H 04/24/19 23:49 Urine Glucose (UA) Negative (Negative) 04/24/19 23:49 Urine Ketones Trace (Negative) H 04/24/19 23:49 Urine Blood Negative (Negative) 04/24/19 23:49 Urine Nitrite Negative (Negative) 04/24/19 23:49 Urine Bilirubin Negative (Negative) 04/24/19 23:49 Urine Urobilinogen <2.0 mg/dL (<2.0) 04/24/19 23:49 Ur Leukocyte Esterase Small (Negative) H 04/24/19 23:49 Urine RBC <1 /hpf (0-5) 04/24/19 23:49 Urine WBC 10 /hpf (0-5) H 04/24/19 23:49 Ur Squamous Epith Cells <1 /hpf (0-4) 04/24/19 23:49 Urine Bacteria Rare /hpf (None) H 04/24/19 23:49 Hyaline Casts 3 /lpf (0-2) H 04/24/19 23:49 Urine Mucus Occasional /hpf (None) H 04/24/19 23:49 PT/INR, D-dimer PT 10.9 sec (9.0-12.0) 04/24/19 13:32 INR 1.1 (<1.2) 04/24/19 13:32 Abnormal lab findings: Abnormal Labs 04/24/19 04/24/19 04/24/19 13:32 13:32 13:32 WBC 12.0 H Plt Count 142 L Neutrophils # 10.3 H APTT 19.1 L Chloride 97 L Carbon Dioxide 37 H Creatinine 0.39 L Glucose 145 H POC Glucose (mg/dL) AST 55 H ALT 80 H Urine Protein Urine Ketones Ur Leukocyte Esterase Urine WBC Urine Bacteria Hyaline Casts Urine Mucus 04/24/19 04/24/19 04/24/19 19:39 20:55 23:49 WBC Plt Count Neutrophils # APTT Chloride 93 L Carbon Dioxide 39 H Creatinine 0.50 L Glucose 167 H POC Glucose (mg/dL) 222 H AST 44 H ALT 80 H Urine Protein Trace H Urine Ketones Trace H Ur Leukocyte Esterase Small H Urine WBC 10 H Urine Bacteria Rare H Hyaline Casts 3 H Urine Mucus Occasional H 04/25/19 04/25/19 06:03 11:52 WBC Plt Count Neutrophils # APTT Chloride Carbon Dioxide Creatinine Glucose POC Glucose (mg/dL) 157 H 237 H AST ALT Urine Protein Urine Ketones Ur Leukocyte Esterase Urine WBC Urine Bacteria Hyaline Casts Urine Mucus - Diagnostic Findings Chest x-ray: image reviewed Assessment and Plan Plan: #1. Acute exacerbation of chronic obstructive pulmonary disease, and component of fluid overload treated recently and discharged home 24 hours ago. The patient came into the hospital for worsening shortness of breath and chest x- rays showing a component of mild pulmonary vascular congestion and small bilater al pleural effusions. #2. Severe COPD with a baseline of one of 40% of predicted, 0.77 L #3. Chronic hypoxemic respiratory failure related to severe COPD #4. Hypothyroidism #5. Hyperlipidemia #6. Former smoker #7. Osteoarthritis, with history of bilateral knee replacement #8. Cataracts #9 history of atrial flutter maintained on long-term anticoagulation with Eliquis and the rate is controlled for now, but she seems to be in A. fib rhythm. #10 diastolic heart failure with mild to moderate pulmonary hypertension secondary neck. Plan Continue IVs Lasix for another 24 hours Repeat chest x-ray in the morning This continued IV Solu-Medrol and put the patient prednisone burst taper Monitor electrolytes Long-term anticoagulation with Eliquis We'll continue to follow. Consider a CAT scan of the chest if no improvement in her shortness of breath.
--- NOTE | 2019-04-25 15:50 | P.PN ---
Subjective Progress Note Date: 04/25/19 Principal diagnosis: This is an 89-year-old female who was recently admitted with increasing shortness of breath and congestive heart failure and is being closely monitored. Multiple medical consultations are following. Patient continues to have shortness of breath with exertion and has become quite weak requiring assistance to get up and with position changes. PT/OT to evaluate the patient. Discussed with the patient and family members at the bedside at length today about the possibility of rehab once patient is stabilized and they mentioned that they have 24/7 care with clinical Homecare and comfort keepers but are not opposed to looking into options of possible ECF upon discharge. Case management and social work will be consulted. Currently no reports of chest pain or palpitations. Patient continues to have shortness of breath. Patient is afebrile. No reports of nausea or vomiting. Patient is maintained on IV Lasix and will continue at this time. Patient underwent echo today showing overall left ventricular systolic function is normal with an EF between 55 and 60% with increased LEP grade 2 diastolic dysfunction with a trace of mitral regurgitation along with mild tricuspid regurgitation present, mild to moderate pulmonary hypertension is also noted. Cardiology and pulmonary following. Repeat chest x-ray in the morning. Will continue to monitor closely. Review of systems: Cardiovascular: No reports of chest pain or palpitations Respiratory: Reports shortness of breath, no reports of cough GI: No reports of nausea, vomiting, or diarrhea : No reports of dysuria or retention Constitutional: No reports of fever, reports generalized weakness Endocrine: No history of diabetes, or hypothyroidism Active Medications Acetaminophen (Tylenol Tab) 500 mg PO DAILY PRN PRN Reason: Pain Albuterol/Ipratropium (Duoneb 0.5 Mg-3 Mg/3 Ml Soln) 3 ml INHALATION RT-QID [facility] Last Admin: 04/25/19 11:47 Dose: Not Given Documented by: Albuterol/Ipratropium (Duoneb 0.5 Mg-3 Mg/3 Ml Soln) 3 ml INHALATION RT-QID PRN PRN Reason: Shortness Of Breath Or Wheezing Apixaban (Eliquis) 2.5 mg PO BID [facility] Last Admin: 04/25/19 12:05 Dose: 2.5 mg Documented by: Aspirin (Aspirin) 81 mg PO DAILY [facility] Atorvastatin Calcium (Lipitor) 20 mg PO HS [facility] Last Admin: 04/24/19 21:27 Dose: 20 mg Documented by: Budesonide/Formoterol Fumarate (Symbicort 160-4.5 Mcg Inhaler) 2 puff INHALATION RT-BID [facility] Last Admin: 04/25/19 08:49 Dose: 2 puff Documented by: Cyanocobalamin (Vitamin B-12) 1,000 mcg PO DAILY [facility] Last Admin: 04/25/19 08:16 Dose: 1,000 mcg Documented by: Furosemide (Lasix) 40 mg IV Q12HR [facility] Insulin Aspart (Novolog) 0 unit SQ [facility]; Protocol Last Admin: 04/25/19 12:06 Dose: 3 unit Documented by: Levothyroxine Sodium (Synthroid) 75 mcg PO 0630 [facility] Last Admin: 04/25/19 06:37 Dose: 75 mcg Documented by: Metoprolol Tartrate (Lopressor) 25 mg PO BID [facility] Last Admin: 04/25/19 12:05 Dose: 25 mg Documented by: Montelukast Sodium (Singulair) 10 mg PO HS [facility] Last Admin: 04/24/19 21:27 Dose: 10 mg Documented by: Multivitamins (Theragran) 1 each PO DAILY [facility] Last Admin: 04/25/19 08:17 Dose: 1 each Documented by: Multivitamins/Minerals (Ivite) 1 each PO BID [facility] Last Admin: 04/25/19 08:17 Dose: 1 each Documented by: Pantoprazole Sodium (Protonix) 40 mg IVP BID [facility] Last Admin: 04/25/19 08:16 Dose: 40 mg Documented by: Potassium Chloride (K-Dur 10) 10 meq PO DAILY [facility] Last Admin: 04/25/19 08:17 Dose: 10 meq Documented by: Prednisone () 30 mg PO DAILY [facility] Objective - Vital Signs Vital signs: Vital Signs Temp 97.5 F L 04/25/19 08:00 Pulse 87 04/25/19 12:00 Resp 16 04/25/19 12:00 BP 108/63 04/25/19 12:00 Pulse Ox 98 04/25/19 12:00 Intake & Output 04/24/19 04/25/19 04/25/19 18:59 06:59 18:59 Output Total 850 1150 250 Balance -850 -1150 -250 Weight 81.647 kg 81.647 kg Output: Urine 850 1150 250 Other: # Voids 1 - Exam Gen: This is a 89-year-old female sitting up in the chair awake, alert and rob ented 3, well-developed, well-nourished. Temp is 97.5F, pulse is 87, respirations are 16, blood pressure is 108/63, oxygen saturation is 98% on 2 L via nasal cannula. HEENT: Head is atraumatic, normocephalic. Pupils equal, round. Sclerae is anicteric. NECK: Supple. No JVD. No lymphadenopathy. No thyromegaly. LUNGS: Breath sounds diminished at the bases with some bilateral scattered rhonchi and crackles noted. Some mild expiratory wheezing also noted. No intercostal retractions. HEART: S1, S2 are muffled ABDOMEN: Soft. Obese. Bowel sounds are present. No masses. No tenderness. EXTREMITIES: No pedal edema. No calf tenderness. NEUROLOGICAL: Patient is awake, alert and oriented x3. Cranial nerves 2 through 12 are grossly intact. - Labs CBC & Chem 7: 04/24/19 13:32 04/24/19 19:39 Labs: Abnormal Lab Results - Last 24 Hours (Table) 04/24/19 04/24/19 04/24/19 Range/Units 19:39 20:55 23:49 Chloride 93 L (98-107) mmol/L Carbon Dioxide 39 H (22-30) mmol/L Creatinine 0.50 L (0.52-1.04) mg/dL Glucose 167 H (74-99) mg/dL POC Glucose (mg/dL) 222 H (75-99) mg/dL AST 44 H (14-36) U/L ALT 80 H (4-34) U/L Urine Protein Trace H (Negative) Urine Ketones Trace H (Negative) Ur Leukocyte Esterase Small H (Negative) Urine WBC 10 H (0-5) /hpf Urine Bacteria Rare H (None) /hpf Hyaline Casts 3 H (0-2) /lpf Urine Mucus Occasional H (None) /hpf 04/25/19 04/25/19 Range/Units 06:03 11:52 Chloride (98-107) mmol/L Carbon Dioxide (22-30) mmol/L Creatinine (0.52-1.04) mg/dL Glucose (74-99) mg/dL POC Glucose (mg/dL) 157 H 237 H (75-99) mg/dL AST (14-36) U/L ALT (4-34) U/L Urine Protein (Negative) Urine Ketones (Negative) Ur Leukocyte Esterase (Negative) Urine WBC (0-5) /hpf Urine Bacteria (None) /hpf Hyaline Casts (0-2) /lpf Urine Mucus (None) /hpf Assessment and Plan Assessment: Shortness of breath, possibly a combination of congestive heart failure, acute exacerbation with chronic diastolic dysfunction, ejection fraction 55- 60%, as well as chronic obstructive pulmonary disease, acute exacerbation Increased white blood count Increased AST, ALT, possibly secondary to congestive heart failure Increased carbon dioxide levels Chronic obstructive pulmonary disease history Right bundle-branch block on EKG Hyperlipidemia Hypothyroidism Degenerative joint disease Rotator cuff tear remote history of nicotine dependence Recommendations and discussion: Recommend to continue current medications, management, and symptomatic treatment. Patient to continue with IV Lasix diuresis at this time. Will repeat chest x-ray in the morning. Will continue to monitor vital signs and labs closely. PT/OT to evaluate the patient for possible ECF rehab placement. Patient to continue with bronchodilators at this time. Pulmonary and cardiology are following. Due to multiple complex medical issues, prognosis is guarded. Further recommendations to follow.
[2019-04-25 17:27] LABS: Glucose,Whole Blood 161 mg/dL (75-99)
[2019-04-25 20:39] LABS: Glucose,Whole Blood 209 mg/dL (75-99)
[2019-04-25] MEDS: ATORVASTATIN 20 MG TAB PO SCH (20:43)
[2019-04-25] MEDS: MONTELUKAST 10 MG TAB PO SCH (20:43)
[2019-04-26 06:13] LABS: Glucose,Whole Blood 130 mg/dL (75-99)
[2019-04-26] MEDS: INSULIN ASPART (NovoLOG) 100 UNIT/ML VIAL SQ SCH ×4 (06:37→20:55)
[2019-04-26] MEDS: LEVOTHYROXINE 75 MCG TAB PO SCH (06:57)
[2019-04-26] MEDS: IPRATROPIUM-ALBUTEROL 3 ML NEB INHALATION SCH ×4 (07:03→19:59)
[2019-04-26] MEDS: SYMBICORT 160-4.5 MCG INHALER INHALATION SCH ×2 (07:03→19:59)
[2019-04-26 08:10] LABS: African American GFR (CKD) >90 (>60 ml/min/1.73 sqM); Anion Gap 5 mmol/L; Blood Urea Nitrogen 25 mg/dL (7-17); Calcium 8.4 mg/dL (8.4-10.2); Carbon Dioxide 39 mmol/L (22-30); Chloride 92 mmol/L (98-107); Glucose 114 mg/dL (74-99); Non-African American GFR(CKD) 83 (>60 ml/min/1.73 sqM); Potassium 3.9 mmol/L (3.5-5.1); Sodium 136 mmol/L (137-145)
[2019-04-26] MEDS ORDERED: ASPIRIN 81 MG PO SCH (09:00)
[2019-04-26] MEDS: POTASSIUM CHLORIDE ER 10 MEQ TAB.ER.PRT PO SCH (10:07)
[2019-04-26] MEDS: METOPROLOL TARTRATE 25 MG TAB PO SCH ×2 (10:07→20:55)
[2019-04-26] MEDS: PANTOPRAZOLE 40 MG/10 ML VIAL IVP SCH (10:08)
[2019-04-26] MEDS: APIXABAN 2.5 MG TABLET PO SCH ×2 (10:08→20:55)
[2019-04-26] MEDS: CYANOCOBALAMIN 500 MCG TAB PO SCH (10:08)
[2019-04-26] MEDS: VIT A,C & E-LUTEIN-MINERALS 1 EACH TAB PO SCH ×2 (10:08→20:55)
[2019-04-26] MEDS: predniSONE 10 MG TAB PO SCH (10:08)
[2019-04-26] MEDS: MULTIVITAMINS, THERA 1 EACH TAB PO SCH (10:09)
[2019-04-26] MEDS: FUROSEMIDE 10 MG/ML 4 ML VIAL IV SCH (10:09)
[2019-04-26 12:06] LABS: Glucose,Whole Blood 102 mg/dL (75-99)
--- NOTE | 2019-04-26 13:06 | PN ---
PROGRESS NOTE Mrs. Rubio is an 89-year-old female who presented with symptoms of progressive dyspnea. She is feeling better at this time. Her breathing is better. She has some cough, but improving. She denies any chest pain. No dizziness. No palpitation. She denies any nausea. On the monitor, she was noted to be in initially possible atrial tachycardia, but appears to be more atrial fibrillation with controlled ventricular response at this time. She had an echocardiogram performed yesterday that revealed an ejection fraction of 55% to 60% with mild to moderate pulmonary hypertension and mild tricuspid regurgitation. She continues to be at this time on Eliquis 2.5 mg twice a day, aspirin 81 mg daily, Lipitor 20 mg daily, metoprolol tartrate 25 mg twice a day, prednisone and Lasix 40 mg IV q.12 hours. PHYSICAL EXAMINATION: Blood pressure 149/60 with the heart rate in the 70s. LUNGS: Clear. HEART: Irregular, irregular. S1, S2. No S3. No rub. ABDOMEN: Soft, nontender. EXTREMITIES: No edema. LAB DATA: Lab data revealed BUN and creatinine 25 and 0.58, potassium 3.9, sodium 136. IMPRESSION: 1. Symptoms of progressive dyspnea with a combination of exacerbation of chronic obstructive pulmonary disease and probable element of mild congestive heart failure with diastolic dysfunction. 2. Atrial fibrillation. Rate controlled. 3. History of hyperlipidemia. RECOMMENDATION: I will switch her to oral diuretics. I will stop her aspirin at this time. Continue the rest of medical regimen. Increase her level activity and depending on her progress, further recommendation will be made. I will expect she should be able to be discharged soon. MMODL / IJN: [id number] /
--- NOTE | 2019-04-26 15:31 | P.PN ---
Subjective Progress Note Date: 04/26/19 88-year-old female patient was recently hospitalized for COPD exacerbation and CHF exacerbation and mild fluid overload. She also had some nausea and emesis secondary to peptic ulcer disease/gastritis. The patient was admitted to the hospital on 04/20/2019 4D symptoms. She was also found to be in respiratory distress. Chest x-ray showed some mild fluid overload. She was given Lasix IV. Her outpatient medications were resumed and ultimately she was discharged home on oral Lasix 40 mg in the morning and 20 mg in the evening. The patient wears oxygen between 2 and 3 L per minute nasal cannula. Her chest x-ray at the time of discharge had shown improvement in the volume status. She was afebrile. Following her discharge, the patient became again shortness of breath and she came back to the emergency department. She stated that she woke up and she was having hard time breathing. She took her inhalers and nebulized medication which gave her limited relief and she stated she was unable to breathe in deep. The fire department came in and her pulse ox was 96%. She was on oxygen at 2 L. No fever. No nausea vomiting or abdominal pain. No lightheadedness or dizziness. In comparison, the chest x-ray is showing small bilateral pleural effusions and mild pulmonary vessel congestion. The white cell count was 12. The renal function was stable at creatinine of 0.5. Coagulation profile was within normal limits. The proBNP level was 2660. TSH was 0.7. Echo that was done showed an ejection fraction of 55-60% with grade 2 diastolic heart failure and the RV was mildly enlarged and there was evidence of mild to moderate pulmonary hypertension with a PA pressure of 44. No other significant valvular abnormalities in the aortic valve and a mitral valve was structurally within no rmal limits. Influenza screen was negative. She is currently on IV Lasix 40 mg every 12 hours. She is also on Symbicort as maintenance, IV Solu-Medrol, DuoNeb nebulized treatments around the clock and she is on long-term and anticoagulation with Eliquis. past medical history of severe COPD with the baseline FEV1 of 0.77 L or 40% of predicted, on maintenance dose of prednisone, chronic hypoxemic respiratory failure on home oxygen, hypothyroidism, former smoker, osteoarthritis with previous history of bilateral knee replacements, left cataract surgery On 04/26/2019 patient seen in follow-up on selective care unit, she states she is breathing easier, and feeling better, still diuresing. She is in -1620 ML fluid balance over the last 24 hours, no lower extremity edema, lung sounds reveal normal crackles at the left lower base, no rhonchi, no wheezing. Patient has been transitioned to oral Lasix, she is maintaining negative fluid balance, continues with breathing treatments. Today's labs have been reviewed BNP was done showing sodium of 136, potassium is 3.9, chloride is 92, CO2 39, BUN of 25 creatinine 0.58 Objective - Vital Signs Vital signs: Vital Signs Temp 98.3 F 04/26/19 08:25 Pulse 53 L 04/26/19 12:00 Resp 17 04/26/19 12:00 BP 94/51 04/26/19 12:00 Pulse Ox 97 04/26/19 12:00 Intake & Output 04/25/19 04/26/19 04/26/19 18:59 06:59 18:59 Intake Total 480 500 Output Total 1150 950 Balance -670 -950 500 Weight 81.647 kg 80.5 kg Intake: Oral 480 500 Output: Urine 1150 950 Other: Voiding Method Toilet # Voids 1 - Exam GENERAL EXAM: Alert, very pleasant, 89-year-old white female, on 2 L of oxygen comfortable in no apparent distress. HEAD: Normocephalic/atraumatic. EYES: Normal reaction of pupils, equal size. Conjunctiva pink, sclera white. NOSE: Clear with pink turbinates. THROAT: No erythema or exudates. NECK: No masses, no JVD, no thyroid enlargement, no adenopathy. CHEST: No chest wall deformity. Symmetrical expansion. LUNGS: Equal air entry with minimal basilar crackles, no wheeze, rhonchi or dullness. CVS: Regular rate and rhythm, normal S1 and S2, no gallops, no murmurs, no rubs ABDOMEN: Soft, nontender. No hepatosplenomegaly, normal bowel sounds, no guarding or rigidity. EXTREMITIES: No clubbing, no edema, no cyanosis, 2+ pulses and upper and lower extremities. MUSCULOSKELETAL: Muscle strength and tone normal. SPINE: No scoliosis or deformity SKIN: No rashes CENTRAL NERVOUS SYSTEM: Alert and oriented -3. No focal deficits, tone is normal in all 4 extremities. PSYCHIATRIC: Alert and oriented -3. Appropriate affect. Intact judgment and insight. - Labs CBC & Chem 7: 04/24/19 13:32 04/26/19 06:41 Labs: Abnormal Lab Results - Last 24 Hours (Table) 04/25/19 04/25/19 04/26/19 Range/Units 17:26 20:38 06:09 Sodium (137-145) mmol/L Chloride (98-107) mmol/L Carbon Dioxide (22-30) mmol/L BUN (7-17) mg/dL Glucose (74-99) mg/dL POC Glucose (mg/dL) 161 H 209 H 130 H (75-99) mg/dL 04/26/19 04/26/19 Range/Units 06:41 12:05 Sodium 136 L (137-145) mmol/L Chloride 92 L (98-107) mmol/L Carbon Dioxide 39 H (22-30) mmol/L BUN 25 H (7-17) mg/dL Glucose 114 H (74-99) mg/dL POC Glucose (mg/dL) 102 H (75-99) mg/dL Assessment and Plan Plan: Assessment: #1. Acute exacerbation of chronic obstructive pulmonary disease, and component of fluid overload treated recently and discharged home 24 hours ago. The patient came into the hospital for worsening shortness of breath and chest x- rays showing a component of mild pulmonary vascular congestion and small b ilateral pleural effusions. #2. Severe COPD with a baseline of one of 40% of predicted, 0.77 L #3. Chronic hypoxemic respiratory failure related to severe COPD #4. Hypothyroidism #5. Hyperlipidemia #6. Former smoker #7. Osteoarthritis, with history of bilateral knee replacement #8. Cataracts #9 history of atrial flutter maintained on long-term anticoagulation with Eliquis and the rate is controlled for now, but she seems to be in A. fib rhythm. #10 diastolic heart failure with mild to moderate pulmonary hypertension secondary neck. Plan: Continue current medical treatment, oral prednisone, oral diuretics, patient is maintaining negative fluid balance breathing easier, fluid volume status is improving, continue breathing treatments, increase activity as tolerated. Fol low-up chest x-ray in the morning I performed a history & physical examination of the patient and discussed their management with my nurse practitioner, Lin Martinez. I reviewed the nurse practitioner's note and agree with the documented findings and plan of care. Lung sounds are positive for diminished breath sounds. The findings and the impression was discussed with the patient. I attest to the documentation by the nurse practitioner. Time with Patient: Less than 30
--- NOTE | 2019-04-26 15:43 | P.PN ---
Subjective Progress Note Date: 04/26/19 Principal diagnosis: This is an 89-year-old female who was recently admitted with increasing shortness of breath and congestive heart failure and is being closely monitored. Multiple medical consultations are following. Patient continues to have shortness of breath with exertion and has become quite weak requiring assistance to get up and with position changes. PT/OT to evaluate the patient. Discussed with the patient and family members at the bedside at length today about the possibility of rehab once patient is stabilized and they mentioned that they have 24/ care with clinical Home[facility] and [facility] keep[facility] but are not opposed to looking into options of possible ECF upon discharge. Case management and social work will be consulted. Currently no reports of chest pain or palpitations. Patient continues to have shortness of breath. Patient is afebrile. No reports of nausea or vomiting. Patient is maintained on IV Lasix and will continue at this time. Patient underwent echo today showing overall left ventricular systolic function is normal with an EF between 55 and 60% with increased LEP grade 2 diastolic dysfunction with a trace of mitral regurgitation along with mild tricuspid regurgitation present, mild to moderate pulmonary hypertension is also noted. Cardiology and pulmonary following. Repeat chest x-ray in the morning. Will continue to monitor closely. 04/26/2019 Patient is seen and evaluated in follow-up today and states that her breathing and shortness of breath has improved although continues to have some shortness of breath with exertion. PT/OT following. Patient currently remains on 40 mg of by mouth Lasix twice daily and will continue at this time. Patient to continue with bronchodilators and oral prednisone at this time. Will continue to monitor vital signs and labs closely. Current creatinine today is 0.58. Presently no reports of chest pain or palpitations. Patient is afebrile. No reports of nausea or vomiting and patient is tolerating diet. Patient continues to be weak but is getting up in the room with her walker. Discussed with the patient at length about possible discharge planning needs and at this time patient will continue with home care and patient mentioned that her son and [id number] are working on potentially [place] living facility. Will continue to monitor closely. Objective - Vital Signs Vital signs: Vital Signs Temp 98.3 F 04/26/19 08:25 Pulse 53 L 04/26/19 12:00 Resp 17 03/06/20 12:00 BP 94/51 04/26/19 12:00 Pulse Ox 97 04/26/19 12:00 Intake & Output 04/25/19 04/26/19 04/26/19 18:59 06:59 18:59 Intake Total 480 500 Output Total 1150 950 Balance -670 -950 500 Weight 81.647 kg 80.5 kg Intake: Oral 480 500 Output: Urine 1150 950 Other: Voiding Method Toilet # Voids 1 - Exam Gen: This is a 89-year-old female sitting up in the chair awake, alert and oriented 3, well-developed, well-nourished. Temp is 98.3, pulse is 89, respirations are 18, blood pressure is 149/65, oxygen saturation is 94% on room air. HEENT: Head is atraumatic, normocephalic. Pupils equal, round. Sclerae is anicteric. NECK: Supple. No JVD. No lymphadenopathy. No thyromegaly. LUNGS: Breath sounds diminished at the bases with some bilateral scattered rhonchi and crackles noted. Some mild expiratory wheezing also noted. No intercostal retractions. HEART: S1, S2 are muffled ABDOMEN: Soft. Obese. Bowel sounds are present. No masses. No tenderness. EXTREMITIES: No pedal edema. No calf tenderness. NEUROLOGICAL: Patient is awake, alert and oriented x3. Cranial nerves 2 through 12 are grossly intact. - Labs CBC & Chem 7: 04/24/19 13:32 04/26/19 06:41 Labs: Abnormal Lab Results - Last 24 Hours (Table) 04/25/19 04/25/19 04/26/19 Range/Units 17:26 20:38 06:09 Sodium (137-145) mmol/L Chloride (98-107) mmol/L Carbon Dioxide (22-30) mmol/L BUN (7-17) mg/dL Glucose (74-99) mg/dL POC Glucose (mg/dL) 161 H 209 H 130 H (75-99) mg/dL 04/26/19 04/26/19 Range/Units 06:41 12:05 Sodium 136 L (137-145) mmol/L Chloride 92 L (98-107) mmol/L Carbon Dioxide 39 H (22-30) mmol/L BUN 25 H (7-17) mg/dL Glucose 114 H (74-99) mg/dL POC Glucose (mg/dL) 102 H (75-99) mg/dL Assessment and Plan Assessment: Shortness of breath, possibly a combination of congestive heart failure, acute exacerbation with chronic diastolic dysfunction, ejection fraction 55- 60%, as well as chronic obstructive pulmonary disease, acute exacerbation Increased white blood count Increased AST, ALT, possibly secondary to congestive heart failure Increased carbon dioxide levels Chronic obstructive pulmonary disease history Right bundle-branch block on EKG Hyperlipidemia Hypothyroidism Degenerative joint disease Rotator cuff tear remote history of nicotine dependence Recommendations and discussion: Recommend to continue current medications, management, and symptomatic treatment. Patient to continue with Lasix diuresis at this time. Transitioned oral Lasix and oral prednisone. Will repeat chest x-ray in the morning. Will continue to monitor vital signs and labs closely. PT/OT following. Patient to continue with bronchodilators at this time. Pulmonary and cardiology are f ollowing. Due to multiple complex medical issues, prognosis is guarded. Further recommendations to follow.
[2019-04-26] MEDS: FUROSEMIDE 40 MG TAB PO SCH (16:41)
[2019-04-26 17:18] LABS: Glucose,Whole Blood 192 mg/dL (75-99)
[2019-04-26 20:40] LABS: Glucose,Whole Blood 192 mg/dL (75-99)
[2019-04-26] MEDS: PANTOPRAZOLE 40 MG TABLET PO SCH (20:55)
[2019-04-26] MEDS: ATORVASTATIN 20 MG TAB PO SCH (20:55)
[2019-04-26] MEDS: MONTELUKAST 10 MG TAB PO SCH (20:55)
[2019-04-27 06:13] LABS: Glucose,Whole Blood 104 mg/dL (75-99)
[2019-04-27] MEDS: INSULIN ASPART (NovoLOG) 100 UNIT/ML VIAL SQ SCH ×4 (06:20→20:16)
[2019-04-27] MEDS: LEVOTHYROXINE 75 MCG TAB PO SCH (06:20)
[2019-04-27 06:56] LABS: African American GFR (CKD) >90 (>60 ml/min/1.73 sqM); Blood Urea Nitrogen 22 mg/dL (7-17); Calcium 8.4 mg/dL (8.4-10.2); Chloride 93 mmol/L (98-107); Glucose 93 mg/dL (74-99); Non-African American GFR(CKD) 80 (>60 ml/min/1.73 sqM); Potassium 3.9 mmol/L (3.5-5.1); Sodium 137 mmol/L (137-145)
[2019-04-27 07:03] LABS: Anion Gap 6 mmol/L
[2019-04-27 07:05] LABS: Carbon Dioxide 38 mmol/L (22-30)
[2019-04-27] MEDS: IPRATROPIUM-ALBUTEROL 3 ML NEB INHALATION SCH ×4 (07:43→18:50)
[2019-04-27] MEDS: SYMBICORT 160-4.5 MCG INHALER INHALATION SCH ×2 (07:43→18:50)
--- NOTE | 2019-04-27 07:45 | XR ---
EXAMINATION TYPE: XR chest 2V DATE OF EXAM: 04/27/2019 COMPARISON: Chest x-ray 3 days earlier. HISTORY: CHF and shortness of breath TECHNIQUE: Frontal and lateral views of the chest are obtained. FINDINGS: Persistent cardiomegaly with mild central vascular congestion and small left greater than r ight pleural effusions and associated bibasilar atelectasis and/or infiltrate. Atherosclerotic change aortic knob. Osseous structures are demineralized. IMPRESSION: Overall stable findings, findings consistent with CHF exacerbation redemonstrated as the re is cardiomegaly with mild central vascular congestion and small left greater than right bilateral pleural effusions with associated bibasilar atelectasis and/or infiltrate are all redemonstrated.
[2019-04-27] MEDS: METOPROLOL TARTRATE 25 MG TAB PO SCH ×2 (08:36→20:15)
[2019-04-27] MEDS: CYANOCOBALAMIN 500 MCG TAB PO SCH (08:36)
[2019-04-27] MEDS: FUROSEMIDE 40 MG TAB PO SCH ×2 (08:36→15:17)
[2019-04-27] MEDS: APIXABAN 2.5 MG TABLET PO SCH ×2 (08:36→20:15)
[2019-04-27] MEDS: MULTIVITAMINS, THERA 1 EACH TAB PO SCH (08:37)
[2019-04-27] MEDS: predniSONE 10 MG TAB PO SCH (08:37)
[2019-04-27] MEDS: POTASSIUM CHLORIDE ER 10 MEQ TAB.ER.PRT PO SCH (08:37)
[2019-04-27] MEDS: PANTOPRAZOLE 40 MG TABLET PO SCH ×2 (08:37→20:16)
[2019-04-27] MEDS: VIT A,C & E-LUTEIN-MINERALS 1 EACH TAB PO SCH ×2 (11:33→20:19)
[2019-04-27 12:26] LABS: Glucose,Whole Blood 118 mg/dL (75-99)
--- NOTE | 2019-04-27 12:33 | P.PN ---
Subjective Progress Note Date: 04/27/19 This is a pleasant 89-year-old female patient who presented with symptoms of progressive dyspnea. She's been diuresis with IV Lasix. Overall she is feeling somewhat better. She continues to have some dyspnea on exertion but I believe this is at her baseline. She does have a bit of a cough but this is improving and is nonproductive at this time. She denies any complaints of chest discomfort, palpitations or dizziness. She denies any complaints of nausea. She feels that her edema has improved. She was found to be in atrial fibrillation with controlled ventricular response and is anticoagulated on Eliquis. She is currently on by mouth diuretics. Labs and vital signs are stable. She continues on Lipitor 20 mg by mouth daily at bedtime, Lasix 40 mg by mouth twice a day, Eliquis 0.5 mg by mouth twice a day and metoprolol titrate 25 mg by mouth twice a day. Objective - Vital Signs Vital signs: Vital Signs Temp 97.6 F 04/27/19 08:00 Pulse 60 04/27/19 11:14 Resp 16 04/27/19 08:00 BP 110/49 04/27/19 08:00 Pulse Ox 98 04/27/19 08:00 Intake & Output 04/26/19 04/27/19 04/27/19 18:59 06:59 18:59 Intake Total 1000 236 120 Output Total 1700 1000 Balance -700 -764 120 Weight 77.2 kg Intake: Oral 1000 236 120 Output: Urine 1700 1000 Other: Voiding Method Toilet Toilet - Exam PHYSICAL EXAMINATION: HEENT: Head is atraumatic, normocephalic. Pupils equal, round. Neck is supple. There is no elevated jugular venous pressure. HEART EXAMINATION: Heart sounds irregularly irregular, S1 and S2 normal. No murmur or gallop heard. CHEST EXAMINATION: Lungs are clear to auscultation and precussion. No chest wall tenderness is noted on palpation or with deep breathing. ABDOMEN: Soft, nontender. Bowel sounds are heard. No organomegaly noted. EXTREMITIES: 2+ peripheral pulses with evidence of mild peripheral edema and no calf tenderness noted. NEUROLOGIC patient is awake, alert and oriented x3. . - Labs CBC & Chem 7: 04/24/19 13:32 04/27/19 06:05 Labs: Abnormal Lab Results - Last 24 Hours (Table) 04/26/19 04/26/19 04/27/19 Range/Units 17:17 20:38 06:05 Chloride 93 L (98-107) mmol/L Carbon Dioxide 38 H (22-30) mmol/L BUN 22 H (7-17) mg/dL POC Glucose (mg/dL) 192 H 192 H (75-99) mg/dL 04/27/19 04/27/19 Range/Units 06:12 12:18 Chloride (98-107) mmol/L Carbon Dioxide (22-30) mmol/L BUN (7-17) mg/dL POC Glucose (mg/dL) 104 H 118 H (75-99) mg/dL Assessment and Plan Assessment: #1 symptoms of progressive dyspnea with combination of exacerbation of chronic COPD and probable element of mild diastolic congestive heart failure #2 atrial fibrillation with controlled ventricular response #3 hyperlipidemia Plan: From cardiology's perspective, medications were reviewed and will continue the same. From our standpoint, patient may be discharged home and follow-up as an outpatient. HAND ALMOND BLANCHER note has been reviewed, I agree with a documented findings and plan of care. Patient was seen and examined.
--- NOTE | 2019-04-27 12:36 | P.PN ---
Subjective Progress Note Date: 04/27/19 88-year-old female patient was recently hospitalized for COPD exacerbation and CHF exacerbation and mild fluid overload. She also had some nausea and emesis secondary to peptic ulcer disease/gastritis. The patient was admitted to the hospital on 04/20/2019 4D symptoms. She was also found to be in respiratory distress. Chest x-ray showed some mild fluid overload. She was given Lasix IV. Her outpatient medications were resumed and ultimately she was discharged home on oral Lasix 40 mg in the morning and 20 mg in the evening. The patient wears oxygen between 2 and 3 L per minute nasal cannula. Her chest x-ray at the time of discharge had shown improvement in the volume status. She was afebrile. Following her discharge, the patient became again shortness of breath and she came back to the emergency department. She stated that she woke up and she was having hard time breathing. She took her inhalers and nebulized medication which gave her limited relief and she stated she was unable to breathe in deep. The fire department came in and her pulse ox was 96%. She was on oxygen at 2 L. No fever. No nausea vomiting or abdominal pain. No lightheadedness or dizziness. In comparison, the chest x-ray is showing small bilateral pleural effusions and mild pulmonary vessel congestion. The white cell count was 12. The renal function was stable at creatinine of 0.5. Coagulation profile was within normal limits. The proBNP level was 2660. TSH was 0.7. Echo that was done showed an ejection fraction of 55-60% with grade 2 diastolic heart failure and the RV was mildly enlarged and there was evidence of mild to moderate pulmonary hypertension with a PA pressure of 44. No other significant valvular abnormalities in the aortic valve and a mitral valve was structurally within normal limits. Influenza screen was negative. She is currently on IV Lasix 40 mg every 12 hours. She is also on Symbicort as maintenance, IV Solu-Medrol, DuoNeb nebulized treatments around the clock and she is on long-term and anticoagulation with Eliquis. past medical history of severe COPD with the baseline FEV1 of 0.77 L or 40% of predicted, on maintenance dose of prednisone, chronic hypoxemic respiratory failure on home oxygen, hypothyroidism, former smoker, osteoarthritis with previous history of bilateral knee replacements, left cataract surgery On 04/26/2019 patient seen in follow-up on selective care unit, she states she is breathing easier, and feeling better, still diuresing. She is in -1620 ML fluid balance over the last 24 hours, no lower extremity edema, lung sounds reveal normal crackles at the left lower base, no rhonchi, no wheezing. Patient has been transitioned to oral Lasix, she is maintaining negative fluid balance, continues with breathing treatments. Today's labs have been reviewed BNP was done showing sodium of 136, potassium is 3.9, chloride is 92, CO2 39, BUN of 25 creatinine 0.58 On 04/27/2019 the patient is feeling better. No new complaints. She has been diuresed adequately. He is on bronchodilators. She is on a prednisone burst taper. No cough sputum production chest tightness or wheezing. Renal function is stable with a creatinine of 0.6. She is currently on oxygen at 2 L in the pulse ox is 90%. She's been negative fluid balance over the past 48 hours. She is on long-term anticoagulation with Eliquis. She is on Symbicort as chitra ntenance. Prednisone is at 30 mg as part of a burst taper. Objective - Vital Signs Vital signs: Vital Signs Temp 97.6 F 04/27/19 08:00 Pulse 60 04/27/19 11:14 Resp 16 04/27/19 08:00 BP 110/49 04/27/19 08:00 Pulse Ox 98 04/27/19 08:00 Intake & Output 04/26/19 04/27/19 04/27/19 18:59 06:59 18:59 Intake Total 1000 236 120 Output Total 1700 1000 Balance -700 -764 120 Weight 77.2 kg Intake: Oral 1000 236 120 Output: Urine 1700 1000 Other: Voiding Method Toilet Toilet - Exam GENERAL EXAM: Alert, very pleasant, 89-year-old white female, on 2 L of oxygen comfortable in no apparent distress. HEAD: Normocephalic/atraumatic. EYES: Normal reaction of pupils, equal size. Conjunctiva pink, sclera white. NOSE: Clear with pink turbinates. THROAT: No erythema or exudates. NECK: No masses, no JVD, no thyroid enlargement, no adenopathy. CHEST: No chest wall deformity. Symmetrical expansion. LUNGS: Equal air entry with minimal basilar crackles, no wheeze, rhonchi or dullness. CVS: Regular rate and rhythm, normal S1 and S2, no gallops, no murmurs, no rubs ABDOMEN: Soft, nontender. No hepatosplenomegaly, normal bowel sounds, no guarding or rigidity. EXTREMITIES: No clubbing, no edema, no cyanosis, 2+ pulses and upper and lower extremities. MUSCULOSKELETAL: Muscle strength and tone normal. SPINE: No scoliosis or deformity SKIN: No rashes CENTRAL NERVOUS SYSTEM: Alert and oriented -3. No focal deficits, tone is normal in all 4 extremities. PSYCHIATRIC: Alert and oriented -3. Appropriate affect. Intact judgment and insight. - Labs CBC & Chem 7: 04/24/19 13:32 04/27/19 06:05 Labs: Abnormal Lab Results - Last 24 Hours (Table) 04/26/19 04/26/19 04/27/19 Range/Units 17:17 20:38 06:05 Chloride 93 L (98-107) mmol/L Carbon Dioxide 38 H (22-30) mmol/L BUN 22 H (7-17) mg/dL POC Glucose (mg/dL) 192 H 192 H (75-99) mg/dL 04/27/19 04/27/19 Range/Units 06:12 12:18 Chloride (98-107) mmol/L Carbon Dioxide (22-30) mmol/L BUN (7-17) mg/dL POC Glucose (mg/dL) 104 H 118 H (75-99) mg/dL Assessment and Plan Plan: #1. Acute exacerbation of chronic obstructive pulmonary disease, and component of fluid overload treated recently and discharged home 24 hours ago. The patient came into the hospital for worsening shortness of breath and chest x- rays showing a component of mild pulmonary vascular congestion and small bilateral pleural effusions. #2. Severe COPD with a baseline of one of 40% of predicted, 0.77 L #3. Chronic hypoxemic respiratory failure related to severe COPD #4. Hypothyroidism #5. Hyperlipidemia #6. Former smoker #7. Osteoarthritis, with history of bilateral knee replacement #8. Cataracts #9 history of atrial flutter maintained on long-term anticoagulation with Eliquis and the rate is controlled for now, but she seems to be in A. fib rhythm. #10 diastolic heart failure with mild to moderate pulmonary hypertension. Plan The patient has been diuresed adequately. The patient is currently on Lasix 40 mg by mouth twice a day and IV Lasix has been discontinued. Prednisone burst taper Long-term anticoagulation with Eliquis The follow-up chest x-ray shows some small bilateral pleural effusions. Some mild four-vessel congestion is still present. Clinically improved. We'll continue to follow.
[2019-04-27 16:45] LABS: Glucose,Whole Blood 203 mg/dL (75-99)
[2019-04-27 20:10] LABS: Glucose,Whole Blood 197 mg/dL (75-99)
[2019-04-27] MEDS: ATORVASTATIN 20 MG TAB PO SCH (20:15)
[2019-04-27] MEDS: MONTELUKAST 10 MG TAB PO SCH (20:16)
--- NOTE | 2019-04-27 21:18 | PN ---
PROGRESS NOTE DATE OF SERVICE: 04/27/2019 This 89-year-old woman who was admitted with shortness of breath, possibly combination of CHF, COPD, is being closely monitored at this time. No chest pain. No palpitations. No fever. EXAM: Alert and oriented times three. Pulse is 66. Blood pressure 120/60, respirations 15, temperature 98.2, pulse ox 97% on 2 L. HEENT: Conjunctivae normal. NECK: No JVD. CARDIOVASCULAR: S1, S2 muffled. RESPIRATORY SYSTEM: Breath sounds diminished at the bases. A few scattered rhonchi and crackles. Abdomen soft nontender. LEGS are no edema. No swelling. CENTRAL NERVOUS SYSTEM: No focal deficits. LABS: Glucose 203. Other labs are noted. ASSESSMENT: 1. Shortness of breath multifactorial with possible congestive heart failure acute exacerbation, acute on chronic diastolic dysfunction, ejection fraction 50 to 60%, as well as chronic obstructive pulmonary disease acute exacerbation. 2. Increased WBC. 3. Increased AST, ALT, possibly secondary to congestive heart failure. 4. Increased CO2. 5. Chronic obstructive pulmonary disease history. 6. Right bundle branch block on the EKG. 7. Hyperlipidemia. 8. Hypothyroidism. 9. History of degenerative joint disease. 10.Rotator cuff tear. 11.Remote history of nicotine dependence. 12.Chronic hypoxic respiratory failure. RECOMMENDATIONS AND DISCUSSION: Recommend to continue current medications, symptomatic treatment, management and follow closely with Pulmonary and Cardiology. Most recent chest x-ray which was done today which was reviewed by me personally, which showed some clearance but increased bronchovascular markings are noted. Closely follow with multiple consultants and PT/OT evaluation to be continued and further recommendations to follow. MMODL / IJN: [id number] /
[2019-04-28 05:33] LABS: Glucose,Whole Blood 124 mg/dL (75-99)
[2019-04-28] MEDS: INSULIN ASPART (NovoLOG) 100 UNIT/ML VIAL SQ SCH ×4 (06:41→20:55)
[2019-04-28] MEDS: LEVOTHYROXINE 75 MCG TAB PO SCH (07:01)
[2019-04-28] MEDS: predniSONE 10 MG TAB PO SCH (07:53)
[2019-04-28] MEDS: APIXABAN 2.5 MG TABLET PO SCH ×2 (07:53→20:55)
[2019-04-28] MEDS: CYANOCOBALAMIN 500 MCG TAB PO SCH (07:53)
[2019-04-28] MEDS: POTASSIUM CHLORIDE ER 10 MEQ TAB.ER.PRT PO SCH (07:53)
[2019-04-28] MEDS: VIT A,C & E-LUTEIN-MINERALS 1 EACH TAB PO SCH ×2 (07:53→20:54)
[2019-04-28] MEDS: METOPROLOL TARTRATE 25 MG TAB PO SCH (07:53)
[2019-04-28] MEDS: PANTOPRAZOLE 40 MG TABLET PO SCH ×2 (07:53→20:54)
[2019-04-28] MEDS: MULTIVITAMINS, THERA 1 EACH TAB PO SCH (07:54)
[2019-04-28] MEDS: FUROSEMIDE 40 MG TAB PO SCH ×2 (07:54→16:08)
[2019-04-28] MEDS: IPRATROPIUM-ALBUTEROL 3 ML NEB INHALATION SCH ×4 (08:45→20:54)
[2019-04-28] MEDS: SYMBICORT 160-4.5 MCG INHALER INHALATION SCH ×2 (08:45→20:54)
[2019-04-28 12:34] LABS: Glucose,Whole Blood 118 mg/dL (75-99)
--- NOTE | 2019-04-28 13:04 | P.PN ---
Subjective Progress Note Date: 04/28/19 This is a pleasant 89-year-old female patient who presented with symptoms of progressive dyspnea. She's been diuresis with IV Lasix. Overall she is feeling somewhat better. She continues to have some dyspnea on exertion but I believe this is at her baseline. She does have a bit of a cough but this is improving and is nonproductive at this time. She denies any complaints of chest discomfort, palpitations or dizziness. She denies any complaints of nausea. She feels that her edema has improved. She was found to be in atrial fibrillation with controlled ventricular response and is anticoagulated on Eliquis. She is currently on by mouth diuretics. Labs and vital signs are stable. She continues on Lipitor 20 mg by mouth daily at bedtime, Lasix 40 mg by mouth twice a day, Eliquis 0.5 mg by mouth twice a day and metoprolol titrate 25 mg by mouth twice a day. 04/28/2019 Upon examination this morning patient is resting comfortably in bed. She feels her breathing is improved. She has no complaints of chest discomfort, palpitations, dizziness or lightheadedness. She denies complaints of edema. Heart rate has been somewhat slow at times down into the 40s and 50s. Objective - Vital Signs Vital signs: Vital Signs Temp 97.6 F 04/28/19 11:10 Pulse 60 04/28/19 12:50 Resp 16 04/28/19 11:10 BP 116/63 04/28/19 11:10 Pulse Ox 99 04/28/19 11:10 Intake & Output 04/27/19 04/28/19 04/28/19 17:59 06:59 18:59 Intake Total 250 Output Total 1000 Balance -750 Weight Intake: IV 10 0.9 10 Oral 240 Output: Urine 1000 Other: Voiding Method Toilet # Voids 1 - Exam PHYSICAL EXAMINATION: HEENT: Head is atraumatic, normocephalic. Pupils equal, round. Neck is supple. There is no elevated jugular venous pressure. HEART EXAMINATION: Heart sounds irregularly irregular, S1 and S2 normal. No murmur or gallop heard. CHEST EXAMINATION: Lungs are clear to auscultation and precussion. No chest wall tenderness is noted on palpation or with deep breathing. ABDOMEN: Soft, nontender. Bowel sounds are heard. No organomegaly noted. EXTREMITIES: 2+ peripheral pulses with evidence of trace peripheral edema, improved since yesterday and no calf tenderness noted. NEUROLOGIC patient is awake, alert and oriented x2. . - Labs CBC & Chem 7: 04/24/19 13:32 04/27/19 06:05 Labs: Abnormal Lab Results - Last 24 Hours (Table) 04/27/19 04/27/19 04/27/19 Range/Units 12:18 16:39 20:05 POC Glucose (mg/dL) 118 H 203 H 197 H (75-99) mg/dL 04/28/19 04/28/19 Range/Units 05:31 12:32 POC Glucose (mg/dL) 124 H 118 H (75-99) mg/dL Assessment and Plan Assessment: #1 symptoms of progressive dyspnea with combination of exacerbation of chronic COPD and probable element of mild diastolic congestive heart failure #2 atrial fibrillation with slow ventricular response at times #3 hyperlipidemia Plan: From cardiology's perspective, we will decrease metoprolol to 12.5 mg by mouth twice a day. From our standpoint, patient may be discharged home and follow-up as an outpatient. DIGITAL FORENSIC ANALYST note has been reviewed, I agree with a documented findings and plan of care. Patient was seen and examined.
--- NOTE | 2019-04-28 15:58 | P.PN ---
Subjective Progress Note Date: 04/28/19 88-year-old female patient was recently hospitalized for COPD exacerbation and CHF exacerbation and mild fluid overload. She also had some nausea and emesis secondary to peptic ulcer disease/gastritis. The patient was admitted to the hospital on 04/20/2019 4D symptoms. She was also found to be in respiratory distress. Chest x-ray showed some mild fluid overload. She was given Lasix IV. Her outpatient medications were resumed and ultimately she was discharged home on oral Lasix 40 mg in the morning and 20 mg in the evening. The patient wears oxygen between 2 and 3 L per minute nasal cannula. Her chest x-ray at the time of discharge had shown improvement in the volume status. She was afebrile. Following her discharge, the patient became again shortness of breath and she came back to the emergency department. She stated that she woke up and she was having hard time breathing. She took her inhalers and nebulized medication which gave her limited relief and she stated she was unable to breathe in deep. The fire department came in and her pulse ox was 96%. She was on oxygen at 2 L. No fever. No nausea vomiting or abdominal pain. No lightheadedness or dizziness. In comparison, the chest x-ray is showing small bilateral pleural effusions and mild pulmonary vessel congestion. The white cell count was 12. The renal function was stable at creatinine of 0.5. Coagulation profile was within normal limits. The proBNP level was 2660. TSH was 0.7. Echo that was done showed an ejection fraction of 55-60% with grade 2 diastolic heart failure and the RV was mildly enlarged and there was evidence of mild to moderate pulmonary hypertension with a PA pressure of 44. No other significant valvular abnormalities in the aortic valve and a mitral valve was structurally within n ormal limits. Influenza screen was negative. She is currently on IV Lasix 40 mg every 12 hours. She is also on Symbicort as maintenance, IV Solu-Medrol, DuoNeb nebulized treatments around the clock and she is on long-term and anticoagulation with Eliquis. past medical history of severe COPD with the baseline FEV1 of 0.77 L or 40% of predicted, on maintenance dose of prednisone, chronic hypoxemic respiratory failure on home oxygen, hypothyroidism, former smoker, osteoarthritis with previous history of bilateral knee replacements, left cataract surgery On 04/26/2019 patient seen in follow-up on selective care unit, she states she is breathing easier, and feeling better, still diuresing. She is in -1620 ML fluid balance over the last 24 hours, no lower extremity edema, lung sounds reveal normal crackles at the left lower base, no rhonchi, no wheezing. Patient has been transitioned to oral Lasix, she is maintaining negative fluid balance, continues with breathing treatments. Today's labs have been reviewed BNP was done showing sodium of 136, potassium is 3.9, chloride is 92, CO2 39, BUN of 25 creatinine 0.58 On 04/27/2019 the patient is feeling better. No new complaints. She has been diuresed adequately. He is on bronchodilators. She is on a prednisone burst taper. No cough sputum production chest tightness or wheezing. Renal function is stable with a creatinine of 0.6. She is currently on oxygen at 2 L in the pulse ox is 90%. She's been negative fluid balance over the past 48 hours. She is on long-term anticoagulation with Eliquis. She is on Symbicort as main tenance. Prednisone is at 30 mg as part of a burst taper. The patient was seen today 04/28/2019 in follow-up on the selective care unit. She is currently resting comfortably in bed. Awake alert no acute distress. No worsening shortness of breath cough or congestion. No chest pain or palpitatio ns. Maintaining good O2 saturation in the 90s on 2 L/m per nasal cannula. She remains on DuoNeb inhalations, Symbicort, oral prednisone. Anticoagulated with Eliquis. Objective - Vital Signs Vital signs: Vital Signs Temp 97.9 F 04/28/19 15:39 Pulse 51 L 04/28/19 15:39 Resp 16 04/28/19 15:39 BP 107/45 04/28/19 15:39 Pulse Ox 99 04/28/19 15:39 Intake & Output 04/27/19 04/28/19 04/28/19 17:59 06:59 18:59 Intake Total 490 Output Total 1000 Balance -510 Weight Intake: IV 10 0.9 10 Oral 480 Output: Urine 1000 Other: Voiding Method Toilet # Voids 1 - Exam GENERAL EXAM: Alert, pleasant 89-year-old female patient, on 2 L nasal cannula, comfortable in no apparent distress. HEAD: Normocephalic. EYES: Normal reaction of pupils, equal size. NOSE: Clear with pink turbinates. THROAT: No erythema or exudates. NECK: No masses, no JVD. CHEST: No chest wall deformity. LUNGS: Equal air entry with crackles in the bilateral posterior bases. CVS: S1 and S2 normal with no audible murmur, regular rhythm. ABDOMEN: No hepatosplenomegaly, normal bowel sounds, no guarding or rigidity. SPINE: No scoliosis or deformity SKIN: No rashes CENTRAL NERVOUS SYSTEM: No focal deficits, tone is normal in all 4 extremities. EXTREMITIES: There is no peripheral edema. No clubbing, no cyanosis. Peripheral pulses are intact. - Labs CBC & Chem 7: 04/24/19 13:32 04/27/19 06:05 Labs: Abnormal Lab Results - Last 24 Hours (Table) 04/27/19 04/27/19 04/28/19 Range/Units 16:39 20:05 05:31 POC Glucose (mg/dL) 203 H 197 H 124 H (75-99) mg/dL 04/28/19 Range/Units 12:32 POC Glucose (mg/dL) 118 H (75-99) mg/dL Assessment and Plan Assessment: #1. Acute exacerbation of chronic obstructive pulmonary disease, and component of fluid overload treated recently and discharged home 24 hours ago. The patient came into the hospital for worsening shortness of breath and chest x- rays showing a component of mild pulmonary vascular congestion and small bilateral pleural effusions. #2. Severe COPD with a baseline of one of 40% of predicted, 0.77 L #3. Chronic hypoxemic respiratory failure related to severe COPD #4. Hypothyroidism #5. Hyperlipidemia #6. Former smoker #7. Osteoarthritis, with history of bilateral knee replacement #8. Cataracts #9 history of atrial flutter maintained on long-term anticoagulation with Eliquis and the rate is controlled for now, but she seems to be in A. fib rhythm. #10 diastolic heart failure with mild to moderate pulmonary hypertension. Plan The patient was seen and evaluated by Dr. Lau. She is stable from the pulmonary standpoint. She is cleared for discharge. Continue her home pulmonary medications. Continue prednisone taper. Follow-up with Dr. Munoz in our office in 1-2 weeks' time. She is encouraged to call sooner with any recurrence of symptoms or other questions or concerns. I, the cosigning physician, performed a history & physical examination of the patient. Lungs sounds faint crackles in the posterior base. Maintaining good O2 saturations in the 90s on 2 L/m per nasal. I discussed the assessment and plan of care with my nurse practitioner, Clair Amos. I attest to the above note as dictated by her.
[2019-04-28 17:26] LABS: Glucose,Whole Blood 244 mg/dL (75-99)
[2019-04-28 20:43] LABS: Glucose,Whole Blood 182 mg/dL (75-99)
[2019-04-28] MEDS: METOPROLOL TARTRATE 12.5 MG TAB PO SCH (20:54)
[2019-04-28] MEDS: MONTELUKAST 10 MG TAB PO SCH (20:54)
[2019-04-28] MEDS: ATORVASTATIN 20 MG TAB PO SCH (20:54)
--- NOTE | 2019-04-28 21:34 | PN ---
PROGRESS NOTE DATE OF SERVICE: 04/28/2019 This 89-year-old woman with a past medical history of multiple medical problems was admitted with shortness of breath, CHF exacerbation, possible chronic obstructive pulmonary disease acute exacerbation. Patient is being closely monitored. No chest pain. No palpitations. No fever. PHYSICAL EXAMINATION: Alert and oriented x3. Pulse 51, blood pressure 106/40, respiration is 16, temperature 97.9, pulse ox 98% on 2 L. HEENT: Conjunctivae normal. Oral mucosa moist. NECK: No jugular venous distention. No lymph node enlargement. CARDIOVASCULAR: S1, S2. RESPIRATORY: Diminished breath sounds at the bases. A few scattered rhonchi. ABDOMEN: Soft, nontender. LEGS: No edema, no swelling. NERVOUS SYSTEM: No focal deficits. LABS: Accu-Cheks noted. ASSESSMENT: 1. Shortness of breath, multifactorial, possible congestive heart failure acute exacerbation as well as acute on chronic diastolic dysfunction, ejection fraction 55-60%, as well as chronic obstructive pulmonary disease acute exacerbation. 2. Increased WBC. 3. Increased AST, ALT, possibly secondary to congestive heart failure. 4. Increased CO2. 5. Chronic obstructive pulmonary disease history. 6. Right bundle block on EKG. 7. Hyperlipidemia. 8. Hypothyroidism. 9. History of degenerative joint disease. 10.Rotator cuff tear. 11.Remote history of nicotine dependence. 12.Chronic hypoxic respiratory failure. RECOMMENDATIONS AND DISCUSSION: In this 89-year-old woman who presented with multiple complex medical issues, we will monitor the patient closely, continue the current management and symptomatic treatment. Chest x-ray improving at this time. We will continue to monitor. Repeat labs will be ordered tomorrow. Otherwise, closely follow with Cardiology. Guarded prognosis. Further recommendations to follow. MMODL / IJN: [id number] /
[2019-04-29] MEDS: LEVOTHYROXINE 75 MCG TAB PO SCH (05:24)
[2019-04-29 06:21] LABS: Glucose,Whole Blood 94 mg/dL (75-99)
[2019-04-29 06:51] LABS: Basophils % (A) 0 %; Eosinophils # (A) 0.1 k/uL (0-0.7); Eosinophils % (A) 1 %; HCT 33.8 % (34.0-46.0); HGB 10.6 gm/dL (11.4-16.0); Lymphocytes # (A) 2.2 k/uL (1.0-4.8); Lymphocytes % (A) 26 %; MCH 30.2 pg (25.0-35.0); MCHC 31.4 g/dL (31.0-37.0); Mean Platelet Volume 9.2; Monocytes # (A) 0.5 k/uL (0-1.0); Monocytes % (A) 6 %; Neutrophils # (A) 5.6 k/uL (1.3-7.7); Neutrophils % (A) 65 %; Platelet Count 172 k/uL (150-450); RBC 3.52 m/uL (3.80-5.40); RDW 13.2 % (11.5-15.5); WBC 8.6 k/uL (3.8-10.6)
[2019-04-29 07:01] LABS: African American GFR (CKD) >90 (>60 ml/min/1.73 sqM); Blood Urea Nitrogen 26 mg/dL (7-17); Calcium 8.9 mg/dL (8.4-10.2); Chloride 89 mmol/L (98-107); Glucose 92 mg/dL (74-99); Potassium 3.9 mmol/L (3.5-5.1); Sodium 135 mmol/L (137-145)
[2019-04-29 07:18] LABS: Non-African American GFR(CKD) 83 (>60 ml/min/1.73 sqM)
[2019-04-29 07:25] LABS: Anion Gap 4 mmol/L
[2019-04-29 07:28] LABS: Carbon Dioxide 42 mmol/L (22-30)
[2019-04-29] MEDS: SYMBICORT 160-4.5 MCG INHALER INHALATION SCH (07:30)
[2019-04-29] MEDS: IPRATROPIUM-ALBUTEROL 3 ML NEB INHALATION SCH ×3 (07:30→15:22)
[2019-04-29] MEDS: INSULIN ASPART (NovoLOG) 100 UNIT/ML VIAL SQ SCH ×3 (07:46→18:13)
[2019-04-29 09:48] VITALS: RESP 16; TEMP 97.6
[2019-04-29] MEDS: CYANOCOBALAMIN 500 MCG TAB PO SCH (09:50)
[2019-04-29] MEDS: APIXABAN 2.5 MG TABLET PO SCH (09:50)
[2019-04-29] MEDS: VIT A,C & E-LUTEIN-MINERALS 1 EACH TAB PO SCH (09:51)
[2019-04-29] MEDS: predniSONE 10 MG TAB PO SCH (09:51)
[2019-04-29] MEDS: MULTIVITAMINS, THERA 1 EACH TAB PO SCH (09:51)
[2019-04-29] MEDS: POTASSIUM CHLORIDE ER 10 MEQ TAB.ER.PRT PO SCH (09:51)
[2019-04-29] MEDS: PANTOPRAZOLE 40 MG TABLET PO SCH (09:51)
[2019-04-29] MEDS: METOPROLOL TARTRATE 12.5 MG TAB PO SCH (09:51)
[2019-04-29] MEDS: FUROSEMIDE 40 MG TAB PO SCH (09:51)
--- NOTE | 2019-04-29 12:19 | PN ---
PROGRESS NOTE Mrs. Rubio is an 89-year-old female who presented with symptoms of progressive dyspnea and had evidence of fluid overload. She was in atrial fibrillation. Her rate is under good control. She is feeling much better this morning. Her breathing is stable. Her energy is better. She denies any dizziness or palpitation. She denies any nausea. She is ambulating in the room with her walker and stable. She continues to be on Eliquis 2.5 mg twice a day, Lipitor 20 mg daily, furosemide 40 mg twice a day, metoprolol tartrate 12.5 mg twice a day, Protonix. PHYSICAL EXAMINATION: Blood pressure 129/50 with the heart rate in the 60s and 70s. LUNGS: Clear. HEART: Irregular, irregular./ S1, S2. No S3. No rub. ABDOMEN: Soft, obese, nontender. EXTREMITIES: No significant edema. LAB DATA: Lab data revealed a potassium 3.9. Her bicarb is 42. BUN and creatinine 26 and 0.57. IMPRESSION: 1. Atrial fibrillation, anticoagulated. 2. Symptoms of fluid overload, improved. 3. Hypertension. 4. Hyperlipidemia. RECOMMENDATION: I will cut down the dose of her Lipitor because of the elevated bicarb. Increase the rest of her medical regimen. Increase her level of activity follow. Follow her renal function. I would expect that she should be able to be discharged home soon. MMODL / IJN: [id number] /
--- NOTE | 2019-04-29 12:20 | P.PN ---
Subjective Progress Note Date: 04/29/19 88-year-old female patient was recently hospitalized for COPD exacerbation and CHF exacerbation and mild fluid overload. She also had some nausea and emesis secondary to peptic ulcer disease/gastritis. The patient was admitted to the hospital on 04/20/2019 4D symptoms. She was also found to be in respiratory distress. Chest x-ray showed some mild fluid overload. She was given Lasix IV. Her outpatient medications were resumed and ultimately she was discharged home on oral Lasix 40 mg in the morning and 20 mg in the evening. The patient wears oxygen between 2 and 3 L per minute nasal cannula. Her chest x-ray at the time of discharge had shown improvement in the volume status. She was afebrile. Following her discharge, the patient became again shortness of breath and she came back to the emergency department. She stated that she woke up and she was having hard time breathing. She took her inhalers and nebulized medication which gave her limited relief and she stated she was unable to breathe in deep. The fire department came in and her pulse ox was 96%. She was on oxygen at 2 L. No fever. No nausea vomiting or abdominal pain. No lightheadedness or dizziness. In comparison, the chest x-ray is showing small bilateral pleural effusions and mild pulmonary vessel congestion. The white cell count was 12. The renal function was stable at creatinine of 0.5. Coagulation profile was within normal limits. The proBNP level was 2660. TSH was 0.7. Echo that was done showed an ejection fraction of 55-60% with grade 2 diastolic heart failure and the RV was mildly enlarged and there was evidence of mild to moderate pulmonary hypertension with a PA pressure of 44. No other significant valvular abnormalities in the aortic valve and a mitral valve was structurally within normal limits. Influenza screen was negative. She is currently on IV Lasix 40 mg every 12 hours. She is also on Symbicort as maintenance, IV Solu-Medrol, DuoNeb nebulized treatments around the clock and she is on long-term and anticoagulation with Eliquis. past medical history of severe COPD with the baseline FEV1 of 0.77 L or 40% of predicted, on maintenance dose of prednisone, chronic hypoxemic respiratory failure on home oxygen, hypothyroidism, former smoker, osteoarthritis with previous history of bilateral knee replacements, left cataract surgery On 04/26/2019 patient seen in follow-up on selective care unit, she states she is breathing easier, and feeling better, still diuresing. She is in -1620 ML fluid balance over the last 24 hours, no lower extremity edema, lung sounds reveal normal crackles at the left lower base, no rhonchi, no wheezing. Patient has been transitioned to oral Lasix, she is maintaining negative fluid balance, continues with breathing treatments. Today's labs have been reviewed BNP was done showing sodium of 136, potassium is 3.9, chloride is 92, CO2 39, BUN of 25 creatinine 0.58 On 04/27/2019 the patient is feeling better. No new complaints. She has been diuresed adequately. He is on bronchodilators. She is on a prednisone burst taper. No cough sputum production chest tightness or wheezing. Renal function is stable with a creatinine of 0.6. She is currently on oxygen at 2 L in the pulse ox is 90%. She's been negative fluid balance over the past 48 hours. She is on long-term anticoagulation with Eliquis. She is on Symbicort as chitra ntenance. Prednisone is at 30 mg as part of a burst taper. The patient was seen today 04/28/2019 in follow-up on the selective care unit. She is currently resting comfortably in bed. Awake alert no acute distress. No worsening shortness of breath cough or congestion. No chest pain or palpitati ons. Maintaining good O2 saturation in the 90s on 2 L/m per nasal cannula. She remains on DuoNeb inhalations, Symbicort, oral prednisone. Anticoagulated with Eliquis. On today's evaluation of 04/29/2019 the patient is feeling better and she is less short of breath. No significant cough sputum production chest tightness or wheezing and she has recovered significantly. She has metabolic alkalosis secondary to chronic hypercapnic respiratory failure in association with her COPD. No angina. Her baseline FEV1 is no other of 0.77 L. She is oxygen dependent. Objective - Vital Signs Vital signs: Vital Signs Temp 97.6 F 04/29/19 07:00 Pulse 72 04/29/19 11:18 Resp 16 04/29/19 07:00 BP 129/55 04/29/19 07:00 Pulse Ox 97 04/29/19 07:32 Intake & Output 04/28/19 04/29/19 04/29/19 18:59 06:59 18:59 Intake Total 490 Output Total 1350 700 Balance -860 -700 Weight 87.3 kg Intake: IV 10 0.9 10 Oral 480 Output: Urine 1350 700 Other: Voiding Method Toilet Toilet # Voids 1 - Exam GENERAL EXAM: Alert, very pleasant, 89-year-old white female, on 2 L of oxygen comfortable in no apparent distress. HEAD: Normocephalic/atraumatic. EYES: Normal reaction of pupils, equal size. Conjunctiva pink, sclera white. NOSE: Clear with pink turbinates. THROAT: No erythema or exudates. NECK: No masses, no JVD, no thyroid enlargement, no adenopathy. CHEST: No chest wall deformity. Symmetrical expansion. LUNGS: Equal air entry with minimal basilar crackles, no wheeze, rhonchi or dull ness. CVS: Regular rate and rhythm, normal S1 and S2, no gallops, no murmurs, no rubs ABDOMEN: Soft, nontender. No hepatosplenomegaly, normal bowel sounds, no guarding or rigidity. EXTREMITIES: No clubbing, no edema, no cyanosis, 2+ pulses and upper and lower extremities. MUSCULOSKELETAL: Muscle strength and tone normal. SPINE: No scoliosis or deformity SKIN: No rashes CENTRAL NERVOUS SYSTEM: Alert and oriented -3. No focal deficits, tone is normal in all 4 extremities. PSYCHIATRIC: Alert and oriented -3. Appropriate affect. Intact judgment and insight. - Labs CBC & Chem 7: 04/29/19 06:17 04/29/19 06:17 Labs: Abnormal Lab Results - Last 24 Hours (Table) 04/28/19 04/28/19 04/28/19 Range/Units 12:32 17:15 20:41 RBC (3.80-5.40) m/uL Hgb (11.4-16.0) gm/dL Hct (34.0-46.0) % Sodium (137-145) mmol/L Chloride (98-107) mmol/L Carbon Dioxide (22-30) mmol/L BUN (7-17) mg/dL POC Glucose (mg/dL) 118 H 244 H 182 H (75-99) mg/dL 04/29/19 04/29/19 Range/Units 06:17 06:17 RBC 3.52 L (3.80-5.40) m/uL Hgb 10.6 L (11.4-16.0) gm/dL Hct 33.8 L (34.0-46.0) % Sodium 135 L (137-145) mmol/L Chloride 89 L (98-107) mmol/L Carbon Dioxide 42 H* (22-30) mmol/L BUN 26 H (7-17) mg/dL POC Glucose (mg/dL) (75-99) mg/dL Assessment and Plan Plan: #1. Acute exacerbation of chronic obstructive pulmonary disease, and component of fluid overload treated recently and discharged home 24 hours ago. The patient came into the hospital for worsening shortness of breath and chest x- rays showing a component of mild pulmonary vascular congestion and small bilateral pleural effusions. Clinically the patient is much improved for now. The patient has been adequately diuresed and the patient has been treated for COPD exacerbation. #2. Severe COPD with a baseline of one of 40% of predicted, 0.77 L #3. Chronic hypoxemic respiratory failure related to severe COPD #4. Hypothyroidism #5. Hyperlipidemia #6. Former smoker #7. Osteoarthritis, with history of bilateral knee replacement #8. Cataracts #9 history of atrial flutter maintained on long-term anticoagulation with Eliquis and the rate is controlled for now, but she seems to be in A. fib rhythm. #10 diastolic heart failure with mild to moderate pulmonary hypertension. Plan Oral Lasix Prednisone burst taper Long-term anticoagulation with Eliquis Currently on 2 L of oxygen by nasal cannula Possible discharge home today on routine bronchodilators and follow in the office Clinically improved.
[2019-04-29 12:51] VITALS: BP 119/57
[2019-04-29 12:54] LABS: Glucose,Whole Blood 115 mg/dL (75-99)
--- NOTE | 2019-04-29 14:38 | P.DS ---
Providers Date of admission: 04/24/19 16:15 Expected date of discharge: 04/29/19 Attending physician: Falguni Purcell Consults: 04/24/19 16:15 Consult Physician Routine Consulting Provider: [facility] Consult Reason/Comments: Acute pulmonary edema Do you want consulting provider notified?: Yes 04/24/19 19:22 Consult Physician Routine Consulting Provider: Lincoln Lindsey Reason/Comments: copd Do you want consulting provider notified?: Yes Primary care physician: Maria Alejandra Munoz Hospital Course: Final diagnosis Shortness of breath, multifactorial, possibly a combination of congestive heart failure, acute exacerbation with chronic diastolic dysfunction, ejection fraction 55- 60%, as well as chronic obstructive pulmonary disease, acute exacerbation Increased white blood count Increased AST, ALT, possibly secondary to congestive heart failure Increased CO2 Chronic obstructive pulmonary disease history Right bundle-branch block on EKG Hyperlipidemia Hypothyroidism Degenerative joint disease Rotator cuff tear remote history of nicotine dependence Discharge disposition Patient is being discharged in a stable condition with guarded prognosis to home and will follow-up with Dr. Munoz in the outpatient setting upon discharge. Patient will also follow-up with cardiology in the outpatient setting as well. Patient will continue on 40 mg oral Lasix daily along with bronchodilators and a prednisone taper upon discharge. Patient will continue with [facility] along with [facility] in the outpatient setting. Total time taken is 35 minutes. History of present illness This is an 89-year-old female who was recently admitted with shortness of breath, CHF exacerbation, possible chronic obstructive pulmonary disease acute exacerbation and was being closely monitored. Cardiology and pulmonary were following. Patient was maintained on bronchodilators along with IV steroids and IV Lasix for diuresis. Patient will continue with oral Lasix 40 mg daily in the outpatient setting along with bronchodilators and a prednisone taper. Patient instructed to follow-up with Dr. Munoz her primary care provider along with cardiology in the outpatient setting. Patient experienced some heart rates in the low 50s and metoprolol was changed to 12.5 twice daily. Patient was evaluated by physical therapy recommending to continue with [facility] along with [facility] in the outpatient setting. A lengthy discussion was had with the family members and discussed possible moving to an assisted living closer to where the son lives in the near future. Patient does live at home with disabled who receives home care as well. Patient is visited by visiting physicians. Currently no reports of chest pain, worsening shortness of breath, or palpitations. Patient is afebrile. No reports of nausea or vomiting and patient is tolerating diet. Guarded prognosis. On exam vital signs are stable. Temp is 97.6 F, pulse is 74, respirations are 17, blood pressure is 134/84, oxygen saturation is 100% on room air. Cardio S1, S2 are muffled. Respiratory shows diminished breath sounds at the bases with a few scattered rhonchi noted. Abdomen is soft and nontender. Nervous system shows no focal deficits. Please refer to medication reconciliation sheet for a list of medications. Patient Condition at Discharge: Stable Plan - Discharge Summary Discharge Rx Participant: Yes New Discharge Prescriptions: New Ipratropium-Albuterol Nebulize [Duoneb 0.5 mg-3 mg/3 ml Soln] 3 ml INHALATION RT-QID 30 Days #100 units Ipratropium-Albuterol Nebulize [Duoneb 0.5 mg-3 mg/3 ml Soln] 3 ml INHALATION RT-QID PRN ml PRN Reason: Shortness Of Breath Or Wheezing Apixaban [Eliquis] 2.5 mg PO BID 30 Days #60 tablet Metoprolol Tartrate [Lopressor] 12.5 mg PO BID 30 Days #60 tab Budesonide-Formot 160-4.5 Mcg [Symbicort 160-4.5 Mcg Inhaler] 2 puff INHALATION RT-BID 30 Days #1 puff predniSONE 10 mg PO DIRECTED #30 tab Furosemide [Lasix] 40 mg PO DAILY 30 Days #30 tab Continue Simvastatin [Zocor] 40 mg PO HS Montelukast [Singulair] 10 mg PO HS Multivitamins, Thera [Multivitamin (formulary)] 1 tab PO DAILY Albuterol Nebulized [Ventolin Nebulized] 2.5 mg INHALATION RT-Q4H PRN PRN Reason: Shortness Of Breath Levothyroxine Sodium [Synthroid] 75 mcg PO DAILY Vit C/E/Zn/Coppr/Lutein/Zeaxan [Preservision Areds 2 Softgel] 1 cap PO BID Prevagen 1 cap PO DAILY Potassium Chloride ER [K-Dur 10] 10 meq PO DAILY Cyanocobalamin (Vitamin B-12) [Vitamin B-12] 1,000 mcg PO DAILY Biotin 10,000 mcg PO DAILY Acetaminophen [Tylenol Extra Strength] 500 mg PO DAILY PRN PRN Reason: Pain Discontinued predniSONE 5 mg PO DAILY Furosemide [Lasix] 40 mg PO DAILY Aspirin 81 mg PO DAILY 30 Days #30 chew Furosemide [Lasix] 20 mg PO HS PRN PRN Reason: Edema Discharge Medication List Simvastatin [Zocor] 40 mg PO HS 09/25/13 [History] Montelukast [Singulair] 10 mg PO HS 02/11/16 [History] Albuterol Nebulized [Ventolin Nebulized] 2.5 mg INHALATION RT-Q4H PRN 03/14/16 [History] Multivitamins, Thera [Multivitamin (formulary)] 1 tab PO DAILY 03/14/16 [History] Cyanocobalamin (Vitamin B-12) [Vitamin B-12] 1,000 mcg PO DAILY 12/06/18 [History] Levothyroxine Sodium [Synthroid] 75 mcg PO DAILY 12/06/18 [History] Potassium Chloride ER [K-Dur 10] 10 meq PO DAILY 12/06/18 [History] Prevagen 1 cap PO DAILY 12/06/18 [History] Vit C/E/Zn/Coppr/Lutein/Zeaxan [Preservision Areds 2 Softgel] 1 cap PO BID 12/06/18 [History] Acetaminophen [Tylenol Extra Strength] 500 mg PO DAILY PRN 04/19/19 [History] Biotin 10,000 mcg PO DAILY 04/19/19 [History] Apixaban [Eliquis] 2.5 mg PO BID 30 Days #60 tablet 04/29/19 [Rx] Budesonide-Formot 160-4.5 Mcg [Symbicort 160-4.5 Mcg Inhaler] 2 puff INHALATION RT-BID 30 Days #1 puff 04/29/19 [Rx] Furosemide [Lasix] 40 mg PO DAILY 30 Days #30 tab 04/29/19 [Rx] Ipratropium-Albuterol Nebulize [Duoneb 0.5 mg-3 mg/3 ml Soln] 3 ml INHALATION RT-QID 30 Days #100 units 04/29/19 [Rx] Ipratropium-Albuterol Nebulize [Duoneb 0.5 mg-3 mg/3 ml Soln] 3 ml INHALATION RT-QID PRN ml 04/29/19 [Rx] Metoprolol Tartrate [Lopressor] 12.5 mg PO BID 30 Days #60 tab 04/29/19 [Rx] predniSONE 10 mg PO DIRECTED #30 tab 04/29/19 [Rx] Follow up Appointment(s)/Referral(s): Maria Alejandra Munoz MD [Primary Care Provider] - 3 Days (Patient states she is unable to get transportation to appointments and is having visiting physicians set up.) Mi Redmond MD [STAFF PHYSICIAN] - 1 Week (Couples Therapist: Patient states she is unable to get transportation to appointments and is having visiting physicians set up.) Patient Instructions/Handouts: Heart Failure (DC), Pulmonary Edema (DC), Heart Healthy Diet (DC), Safe Use of Anticoagulants (DC) Activity/Diet/Wound Care/Special Instructions: [facility] will see you in 24-48hrs of discharge. They can be reached at [phone]. Activity Limited until follow-up Continue current diet Follow-up with primary care provider upon discharge Follow-up with cardiology in one week Continue with prednisone taper Discharge Disposition: HOME WITH HOME HEALTH SERVICES Care Plan Goals (MU): CHF 1. Weigh yourself every morning after you urinate. If you gain 2-3 pounds overnight or 5 pounds in one week, call your primary physician for guidance on your medications. Keep a log of your weights. 2. Avoid salt, or foods with hidden salt. Extra salt makes your heart work harder and traps the fluid in your body for longer. 3. Take all of your medications as directed, especially your water pills. NEVER skip a dose. 4. Elevate your legs when you are not up moving around to help with circulation and prevent swelling. 5. Call your physician if you notice any extra swelling in your legs, ankles, feet or abdomen, if you have a new dry cough, if your shortness of breath worsens with activity or at rest, or if you feel more fatigued.
[2019-04-29 15:34] VITALS: PULSE 76
[2019-04-29 17:17] LABS: Glucose,Whole Blood 249 mg/dL (75-99)
[2019-04-30] MEDS ORDERED: FUROSEMIDE 40 MG TAB PO SCH (09:00)
--- NOTE | 2019-05-02 15:49 | CDI ---
Documentation Clarification Form Date: 05/02/19 From: Roopa Boyce CCS Phone: If you have a question about this query, please contact Mikala Najera, Implementation Engineer at [phone] between 8am and 5pm. Admit Date: 04/24/19 Discharge Date: 04/29/19 Patient Name: Autumn Rubio Visit Number: [id number] ATTENTION: The Clinical Documentation Specialists (CDI) and [facility] Coding Staff appreciate your assistance in clarifying documentation. Please respond to the clarification below the line at the bottom and electronically sign. The CDI & [facility] Coding staff will review the response and follow-up if needed. Please note: Queries are made part of the Legal Health Record. If you have any questions, please contact the author of this message via ITS. Dear Dr. Purcell, Atrial Fibrillation is documented in the PNs. History/Risk Factors: HHD, CHF, PHTN, Chronic Resp Failure Clinical Indicators: AFIB/AFlutter EKG/telemetry: Atrial fibrillation with slow ventricular response Treatment: Eliquis 2.5 mg PO BID Consults: Mi In your professional opinion, can you please clarify the type of Atrial Fibrillation, if known? Chronic/Permanent Paroxysmal Persistent Other, please specify Unable to determine Unable to determine MTDD
== END 2019-04-29 18:35 | disposition home health service (06) | DRG 292 ==
LOC: EC 12:14 → 3SCARD 16:15
PROVIDERS: ADMIT Hospitalist; ATTEND Hospitalist
DX: I11.0 Hypertensive heart disease with heart failure (principal); J44.1 Chronic obstructive pulmonary disease with (acute) exacerbation; J96.11 Chronic respiratory failure with hypoxia; I48.92 Unspecified atrial flutter; J96.12 Chronic respiratory failure with hypercapnia; E87.3 Alkalosis; I50.33 Acute on chronic diastolic (congestive) heart failure; I27.29 Other secondary pulmonary hypertension; I45.10 Unspecified right bundle-branch block; E78.5 Hyperlipidemia, unspecified; E03.9 Hypothyroidism, unspecified; M19.90 Unspecified osteoarthritis, unspecified site; I08.1 Rheumatic disorders of both mitral and tricuspid valves; I48.91 Unspecified atrial fibrillation; H26.9 Unspecified cataract; M75.101 Unspecified rotator cuff tear or rupture of right shoulder, not specified as traumatic; K27.9 Peptic ulcer, site unspecified, unspecified as acute or chronic, without hemorrhage or perforation; K29.70 Gastritis, unspecified, without bleeding; E66.9 Obesity, unspecified; Z68.31 Body mass index [BMI] 31.0-31.9, adult; Z71.3 Dietary counseling and surveillance; Z79.52 Long term (current) use of systemic steroids; Z79.899 Other long term (current) drug therapy; Z79.890 Hormone replacement therapy; Z79.82 Long term (current) use of aspirin; Z87.891 Personal history of nicotine dependence; Z99.81 Dependence on supplemental oxygen; Z96.653 Presence of artificial knee joint, bilateral; Z98.42 Cataract extraction status, left eye; Z88.3 Allergy status to other anti-infective agents; Z88.7 Allergy status to serum and vaccine; Z88.8 Allergy status to other drugs, medicaments and biological substances
CPT/HCPCS: 36415; 71046; 80048; 80053; 81001; 83605; 83735; 83880; 84443; 84484; 85025; 85610; 85730; 93005; 93306; 94640; 94760; 96374; 99285

== ENCOUNTER 2019-07-01 21:37 | Inpatient (IN) | payer MEDICARE, BC, OTHER ==
[2019-07-01] MEDS ORDERED: MORPHINE SULFATE 2 MG/ML SYRINGE IM STA (22:02)
[2019-07-01] MEDS ORDERED: LIDOCAINE 5% PATCH TOPICAL STA (22:02)
--- NOTE | 2019-07-01 22:10 | ED ---
Fall HPI - General Chief Complaint: Fall Stated Complaint: Fall Time Seen by Provider: 07/01/19 21:49 Source: patient, EMS Mode of arrival: EMS - History of Present Illness Initial Comments: 89-year-old female patient presents to the emergency department today with complaints of right rib pain and right knee pain after having a fall. Patient states all she is in her bathroom just prior to arrival she turned, lost her balance, and fell landing on her right side. Patient states she did try to catch herself on the vanity but was unsuccessful. She is unsure what she hit her ribs on but states that they are very tender to touch and it hurts to take a deep breath. She is also reporting right knee pain. Denies any numbness or tingling to the right lower leg. Patient states that she did hit her head softly on something. She denies any loss of consciousness, headache, blurred vision, or double vision. Denies nausea or vomiting. She is not currently taking any blood thinning medications, does report taking a baby aspirin daily. Denies any other injuries. Patient denies any neck pain, back pain, dizziness, weakness, abdominal pain, or difficulties with bowel movements or urination. - Related Data Home Medications Medication Instructions Recorded Confirmed Simvastatin [Zocor] 40 mg PO HS 09/25/13 04/24/19 Montelukast [Singulair] 10 mg PO HS 02/11/16 04/24/19 Albuterol Nebulized [Ventolin 2.5 mg INHALATION RT-Q4H PRN 03/14/16 04/25/19 Nebulized] Multivitamins, Thera [Multivitamin 1 tab PO DAILY 03/14/16 04/24/19 (formulary)] Cyanocobalamin (Vitamin B-12) 1,000 mcg PO DAILY 12/06/18 04/24/19 [Vitamin B-12] Levothyroxine Sodium [Synthroid] 75 mcg PO DAILY 12/06/18 04/24/19 Potassium Chloride ER [K-Dur 10] 10 meq PO DAILY 12/06/18 04/24/19 Prevagen 1 cap PO DAILY 12/06/18 04/24/19 Vit C/E/Zn/Coppr/Lutein/Zeaxan 1 cap PO BID 12/06/18 04/24/19 [Preservision Areds 2 Softgel] Acetaminophen [Tylenol Extra 500 mg PO DAILY PRN 04/19/19 04/24/19 Strength] Biotin 10,000 mcg PO DAILY 04/19/19 04/24/19 Previous Rx's Medication Instructions Recorded Apixaban [Eliquis] 2.5 mg PO BID 30 Days #60 tablet 04/29/19 Budesonide-Formot 160-4.5 Mcg 2 puff INHALATION RT-BID 30 Days 04/29/19 [Symbicort 160-4.5 Mcg Inhaler] #1 puff Furosemide [Lasix] 40 mg PO DAILY 30 Days #30 tab 04/29/19 Ipratropium-Albuterol Nebulize 3 ml INHALATION RT-QID 30 Days 04/29/19 [Duoneb 0.5 mg-3 mg/3 ml Soln] #100 units Ipratropium-Albuterol Nebulize 3 ml INHALATION RT-QID PRN ml 04/29/19 [Duoneb 0.5 mg-3 mg/3 ml Soln] Metoprolol Tartrate [Lopressor] 12.5 mg PO BID 30 Days #60 tab 04/29/19 predniSONE 10 mg PO DIRECTED #30 tab 04/29/19 Allergies Allergy/AdvReac Type Severity Reaction Status Date / Time bacitracin Allergy Rash/Hives Verified 07/01/19 22:48 bacitracin zinc Allergy Rash/Hives Verified 07/01/19 22:48 [From Neosporin ([id number])] dimethicone Allergy Rash/Hives Verified 07/01/19 22:48 [From A & D Emollient] glycerin Allergy Rash/Hives Verified 07/01/19 22:48 [From A & D Emollient] neomycin sulfate Allergy Rash/Hives Verified 07/01/19 22:48 [From Neosporin ([id number])] polymyxin B Allergy Rash/Hives Verified 07/01/19 22:48 [From Neosporin ([id number])] stearyl alcohol Allergy Rash/Hives Verified 07/01/19 22:48 [From A & D Emollient] Tetanus Vaccines and Toxoid Allergy swelling Verified 07/01/19 22:48 and severe redness and hardness at site Review of Systems ROS Statement: Those systems with pertinent positive or pertinent negative responses have been documented in the HPI. ROS Other: All systems not noted in ROS Statement are negative. Past Medical History Past Medical History: COPD, Eye Disorder, Hyperlipidemia, Thyroid Disorder Additional Past Medical History / Comment(s): TEAR RT ROTATOR CUFFS, RT cataracts, O2 @ 2 liters 24/7 History of Any Multi-Drug Resistant Organisms: None Reported Past Surgical History: Joint Replacement, Orthopedic Surgery Additional Past Surgical History / Comment(s): ATTEMPTED REPAIR OF RT ROTATOR CUFF. BILATERAL KNEE REPLACEMENTS, LEFT CATARACT Past Anesthesia/Blood Transfusion Reactions: No Reported Reaction Additional Past Anesthesia/Blood Transfusion Reaction / Comment(s): no hx blood transfusion Past Psychological History: No Psychological Hx Reported Smoking Status: Former smoker Past Alcohol Use History: Daily Past Drug Use History: None Reported - Past Family History Mother Family Medical History: No Reported History Additional Family Medical History / Comment(s): mother at age 93 of "old age" Father Family Medical History: No Reported History Additional Family Medical History / Comment(s): states at age 89 with no known medical problems General Exam Limitations: no limitations General appearance: alert, in no apparent distress, other (This is a well- developed, well-nourished elderly female patient in no acute distress. Vital signs upon presentation are temperature 98.3F, pulse 80, respirations 20, blood pressure 109/84, pulse ox 99% on room air.) Eye exam: Present: normal appearance, PERRL, EOMI. Absent: scleral icterus, conjunctival injection, periorbital swelling ENT exam: Present: normal exam, normal oropharynx, mucous membranes moist Neck exam: Present: normal inspection, full ROM, other (Nontender, no step-off, no deformity to firm midline palpation of the posterior cervical spine. Full range of motion without pain or limitation.). Absent: tenderness, meningismus, lymphadenopathy Respiratory exam: Present: normal lung sounds bilaterally, chest wall tenderness (Right lateral chest wall over the 7th and 8th ribs.). Absent: respiratory distress, wheezes, rales, rhonchi, stridor Cardiovascular Exam: Present: regular rate, normal rhythm, normal heart sounds. Absent: systolic murmur, diastolic murmur, rubs, gallop, clicks GI/Abdominal exam: Present: soft, normal bowel sounds. Absent: distended, tenderness, guarding, rebound, rigid Extremities exam: Present: full ROM, tenderness (Right anterior knee), normal capillary refill, other (Mild erythema noted to the right anterior knee. Skin is otherwise pink, warm, dry. Cap refills less than 3 seconds. Pedal and posttibial pulses 2+ and equal bilaterally.). Absent: normal inspection, pedal edema, joint swelling, calf tenderness Back exam: Present: normal inspection, other (Nontender, no step-off, no deformity to firm midline palpation of the thoracic and lumbar vertebrae. Full range of motion without pain or limitation.). Absent: vertebral tenderness Neurological exam: Present: alert, oriented X3, CN II-XII intact Psychiatric exam: Present: normal affect, normal mood Skin exam: Present: warm, dry, intact, normal color. Absent: rash Course Vital Signs 07/01/19 21:41 Temperature 98.3 F Pulse Rate 80 Respiratory 20 Rate Blood Pressure 109/84 O2 Sat by Pulse 99 Oximetry Medical Decision Making - Medical Decision Making 89-year-old female patient presents to the emergency department today for evaluation after a fall. She is reporting right rib and right knee pain. There is tenderness over the right seventh and eighth ribs. Tenderness over the right anterior knee. X-rays were obtained and were negative. When attempting to ambulate the patient she was unable to stand up on the bed due to pain in the ribs. She is on home O2. We will do incentive spirometry to prevent pneumonia. We will consult physical therapy for evaluation. Patient is agreeable with this plan. - Radiology Data Radiology results: report reviewed, image reviewed X-ray of the right knee is obtained. Report was reviewed in its entirety. Impression by Dr. Iverson shows right knee prosthesis. No, getting processing. 5 views of the right ribs and chest are obtained. Impression by Dr. Iverson shows no acute fracture. Old right-sided rib fractures. Disposition Clinical Impression: Rib pain on right side, Knee pain, Fall Disposition: ADMITTED IP TO THIS [facility] Condition: Serious Referrals: Maria Alejandra Munoz MD [Primary Care Provider] - 1-2 days Decision to Admit Reason: Admit from EC Decision Date: 07/01/19 Decision Time: 23:13
--- NOTE | 2019-07-01 22:26 | XR ---
EXAMINATION TYPE: XR knee complete RT DATE OF EXAM: 07/01/2019 COMPARISON: 12/03/2012 HISTORY: Knee pain. Fall. TECHNIQUE: 3 views FINDINGS: There is right knee prosthesis. Components are in anatomic position. I see no fracture. IMPRESSION: Right knee prosthesis. No complicating process seen.
--- NOTE | 2019-07-01 22:28 | XR ---
EXAMINATION TYPE: XR ribs RT w pa chest xray DATE OF EXAM: 07/01/2019 COMPARISON: NONE HISTORY: Rib pain TECHNIQUE: 5 views FINDINGS: There is no pleural effusion or pneumothorax. Right lung is clear of infiltrate. There is m oderate arthritic change in the right shoulder joint. There is apparent old right humeral neck fractu re. I see no rib fracture. There is old healed fracture lateral right fourth and fifth rib. IMPRESSION: No acute rib fracture seen. Old right-sided healed rib fractures.
[2019-07-01] MEDS ORDERED: ONDANSETRON 4 MG/2 ML VIAL IVP PRN (23:09)
[2019-07-01] MEDS ORDERED: ACETAMINOPHEN TAB 325 MG TAB PO PRN (23:09)
[2019-07-01] MEDS ORDERED: NALOXONE 0.4 MG/ML 1 ML VIAL IV PRN (23:09)
[2019-07-01] MEDS ORDERED: MORPHINE SULFATE 2 MG/ML SYRINGE IVP STA (23:23)
[2019-07-01 23:29] LABS: Basophils # (A) 0.1 k/uL (0-0.2); Basophils % (A) 1 %; Eosinophils # (A) 0.3 k/uL (0-0.7); Eosinophils % (A) 4 %; HCT 42.3 % (34.0-46.0); Lymphocytes % (A) 22 %; MCH 29.4 pg (25.0-35.0); MCHC 30.7 g/dL (31.0-37.0); Mean Platelet Volume 9.9; Monocytes # (A) 0.5 k/uL (0-1.0); Monocytes % (A) 5 %; Neutrophils % (A) 67 %; Platelet Count 148 k/uL (150-450); RBC 4.41 m/uL (3.80-5.40); RDW 13.9 % (11.5-15.5)
[2019-07-01 23:38] LABS: ALT 19 U/L (4-34); AST 25 U/L (14-36); African American GFR (CKD) >90 (>60 ml/min/1.73 sqM); Alkaline Phosphatase 57 U/L (38-126); Anion Gap 4 mmol/L; Blood Urea Nitrogen 16 mg/dL (7-17); Calcium 9.3 mg/dL (8.4-10.2); Carbon Dioxide 40 mmol/L (22-30); Chloride 92 mmol/L (98-107); Glucose 134 mg/dL (74-99); Non-African American GFR(CKD) 86 (>60 ml/min/1.73 sqM); Potassium 4.3 mmol/L (3.5-5.1); Sodium 136 mmol/L (137-145); Total Bilirubin 0.3 mg/dL (0.2-1.3); Total Protein 6.7 g/dL (6.3-8.2)
[2019-07-02] MEDS: LIDOCAINE 5% PATCH TOPICAL SCH (08:27)
[2019-07-02] MEDS ORDERED: ALBUTEROL NEBULIZED 2.5 MG/3 ML INHALATION PRN (08:29)
[2019-07-02] MEDS ORDERED: ACETAMINOPHEN TAB 500 MG TAB PO PRN (08:29)
[2019-07-02] MEDS ORDERED: IPRATROPIUM-ALBUTEROL 3 ML NEB INHALATION PRN (08:29)
[2019-07-02] MEDS ORDERED: FUROSEMIDE 40 MG TAB PO SCH (09:00)
[2019-07-02] MEDS ORDERED: NON FORMULARY DRUG (Vit C/E/Zn/Coppr/Lutein/Zeaxan [Preservision Areds 2 Softgel] 1 CAP) PO SCH (09:00)
[2019-07-02] MEDS ORDERED: NON FORMULARY DRUG (Biotin [Biotin] 10,000 MCG) PO SCH (09:00)
[2019-07-02] MEDS ORDERED: NON FORMULARY DRUG (Prevagen 1 CAP) PO SCH (09:00)
--- NOTE | 2019-07-02 10:12 | P.HPIM ---
History of Present Illness this is a pleasant 89 years old female with past medical history of COPD, CVA/TIA, sleep apnea on CPAP/BiPAP, hypothyroidism. sHe was recently in the hospital for acute diastolic CHF with ejection fraction of 55-60% and COPD exacerbation (04/23-05/01). Presents this time because of fall. patient states that she was at home going to the restroom, she was turning around to sit when her leg slipped away and she fell on her right side to the vanity before she slipped to the floor, patient started complaining from pain in her right lateral chest, right elbow and right, after that she needed help by the visiting nurse to get up who called 911 and brought to the emergency room Currently patient complaining of from her right knee and right side of the chest. No difficulty movement in her right leg or right arm. She admits for dyspnea but no coughing and no other chest pain other than above No change in bowel movement or urine habits. No dysuria patient states thatShe is on home oxygen 2 L via nasal cannula. She was not on steroids at home however she was taken Lasix and Eliquis 2.5 mg. vitals are stable.labs including CBC, BMP and liver enzymes were unremarkable. Chest x-ray/rib x-ray: No acute rib fracture, old right-sided heel tube fractures.KUB: Right knee prosthesis no complicating process seen by radiologist in the emergency room patient was given lidocaine patch and morphine Review of Systems CONSTITUTIONAL: No fever, no malaise, no fatigue. HEENT: No recent visual problems or hearing problems. Denied any sore throat. CARDIOVASCULAR: No orthopnea, PND, no palpitations, no syncope. PULMONARY: no cough, no hemoptysis. GASTROINTESTINAL: No diarrhea, no nausea, no vomiting, no abdominal pain. Normoactive bowel sounds. NEUROLOGICAL: No headaches, no weakness, no numbness. HEMATOLOGICAL: Denies any bleeding or petechiae. GENITOURINARY: Denies any burning micturition, frequency, or urgency. MUSCULOSKELETAL/RHEUMATOLOGICAL: Denies any joint pain, swelling, or any muscle pain. ENDOCRINE: Denies any polyuria or polydipsia. Past Medical History Past Medical History: COPD, CVA/TIA, Eye Disorder, Pneumonia, Sleep A pnea/CPAP/BIPAP, Thyroid Disorder Additional Past Medical History / Comment(s): TEAR RT ROTATOR CUFFS, RT cataracts, O2 @ 2 liters 12/09 History of Any Multi-Drug Resistant Organisms: None Reported Past Surgical History: Joint Replacement, Orthopedic Surgery Additional Past Surgical History / Comment(s): ATTEMPTED REPAIR OF RT ROTATOR CUFF. BILATERAL KNEE REPLACEMENTS, LEFT AND RIGHT CATARACT REMOVED Past Anesthesia/Blood Transfusion Reactions: No Reported Reaction Additional Past Anesthesia/Blood Transfusion Reaction / Comment(s): no hx blood transfusion Past Psychological History: No Psychological Hx Reported Smoking Status: Former smoker Past Alcohol Use History: Daily Additional Past Alcohol Use History / Comment(s): quit smoking 1988, 1ppd Past Drug Use History: None Reported - Past Family History Mother Family Medical History: No Reported History Additional Family Medical History / Comment(s): mother at age 93 of "old age" Father Family Medical History: No Reported History Additional Family Medical History / Comment(s): states at age 89 with no known medical problems Medications and Allergies Home Medications Medication Instructions Recorded Confirmed Type Simvastatin [Zocor] 40 mg PO HS 09/25/13 07/02/19 History Montelukast [Singulair] 10 mg PO HS 02/11/16 07/02/19 History Albuterol Nebulized [Ventolin 2.5 mg INHALATION RT-Q4H PRN 03/14/16 07/02/19 History Nebulized] Multivitamins, Thera [Multivitamin 1 tab PO DAILY 03/14/16 07/02/19 History (formulary)] Cyanocobalamin (Vitamin B-12) 1,000 mcg PO DAILY 12/06/18 07/02/19 History [Vitamin B-12] Levothyroxine Sodium [Synthroid] 75 mcg PO QAM 12/06/18 07/02/19 History Potassium Chloride ER [K-Dur 10] 10 meq PO DAILY 12/06/18 07/02/19 History Prevagen 1 cap PO DAILY 12/06/18 07/02/19 History Vit C/E/Zn/Coppr/Lutein/Zeaxan 1 cap PO BID 12/06/18 07/02/19 History [Preservision Areds 2 Softgel] Acetaminophen [Tylenol Extra 500 mg PO DAILY PRN 04/19/19 07/02/19 History Strength] Biotin 10,000 mcg PO DAILY 04/19/19 07/02/19 History Furosemide [Lasix] 40 mg PO DAILY 30 Days #30 tab 04/29/19 07/02/19 Rx Ipratropium-Albuterol Nebulize 3 ml INHALATION RT-QID PRN ml 04/29/19 07/02/19 Rx [Duoneb 0.5 mg-3 mg/3 ml Soln] Aspirin EC [Ecotrin Low Dose] 81 mg PO DAILY 07/02/19 07/02/19 History Fluticasone/Salmeterol [Advair 1 puff INHALATION RT-BID 07/02/19 07/02/19 History 250-50 Diskus] Furosemide [Lasix] 20 mg PO DAILY PRN 07/02/19 07/02/19 History Metoprolol Tartrate [Lopressor] 12.5 mg PO BID 07/02/19 07/02/19 History predniSONE See Taper PO DAILY 07/02/19 07/02/19 History Allergies Allergy/AdvReac Type Severity Reaction Status Date / Time bacitracin Allergy Rash/Hives Verified 07/02/19 08:49 bacitracin zinc Allergy Rash/Hives Verified 07/02/19 08:49 [From Neosporin ([id number])] dimethicone Allergy Rash/Hives Verified 07/02/19 08:49 [From A & D Emollient] glycerin Allergy Rash/Hives Verified 07/02/19 08:49 [From A & D Emollient] neomycin sulfate Allergy Rash/Hives Verified 07/02/19 08:49 [From Neosporin ([id number])] polymyxin B Allergy Rash/Hives Verified 07/02/19 08:49 [From Neosporin ([id number])] stearyl alcohol Allergy Rash/Hives Verified 07/02/19 08:49 [From A & D Emollient] Tetanus Vaccines and Toxoid Allergy swelling Verified 07/02/19 08:49 and severe redness and hardness at site Physical Exam Vitals: Vital Signs Temp Pulse Pulse Resp BP BP Pulse Ox 07/02/19 07:00 98.1 F 79 16 103/62 98 07/02/19 04:00 20 07/02/19 00:06 20 07/02/19 00:00 97.6 F 80 14 149/78 98 07/01/19 23:28 96.9 F L 79 20 128/58 97 07/01/19 21:41 98.3 F 80 20 109/84 99 Intake and Output 07/01/19 07/02/19 07/02/19 22:59 06:59 14:59 Other: Voiding Method Toilet # Voids 1 Weight 83.915 kg 83.915 kg GENERAL: The patient is alert and oriented x3, not in any acute distress. Well developed, well nourished. HEENT: Pupils are round and equally reacting to light. EOMI. No scleral icterus. No conjunctival pallor. Normocephalic, atraumatic. No pharyngeal erythema. No thyromegaly. CARDIOVASCULAR: S1 and S2 present. No murmurs, rubs, or gallops. -PULMONARY: Chest is clear to auscultation, bilateral basal crepitation. Patient is somewhat tachypneic ABDOMEN: Soft, nontender, nondistended, normoactive bowel sounds. No palpable organomegaly. MUSCULOSKELETAL: No joint swelling or deformity. -EXTREMITIES: No cyanosis, clubbing, +1 bilateral patellar tendon NEUROLOGICAL: Gross neurological examination did not reveal any focal deficits. SKIN: No rashes. No petechiae Results CBC & Chem 7: 07/01/19 23:19 07/01/19 23:19 Labs: Abnormal Lab Results - Last 24 Hours (Table) 07/01/19 07/01/19 Range/Units 23:19 23:19 MCHC 30.7 L (31.0-37.0) g/dL Plt Count 148 L (150-450) k/uL Sodium 136 L (137-145) mmol/L Chloride 92 L (98-107) mmol/L Carbon Dioxide 40 H (22-30) mmol/L Creatinine 0.51 L (0.52-1.04) mg/dL Glucose 134 H (74-99) mg/dL Thrombosis Risk Factor Assmnt - Choose All That Apply Each Factor Represents 1 point: Abnormal pulmonary function (COPD), Obesity (BMI >25) Each Risk Factor Represents 3 Points: Age 75 years or older Thrombosis Risk Factor Assessment Total Risk Factor Score: 5 Thrombosis Risk Factor Assessment Level: High Risk Assessment and Plan Assessment: fall after she slipped and her Restroom acute on chronic diastolic CHF with ejection fraction of 55-60% severe COPD with Acute exacerbation chronic hypoxic respiratory failure, on 2 L oxygen at home history of CVA/TIA chronic atrial flutter/fib was on Eliquis Sleep apnea on CPAP/BiPAP Hypothyroidism old tract site healed rib fractures Plan: this is a pleasant 89 years old female who presents because of fall. Check urine analysis.start Lasix 40 mg twice a day, check proBNP. Check daily weights. Start steroids and bronchodilator. Physical therapy evaluation. Resume her Eliquis Labs and medication were reviewed.. Continue same treatment. Continue with symptomatic treatment. Resume home medication. Monitor lytes and vitals. DVT and GI prophylaxis. Further recommendations of the clinical course of the patient DVT prophylaxis: eliquis GI Prophylaxis: Pepcid PT/OT: Pending Prognosis is guarded
[2019-07-02] MEDS: IPRATROPIUM-ALBUTEROL 3 ML NEB INHALATION SCH ×3 (11:38→20:14)
[2019-07-02] MEDS: MULTIVITAMINS, THERA 1 EACH TAB PO SCH (11:50)
[2019-07-02] MEDS: POTASSIUM CHLORIDE ER 10 MEQ TAB.ER.PRT PO SCH (11:50)
[2019-07-02] MEDS: METOPROLOL TARTRATE 12.5 MG TAB PO SCH ×2 (11:50→21:03)
[2019-07-02] MEDS: APIXABAN 2.5 MG TABLET PO SCH ×2 (11:51→21:03)
[2019-07-02] MEDS: CYANOCOBALAMIN 500 MCG TAB PO SCH (11:51)
[2019-07-02] MEDS: LEVOTHYROXINE 75 MCG TAB PO SCH (11:51)
[2019-07-02] MEDS: methylPREDNISolone SOD SUCCI 40 MG/ML 1 ML VIAL IV SCH ×2 (11:52→17:55)
[2019-07-02] MEDS: FUROSEMIDE 10 MG/ML 4 ML VIAL IV SCH ×2 (11:52→21:04)
[2019-07-02] MEDS: MORPHINE SULFATE 2 MG/ML SYRINGE IVP PRN ×2 (13:06→21:09)
--- NOTE | 2019-07-02 14:39 | P.CNPUL ---
History of Present Illness Consult date: 07/02/19 Reason for consult: chest pain History of present illness: 89-year-old female patient well-known to our practice because of her advanced COPD with an FEV1 of 0.77 L which is consistent with severe obstructive airway limitation, and addition to her history of chronic hypoxemic respiratory failure and was maintained on oxygen for many years at 2 L per minute nasal cannula, previous history of atrial flutter for which the patient is demented on long- term anticoagulation with Eliquis, hypothyroidism and hyperlipidemia and diastolic heart failure with secondary pulmonary hypertension. The patient also has history of obstructive sleep apnea. The patient has been hospitalized in the past due to complications of CHF exacerbation mainly in the form of diastolic heart failure. The patient came into the hospital because of a fall. She was at home and she turned around and she slipped and she fell on her right side hitting the right side of the chest. She came into the hospital complaining of pain along the right chest wall, right elbow and right side. Her pain was around 8 out of 10 in severity. She also had some difficulties with the right knee mainly in the form of pain without any significant deformities and she was able to bear weight on the right lower extremity. No hemoptysis. No pleurisy. She is on oxygen 2 L per minute nasal cannula. No significant hematoma formation across chest especially that the patient takes long-term medical condition with Eliquis. Her current hemoglobin is at 13.0. Her creatinine is at 0.5. Sodium is 136. White cell count is at 9.0. Chest x-ray shows no evidence of any fractures of pleural effusions or pneumothorax. Examination of the right knee shows a scar related to previous knee surgery. The x-ray of the knee shows a right knee prosthesis without any complications. Review of Systems Constitutional: Reports weakness, Denies chills, Denies fever Eyes: denies blurred vision, denies pain, impaired vision secondary to cataracts. Ears, nose, mouth and throat: Denies headache, Denies sore throat Cardiovascular: Chronic exertional dyspnea and the patient has a chest wall pain on the right due to a trauma Respiratory: Reports cough, Reports dyspnea, Reports home oxygen, Reports wheezing Gastrointestinal: Reports nausea, Reports vomiting, Denies abdominal pain, Denies diarrhea Genitourinary: Denies dysuria, Denies hematuria Musculoskeletal: Denies myalgias, and the patient has had significant arthritis and previous orthopedic surgeries including joint replacement of the right and attempted repair of the right rotator cuff and the shoulder. She has better knee replacement. Integumentary: Denies pruritus, Denies rash Neurological: Denies numbness, Denies weakness, the patient had a bout of fall without any loss of consciousness. No seizure activity. Psychiatric: Denies anxiety, Denies depression Endocrine: Denies fatigue, Denies weight change Past Medical History Past Medical History: COPD, CVA/TIA, Eye Disorder, Pneumonia, Sleep Apnea/CPAP/BIPAP, Thyroid Disorder Additional Past Medical History / Comment(s): TEAR RT ROTATOR CUFFS, RT cataracts, O2 @ 2 liters 12/09 History of Any Multi-Drug Resistant Organisms: None Reported Past Surgical History: Joint Replacement, Orthopedic Surgery Additional Past Surgical History / Comment(s): ATTEMPTED REPAIR OF RT ROTATOR CUFF. BILATERAL KNEE REPLACEMENTS, LEFT AND RIGHT CATARACT REMOVED Past Anesthesia/Blood Transfusion Reactions: No Reported Reaction Additional Past Anesthesia/Blood Transfusion Reaction / Comment(s): no hx blood transfusion Past Psychological History: No Psychological Hx Reported Smoking Status: Former smoker Past Alcohol Use History: Daily Additional Past Alcohol Use History / Comment(s): quit smoking 1ppd Past Drug Use History: None Reported - Past Family History Mother Family Medical History: No Reported History Additional Family Medical History / Comment(s): mother at age 93 of "old age" Father Family Medical History: No Reported History Additional Family Medical History / Comment(s): states at age 89 with no known medical problems Medications and Allergies Home Medications Medication Instructions Recorded Confirmed Type Simvastatin [Zocor] 40 mg PO HS 09/25/13 07/02/19 History Montelukast [Singulair] 10 mg PO HS 02/11/16 07/02/19 History Albuterol Nebulized [Ventolin 2.5 mg INHALATION RT-Q4H PRN 03/14/16 07/02/19 History Nebulized] Multivitamins, Thera [Multivitamin 1 tab PO DAILY 03/14/16 07/02/19 History (formulary)] Cyanocobalamin (Vitamin B-12) 1,000 mcg PO DAILY 12/06/18 07/02/19 History [Vitamin B-12] Levothyroxine Sodium [Synthroid] 75 mcg PO QAM 12/06/18 07/02/19 History Potassium Chloride ER [K-Dur 10] 10 meq PO DAILY 12/06/18 07/02/19 History Prevagen 1 cap PO DAILY 12/06/18 07/02/19 History Vit C/E/Zn/Coppr/Lutein/Zeaxan 1 cap PO BID 12/06/18 07/02/19 History [Preservision Areds 2 Softgel] Acetaminophen [Tylenol Extra 500 mg PO DAILY PRN 04/19/19 07/02/19 History Strength] Biotin 10,000 mcg PO DAILY 04/19/19 07/02/19 History Furosemide [Lasix] 40 mg PO DAILY 30 Days #30 tab 04/29/19 07/02/19 Rx Ipratropium-Albuterol Nebulize 3 ml INHALATION RT-QID PRN ml 04/29/19 07/02/19 Rx [Duoneb 0.5 mg-3 mg/3 ml Soln] Aspirin EC [Ecotrin Low Dose] 81 mg PO DAILY 07/02/19 07/02/19 History Fluticasone/Salmeterol [Advair 1 puff INHALATION RT-BID 07/02/19 07/02/19 Histor y 250-50 Diskus] Furosemide [Lasix] 20 mg PO DAILY PRN 07/02/19 07/02/19 History Metoprolol Tartrate [Lopressor] 12.5 mg PO BID 07/02/19 07/02/19 History predniSONE See Taper PO DAILY 07/02/19 07/02/19 History Allergies Allergy/AdvReac Type Severity Reaction Status Date / Time bacitracin Allergy Rash/Hives Verified 07/02/19 08:49 bacitracin zinc Allergy Rash/Hives Verified 07/02/19 08:49 [From Neosporin ([id number])] dimethicone Allergy Rash/Hives Verified 07/02/19 08:49 [From A & D Emollient] glycerin Allergy Rash/Hives Verified 07/02/19 08:49 [From A & D Emollient] neomycin sulfate Allergy Rash/Hives Verified 07/02/19 08:49 [From Neosporin ([id number])] polymyxin B Allergy Rash/Hives Verified 07/02/19 08:49 [From Neosporin ([id number])] stearyl alcohol Allergy Rash/Hives Verified 07/02/19 08:49 [From A & D Emollient] Tetanus Vaccines and Toxoid Allergy swelling Verified 07/02/19 08:49 and severe redness and hardness at site Physical Exam Vitals: Vital Signs Temp Pulse Pulse Resp BP BP Pulse Ox 07/02/19 07:58 16 07/02/19 07:00 98.1 F 79 16 103/62 98 07/02/19 04:00 20 07/02/19 00:06 20 07/02/19 00:00 97.6 F 80 14 149/78 98 07/01/19 23:28 96.9 F L 79 20 128/58 97 07/01/19 21:41 98.3 F 80 20 109/84 99 Intake and Output 07/01/19 07/02/19 07/02/19 22:59 06:59 14:59 Other: Voiding Method Toilet # Voids 1 Weight 83.915 kg 83.915 kg GENERAL EXAM: Alert, very pleasant, 89-year-old white female, on 2 L of oxygen comfortable in no apparent distress. HEAD: Normocephalic/atraumatic. EYES: Normal reaction of pupils, equal size. Conjunctiva pink, sclera white. NOSE: Clear with pink turbinates. THROAT: No erythema or exudates. NECK: No masses, no JVD, no thyroid enlargement, no adenopathy. CHEST: No chest wall deformity. Symmetrical expansion. The patient has soreness across the right chest area related to recent trauma. There is no hematoma formation. No significant deformity of the chest wall. LUNGS: Equal air entry with minimal basilar crackles, no wheeze, rhonchi or dullness. CVS: Regular rate and rhythm, normal S1 and S2, no gallops, no murmurs, no rubs ABDOMEN: Soft, nontender. No hepatosplenomegaly, normal bowel sounds, no guarding or rigidity. EXTREMITIES: No clubbing, no edema, no cyanosis, 2+ pulses and upper and lower extremities. MUSCULOSKELETAL: Muscle strength and tone normal. SPINE: No scoliosis or deformity SKIN: No rashes CENTRAL NERVOUS SYSTEM: Alert and oriented -3. No focal deficits, tone is normal in all 4 extremities. PSYCHIATRIC: Alert and oriented -3. Appropriate affect. Intact judgment and insight. Results - Laboratory Findings CBC and BMP: 07/01/19 23:19 07/01/19 23:19 Abnormal lab findings: Abnormal Labs 07/01/19 07/01/19 23:19 23:19 MCHC 30.7 L Plt Count 148 L Sodium 136 L Chloride 92 L Carbon Dioxide 40 H Creatinine 0.51 L Glucose 134 H - Diagnostic Findings Chest x-ray: image reviewed Assessment and Plan Plan: 1 traumatic injury to the right chest wall without evidence of any rib fractures or pneumothorax or pleural effusion. The patient is coming in for pain control. 2 fall 3 Severe COPD with a baseline of one of 40% of predicted, 0.77 L 4 Chronic hypoxemic respiratory failure related to severe COPD 5 Hypothyroidism 6 Hyperlipidemia 7 Former smoker 8 Osteoarthritis, with history of bilateral knee replacement 9 Cataracts 10 history of atrial flutter maintained on long-term anticoagulation with Eliquis and the rate is controlled for now, but she seems to be in A. fib rhythm. 11 diastolic heart failure with mild to moderate pulmonary hypertension. 12 obstructive sleep apnea Plan Keep oxygen at 2 L DuoNeb nebulized treatments around the clock Continue Symbicort IV Solu Medrol 40 every 12 hours to be transitioned to oral prednisone with the next 24 hours as there is no clear indication for any significant COPD exacerbation May resume Eliquis Pain control with morphine and this will be needed to be given gradually and slowly monitor the mental status and watch for any signs of CO2 narcosis Incentive spirometer Lidocaine patch We'll continue to follow
[2019-07-02] MEDS: SYMBICORT 160-4.5 MCG INHALER INHALATION SCH (20:15)
[2019-07-02] MEDS: MONTELUKAST 10 MG TAB PO SCH (21:03)
[2019-07-02] MEDS: ATORVASTATIN 20 MG TAB PO SCH (21:03)
[2019-07-03 07:58] LABS: African American GFR (CKD) >90 (>60 ml/min/1.73 sqM); Anion Gap 7 mmol/L; Blood Urea Nitrogen 18 mg/dL (7-17); Calcium 9.3 mg/dL (8.4-10.2); Carbon Dioxide 34 mmol/L (22-30); Chloride 94 mmol/L (98-107); Glucose 168 mg/dL (74-99); Non-African American GFR(CKD) >90 (>60 ml/min/1.73 sqM); Potassium 4.7 mmol/L (3.5-5.1); Sodium 135 mmol/L (137-145)
[2019-07-03] MEDS: SYMBICORT 160-4.5 MCG INHALER INHALATION SCH ×2 (08:10→19:38)
[2019-07-03] MEDS: IPRATROPIUM-ALBUTEROL 3 ML NEB INHALATION SCH ×4 (08:10→19:38)
[2019-07-03] MEDS: LIDOCAINE 5% PATCH TOPICAL SCH (09:31)
[2019-07-03] MEDS: CYANOCOBALAMIN 500 MCG TAB PO SCH (09:32)
[2019-07-03] MEDS: APIXABAN 2.5 MG TABLET PO SCH ×2 (09:32→22:28)
[2019-07-03] MEDS: MULTIVITAMINS, THERA 1 EACH TAB PO SCH (09:32)
[2019-07-03] MEDS: predniSONE 10 MG TAB PO SCH (09:32)
[2019-07-03] MEDS: POTASSIUM CHLORIDE ER 10 MEQ TAB.ER.PRT PO SCH (09:32)
[2019-07-03] MEDS: METOPROLOL TARTRATE 12.5 MG TAB PO SCH ×2 (09:32→22:28)
[2019-07-03] MEDS: LEVOTHYROXINE 75 MCG TAB PO SCH (09:32)
[2019-07-03] MEDS: FUROSEMIDE 10 MG/ML 4 ML VIAL IV SCH (09:33)
[2019-07-03] MEDS: FUROSEMIDE 40 MG TAB PO SCH (09:40)
--- NOTE | 2019-07-03 12:45 | P.PN ---
Subjective this is a pleasant 89 years old female with past medical history of COPD, CVA/TIA, sleep apnea on CPAP/BiPAP, hypothyroidism. sHe was recently in the hospital for acute diastolic CHF with ejection fraction of 55-60% and COPD exacerbation (04/23-05/01). Presents this time because of fall. patient states that she was at home going to the restroom, she was turning around to sit when her leg slipped away and she fell on her right side to the vanity before she slipped to the floor, patient started complaining from pain in her right lateral chest, right elbow and right, after that she needed help by the visiting nurse to get up who called 911 and brought to the emergency room Currently patient complaining of from her right knee and right side of the chest. No difficulty movement in her right leg or right arm. She admits for dyspnea but no coughing and no other chest pain other than above No change in bowel movement or urine habits. No dysuria patient states thatShe is on home oxygen 2 L via nasal cannula. She was not on steroids at home however she was taken Lasix and Eliquis 2.5 mg. vitals are stable.labs including CBC, BMP and liver enzymes were unremarkable. Chest x-ray/rib x-ray: No acute rib fracture, old right-sided heel tube fractures.KUB: Right knee prosthesis no complicating process seen by radiologist in the emergency room patient was given lidocaine patch and morphine 07/03/2019 Patient still complaining of from pain in her right side of the chest abdomen and the right knee, she has difficulty walking, she uses a walker and she is a slow and hardly making it to the restroom. she is breathing better, her saturating 96% on 2 L oxygen. change her Steri-Strips prednisone 40 mg daily. ProBNP is around 1500, better than before.she is on Lasix. Physical therapy recommended subacute rehab versus home health care depending on her progress. We will add lidocaine patch review of systems: CONSTITUTIONAL: No fever, no malaise, no fatigue. HEENT: No recent visual problems or hearing problems. Denied any sore throat. CARDIOVASCULAR: No orthopnea, PND, no palpitations, no syncope. GASTROINTESTINAL: No diarrhea, no nausea, no vomiting, no abdominal pain. Normoactive bowel sounds. NEUROLOGICAL: No headaches, no weakness, no numbness. HEMATOLOGICAL: Denies any bleeding or petechiae. GENITOURINARY: Denies any burning micturition, frequency, or urgency. MUSCULOSKELETAL/RHEUMATOLOGICAL: Denies any joint pain, swelling, or any muscle pain. Active Medications Generic Name Dose Route Start Last Admin Trade Name Freq PRN Reason Stop Dose Admin Acetaminophen 650 mg 07/01/19 23:09 Tylenol Tab PO Q6HR PRN Mild Pain or Fever > 100.5 Hydrocodone Bitart/Acetaminophen 1 each 07/03/19 09:29 [place] 5-325 PO Q4HR PRN Pain Albuterol Sulfate 2.5 mg 07/02/19 08:29 Ventolin Nebulized INHALATION RT-Q4H PRN Shortness Of Breath Albuterol/Ipratropium 3 ml 07/02/19 08:29 Duoneb 0.5 Mg-3 Mg/3 Ml Soln INHALATION RT-QID PRN Shortness Of Breath Or Wheezing Albuterol/Ipratropium 3 ml 07/02/19 12:00 07/03/19 11:31 Duoneb 0.5 Mg-3 Mg/3 Ml Soln INHALATION 3 ml RT-QID ANNMARIE Administration Apixaban 2.5 mg 07/02/19 10:15 07/03/19 09:32 Eliquis PO 2.5 mg BID ANNMARIE Administration Atorvastatin Calcium 20 mg 07/02/19 21:00 07/02/19 21:03 Lipitor PO 20 mg HS ANNMARIE Administration Budesonide/Formoterol Fumarate 2 puff 07/02/19 20:00 07/03/19 08:10 Symbicort 160-4.5 Mcg Inhaler INHALATION 2 puff RT-BID ANNMARIE Administration Cyanocobalamin 1,000 mcg 07/02/19 09:00 07/03/19 09:32 Vitamin B-12 PO 1,000 mcg DAILY ANNMARIE Administration Furosemide 40 mg 07/03/19 09:30 07/03/19 09:40 Lasix PO 40 mg DAILY ANNMARIE Administration Levothyroxine Sodium 75 mcg 07/02/19 09:00 07/03/19 09:32 Synthroid PO 75 mcg DAILY@0630 ANNMARIE Administration Lidocaine 1 patch 07/02/19 09:00 07/03/19 09:31 Lidoderm TOPICAL 1 patch DAILY ANNMARIE Administration Metoprolol Tartrate 12.5 mg 07/02/19 09:00 07/03/19 09:32 Lopressor PO 12.5 mg BID ANNMARIE Administration Montelukast Sodium 10 mg 07/02/19 21:00 07/02/19 21:03 Singulair PO 10 mg HS ANNMARIE Administration Multivitamins 1 each 07/02/19 09:00 07/03/19 09:32 Theragran PO 1 each DAILY ANNMARIE Administration Naloxone HCl 0.2 mg 07/01/19 23:09 Narcan IV Q2M PRN Opioid Reversal Ondansetron HCl 4 mg 07/01/19 23:09 Zofran IVP Q8HR PRN Nausea And Vomiting Potassium Chloride 10 meq 07/02/19 09:00 07/03/19 09:32 K-Dur 10 PO 10 meq DAILY ANNMARIE Administration Prednisone 30 mg 07/03/19 09:00 07/03/19 09:32 PO 30 mg DAILY ANNMARIE Administration Objective - Vital Signs Vital signs: Vital Signs Temp 98.2 F 07/03/19 07:00 Pulse 82 07/03/19 11:43 Resp 16 07/03/19 07:00 BP 115/76 07/03/19 07:00 Pulse Ox 96 07/03/19 07:00 Intake & Output 07/02/19 07/03/19 07/03/19 18:59 06:59 18:59 Other: Voiding Method Toilet # Voids 1 1 - Labs CBC & Chem 7: 07/01/19 23:19 07/03/19 07:00 Labs: Abnormal Lab Results - Last 24 Hours (Table) 07/03/19 Range/Units 07:00 Sodium 135 L (137-145) mmol/L Chloride 94 L (98-107) mmol/L Carbon Dioxide 34 H (22-30) mmol/L BUN 18 H (7-17) mg/dL Creatinine 0.40 L (0.52-1.04) mg/dL Glucose 168 H (74-99) mg/dL
[2019-07-03] MEDS: HYDROcodone/APAP 5-325MG 1 EACH TAB PO PRN ×2 (13:12→22:27)
--- NOTE | 2019-07-03 13:37 | P.PN ---
Subjective Progress Note Date: 07/03/19 Principal diagnosis: Traumatic injury to the right chest wall without evidence of any rib fractures or pneumothorax or pleural effusion. 89-year-old female patient well-known to our practice because of her advanced COPD with an FEV1 of 0.77 L which is consistent with severe obstructive airway limitation, and addition to her history of chronic hypoxemic respiratory failure and was maintained on oxygen for many years at 2 L per minute nasal cannula, previous history of atrial flutter for which the patient is demented on long- term anticoagulation with Eliquis, hypothyroidism and hyperlipidemia and diastolic heart failure with secondary pulmonary hypertension. The patient also has history of obstructive sleep apnea. The patient has been hospitalized in the past due to complications of CHF exacerbation mainly in the form of diastolic heart failure. The patient came into the hospital because of a fall. She was at home and she turned around and she slipped and she fell on her right side hitting the right side of the chest. She came into the hospital complaining of pain along the right chest wall, right elbow and right side. Her pain was around 8 out of 10 in severity. She also had some difficulties with the right knee mainly in the form of pain without any significant deformities and she was able to bear weight on the right lower extremity. No hemoptysis. No pleurisy. She is on oxygen 2 L per minute nasal cannula. No significant hematoma formation across chest especially that the patient takes long-term medical condition with Eliquis. Her current hemoglobin is at 13.0. Her creatinine is at 0.5. Sodium is 136. White cell count is at 9.0. Chest x-ray shows no evidence of any fractures of pleural effusions or pneumothorax. Examination of the right knee shows a scar related to previous knee surgery. The x-ray of the knee shows a right knee prosthesis without any complications. On 07/03/2019 patient is seen in follow-up on general medical floor, she sits up in the chair, she still complains of right-sided torso pain with moving around and deep breathing and coughing, but she states she is comfortable at rest is only she does not move or take deep rest. Patient is on IV Dilaudid, we will add oral pain medication in the form of [place] for better pain control, she continues on oral prednisone, breathing treatments, lung sounds are clear, diminished overall, COPD seems to be fairly stable. No acute events overnight, no worsening peripheral edema, patient continues on Eliquis for history of atrial fibrillation, and she is on maintenance inhalers form of Symbicort. Objective - Vital Signs Vital signs: Vital Signs Temp 98.2 F 07/03/19 07:00 Pulse 82 07/03/19 11:43 Resp 16 07/03/19 07:00 BP 115/76 07/03/19 07:00 Pulse Ox 96 07/03/19 07:00 Intake & Output 07/02/19 07/03/19 07/03/19 18:59 06:59 18:59 Other: Voiding Method Toilet # Voids 1 1 1 - Exam GENERAL EXAM: Alert, very pleasant, 89-year-old white female, on 2 L of oxygen with a pulse ox of 96% comfortable in no apparent distress. HEAD: Normocephalic/atraumatic. EYES: Normal reaction of pupils, equal size. Conjunctiva pink, sclera white. NOSE: Clear with pink turbinates. THROAT: No erythema or exudates. NECK: No masses, no JVD, no thyroid enlargement, no adenopathy. CHEST: No chest wall deformity. Symmetrical expansion. Right chest wall tenderness with deep breathing or coughing, LUNGS: Equal air entry with no crackles, wheeze, rhonchi or dullness. CVS: Regular rate and rhythm, normal S1 and S2, no gallops, no murmurs, no rubs ABDOMEN: Soft, nontender. No hepatosplenomegaly, normal bowel sounds, no guar ding or rigidity. EXTREMITIES: No clubbing, no edema, no cyanosis, 2+ pulses and upper and lower extremities. MUSCULOSKELETAL: Muscle strength and tone normal. SPINE: No scoliosis or deformity SKIN: No rashes, excessive bruising noted on the inferior aspect of the right upper arm and some limited bruising on the right torso CENTRAL NERVOUS SYSTEM: Alert and oriented -3. No focal deficits, tone is normal in all 4 extremities. PSYCHIATRIC: Alert and oriented -3. Appropriate affect. Intact judgment and insight. - Labs CBC & Chem 7: 07/01/19 23:19 07/03/19 07:00 Labs: Abnormal Lab Results - Last 24 Hours (Table) 07/03/19 Range/Units 07:00 Sodium 135 L (137-145) mmol/L Chloride 94 L (98-107) mmol/L Carbon Dioxide 34 H (22-30) mmol/L BUN 18 H (7-17) mg/dL Creatinine 0.40 L (0.52-1.04) mg/dL Glucose 168 H (74-99) mg/dL Assessment and Plan Plan: Assessment: 1 traumatic injury to the right chest wall without evidence of any rib fractures or pneumothorax or pleural effusion. The patient is coming in for pain control. 2 fall 3 Severe COPD with a baseline of one of 40% of predicted, 0.77 L 4 Chronic hypoxemic respiratory failure related to severe COPD 5 Hypothyroidism 6 Hyperlipidemia 7 Former smoker 8 Osteoarthritis, with history of bilateral knee replacement 9 Cataracts 10 history of atrial flutter maintained on long-term anticoagulation with Eliquis and the rate is controlled for now, but she seems to be in A. fib rhythm. 11 diastolic heart failure with mild to moderate pulmonary hypertension. 12 obstructive sleep apnea Plan: Continue current medical treatment, continue current breathing treatments and Symbicort. COPD seems to be stable, patient's main issue is pain control in the right chest wall area, we will add oral [place]'s, discontinue the Dilaudid as the nursing staff reports is very sedating. Continue current medical treatment. May probably be considered for discharge home once the pain is better controlled on oral medications I performed a history & physical examination of the patient and discussed their management with my nurse practitioner, Lin Martinez. I reviewed the nurse practitioner's note and agree with the documented findings and plan of care. Lung sounds are positive for diminished breath sounds. The findings and the impression was discussed with the patient. I attest to the documentation by the nurse practitioner. Time with Patient: Less than 30
[2019-07-03] MEDS: MONTELUKAST 10 MG TAB PO SCH (22:28)
[2019-07-03] MEDS: ATORVASTATIN 20 MG TAB PO SCH (22:28)
[2019-07-04] MEDS: APIXABAN 2.5 MG TABLET PO SCH (07:48)
[2019-07-04] MEDS: MULTIVITAMINS, THERA 1 EACH TAB PO SCH (07:48)
[2019-07-04] MEDS: FUROSEMIDE 40 MG TAB PO SCH (07:48)
[2019-07-04] MEDS: predniSONE 10 MG TAB PO SCH (07:48)
[2019-07-04] MEDS: CYANOCOBALAMIN 500 MCG TAB PO SCH (07:48)
[2019-07-04] MEDS: POTASSIUM CHLORIDE ER 10 MEQ TAB.ER.PRT PO SCH (07:48)
[2019-07-04] MEDS: LEVOTHYROXINE 75 MCG TAB PO SCH (07:48)
[2019-07-04] MEDS: METOPROLOL TARTRATE 12.5 MG TAB PO SCH (07:48)
[2019-07-04 07:58] VITALS: BP 130/68; RESP 17; TEMP 97.7
[2019-07-04] MEDS: SYMBICORT 160-4.5 MCG INHALER INHALATION SCH (08:05)
[2019-07-04] MEDS: IPRATROPIUM-ALBUTEROL 3 ML NEB INHALATION SCH ×2 (08:05→11:44)
[2019-07-04] MEDS ORDERED: LIDOCAINE 5% PATCH TOPICAL SCH (09:00)
[2019-07-04] MEDS: HYDROcodone/APAP 5-325MG 1 EACH TAB PO PRN (09:52)
[2019-07-04 11:53] VITALS: PULSE 84
--- NOTE | 2019-07-04 12:33 | P.PN ---
Subjective Progress Note Date: 07/04/19 Principal diagnosis: Traumatic injury to the right chest wall without evidence of any rib fractures or pneumothorax or pleural effusion. 89-year-old female patient well-known to our practice because of her advanced COPD with an FEV1 of 0.77 L which is consistent with severe obstructive airway limitation, and addition to her history of chronic hypoxemic respiratory failure and was maintained on oxygen for many years at 2 L per minute nasal cannula, previous history of atrial flutter for which the patient is demented on long- term anticoagulation with Eliquis, hypothyroidism and hyperlipidemia and diastolic heart failure with secondary pulmonary hypertension. The patient also has history of obstructive sleep apnea. The patient has been hospitalized in the past due to complications of CHF exacerbation mainly in the form of diastolic heart failure. The patient came into the hospital because of a fall. She was at home and she turned around and she slipped and she fell on her right side hitting the right side of the chest. She came into the hospital complaining of pain along the right chest wall, right elbow and right side. Her pain was around 8 out of 10 in severity. She also had some difficulties with the right knee mainly in the form of pain without any significant deformities and she was able to bear weight on the right lower extremity. No hemoptysis. No pleurisy. She is on oxygen 2 L per minute nasal cannula. No significant hematoma formation across chest especially that the patient takes long-term medical condition with Eliquis. Her current hemoglobin is at 13.0. Her creatinine is at 0.5. Sodium is 136. White cell count is at 9.0. Chest x-ray shows no evidence of any fractures of pleural effusions or pneumothorax. Examination of the right knee shows a scar related to previous knee surgery. The x-ray of the knee shows a right knee prosthesis without any complications. On 07/03/2019 patient is seen in follow-up on general medical floor, she sits up in the chair, she still complains of right-sided torso pain with moving around and deep breathing and coughing, but she states she is comfortable at rest is only she does not move or take deep rest. Patient is on IV Dilaudid, we will add oral pain medication in the form of [place] for better pain control, she continues on oral prednisone, breathing treatments, lung sounds are clear, diminished overall, COPD seems to be fairly stable. No acute events overnight, no worsening peripheral edema, patient continues on Eliquis for history of atrial fibrillation, and she is on maintenance inhalers form of Symbicort. On 07/04/2019 patient seen in follow-up on general medical floor, she sits up in the chair, in no acute distress, her pain seems to be better controlled, she is on a combination of oral [place] and lidocaine patch. Breathing is stable, comfortable, no wheezing, no cough, no congestion, room air pulse ox is 99%, hemodynamically patient is stable, no fever or chills. No new labs today. No acute events overnight, anticipate discharge home today Objective - Vital Signs Vital signs: Vital Signs Temp 97.7 F 07/04/19 07:00 Pulse 84 07/04/19 11:52 Resp 17 07/04/19 07:00 BP 130/68 07/04/19 07:00 Pulse Ox 99 07/04/19 07:00 Intake & Output 07/03/19 07/04/19 07/04/19 18:59 06:59 18:59 Other: Voiding Method Toilet Toilet # Voids 1 2 1 - Exam GENERAL EXAM: Alert, very pleasant, 89-year-old white female, on 2 L of oxygen with a pulse ox of 96% comfortable in no apparent distress. HEAD: Normocephalic/atraumatic. EYES: Normal reaction of pupils, equal size. Conjunctiva pink, sclera white. NOSE: Clear with pink turbinates. THROAT: No erythema or exudates. NECK: No masses, no JVD, no thyroid enlargement, no adenopathy. CHEST: No chest wall deformity. Symmetrical expansion. Right chest wall tenderness with deep breathing or coughing, LUNGS: Equal air entry with no crackles, wheeze, rhonchi or dullness. CVS: Regular rate and rhythm, normal S1 and S2, no gallops, no murmurs, no rubs ABDOMEN: Soft, nontender. No hepatosplenomegaly, normal bowel sounds, no guarding or rigidity. EXTREMITIES: No clubbing, no edema, no cyanosis, 2+ pulses and upper and lower extremities. MUSCULOSKELETAL: Muscle strength and tone normal. SPINE: No scoliosis or deformity SKIN: No rashes, excessive bruising noted on the inferior aspect of the right upper arm and some limited bruising on the right torso CENTRAL NERVOUS SYSTEM: Alert and oriented -3. No focal deficits, tone is normal in all 4 extremities. PSYCHIATRIC: Alert and oriented -3. Appropriate affect. Intact judgment and insight. - Labs CBC & Chem 7: 07/01/19 23:19 07/03/19 07:00 Assessment and Plan Plan: Assessment: 1 traumatic injury to the right chest wall without evidence of any rib fractures or pneumothorax or pleural effusion. The patient is coming in for pain control. 2 fall 3 Severe COPD with a baseline of one of 40% of predicted, 0.77 L 4 Chronic hypoxemic respiratory failure related to severe COPD 5 Hypothyroidism 6 Hyperlipidemia 7 Former smoker 8 Osteoarthritis, with history of bilateral knee replacement 9 Cataracts 10 history of atrial flutter maintained on long-term anticoagulation with Eliquis and the rate is controlled for now, but she seems to be in A. fib rhythm. 11 diastolic heart failure with mild to moderate pulmonary hypertension. 12 obstructive sleep apnea Plan: Patient is doing well, he seems to be better controlled with oral medications and lidocaine patch, no acute events overnight, her COPD is stable, no fever or chills, no acute events overnight, increase activity as tolerated, stable for discharge home today, follow up with Dr. Savage in the office in 2-3 weeks I performed a history & physical examination of the patient and discussed their management with my nurse practitioner, Lin Martinez. I reviewed the nurse practitioner's note and agree with the documented findings and plan of care. Lung sounds are positive for diminished breath sounds. The findings and the impression was discussed with the patient. I attest to the documentation by the nurse practitioner. Time with Patient: Less than 30
--- NOTE | 2019-07-04 12:52 | P.DS ---
Providers Date of admission: 07/03/19 07:59 Attending physician: Falguni Purcell Primary care physician: Maria Alejandra Munoz Hospital Course: diagnoses: fall after she slipped and her Restroom with blunt trauma to her right side of the chest, no more serious underlying pulmonary injury. Pain is better controlled acute on chronic diastolic CHF with ejection fraction of 55-60%, improved severe COPD with Acute exacerbation, improved chronic hypoxic respiratory failure, on 2 L oxygen at home history of CVA/TIA chronic atrial flutter/fib was on Eliquis Sleep apnea on CPAP/BiPAP Hypothyroidism old site healed rib fractures Hospital course: this is a pleasant 89 years old female with past medical history of COPD, CVA/TIA, sleep apnea on CPAP/BiPAP, hypothyroidism. sHe was recently in the hospital for acute diastolic CHF with ejection fraction of 55-60% and COPD exacerbation (04/23-05/01). Presents this time because of fall. patient states that she was at home going to the restroom, she was turning around to sit when her leg slipped away and she fell on her right side to the vanity before she slipped to the floor, patient started complaining from pain in her right lateral chest, right elbow and right, after that she needed help by the visiting nurse to get up who called 911 and brought to the emergency room. Further workup showed no severe underlying injury. Patient has been evaluated by calciner feeder. Eventually her pain controlled with pain pills but is not continuous resolved however patient can be discharged and she was cleared by pulmonary service. Physical therapy evaluated the patient and recommended home with health care On the day of discharge she denies other chest pain, no dyspnea, and change in urine bowel habits. No fever Problems and management plan were discussed with the patient and he verbalized understanding and acceptance Patient was found stable and can be discharged home however he needs follow-up as an outpatient. Patient was instructed to follow up with PCP Dr. Savage within one week and patient agrees to call and make appointments. Gen: patient is a AAOx3, no distress CVS: S1-S2, RRR, no murmur Lungs: B/L CTA, no wheezing, tenderness on the right lateral side Abdomen: soft, no distention, no tenderness, positive bowel sounds Extremity: no leg edema or induration Time spent more than 35 minutes Patient Condition at Discharge: Serious Plan - Discharge Summary Discharge Rx Participant: No New Discharge Prescriptions: No Action Simvastatin [Zocor] 40 mg PO HS Montelukast [Singulair] 10 mg PO HS Multivitamins, Thera [Multivitamin (formulary)] 1 tab PO DAILY Albuterol Nebulized [Ventolin Nebulized] 2.5 mg INHALATION RT-Q4H PRN PRN Reason: Shortness Of Breath Levothyroxine Sodium [Synthroid] 75 mcg PO QAM Vit C/E/Zn/Coppr/Lutein/Zeaxan [Preservision Areds 2 Softgel] 1 cap PO BID Prevagen 1 cap PO DAILY Potassium Chloride ER [K-Dur 10] 10 meq PO DAILY Cyanocobalamin (Vitamin B-12) [Vitamin B-12] 1,000 mcg PO DAILY Biotin 10,000 mcg PO DAILY Acetaminophen [Tylenol Extra Strength] 500 mg PO DAILY PRN PRN Reason: Pain Ipratropium-Albuterol Nebulize [Duoneb 0.5 mg-3 mg/3 ml Soln] 3 ml INHALATION RT-QID PRN ml PRN Reason: Shortness Of Breath Or Wheezing Furosemide [Lasix] 40 mg PO DAILY 30 Days #30 tab Aspirin EC [Ecotrin Low Dose] 81 mg PO DAILY predniSONE See Taper PO DAILY Metoprolol Tartrate [Lopressor] 12.5 mg PO BID Furosemide [Lasix] 20 mg PO DAILY PRN PRN Reason: swelling of legs Fluticasone/Salmeterol [Advair 250-50 Diskus] 1 puff INHALATION RT-BID Discharge Medication List Simvastatin [Zocor] 40 mg PO HS 09/25/13 [History] Montelukast [Singulair] 10 mg PO HS 02/11/16 [History] Albuterol Nebulized [Ventolin Nebulized] 2.5 mg INHALATION RT-Q4H PRN 03/14/16 [History] Multivitamins, Thera [Multivitamin (formulary)] 1 tab PO DAILY 03/14/16 [History] Cyanocobalamin (Vitamin B-12) [Vitamin B-12] 1,000 mcg PO DAILY 12/06/18 [History] Levothyroxine Sodium [Synthroid] 75 mcg PO QAM 12/06/18 [History] Potassium Chloride ER [K-Dur 10] 10 meq PO DAILY 12/06/18 [History] Prevagen 1 cap PO DAILY 12/06/18 [History] Vit C/E/Zn/Coppr/Lutein/Zeaxan [Preservision Areds 2 Softgel] 1 cap PO BID 12/06/18 [History] Acetaminophen [Tylenol Extra Strength] 500 mg PO DAILY PRN 04/19/19 [History] Biotin 10,000 mcg PO DAILY 04/19/19 [History] Furosemide [Lasix] 40 mg PO DAILY 30 Days #30 tab 04/29/19 [Rx] Ipratropium-Albuterol Nebulize [Duoneb 0.5 mg-3 mg/3 ml Soln] 3 ml INHALATION RT-QID PRN ml 04/29/19 [Rx] Aspirin EC [Ecotrin Low Dose] 81 mg PO DAILY 07/02/19 [History] Fluticasone/Salmeterol [Advair 250-50 Diskus] 1 puff INHALATION RT-BID 07/02/19 [History] Furosemide [Lasix] 20 mg PO DAILY PRN 07/02/19 [History] Metoprolol Tartrate [Lopressor] 12.5 mg PO BID 07/02/19 [History] predniSONE See Taper PO DAILY 07/02/19 [History] Follow up Appointment(s)/Referral(s): Maria Alejandra Munoz MD [Primary Care Provider] - 1-2 days
== END 2019-07-04 14:34 | disposition home health service (06) | DRG 190 ==
LOC: EC 21:37 → 4SSUR 23:15 → OBSVTOIN 07-03 07:59
PROVIDERS: ADMIT Hospitalist; ATTEND Hospitalist
DX: J44.1 Chronic obstructive pulmonary disease with (acute) exacerbation (principal); I50.33 Acute on chronic diastolic (congestive) heart failure; I48.92 Unspecified atrial flutter; J96.11 Chronic respiratory failure with hypoxia; R07.89 Other chest pain; E03.9 Hypothyroidism, unspecified; E78.5 Hyperlipidemia, unspecified; G47.33 Obstructive sleep apnea (adult) (pediatric); Z99.89 Dependence on other enabling machines and devices; I27.29 Other secondary pulmonary hypertension; H26.9 Unspecified cataract; I48.91 Unspecified atrial fibrillation; Z79.01 Long term (current) use of anticoagulants; M19.90 Unspecified osteoarthritis, unspecified site; W01.190A Fall on same level from slipping, tripping and stumbling with subsequent striking against furniture, initial encounter; Z79.51 Long term (current) use of inhaled steroids; Z11.59 Encounter for screening for other viral diseases; Z79.82 Long term (current) use of aspirin; Z79.890 Hormone replacement therapy; Z79.899 Other long term (current) drug therapy; Z86.73 Personal history of transient ischemic attack (TIA), and cerebral infarction without residual deficits; Z87.891 Personal history of nicotine dependence; Z96.653 Presence of artificial knee joint, bilateral; Z98.42 Cataract extraction status, left eye; Z98.41 Cataract extraction status, right eye; Z88.2 Allergy status to sulfonamides; Z88.7 Allergy status to serum and vaccine; Z88.8 Allergy status to other drugs, medicaments and biological substances
CPT/HCPCS: 36415; 80048; 80053; 83735; 83880; 85025; 87635; 94640; 94760; 96372; 96374; 99285

== ENCOUNTER 2020-03-19 05:31 | Inpatient (IN) | payer MEDICARE, OTHER ==
[2020-03-19] MEDS ORDERED: LORazepam 2 MG/ML INJ IV STA (05:34)
[2020-03-19] MEDS ORDERED: SODIUM CHLORIDE 0.9% 1,000 ML IV STA (05:34)
[2020-03-19] MEDS ORDERED: IPRATROPIUM-ALBUTEROL 3 ML NEB INHALATION STA (05:34)
[2020-03-19] MEDS ORDERED: ONDANSETRON 4 MG/2 ML VIAL IVP STA (05:35)
--- NOTE | 2020-03-19 05:35 | ED ---
SOB HPI - General Stated Complaint: ROBERT Time Seen by Provider: 03/19/20 05:33 Source: RN notes reviewed, old records reviewed Limitations: no limitations - History of Present Illness Initial Comments: This is an 89-year-old female to the ER for evaluation she presents today for evaluation regards to not feeling well occasional cough known fever with severe shortness of breath. Hospitalization admissions. No recent travel history or known sick contacts. Patient is a poor story history obtained from EMS and prior charting MD Complaint: shortness of breath, cough -: days(s) Severity: moderate Severity scale (1-10): 4 Quality: dull, aching Consistency: constant Improves With: nothing Worsens With: nothing Context: recent URI, anxiety, recent illness Associated Symptoms: denies other symptoms Treatments Prior to Arrival: none - Related Data Home Medications Medication Instructions Recorded Confirmed Simvastatin [Zocor] 40 mg PO HS 09/25/13 03/19/20 Montelukast [Singulair] 10 mg PO HS 02/11/16 03/19/20 Multivitamins, Thera [Multivitamin 1 tab PO DAILY 03/14/16 03/19/20 (formulary)] Levothyroxine Sodium [Synthroid] 75 mcg PO DAILY@0730 12/06/18 03/19/20 Potassium Chloride ER [K-Dur 10] 10 meq PO DAILY 12/06/18 03/19/20 Fluticasone/Salmeterol [Advair 1 puff INHALATION RT-BID 07/02/19 03/19/20 250-50 Diskus] Metoprolol Tartrate [Lopressor] 12.5 mg PO BID 07/02/19 03/19/20 Acetaminophen Tab [Tylenol] 650 mg PO Q6H PRN 03/19/20 03/19/20 Biotin 5 mg PO DAILY 03/19/20 03/19/20 Melatonin 10 mg PO HS 03/19/20 03/19/20 Mylanta 30 ml PO Q4H PRN 03/19/20 03/19/20 Previous Rx's Medication Instructions Recorded Apixaban [Eliquis] 2.5 mg PO BID tablet 07/04/19 Ertapenem [INVanz] 1 gm IVPB Q24H #7 vial 03/23/20 Albuterol Inhaler [Ventolin Hfa 2 puff INHALATION RT-QID puff 03/24/20 Inhaler] Colchicine [Colcrys] 0.6 mg PO BID 2 Days #4 each 03/24/20 Dexamethasone 6 mg PO DAILY 5 Days #5 tablet 03/24/20 Tiotropium 2.5 Mcg/Puff [Spiriva 1 puff INHALATION RT-DAILY puff 03/24/20 Respimat 2.5 Mcg] predniSONE 2.5 mg PO DAILY #0 03/24/20 Allergies Allergy/AdvReac Type Severity Reaction Status Date / Time bacitracin Allergy Rash/Hives Verified 03/19/20 07:16 bacitracin zinc Allergy Rash/Hives Verified 03/19/20 07:16 [From Neosporin ([id number])] dimethicone Allergy Rash/Hives Verified 03/19/20 07:16 [From A & D Emollient] glycerin Allergy Rash/Hives Verified 03/19/20 07:16 [From A & D Emollient] neomycin sulfate Allergy Rash/Hives Verified 03/19/20 07:16 [From Neosporin ([id number])] polymyxin B Allergy Rash/Hives Verified 03/19/20 07:16 [From Neosporin ([id number])] stearyl alcohol Allergy Rash/Hives Verified 03/19/20 07:16 [From A & D Emollient] Tetanus Vaccines and Toxoid Allergy swelling Verified 03/19/20 07:16 and severe redness and hardness at site Review of Systems ROS Statement: Those systems with pertinent positive or pertinent negative responses have been documented in the HPI. ROS Other: All systems not noted in ROS Statement are negative. Past Medical History Past Medical History: COPD, CVA/TIA, Eye Disorder, Pneumonia, Sleep Apnea/CPAP/BIPAP, Thyroid Disorder Additional Past Medical History / Comment(s): TEAR RT ROTATOR CUFFS, RT cataracts, O2 @ 2 liters 12/09 History of Any Multi-Drug Resistant Organisms: ESBL, MRSA Date of last positivie culture/infection: 02/12/20 ESBL-E.coli; 09/23/13 MRSA MDRO Source:: Urine-ESBL; MRSA-Right Leg Past Surgical History: Joint Replacement, Orthopedic Surgery Additional Past Surgical History / Comment(s): ATTEMPTED REPAIR OF RT ROTATOR CUFF. BILATERAL KNEE REPLACEMENTS, LEFT AND RIGHT CATARACT REMOVED Past Anesthesia/Blood Transfusion Reactions: No Reported Reaction Additional Past Anesthesia/Blood Transfusion Reaction / Comment(s): no hx blood transfusion Past Psychological History: No Psychological Hx Reported Past Alcohol Use History: Daily Additional Past Alcohol Use History / Comment(s): quit smoking 1988, 1ppd Past Drug Use History: None Reported - Past Family History Mother Family Medical History: No Reported History Additional Family Medical History / Comment(s): mother at age 93 of "old age" Father Family Medical History: No Reported History Additional Family Medical History / Comment(s): states at age 89 with no known medical problems General Exam General appearance: alert, in no apparent distress, anxious, in distress Head exam: Present: atraumatic, normocephalic, normal inspection Eye exam: Present: normal appearance, PERRL, EOMI. Absent: scleral icterus, conjunctival injection, periorbital swelling ENT exam: Present: normal exam, mucous membranes moist Neck exam: Present: normal inspection. Absent: tenderness, meningismus, lymphadenopathy Respiratory exam: Present: wheezes, decreased breath sounds, prolonged expirat ory. Absent: respiratory distress, rales, rhonchi, stridor Cardiovascular Exam: Present: normal rhythm, tachycardia, normal heart sounds. Absent: systolic murmur, diastolic murmur, rubs, gallop, clicks GI/Abdominal exam: Present: soft, normal bowel sounds. Absent: distended, tenderness, guarding, rebound, rigid Extremities exam: Present: normal inspection, full ROM, normal capillary refill. Absent: tenderness, pedal edema, joint swelling, calf tenderness Back exam: Present: normal inspection Neurological exam: Present: alert, oriented X3, CN II-XII intact Psychiatric exam: Present: normal affect, normal mood Skin exam: Present: warm, dry, intact, normal color. Absent: rash Course Vital Signs 03/19/20 03/19/20 03/19/20 05:37 05:41 05:57 Temperature 102.7 F H Pulse Rate 125 H 88 90 Respiratory 30 H Rate Blood Pressure 177/91 O2 Sat by Pulse 90 L Oximetry 03/19/20 03/19/20 03/19/20 07:08 07:56 08:00 Temperature 101.1 F H Pulse Rate 89 117 H Respiratory 19 19 22 Rate Blood Pressure 121/57 123/72 O2 Sat by Pulse 97 100 Oximetry - Reevaluation(s) Reevaluation #1: Medical record is reviewed Patient has some improvement in symptoms with fever control, breathing treatments Still remains significantly short of breath Medical Decision Making - Medical Decision Making 89 female to the ER for evaluation. Patient presents with fever weakness not feeling well. Patient will be admitted for community acquired pneumonia, IV antibiotics and evaluation management - Lab Data Result diagrams: 03/23/20 06:27 03/23/20 06:27 - Radiology Data Radiology results: report reviewed (Chest x-rays positive for pneumonia), image reviewed Critical Care Time Critical Care Time: Yes Total Critical Care Time: 31 Disposition Clinical Impression: Acute exacerbation of chronic obstructive pulmonary disease, Dehydration, Weakness, Community acquired pneumonia, Fever, Hypoxia, Renal insufficiency syndrome Disposition: ADMITTED IP TO THIS HOSP Condition: Fair Is patient prescribed a controlled substance at d/c from ED?: No
--- NOTE | 2020-03-19 06:23 | XR ---
EXAM: XR Chest, 1 View CLINICAL HISTORY: ITS.REASON XR Reason: sob TECHNIQUE: Frontal view of the chest. COMPARISON: 07/01/2019 FINDINGS: Lungs: Increased interstitial markings. Mild patchy opacities in the lung bases. Pleural space: Unremarkable. No pneumothorax. Heart: Mild cardiomegaly and central vascular congestion similar to prior. Mediastinum: Unremarkable. Bones/joints: Stable degenerative changes of the shoulders and proximal right humeral deformity. Vasculature: Aortic calcifications. IMPRESSION: 1. Mild cardiomegaly and central vascular congestion similar to prior. 2. Mild patchy opacities in the lung bases. May represent atelectasis, infiltrate/edema.
[2020-03-19] MEDS ORDERED: AZITHROMYCIN 500 MG in SODIUM CHLORIDE 0.9% 250 ML IVPB STA (06:26)
[2020-03-19] MEDS ORDERED: PNEUMONIA PROTOCOL UTILIZED 1 EACH MISC PO PRN (06:26)
[2020-03-19] MEDS ORDERED: PIPERACILLIN-TAZOBACTAM 3.375 GM in SODIUM CHLORIDE 0.9% 100 ML IVPB STA (06:26)
[2020-03-19 07:09] LABS: ALT 19 U/L (4-34); AST 29 U/L (14-36); African American GFR (CKD) >90 (>60 ml/min/1.73 sqM); Albumin 3.7 g/dL (3.5-5.0); Alkaline Phosphatase 48 U/L (38-126); Anion Gap 6 mmol/L; Blood Urea Nitrogen 14 mg/dL (7-17); Calcium 8.9 mg/dL (8.4-10.2); Carbon Dioxide 35 mmol/L (22-30); Chloride 98 mmol/L (98-107); Creatine Kinase 45 U/L (30-135); Glucose 149 mg/dL (74-99); Magnesium 1.8 mg/dL (1.6-2.3); Non-African American GFR(CKD) 85 (>60 ml/min/1.73 sqM); Potassium 4.6 mmol/L (3.5-5.1); Sodium 139 mmol/L (137-145); Total Bilirubin 0.9 mg/dL (0.2-1.3); Total Protein 6.9 g/dL (6.3-8.2)
[2020-03-19 07:12] LABS: INR 1.2 (<1.2); Prothrombin Time 12.2 sec (9.0-12.0)
[2020-03-19 07:13] LABS: Basophils % (A) 0 %; Eosinophils # (A) 0.2 k/uL (0-0.7); Eosinophils % (A) 1 %; HCT 37.3 % (34.0-46.0); HGB 11.6 gm/dL (11.4-16.0); Hypochromasia Slight; Lymphocytes # (A) 1.2 k/uL (1.0-4.8); Lymphocytes % (A) 10 %; MCH 29.9 pg (25.0-35.0); MCHC 31.2 g/dL (31.0-37.0); MCV 95.8 fL (80.0-100.0); Mean Platelet Volume 9.6; Monocytes # (A) 0.4 k/uL (0-1.0); Monocytes % (A) 3 %; Neutrophils # (A) 10.6 k/uL (1.3-7.7); Neutrophils % (A) 85 %; Platelet Count 172 k/uL (150-450); RBC 3.89 m/uL (3.80-5.40); RDW 15.1 % (11.5-15.5); WBC 12.4 k/uL (3.8-10.6)
[2020-03-19 07:32] LABS: Partial Thromboplastin Time 20.2 sec (22.0-30.0)
[2020-03-19] MEDS ORDERED: ACETAMINOPHEN TAB 500 MG TAB PO STA (07:58)
[2020-03-19] MEDS ORDERED: IPRATROPIUM-ALBUTEROL 3 ML NEB INHALATION SCH (08:00)
[2020-03-19] MEDS: SODIUM CHLORIDE 0.9% 1,000 ML IV SCH ×3 (08:24→23:02)
[2020-03-19] MEDS ORDERED: ENOXAPARIN 40 MG/0.4 ML SYRINGE SQ SCH (09:00)
[2020-03-19] MEDS ORDERED: NON FORMULARY DRUG (Biotin [Biotin] 5 MG Capsule) PO SCH (10:15)
[2020-03-19] MEDS ORDERED: LEVOTHYROXINE 75 MCG TAB PO SCH (10:30)
[2020-03-19] MEDS: APIXABAN 2.5 MG TABLET PO SCH ×2 (10:38→20:13)
[2020-03-19] MEDS: METOPROLOL TARTRATE 12.5 MG TAB PO SCH ×2 (10:38→20:13)
[2020-03-19 12:21] LABS: C Reactive Protein 9.5 mg/L (<10.0)
[2020-03-19] MEDS: ALBUTEROL HFA INHALER INHALATION SCH ×3 (12:38→19:36)
[2020-03-19] MEDS: SYMBICORT 80-4.5 MCG INHALER INHALATION SCH ×2 (12:57→19:36)
--- NOTE | 2020-03-19 14:19 | P.CONS ---
History of Present Illness - Reason for Consult Consult date: 03/19/20 - History of Present Illness HISTORY OF PRESENT ILLNESS This is a 89-year-old female who resides at [facility]. Patient was transferred to the hospital due to shortness of breath and difficulty breathing. She does have history of COVID-19 and subsequently received vaccine 2 weeks ago. Patient presented with temperature of 102.7, heart rate 125, respiratory rate 30, blood pressure 177/91, pulse ox 90%. WBC 12.4, creatinine 0.54. CMP is essentially normal except for blood sugar 149 and CO2 35. LDH 531, CK 45, troponin negative. C-reactive protein 9.5. Pro-BNP 1470. Covid 19 positive. Chest x-ray reveals mild cardiomegaly and central vascular congestion similar to prior. Mild patchy opacities in the lung bases. May represent atelectasis, infiltrate or edema. Patient was started on azithromycin and Zosyn. She is status post 1 L of IV fluids. Patient is unable to provide reliable history. REVIEW OF SYSTEMS Patient is unable to provide reliable history but denies cough, chest pain, Shortness of breath. No nausea, vomiting or diarrhea. She denies abdominal pain. PHYSICAL EXAMINATION Gen: This is an 89-year-old obese female. She is resting in bed and appears to be comfortable. No acute respiratory distress is noted. VS: Temperature 98.6, heart rate 115, blood pressure 126/67, pulse ox 97% on 4 L nasal cannula. HEENT: Head is atraumatic, normocephalic. Pupils equal, round. Sclerae is anicteric. NECK: Supple. No JVD. LUNGS: Diminished at bases No wheezes or rhonchi. No intercostal retractions. HEART: Regular rate and rhythm. ABDOMEN: Soft. Bowel sounds are present. No masses. No tenderness. EXTREMITIES: No pedal edema. No calf tenderness. NEUROLOGICAL: Patient is awake, opens eyes to verbal stimuli. Significant generalized weakness. ASSESSMENT Sepsis secondary to Gram-negative pneumonia Recent Covid infection and status post vaccine PLAN Discontinue azithromycin Continue Zosyn 3.375 g IV piggyback every 8 hours Obtain urinalysis and urine culture Continue supportive care Further recommendations based upon patient's clinical progress. Thank you kindly for this consultation. The above dictated assessment and findings were discussed with Dr. Villanueva. The impression and plan of care have been directed as dictated. Jada Yeboah nurse practitioner acting as scribe for Dr. Villanueva. Past Medical History Past Medical History: COPD, CVA/TIA, Eye Disorder, Pneumonia, Sleep Apnea/CPAP/BIPAP, Thyroid Disorder Additional Past Medical History / Comment(s): TEAR RT ROTATOR CUFFS, RT cataracts, O2 @ 2 liters 12/09 History of Any Multi-Drug Resistant Organisms: ESBL, MRSA Year Discovered:: 02/12/20 ESBL-E.coli; 09/23/13 MRSA MDRO Source:: Urine-ESBL; MRSA-Right Leg Past Surgical History: Joint Replacement, Orthopedic Surgery Additional Past Surgical History / Comment(s): ATTEMPTED REPAIR OF RT ROTATOR CUFF. BILATERAL KNEE REPLACEMENTS, LEFT AND RIGHT CATARACT REMOVED Past Anesthesia/Blood Transfusion Reactions: No Reported Reaction Additional Past Anesthesia/Blood Transfusion Reaction / Comm: no hx blood transfusion Past Psychological History: No Psychological Hx Reported Past Alcohol Use History: Daily Additional Past Alcohol Use History / Comment(s): quit smoking 1988, 1ppd Past Drug Use History: None Reported - Past Family History Mother Family Medical History: No Reported History Additional Family Medical History / Comment(s): mother at age 93 of "old age" Father Family Medical History: No Reported History Additional Family Medical History / Comment(s): states at age 89 with no known medical problems Medications and Allergies Home Medications Medication Instructions Recorded Confirmed Type Simvastatin [Zocor] 40 mg PO HS 09/25/13 03/19/20 History Montelukast [Singulair] 10 mg PO HS 02/11/16 03/19/20 History Multivitamins, Thera [Multivitamin 1 tab PO DAILY 03/14/16 03/19/20 History (formulary)] Levothyroxine Sodium [Synthroid] 75 mcg PO DAILY@0730 12/06/18 03/19/20 History Potassium Chloride ER [K-Dur 10] 10 meq PO DAILY 12/06/18 03/19/20 History Fluticasone/Salmeterol [Advair 1 puff INHALATION RT-BID 07/02/19 03/19/20 History 250-50 Diskus] Metoprolol Tartrate [Lopressor] 12.5 mg PO BID 07/02/19 03/19/20 History Apixaban [Eliquis] 2.5 mg PO BID tablet 07/04/19 03/19/20 Rx Acetaminophen Tab [Tylenol] 650 mg PO Q6H PRN 03/19/20 03/19/20 History Biotin 5 mg PO DAILY 03/19/20 03/19/20 History Melatonin 10 mg PO HS 03/19/20 03/19/20 History Mylanta 30 ml PO Q4H PRN 03/19/20 03/19/20 History predniSONE 2.5 mg PO DAILY 03/19/20 03/19/20 History Allergies Allergy/AdvReac Type Severity Reaction Status Date / Time bacitracin Allergy Rash/Hives Verified 03/19/20 07:16 bacitracin zinc Allergy Rash/Hives Verified 03/19/20 07:16 [From Neosporin ([id number])] dimethicone Allergy Rash/Hives Verified 03/19/20 07:16 [From A & D Emollient] glycerin Allergy Rash/Hives Verified 03/19/20 07:16 [From A & D Emollient] neomycin sulfate Allergy Rash/Hives Verified 03/19/20 07:16 [From Neosporin ([id number])] polymyxin B Allergy Rash/Hives Verified 03/19/20 07:16 [From Neosporin ([id number])] stearyl alcohol Allergy Rash/Hives Verified 03/19/20 07:16 [From A & D Emollient] Tetanus Vaccines and Toxoid Allergy swelling Verified 03/19/20 07:16 and severe redness and hardness at site Physical Exam Vitals: Vital Signs Temp Pulse Pulse Resp BP BP Pulse Ox 03/19/20 09:47 98.6 F 115 H 18 126/67 97 03/19/20 08:18 102.1 F H 125 H 20 117/50 98 03/19/20 07:56 101.1 F H 117 H 19 123/72 100 03/19/20 07:08 89 19 121/57 97 03/19/20 05:57 90 03/19/20 05:41 88 03/19/20 05:37 102.7 F H 125 H 30 H 177/91 90 L Intake and Output 03/18/20 03/19/20 03/19/20 22:59 06:59 14:59 Other: Weight 90.718 kg Results CBC & Chem 7: 03/19/20 06:49 03/19/20 06:49 Labs: Abnormal Lab Results - Last 24 Hours (Table) 03/19/20 03/19/20 03/19/20 Range/Units 06:49 06:49 06:49 WBC 12.4 H (3.8-10.6) k/uL Neutrophils # 10.6 H (1.3-7.7) k/uL PT 12.2 H (9.0-12.0) sec INR 1.2 H (<1.2) APTT 20.2 L (22.0-30.0) sec Carbon Dioxide 35 H (22-30) mmol/L Glucose 149 H (74-99) mg/dL Coronavirus (PCR) (Not Detectd) 03/19/20 Range/Units 07:36 WBC (3.8-10.6) k/uL Neutrophils # (1.3-7.7) k/uL PT (9.0-12.0) sec INR (<1.2) APTT (22.0-30.0) sec Carbon Dioxide (22-30) mmol/L Glucose (74-99) mg/dL Coronavirus (PCR) Detected A (Not Detectd)
[2020-03-19] MEDS: PIPERACILLIN-TAZOBACTAM 3.375 GM in SODIUM CHLORIDE 0.9% 100 ML IVPB SCH ×2 (16:09→23:02)
--- NOTE | 2020-03-19 16:32 | CT ---
EXAMINATION TYPE: CT brain wo con DATE OF EXAM: 03/19/2020 COMPARISON: INDICATION: Fall and headache. DLP: 1133.4 mGycm, Automated exposure control for dose reduction was used. CONTRAST: None CT of the brain is performed utilizing 3 mm thick sections through the posterior fossa and 3 mm thick sections through the remaining calvarium. Study is performed within 24 hours of arrival to the hosp ital. No abnormal hyperdensity is present to suggest an acute intracranial hemorrhage. No mass lesion is evident. No acute infarcts are evident. There is an old infarct of the left caudate head. Periventricular whit e matter hypodensity is present likely on the basis of chronic white matter ischemic changes. Ventricles and sulci are prominent for the patient age. Paranasal sinuses and mastoid air cells within the [id number] are clear. Next line some mild soft tissue swelling may be at the left infraorbital region IMPRESSIONS: 1. Atrophy with periventricular white matter ischemic changes. 2. 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
[2020-03-19 17:46] LABS: Appearance,Urine Turbid (Clear); Bacteria,Urine Occasional /hpf; Bilirubin,Urine Negative (Negative); Blood,Urine Moderate (Negative); Color,Urine Yellow; Glucose,Urine (UA) Negative (Negative); Ketones,Urine Negative (Negative); Leukocyte Esterase,Urine Large (Negative); Nitrite,Urine Negative (Negative); PH, Urine 5.5 (5.0-8.0); Protein,Urine 1+ (Negative); RBC,Urine 23 /hpf (0-5); Specific Gravity,Urine 1.019 (1.001-1.035); Squamous Epithelial Cell,Urine 1 /hpf (0-4); Urobilinogen,Urine <2.0 mg/dL (<2.0); WBC,Urine >182 /hpf (0-5)
[2020-03-19] MEDS: MONTELUKAST 10 MG TAB PO SCH (20:12)
[2020-03-19] MEDS: ATORVASTATIN 20 MG TAB PO SCH (20:12)
[2020-03-19] MEDS: ACETAMINOPHEN TAB 325 MG TAB PO PRN (20:13)
[2020-03-19] MEDS: MELATONIN 5 MG TABLET PO SCH (20:13)
[2020-03-19 20:26] LABS: Ferritin 125.8 ng/mL (10.0-291.0)
--- NOTE | 2020-03-19 20:54 | P.HPIM ---
History of Present Illness H&P Date: 03/19/20 Chief Complaint: Short of breath History of presenting complaint: This is a 89-year-old patient of Dr. brown. Currently at [facility] [place] [facility] on [facility] Chronic stable medical conditions include COPD, obstructive sleep apnea, home oxygen 2 L, hypothyroid,. At her baseline uses a ventilator. Patient is brought in by the EMS. Vital signs at the [facility] were initially blood pressure 141/53, 85, 30, pulse ox 98% on 3 L. EKG showing atrial fibrillation. EMS was called out for patient not feeling well. Patient was treated for COVID in December 2019. Patient was short of breath use of accessory muscle. Was placed on nonrebreather 15 L. Patient also received the COVID 19 vaccine Today, patient other tired. Short of breath. Lethargic. arousable. Had some food earlier. Review of systems: Difficult to obtain as patient is tired Past medical history to include: COPD, TIA, obstructive sleep apnea, hypothyroid, right rotator cuff injury, oxygen 2 L, essential hypertension, hypercholesterolemia, hypothyroid, congestive heart failure from diastolic tics dysfunction, home oxygen 2 L, atrial flutter fibrillation Social history: Currently at [facility] [place] of [facility] in [facility], uses a walker. There is oxygen 2 L nasal cannula. Patient stopped smoking in 1988. Smoked a pack a day for years. Physical examination: VITAL SIGNS: 102.7, 125, 30, 170 791, 90% room air GENERAL: BMI 32.3, laying in bed, regular tired. EYES: Pupils equal. Conjunctiva normal. HEENT: External appearance of nose and ears normal, oral cavity dry. NECK: JVD unable to assess; masses not palpable. HEART: First and second heart sounds are normal; no edema. LUNGS: Respiratory rate increased, decreased breath sounds some crackles. ABDOMEN: Soft, nontender, liver spleen not palpable, no masses palpable. PSYCH: Tired but arousable, unable to assessl. NEUROLOGICAL: Cranial nerves grossly intact; no facial asymmetry, power and sensation grossly intact. MUSCULAR skeletal: Evidence of OA LYMPHATICS: No lymph nodes palpable in the axilla and neck INVESTIGATIONS, reviewed in the clinical context: White count 12.4 hemoglobin 11.6 increased neutrophils potassium 4.6 creatinine 0.5 for CRP 9.5 Coronavirus [PCR]-detected UA positive for leukoesterase WBC Portable chest x-ray personally reviewed by me shows-basilar infiltrates Computed tomography scan of the brain-atrophy with periventricular white matter disease changes. Oral left caudate head infarct. Assessment: -Bilateral basal pneumonia suspected gram-negative organism. Causing sepsis on presentation. -Recent history of COVID 19 infection. Note that patient has a left shift. Normal lymphocytes. Also normal CRP. Aching COVID 19 acute infection very unlikely. Patient's current COVID 19 PCR is positive. -Acute COPD exacerbation in a ex-smoker -Essential hypertension -Hypercholesterolemia -Hypothyroid -Chronic congestive heart failure from diastolic dysfunction EF 55-60% -Chronic hypoxic respiratory failure with 2 L oxygen at home -Persistent atrial flutter fibrillation chronically on eliquis -Obstructive sleep apnea -Acute UTI with cystitis Plan: Home medications resumed. Patient put on IV Zosyn. IV fluids. IV Solu-Medrol. Consultation to infectious disease. Consult Dr. Munoz. Past Medical History Past Medical History: COPD, CVA/TIA, Eye Disorder, Pneumonia, Sleep Apnea/CPAP/BIPAP, Thyroid Disorder Additional Past Medical History / Comment(s): TEAR RT ROTATOR CUFFS, RT cataracts, O2 @ 2 liters 12/09 History of Any Multi-Drug Resistant Organisms: ESBL, MRSA Date of last positivie culture/infection: 02/12/20 ESBL-E.coli; 09/23/13 MRSA MDRO Source:: Urine-ESBL; MRSA-Right Leg Past Surgical History: Joint Replacement, Orthopedic Surgery Additional Past Surgical History / Comment(s): ATTEMPTED REPAIR OF RT ROTATOR CUFF. BILATERAL KNEE REPLACEMENTS, LEFT AND RIGHT CATARACT REMOVED Past Anesthesia/Blood Transfusion Reactions: No Reported Reaction Additional Past Anesthesia/Blood Transfusion Reaction / Comment(s): no hx blood transfusion Past Psychological History: No Psychological Hx Reported Past Alcohol Use History: Daily Additional Past Alcohol Use History / Comment(s): quit smoking 1988, 1ppd Past Drug Use History: None Reported - Past Family History Mother Family Medical History: No Reported History Additional Family Medical History / Comment(s): mother at age 93 of "old age" Father Family Medical History: No Reported History Additional Family Medical History / Comment(s): states at age 89 with no known medical problems Medications and Allergies Home Medications Medication Instructions Recorded Confirmed Type Simvastatin [Zocor] 40 mg PO HS 09/25/13 03/19/20 History Montelukast [Singulair] 10 mg PO HS 02/11/16 03/19/20 History Multivitamins, Thera [Multivitamin 1 tab PO DAILY 03/14/16 03/19/20 History (formulary)] Levothyroxine Sodium [Synthroid] 75 mcg PO DAILY@0730 12/06/18 03/19/20 History Potassium Chloride ER [K-Dur 10] 10 meq PO DAILY 12/06/18 03/19/20 History Fluticasone/Salmeterol [Advair 1 puff INHALATION RT-BID 07/02/19 03/19/20 History 250-50 Diskus] Metoprolol Tartrate [Lopressor] 12.5 mg PO BID 07/02/19 03/19/20 History Apixaban [Eliquis] 2.5 mg PO BID tablet 07/04/19 03/19/20 Rx Acetaminophen Tab [Tylenol] 650 mg PO Q6H PRN 03/19/20 03/19/20 History Biotin 5 mg PO DAILY 03/19/20 03/19/20 History Melatonin 10 mg PO HS 03/19/20 03/19/20 History Mylanta 30 ml PO Q4H PRN 03/19/20 03/19/20 History predniSONE 2.5 mg PO DAILY 03/19/20 03/19/20 History Allergies Allergy/AdvReac Type Severity Reaction Status Date / Time bacitracin Allergy Rash/Hives Verified 03/19/20 07:16 bacitracin zinc Allergy Rash/Hives Verified 03/19/20 07:16 [From Neosporin ([id number])] dimethicone Allergy Rash/Hives Verified 03/19/20 07:16 [From A & D Emollient] glycerin Allergy Rash/Hives Verified 03/19/20 07:16 [From A & D Emollient] neomycin sulfate Allergy Rash/Hives Verified 03/19/20 07:16 [From Neosporin ([id number])] polymyxin B Allergy Rash/Hives Verified 03/19/20 07:16 [From Neosporin ([id number]-[id number])] stearyl alcohol Allergy Rash/Hives Verified 03/19/20 07:16 [From A & D Emollient] Tetanus Vaccines and Toxoid Allergy swelling Verified 03/19/20 07:16 and severe redness and hardness at site Physical Exam Vitals: Vital Signs Temp Pulse Pulse Resp BP BP Pulse Ox 03/19/20 19:55 101.2 F H 112 H 148/43 03/19/20 17:13 100.3 F H 82 17 132/74 100 03/19/20 13:58 98.4 F 61 18 121/67 95 03/19/20 09:47 98.6 F 115 H 18 126/67 97 03/19/20 08:18 102.1 F H 125 H 20 117/50 98 03/19/20 08:00 22 03/19/20 07:56 101.1 F H 117 H 19 123/72 100 03/19/20 07:08 89 19 121/57 97 03/19/20 05:57 90 03/19/20 05:41 88 03/19/20 05:37 102.7 F H 125 H 30 H 177/91 90 L Intake and Output 03/19/20 03/19/20 03/19/20 06:59 14:59 22:59 Intake Total 200 200 Balance 200 200 Intake: Oral 200 200 Other: Voiding Method External Catheter # Voids 1 Weight 90.718 kg 90.718 kg Results CBC & Chem 7: 03/19/20 06:49 03/19/20 06:49 Labs: Abnormal Lab Results - Last 24 Hours (Table) 03/19/20 03/19/20 03/19/20 Range/Units 06:49 06:49 06:49 WBC 12.4 H (3.8-10.6) k/uL Neutrophils # 10.6 H (1.3-7.7) k/uL PT 12.2 H (9.0-12.0) sec INR 1.2 H (<1.2) APTT 20.2 L (22.0-30.0) sec Carbon Dioxide 35 H (22-30) mmol/L Glucose 149 H (74-99) mg/dL Urine Appearance (Clear) Urine Protein (Negative) Urine Blood (Negative) Ur Leukocyte Esterase (Negative) Urine RBC (0-5) /hpf Urine WBC (0-5) /hpf Urine WBC Clumps (None) /hpf Urine Bacteria (None) /hpf Coronavirus (PCR) (Not Detectd) 03/19/20 03/19/20 Range/Units 07:36 16:00 WBC (3.8-10.6) k/uL Neutrophils # (1.3-7.7) k/uL PT (9.0-12.0) sec INR (<1.2) APTT (22.0-30.0) sec Carbon Dioxide (22-30) mmol/L Glucose (74-99) mg/dL Urine Appearance Turbid H (Clear) Urine Protein 1+ H (Negative) Urine Blood Moderate H (Negative) Ur Leukocyte Esterase Large H (Negative) Urine RBC 23 H (0-5) /hpf Urine WBC >182 H (0-5) /hpf Urine WBC Clumps Many H (None) /hpf Urine Bacteria Occasional H (None) /hpf Coronavirus (PCR) Detected A (Not Detectd) Thrombosis Risk Factor Assmnt - Choose All That Apply Any of the Below Risk Factors Present?: Yes Each Factor Represents 1 point: Obesity (BMI >25), Serious lung disease incl. pneumonia (< 1month) Other Risk Factors: Yes Each Risk Factor Represents 3 Points: Age 75 years or older Other congenital or acquired thrombophilia - If yes, enter type in comment: No Thrombosis Risk Factor Assessment Total Risk Factor Score: 5 Thrombosis Risk Factor Assessment Level: High Risk
[2020-03-20] MEDS: ACETAMINOPHEN TAB 325 MG TAB PO PRN (06:05)
[2020-03-20 06:14] LABS: HCT 37.8 % (34.0-46.0); HGB 11.2 gm/dL (11.4-16.0); Hypochromasia Marked; MCH 29.7 pg (25.0-35.0); MCHC 29.5 g/dL (31.0-37.0); MCV 100.6 fL (80.0-100.0); Macrocytosis Slight; Mean Platelet Volume 10.5; Platelet Count 152 k/uL (150-450); RBC 3.76 m/uL (3.80-5.40); RDW 14.8 % (11.5-15.5)
[2020-03-20 07:16] LABS: Band Neutrophils % 6 %; Lymphocytes # (M) 1.35 k/uL (1.0-4.8); Monocytes # (M) 0.81 k/uL (0-1.0); Neutrophils % (M) 70 %; Nucleated Red Blood Cells 0 /100 WBC (0-0); Total Cells Counted 100
[2020-03-20] MEDS: ALBUTEROL HFA INHALER INHALATION SCH ×4 (08:06→19:16)
[2020-03-20] MEDS: TIOTROPIUM 2.5 MCG INHALER INHALATION SCH (08:07)
[2020-03-20] MEDS: SYMBICORT 80-4.5 MCG INHALER INHALATION SCH ×2 (08:07→19:16)
[2020-03-20] MEDS: PIPERACILLIN-TAZOBACTAM 3.375 GM in SODIUM CHLORIDE 0.9% 100 ML IVPB SCH ×2 (08:16→15:46)
[2020-03-20] MEDS: APIXABAN 2.5 MG TABLET PO SCH ×2 (08:17→21:43)
[2020-03-20] MEDS: METOPROLOL TARTRATE 12.5 MG TAB PO SCH ×2 (08:17→21:44)
[2020-03-20] MEDS: MULTIVITAMINS, THERA 1 EACH TAB PO SCH (08:17)
[2020-03-20] MEDS: LEVOTHYROXINE 75 MCG TAB PO SCH (08:17)
[2020-03-20] MEDS ORDERED: AZITHROMYCIN 500 MG in SODIUM CHLORIDE 0.9% 250 ML IVPB SCH (09:00)
--- NOTE | 2020-03-20 11:04 | XR ---
EXAMINATION TYPE: XR chest 1V DATE OF EXAM: 03/20/2020 COMPARISON: Chest x-ray 03/20/2020 HISTORY: Pneumonia, Covid TECHNIQUE: Single frontal view of the chest is obtained. FINDINGS: Patient is rotated. No evident pneumothorax. Bibasilar increased attenuation is present, c entral vascularity and interstitium are increased. Heart is likely stable. Aorta is dense. Arthropath y noted in the shoulders. IMPRESSION: Correlate for pneumonia, edema and congestive heart failure, difficult to exclude effusi ons
[2020-03-20 11:49] LABS: ABG Base Excess 8.4 mmol/L; ABG HCO3 36 mmol/L (21-25); ABG Oxygen Saturation 89.9 % (94-97); ABG PH 7.23 (7.35-7.45); ABG TCO2 39 mmol/L (19-24); Allen Test Performed? Yes
[2020-03-20 11:56] LABS: ABG PCO2 85 mmHg (35-45); ABG PO2 59 mmHg (83-108)
[2020-03-20] MEDS: DEXAMETHASONE SOD PHOSPHATE 10 MG/ML 1 ML VIAL IV SCH (11:58)
[2020-03-20] MEDS: SODIUM CHLORIDE 0.9% 1,000 ML IV SCH (12:00)
--- NOTE | 2020-03-20 12:44 | P.CNPUL ---
History of Present Illness Consult date: 03/20/20 Requesting physician: Margarito Barboza Reason for consult: dyspnea, hypoxemia Chief complaint: Dyspnea, hypoxemia, altered mental status, fever History of present illness: This is a 89-year-old white female patient with past medical history of COPD, sleep apnea on CPAP therapy, hypothyroidism, previous history of TIA, chronic hypoxic respiratory failure usually on 2 L per nasal cannula, previous history of ESBL E. coli urinary tract infection and MRSA infection involving the right leg, former smoking history. Patient is a resident of the [facility]. Apparently patient was treated for COVID 19 pneumonia in December 2019, it is unclear if the patient was hospitalized at that time or treated at the group home. In addition patient was vaccinated against COVID 19 2 weeks ago. On 08/17/2020 patient was brought into the hospital for evaluation of increasing shortness of breath, fever with a temp of 102.7F, her COVID 19 PCR was positive. Chest x-ray showed mild cardiomegaly and central vessel congestion similar to her prior exam, with mild patchy opacities at the lung bases. She was started on empiric antibiotics in the form of azithromycin and Rocephin. She did receive 1 L of IV fluids in the emergency department, her lab data reveals evidence of acute urinary tract infection, her white blood cell count was 12.4, hemoglobin is 11.6, neutrophils is 10.6, INR is 1.2, CO2 was 35, increased electrolytes and renal profile were unremarkable and plasma lactic acid was 1.8, LFTs were within normal limits, troponin was 0.0.6, proBNP was 1560, pro-calcitonin level came back as 0.02, and subsequently at 0.09. 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 Today's follow-up chest x-ray shows bibasilar increased attenuation, central vascularity and increased interstitial difficult to exclude pleural effusions. Patient remains on IV hydration at a rate of 100 ML per hour. Urine culture and blood culture has been sent and pending at this time. She did have a low-grade fever this morning with a temp of 100.6F, she is lethargic, she is not able to stay awake, blood gas was obtained showing pO2 of 59, pCO2 of 85, and pH 7.2. This was done and FiO2 of 30% and subsequently patient was placed on BiPAP support with pressures of 12.6 and FiO2 of 35%. The fluids have been dropped down to 50 ML per hour. Blood pressure stable. Review of Systems All systems: negative Constitutional: Reports lethargy, Denies chills, Denies fever Eyes: denies blurred vision, denies pain Ears, nose, mouth and throat: Denies headache, Denies sore throat Cardiovascular: Denies chest pain, Denies shortness of breath Respiratory: Reports dyspnea, Denies cough Gastrointestinal: Denies abdominal pain, Denies diarrhea, Denies nausea, Denies vomiting Genitourinary: Denies dysuria, Denies hematuria Musculoskeletal: Denies myalgias Integumentary: Denies pruritus, Denies rash Neurological: Reports change in mentation, Denies numbness, Denies weakness Psychiatric: Denies anxiety, Denies depression Endocrine: Denies fatigue, Denies weight change Past Medical History Past Medical History: Atrial Fibrillation, COPD, CVA/TIA, Eye Disorder, Pneumonia, Sleep Apnea/CPAP/BIPAP, Thyroid Disorder Additional Past Medical History / Comment(s): TEAR RT ROTATOR CUFFS, RT cataracts, O2 @ 2 liters 12/09; chronic atrial fibrillation per [facility] documents History of Any Multi-Drug Resistant Organisms: ESBL, MRSA Date of last positivie culture/infection: 02/12/20 ESBL-E.coli; 09/23/13 MRSA MDRO Source:: Urine-ESBL; MRSA-Right Leg Past Surgical History: Joint Replacement, Orthopedic Surgery Additional Past Surgical History / Comment(s): ATTEMPTED REPAIR OF RT ROTATOR CUFF. BILATERAL KNEE REPLACEMENTS, LEFT AND RIGHT CATARACT REMOVED Past Anesthesia/Blood Transfusion Reactions: No Reported Reaction Additional Past Anesthesia/Blood Transfusion Reaction / Comment(s): no hx blood transfusion Past Psychological History: No Psychological Hx Reported Additional Psychological History / Comment(s): Pt resides at [facility]. She ambulates with a rollator walker. She wears oxygen at 2L/NC PRN. Smoking Status: Former smoker Past Alcohol Use History: Daily Additional Past Alcohol Use History / Comment(s): quit smoking 1988, 1ppd Past Drug Use History: None Reported - Past Family History Mother Family Medical History: No Reported History Additional Family Medical History / Comment(s): mother at age 93 of "old age" Father Family Medical History: No Reported History Additional Family Medical History / Comment(s): states at age 89 with no known medical problems Medications and Allergies Home Medications Medication Instructions Recorded Confirmed Type Simvastatin [Zocor] 40 mg PO HS 09/25/13 03/19/20 History Montelukast [Singulair] 10 mg PO HS 02/11/16 03/19/20 History Multivitamins, Thera [Multivitamin 1 tab PO DAILY 03/14/16 03/19/20 History (formulary)] Levothyroxine Sodium [Synthroid] 75 mcg PO DAILY@0730 12/06/18 03/19/20 History Potassium Chloride ER [K-Dur 10] 10 meq PO DAILY 12/06/18 03/19/20 History Fluticasone/Salmeterol [Advair 1 puff INHALATION RT-BID 07/02/19 03/19/20 History 250-50 Diskus] Metoprolol Tartrate [Lopressor] 12.5 mg PO BID 07/02/19 03/19/20 History Apixaban [Eliquis] 2.5 mg PO BID tablet 07/04/19 03/19/20 Rx Acetaminophen Tab [Tylenol] 650 mg PO Q6H PRN 03/19/20 03/19/20 History Biotin 5 mg PO DAILY 03/19/20 03/19/20 History Melatonin 10 mg PO HS 03/19/20 03/19/20 History Mylanta 30 ml PO Q4H PRN 03/19/20 03/19/20 History predniSONE 2.5 mg PO DAILY 03/19/20 03/19/20 History Allergies Allergy/AdvReac Type Severity Reaction Status Date / Time bacitracin Allergy Rash/Hives Verified 03/19/20 07:16 bacitracin zinc Allergy Rash/Hives Verified 03/19/20 07:16 [From Neosporin ([id number])] dimethicone Allergy Rash/Hives Verified 03/19/20 07:16 [From A & D Emollient] glycerin Allergy Rash/Hives Verified 03/19/20 07:16 [From A & D Emollient] neomycin sulfate Allergy Rash/Hives Verified 03/19/20 07:16 [From Neosporin ([id number])] polymyxin B Allergy Rash/Hives Verified 03/19/20 07:16 [From Neosporin ([id number])] stearyl alcohol Allergy Rash/Hives Verified 03/19/20 07:16 [From A & D Emollient] Tetanus Vaccines and Toxoid Allergy swelling Verified 03/19/20 07:16 and severe redness and hardness at site Physical Exam Vitals: Vital Signs Temp Pulse Resp BP Pulse Ox 03/20/20 09:38 97.5 F L 61 18 114/68 93 L 03/20/20 05:59 93 L 03/20/20 05:47 100.6 F H 87 145/74 93 L 03/20/20 02:00 98.5 F 70 128/54 99 03/19/20 21:47 99.6 F 80 133/71 96 03/19/20 19:55 101.2 F H 112 H 148/43 03/19/20 17:13 100.3 F H 82 17 132/74 100 03/19/20 13:58 98.4 F 61 18 121/67 95 Intake and Output 03/19/20 03/20/20 03/20/20 22:59 06:59 14:59 Intake Total 300 Output Total 300 Balance 300 -300 Intake: Oral 300 Output: Urine 300 Other: Voiding Method External Catheter External Catheter # Voids 1 Weight 95.5 kg GENERAL EXAM: Drowsy, arousable to verbal stimulus, however falls back asleep if left unstimulated 89-year-old white female, morbidly obese, currently on 3 L of oxygen comfortable in no apparent distress. HEAD: Normocephalic/atraumatic. EYES: Normal reaction of pupils, equal size. Conjunctiva pink, sclera white. NOSE: Clear with pink turbinates. THROAT: No erythema or exudates. NECK: No masses, no JVD, no thyroid enlargement, no adenopathy. CHEST: No chest wall deformity. Symmetrical expansion. LUNGS: Equal air entry with no crackles, wheeze, rhonchi or dullness. CVS: Regular rate and rhythm, normal S1 and S2, no gallops, no murmurs, no rubs ABDOMEN: Soft, nontender. No hepatosplenomegaly, normal bowel sounds, no guarding or rigidity. EXTREMITIES: No clubbing, no edema, no cyanosis, 2+ pulses and upper and lower extremities. MUSCULOSKELETAL: Muscle strength and tone normal. SPINE: No scoliosis or deformity SKIN: No rashes CENTRAL NERVOUS SYSTEM: Drowsy. No focal deficits, tone is normal in all 4 extremities. Results - Laboratory Findings CBC and BMP: 03/20/20 05:43 03/19/20 06:49 ABG ABG pH 7.23 (7.35-7.45) L 03/20/20 11:46 ABG pCO2 85 mmHg (35-45) H* 03/20/20 11:46 ABG pO2 59 mmHg (83-108) L* 03/20/20 11:46 ABG O2 Saturation 89.9 % (94-97) L 03/20/20 11:46 PT/INR, D-dimer PT 12.2 sec (9.0-12.0) H 03/19/20 06:49 INR 1.2 (<1.2) H 03/19/20 06:49 Abnormal lab findings: Abnormal Labs 03/19/20 03/19/20 03/19/20 06:49 06:49 06:49 WBC 12.4 H RBC Hgb MCV MCHC Neutrophils # 10.6 H PT 12.2 H INR 1.2 H APTT 20.2 L ABG pH ABG pCO2 ABG pO2 ABG HCO3 ABG Total CO2 ABG O2 Saturation Carbon Dioxide 35 H Glucose 149 H Urine Appearance Urine Protein Urine Blood Ur Leukocyte Esterase Urine RBC Urine WBC Urine WBC Clumps Urine Bacteria Coronavirus (PCR) 03/19/20 03/19/20 03/20/20 07:36 16:00 05:43 WBC RBC 3.76 L Hgb 11.2 L MCV 100.6 H MCHC 29.5 L Neutrophils # PT INR APTT ABG pH ABG pCO2 ABG pO2 ABG HCO3 ABG Total CO2 ABG O2 Saturation Carbon Dioxide Glucose Urine Appearance Turbid H Urine Protein 1+ H Urine Blood Moderate H Ur Leukocyte Esterase Large H Urine RBC 23 H Urine WBC >182 H Urine WBC Clumps Many H Urine Bacteria Occasional H Coronavirus (PCR) Detected A 03/20/20 11:46 WBC RBC Hgb MCV MCHC Neutrophils # PT INR APTT ABG pH 7.23 L ABG pCO2 85 H* ABG pO2 59 L* ABG HCO3 36 H ABG Total CO2 39 H ABG O2 Saturation 89.9 L Carbon Dioxide Glucose Urine Appearance Urine Protein Urine Blood Ur Leukocyte Esterase Urine RBC Urine WBC Urine WBC Clumps Urine Bacteria Coronavirus (PCR) - Diagnostic Findings Chest x-ray: report reviewed, image reviewed Additional studies: CT of the brain Assessment and Plan Plan: Assessment: #1. Acute on chronic hypoxic and hypercapnic respiratory failure, likely related to component of mild fluid overload, acute urinary tract infection and acute exacerbation of COPD. Chest x-ray shows pulmonary central vascularity, prominent interstitium possibly small pleural effusions #2. Positive COVID 19 PCR, however patient was treated for COVID 19 infection back in December 2019, recently vaccinated 2 weeks ago. Patient's presentation is more consistent with UTI with sepsis, mild fluid overload and secondary altered mental status. Inflammatory markers are normal #3. Altered mental status related to acute urinary tract infection, possibility of mild fluid overload #4. History of obstructive sleep apnea on CPAP #5. Chronic COPD on home oxygen usually at 2 L/m #6. Hypothyroidism #7. Chronic A. fib on Eliquis #8. Hypertension #9. Hypercholesterolemia #10. 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 Chronic medical debility, gait dysfunction, uses a walker #13. Former smoker, stopped smoking in 1988 Plan: We'll contact IV fluids to 50 ML per hour, blood gases have been reviewed, chest x-ray reviewed, patient has a component of mild fluid overload, cut back IV fluids, place the patient on BiPAP support with pressures of 12/6 and FiO2 of 35%, although her COVID 19 PCR came back positive, her inflammatory markers are not elevated, discontinue the azithromycin, patient is covered with Zosyn, pro- calcitonin level was negative, the possibility of bacterial pneumonia or even a viral pneumonia is low at this time, patient will remain on antibiotics for a urinary tract infection will await final urine culture. We will add Decadron 6 mg daily primarily for acute exacerbation of underlying COPD, continue bronchodilators, may have to consider diuretics, continue oral anticoagulants. CODE STATUS needs to be addressed, we'll continue to follow and make rec ommendations based on her clinical course I performed a history & physical examination of the patient and discussed their management with my nurse practitioner, Lin Martinez. I reviewed the nurse practitioner's note and agree with the documented findings and plan of care. Lung sounds are positive for diminished breath sounds. The findings and the impression was discussed with the patient. I attest to the documentation by the nurse practitioner. Time with Patient: Greater than 30
[2020-03-20] MEDS: COLCHICINE 0.6 MG EACH PO SCH ×2 (14:23→21:43)
--- NOTE | 2020-03-20 14:23 | P.PN ---
Subjective Progress Note Date: 03/20/20 HISTORY OF PRESENT ILLNESS This is a 89-year-old female who resides at [facility]. Patient was tra nsferred to the hospital due to shortness of breath and difficulty breathing. She does have history of COVID-19 and subsequently received vaccine 2 weeks ago. Patient presented with temperature of 102.7, heart rate 125, respiratory rate 30, blood pressure 177/91, pulse ox 90%. WBC 12.4, creatinine 0.54. CMP is essentially normal except for blood sugar 149 and CO2 35. LDH 531, CK 45, troponin negative. C-reactive protein 9.5. Pro-BNP 1470. Covid 19 positive. Chest x-ray reveals mild cardiomegaly and central vascular congestion similar to prior. Mild patchy opacities in the lung bases. May represent atelectasis, infiltrate or edema. Patient was started on azithromycin and Zosyn. She is status post 1 L of IV fluids. Patient is unable to provide reliable history. 03/20; patient has been maintained on Zosyn. Repeat chest x-ray reveals correlate for pneumonia, edema, congestive heart failure, difficult to exclude effusions. Last fever was documented at 8 PM of 101.2 on March 19. Patient has been afebrile since that time. Heart rate 61, blood pressure 114/68, pulse ox 93% on 3 L nasal cannula. Leukocytosis has resolved with WBC of 9. Pro- calcitonin 0.09. Urinalysis positive for infection. Urine culture is preliminary. Blood culture no growth after 24 hours. PHYSICAL EXAMINATION Gen: This is an 89-year-old obese female. She is resting in bed and appears to be comfortable. No acute respiratory distress is noted. VS: Temperature 98.6, heart rate 115, blood pressure 126/67, pulse ox 97% on 4 L nasal cannula. HEENT: Head is atraumatic, normocephalic. Pupils equal, round. Sclerae is anicteric. NECK: Supple. No JVD. LUNGS: Diminished at bases No wheezes or rhonchi. No intercostal retractions. HEART: Regular rate and rhythm. ABDOMEN: Soft. Bowel sounds are present. No masses. No tenderness. EXTREMITIES: No pedal edema. No calf tenderness. NEUROLOGICAL: Patient is awake, opens eyes to verbal stimuli. Significant generalized weakness. ASSESSMENT Sepsis secondary to urinary tract infection and component of Gram-negative pneumonia Recent Covid infection and status post vaccine PLAN Continue Zosyn 3.375 g IV piggyback every 8 hours Follow-up urine culture Continue supportive care Further recommendations based upon patient's clinical progress. Thank you kindly for this consultation. The above dictated assessment and findings were discussed with Dr. Villanueva. The impression and plan of care have been directed as dictated. Jada Yeboah nurse practitioner acting as scribe for Dr. Villanueva. Objective - Vital Signs Vital signs: Vital Signs Temp 97.5 F L 03/20/20 09:38 Pulse 61 03/20/20 09:38 Resp 18 03/20/20 09:38 BP 114/68 03/20/20 09:38 Pulse Ox 93 L 03/20/20 09:38 Intake & Output 03/19/20 03/20/20 03/20/20 18:59 06:59 18:59 Intake Total 400 100 Output Total 300 Balance 400 -200 Weight 90.718 kg 95.5 kg Intake: Oral 400 100 Output: Urine 300 Other: Voiding Method External Catheter External Catheter # Voids 1 1 - Labs CBC & Chem 7: 03/20/20 05:43 03/19/20 06:49 Labs: Abnormal Lab Results - Last 24 Hours (Table) 03/19/20 03/20/20 03/20/20 Range/Units 16:00 05:43 11:46 RBC 3.76 L (3.80-5.40) m/uL Hgb 11.2 L (11.4-16.0) gm/dL MCV 100.6 H (80.0-100.0) fL MCHC 29.5 L (31.0-37.0) g/dL ABG pH 7.23 L (7.35-7.45) ABG pCO2 85 H* (35-45) mmHg ABG pO2 59 L* (83-108) mmHg ABG HCO3 36 H (21-25) mmol/L ABG Total CO2 39 H (19-24) mmol/L ABG O2 Saturation 89.9 L (94-97) % Urine Appearance Turbid H (Clear) Urine Protein 1+ H (Negative) Urine Blood Moderate H (Negative) Ur Leukocyte Esterase Large H (Negative) Urine RBC 23 H (0-5) /hpf Urine WBC >182 H (0-5) /hpf Urine WBC Clumps Many H (None) /hpf Urine Bacteria Occasional H (None) /hpf Microbiology - Last 24 Hours (Table) 03/19/20 07:20 Blood Culture - Preliminary Blood No Growth after 24 hours 03/19/20 07:20 Blood Culture - Preliminary Blood No Growth after 24 hours 03/19/20 16:00 Urine Culture - Preliminary Urine,Voided
[2020-03-20] MEDS ORDERED: MAG HYDROX/AL HYDROX/SIMETH 30 ML CUP PO PRN (14:44)
--- NOTE | 2020-03-20 16:54 | PN ---
PROGRESS NOTE DATE OF SERVICE: 03/20/2020 This 89-year-old woman who is a resident of [facility] on the [place] with multiple respiratory problems, including COPD, obstructive sleep apnea, hypothyroidism was admitted with increasing shortness of breath. Chest x-ray showed bilateral pneumonia. Recent history of COVID-19 infection was also noted. The patient also has chronic CHF as well as chronic atrial fibrillation. 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 The patient was also seen by Pulmonary as well as Infectious Disease. IV Zosyn has been initiated. Recent COVID-19 infection has been noted. The patient also received vaccine apparently subsequently after that. The white count was elevated at the time of admission. ABG showed pH of 7.23 and elevated CO2 as well. Multiple consultants are following the patient closely. Past medical history reviewed. Review of systems could not be taken; the patient is confused. CURRENT MEDICATIONS: Reviewed. They include Tylenol, Ventolin, Eliquis, Lipitor, Symbicort, Colcrys, Decadron, melatonin, Lopressor. Doses are reviewed. PHYSICAL EXAMINATION: Patient is conscious, confused. Pulse 61, blood pressure 149/68, respiration 18, temperature 97.2, pulse ox 93% on 3 L. HEENT: Conjunctivae normal. NECK: No jugular venous distention. CARDIOVASCULAR SYSTEM: S1, S2 muffled. RESPIRATORY SYSTEM: Breath sounds diminished at the bases. A few scattered rhonchi and crackles. ABDOMEN: Soft, non-tender. LEGS: No edema. No swelling. NERVOUS SYSTEM: Diffusely weak. LABS: WBC 9, hemoglobin 11.2. ABGs noted. ASSESSMENT: 1. Acute bilateral pneumonia, right more than left, with possible aspiration pneumonia with sepsis, present on admission. 2. Change in mental status, acute metabolic encephalopathy. 3. Recent COVID-19 infection, treated and status post vaccination. 4. Anemia, macrocytic. 5. Increased white count. 6. Acute hypoxic hypercarbic respiratory failure, multifactorial. 7. Acute urinary tract infection with possible sepsis, present on admission. 8. COVID-19 persistently positive; undetermined significance. 9. Chronic atrial fibrillation. 10.History of cerebrovascular accident, transient ischemic attack. 11.History of pneumonia. 12.Sleep apnea. 13.History of hypothyroidism. 14.History of right rotator cuff surgery. 15.History of cataracts. 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 17.Obesity with body mass index of 34. 18.Chronic hypoxic respiratory failure, on 2 L nasal cannula. 19.Remote history of nicotine dependence. RECOMMENDATIONS AND DISCUSSION: In this 89-year-old woman who presented with multiple complex medical issues, we will monitor the patient closely, continue the current medications, continue symptomatic treatment. Otherwise at this time I would recommend continuing with the broad-spectrum IV antibiotics and bronchodilators. Will cut down the IV fluids and continue the rest of the medications for COVID-19. The prognosis is guarded because of multiple complex medical issues. Further recommendations to follow. The patient is on apixaban as well. Inflammatory markers are not elevated. D-dimer has not been done. I will request a D-dimer as well. As mentioned, COVID-19 is positive. Urine culture is pending at this time. Prognosis guarded. Further recommendations to follow. MMODL / IJN: [id number] /
[2020-03-20] MEDS: MELATONIN 5 MG TABLET PO SCH (21:43)
[2020-03-20] MEDS: ATORVASTATIN 20 MG TAB PO SCH (21:43)
[2020-03-20] MEDS: MONTELUKAST 10 MG TAB PO SCH (21:44)
[2020-03-21] MEDS: PIPERACILLIN-TAZOBACTAM 3.375 GM in SODIUM CHLORIDE 0.9% 100 ML IVPB SCH ×3 (00:27→15:40)
[2020-03-21] MEDS: LEVOTHYROXINE 75 MCG TAB PO SCH (05:27)
[2020-03-21 06:46] LABS: HCT 33.9 % (34.0-46.0); HGB 10.8 gm/dL (11.4-16.0); Hypochromasia Marked; MCH 31.5 pg (25.0-35.0); MCHC 31.8 g/dL (31.0-37.0); MCV 99.1 fL (80.0-100.0); Macrocytosis Slight; Mean Platelet Volume 10.6; Platelet Count 130 k/uL (150-450); RBC 3.42 m/uL (3.80-5.40); RDW 14.7 % (11.5-15.5); WBC 4.8 k/uL (3.8-10.6)
[2020-03-21 07:32] LABS: Band Neutrophils % 3 %; Lymphocytes # (M) 1.06 k/uL (1.0-4.8); Monocytes # (M) 0.29 k/uL (0-1.0); Myelocytes # (M) 0.05 k/uL (0); Myelocytes % 1 %; Neutrophils % (M) 68 %; Nucleated Red Blood Cells 0 /100 WBC (0-0); Total Cells Counted 200
[2020-03-21] MEDS: TIOTROPIUM 2.5 MCG INHALER INHALATION SCH (07:33)
[2020-03-21] MEDS: ALBUTEROL HFA INHALER INHALATION SCH ×4 (07:33→20:14)
[2020-03-21] MEDS: SYMBICORT 80-4.5 MCG INHALER INHALATION SCH ×2 (07:34→20:15)
[2020-03-21] MEDS: DEXAMETHASONE SOD PHOSPHATE 10 MG/ML 1 ML VIAL IV SCH (08:03)
[2020-03-21] MEDS: APIXABAN 2.5 MG TABLET PO SCH ×2 (08:04→21:38)
[2020-03-21] MEDS: COLCHICINE 0.6 MG EACH PO SCH ×2 (08:04→21:38)
[2020-03-21] MEDS: SODIUM CHLORIDE 0.9% 1,000 ML IV SCH (08:04)
[2020-03-21] MEDS: POTASSIUM CHLORIDE ER 10 MEQ TAB.ER.PRT PO SCH (08:04)
[2020-03-21] MEDS: METOPROLOL TARTRATE 12.5 MG TAB PO SCH ×2 (08:04→21:37)
[2020-03-21] MEDS: MULTIVITAMINS, THERA 1 EACH TAB PO SCH (08:04)
[2020-03-21 09:37] LABS: African American GFR (CKD) 94.3 (60.0-200.0); Anion Gap 5.7 mmol/L (4.00-12.00); BUN/Creat Ratio 38.33 Ratio (12.00-20.00); Carbon Dioxide 34.3 mmol/L (21.6-31.8); Non-African American GFR(CKD) 81.4 (60.0-200.0); Potassium 4.9 mmol/L (3.5-5.5)
--- NOTE | 2020-03-21 14:58 | P.PN ---
Subjective Progress Note Date: 03/21/20 Principal diagnosis: CoVID 19 infection, altered mental status This is a 89-year-old white female patient with past medical history of COPD, sleep apnea on CPAP therapy, hypothyroidism, previous history of TIA, chronic hypoxic respiratory failure usually on 2 L per nasal cannula, previous history of ESBL E. coli urinary tract infection and MRSA infection involving the right leg, former smoking history. Patient is a resident of the [facility]. Apparently patient was treated for COVID 19 pneumonia in December 2019, it is unclear if the patient was hospitalized at that time or treated at the senior care. In addition patient was vaccinated against COVID 19 2 weeks ago. On 08/17/2020 patient was brought into the hospital for evaluation of increasing shortness of breath, fever with a temp of 102.7F, her COVID 19 PCR was positive. Chest x-ray showed mild cardiomegaly and central vessel congestion similar to her prior exam, with mild patchy opacities at the lung bases. She was started on empiric antibiotics in the form of azithromycin and Rocephin. She did receive 1 L of IV fluids in the emergency department, her lab data reveals evidence of acute urinary tract infection, her white blood cell count was 12.4, hemoglobin is 11.6, neutrophils is 10.6, INR is 1.2, CO2 was 35, increased electrolytes and renal profile were unremarkable and plasma lactic acid was 1.8, LFTs were within normal limits, troponin was 0.0.6, proBNP was 1560, pro-calcitonin level came back as 0.02, and subsequently at 0.09. 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 Today's follow-up chest x-ray shows bibasilar increased attenuation, central vascularity and increased interstitial difficult to exclude pleural effusions. Patient remains on IV hydration at a rate of 100 ML per hour. Urine culture and blood culture has been sent and pending at this time. She did have a low-grade fever this morning with a temp of 100.6F, she is lethargic, she is not able to stay awake, blood gas was obtained showing pO2 of 59, pCO2 of 85, and pH 7.2. This was done and FiO2 of 30% and subsequently patient was placed on BiPAP support with pressures of 12.6 and FiO2 of 35%. The fluids have been dropped down to 50 ML per hour. Blood pressure stable. The patient is seen today, 03/21/2020 in follow-up on the regular medical floor. She is much more awake and alert today compared to yesterday. Appropriate. Oriented. Maintaining O2 saturations in the 90s on 3 L/m per nasal cannula. Urine culture positive for gram-negative bacilli. Blood culture reveals no growth. White count 4.8. Hemoglobin 10.8. Sodium 144. Potassium 4.9. Currently on Zosyn. Continued on bronchodilators. Remains on Decadron and Coke recent long with Eliquis for anticoagulation. Objective - Vital Signs Vital signs: Vital Signs Temp 98.7 F 03/21/20 14:51 Pulse 78 03/21/20 14:51 Resp 20 03/21/20 14:51 BP 131/83 03/21/20 14:51 Pulse Ox 96 03/21/20 14:51 Intake & Output 03/20/20 03/21/20 03/21/20 18:59 06:59 18:59 Intake Total 950 Output Total 600 Balance 950 -600 Weight 99.5 kg Intake: Intake, IV Titration 950 Amount Azithromycin 500 mg In 250 Sodium Chloride 0.9% 250 ml @ 250 mls/hr IVPB DAILY ANNMARIE Rx#:[id number] Piperacillin-Tazobactam 3 100 .375 gm In Sodium Chloride 0.9% 100 ml @ 25 mls/hr IVPB Q8HR ANNMARIE Rx# :[id number] Sodium Chloride 0.9% 1, 600 000 ml @ 50 mls/hr IV . Q20H ANNMARIE Rx#:[id number] Output: Urine 600 Other: Voiding Method External Catheter External Catheter External Catheter - Exam GENERAL EXAM: Awake, alert 89-year-old female patient, morbidly obese, currently on 3 L of oxygen comfortable in no apparent distress. HEAD: Normocephalic/atraumatic. EYES: Normal reaction of pupils, equal size. Conjunctiva pink, sclera white. NOSE: Clear with pink turbinates. THROAT: No erythema or exudates. NECK: No masses, no JVD, no thyroid enlargement, no adenopathy. CHEST: No chest wall deformity. Symmetrical expansion. LUNGS: Equal air entry with few scattered rhonchi, crackles in the posterior bases CVS: Regular rate and rhythm, normal S1 and S2, no gallops, no murmurs, no rubs ABDOMEN: Soft, nontender. No hepatosplenomegaly, normal bowel sounds, no guarding or rigidity. EXTREMITIES: No clubbing, no edema, no cyanosis, 2+ pulses and upper and lower extremities. MUSCULOSKELETAL: Muscle strength and tone normal. SPINE: No scoliosis or deformity SKIN: No rashes CENTRAL NERVOUS SYSTEM: Drowsy. No focal deficits, tone is normal in all 4 extremities. - Labs CBC & Chem 7: 03/21/20 06:30 03/21/20 06:30 Labs: Abnormal Lab Results - Last 24 Hours (Table) 03/21/20 03/21/20 Range/Units 06:30 06:30 RBC 3.42 L (3.80-5.40) m/uL Hgb 10.8 L (11.4-16.0) gm/dL Hct 33.9 L (34.0-46.0) % Plt Count 130 L (150-450) k/uL Myelocytes # (Manual) 0.05 H (0) k/uL Carbon Dioxide 34.3 H (21.6-31.8) mmol/L BUN/Creatinine Ratio 38.33 H (12.00-20.00) Ratio Glucose 128 H (70-110) mg/dL Microbiology - Last 24 Hours (Table) 03/19/20 07:20 Blood Culture - Preliminary Blood No Growth after 48 hours 03/19/20 07:20 Blood Culture - Preliminary Blood No Growth after 48 hours 03/19/20 16:00 Urine Culture - Preliminary Urine,Voided Gram Neg Bacilli Assessment and Plan Assessment: 1 Acute on chronic hypoxic and hypercapnic respiratory failure, likely related to component of mild fluid overload, acute urinary tract infection and acute exacerbation of COPD. Chest x-ray shows pulmonary central vascularity, prominen t interstitium possibly small pleural effusions 2 Positive COVID 19 PCR, however patient was treated for COVID 19 infection back in December 2019, recently vaccinated 2 weeks ago. Patient's presentation is more consistent with UTI with sepsis, mild fluid overload and secondary altered mental status. Inflammatory markers are normal 3 Altered mental status related to acute urinary tract infection, possibility of mild fluid overload 4 History of obstructive sleep apnea on CPAP 5 Chronic COPD on home oxygen usually at 2 L/m 6 Hypothyroidism 7 Chronic A. 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 Munoz She is more awake and alert today Currently on 3 L nasal cannula BiPAP at night Continue current treatment plan We'll continue to follow I, the cosigning physician, performed a history & physical examination of the patient. Lungs sounds with few scattered rhonchi, basilar crackles. Maintaining good O2 saturations in the 90s on 3 L/m per nasal cannula. I discussed the assessment and plan of care with my nurse practitioner, Clair Amos. I attest to the above note as dictated by her.
--- NOTE | 2020-03-21 18:43 | PN ---
PROGRESS NOTE DATE OF SERVICE: 03/21/2020 REASON FOR FOLLOWUP: UTI and question of pneumonia. INTERVAL HISTORY: The patient is currently afebrile. The patient is more awake and alert today. She is breathing comfortably. The patient denies any chest pain. Minimal cough. No abdominal pain, no diarrhea. PHYSICAL EXAMINATION: Blood pressure 131/83 with a pulse of 73, temperature 98.7. He is 96% on 3 L nasal cannula. General description is an elderly female lying in bed in no distress. Respiratory system: Unlabored breathing, decreased breath sounds, no wheeze. Heart S1, S2. Regular and rhythm. Abdomen soft, no tenderness. Extremities: No edema of the feet. LABS: Hemoglobin is 10.3, white count 4.8, BUN of 23, creatinine 0.6. Urine showing Gram- negative. DIAGNOSTIC IMPRESSION AND PLAN: Patient admitted to the hospital with fever and mental status changes likely urinary tract infection plus-minus pneumonia, possible gram-negative. Patient clinically responded to Zosyn, to continue while waiting for the culture to finalize. Continue supportive care. MMODL / IJN: [id number] /
--- NOTE | 2020-03-21 20:13 | PN ---
PROGRESS NOTE DATE OF SERVICE: 03/21/2020 This 89-year-old woman who was admitted with acute bilateral pneumonia had possibly aspiration pneumonia. Patient started on broad spectrum IV antibiotics. The patient also had recent Covid 19 infection and vaccination also. The patient continues to be confused and most recent chest x-ray personally reviewed by me. Pulmonary is following the patient closely and Dr. Munoz has also seen the patient today. The patient also had respiratory failure which is thought to be multifactorial with COPD acute exacerbation. Past medical history reviewed. REVIEW OF SYSTEMS: Could not be taken. The patient is confused at this time. CURRENT MEDICATIONS: Reviewed and include Tylenol, Maalox, Ventolin, Eliquis, Lipitor, Symbicort, Colcrys, Decadron, Synthroid, melatonin, Lopressor, Singulair, multivitamins, Zosyn, Spiriva. PHYSICAL EXAM: Patient is alert, oriented, conscious, but confused. Pulse is 78. Blood pressure 131/83, respiration 20, temperature 98.7, pulse ox 98% on 15 L. HEENT: Conjunctivae normal. NECK: No JVD. RESPIRATORY SYSTEM: Breath sounds diminished at the bases. Bilateral scattered rhonchi and crackles. ABDOMEN: Soft. Nontender. LEGS are no edema. No swelling. NERVOUS SYSTEM: No focal deficits. LABS: WBC 4.2, hemoglobin 10.8. ABG, pH of 7.23. ASSESSMENT: 1. Chronic obstructive pulmonary disease, acute exacerbation with acute hypoxic hypercarbic respiratory failure. 2. Bilateral pneumonia, right more than left, Possibly aspiration pneumonia with sepsis, present on admission. 3. Change in mental status, acute metabolic encephalopathy multifactorial. 4. Recent Covid 19 infection treated and as well as vaccination. 5. Anemia macrocytic. 6. Increased WBC. 7. Acute urinary tract infection with possible sepsis present on admission. 8. Covid 19 is persistently positive, undetermined significance. 9. Chronic atrial fibrillation. 10.History of cerebrovascular accident/transient ischemic attack. 11.History of pneumonia. 12.History of sleep apnea. 13.History of hypothyroidism. 14.History of right rotator cuff surgery. 15.History of cataracts. 16.History of ESBL and MRSA. 17.Obesity with body mass index of 34. 18.Chronic hypoxic respiratory failure on 2 L nasal cannula. 19.Remote history of nicotine dependence. RECOMMENDATIONS AND DISCUSSION: In this 89-year-old woman who presented with multiple complex medical issues, we will monitor the patient closely. Continue symptomatic treatment. Otherwise at this time I would also recommend Infectious Disease evaluation and close follow up with pulmonology. The patient is on broad-spectrum IV antibiotics. The urine showed gram- negative bacilli. Blood cultures negative so far. Obtain sputum culture also if possible. Otherwise, prognosis guarded. Further recommendations to follow. A chest x- ray also will be repeated tomorrow. See orders for details. MMODL / IJN: [id number] /
[2020-03-21] MEDS: MELATONIN 5 MG TABLET PO SCH (21:37)
[2020-03-21] MEDS: MONTELUKAST 10 MG TAB PO SCH (21:37)
[2020-03-21] MEDS: ATORVASTATIN 20 MG TAB PO SCH (21:37)
[2020-03-22] MEDS: PIPERACILLIN-TAZOBACTAM 3.375 GM in SODIUM CHLORIDE 0.9% 100 ML IVPB SCH ×3 (00:01→15:51)
[2020-03-22] MEDS: SODIUM CHLORIDE 0.9% 1,000 ML IV SCH (05:54)
[2020-03-22] MEDS: LEVOTHYROXINE 75 MCG TAB PO SCH (05:56)
[2020-03-22 06:52] LABS: Basophils % (A) 0 %; Eosinophils % (A) 0 %; HCT 35.5 % (34.0-46.0); HGB 10.9 gm/dL (11.4-16.0); Hypochromasia Marked; Lymphocytes # (A) 1.4 k/uL (1.0-4.8); Lymphocytes % (A) 19 %; MCH 30.5 pg (25.0-35.0); MCHC 30.6 g/dL (31.0-37.0); MCV 99.6 fL (80.0-100.0); Macrocytosis Slight; Mean Platelet Volume 11.2; Monocytes # (A) 0.3 k/uL (0-1.0); Monocytes % (A) 5 %; Neutrophils # (A) 5.4 k/uL (1.3-7.7); Neutrophils % (A) 75 %; Platelet Count 163 k/uL (150-450); RBC 3.57 m/uL (3.80-5.40); RDW 14.7 % (11.5-15.5); WBC 7.3 k/uL (3.8-10.6)
--- NOTE | 2020-03-22 07:29 | XR ---
EXAMINATION TYPE: XR chest 1V portable DATE OF EXAM: 03/22/2020 COMPARISON: Chest x-ray 03/20/2020 HISTORY: Congestive heart failure TECHNIQUE: Single frontal view of the chest is obtained. FINDINGS: There is interval improved visualization of the right hemidiaphragm. Heart remains enlarge d. Interstitium remains increased. No evident pneumothorax. Aorta is dense. Retrocardiac density pers ists. IMPRESSION: Findings consistent with congestive heart failure. Some slight improved aeration at the right lung base. Pneumonia not excluded.
[2020-03-22] MEDS: SYMBICORT 80-4.5 MCG INHALER INHALATION SCH ×2 (07:31→19:56)
[2020-03-22] MEDS: ALBUTEROL HFA INHALER INHALATION SCH ×4 (07:31→19:56)
[2020-03-22] MEDS: TIOTROPIUM 2.5 MCG INHALER INHALATION SCH (07:31)
[2020-03-22] MEDS: DEXAMETHASONE SOD PHOSPHATE 10 MG/ML 1 ML VIAL IV SCH (08:27)
[2020-03-22] MEDS: POTASSIUM CHLORIDE ER 10 MEQ TAB.ER.PRT PO SCH (08:27)
[2020-03-22] MEDS: MULTIVITAMINS, THERA 1 EACH TAB PO SCH (08:27)
[2020-03-22] MEDS: METOPROLOL TARTRATE 12.5 MG TAB PO SCH ×2 (08:27→21:10)
[2020-03-22] MEDS: COLCHICINE 0.6 MG EACH PO SCH ×2 (08:27→21:10)
[2020-03-22] MEDS: APIXABAN 2.5 MG TABLET PO SCH ×2 (08:27→21:10)
[2020-03-22 10:12] LABS: African American GFR (CKD) 89.7 (60.0-200.0); Anion Gap 7.5 mmol/L (4.00-12.00); BUN/Creat Ratio 37.14 Ratio (12.00-20.00); Calcium 9.2 mg/dL (8.7-10.3); Carbon Dioxide 34.5 mmol/L (21.6-31.8); Non-African American GFR(CKD) 77.4 (60.0-200.0)
--- NOTE | 2020-03-22 11:38 | P.PN ---
Subjective Progress Note Date: 03/22/20 Principal diagnosis: CoVID 19 infection, altered mental status This is a 89-year-old white female patient with past medical history of COPD, sleep apnea on CPAP therapy, hypothyroidism, previous history of TIA, chronic hypoxic respiratory failure usually on 2 L per nasal cannula, previous history of ESBL E. coli urinary tract infection and MRSA infection involving the right leg, former smoking history. Patient is a resident of the [facility]. Apparently patient was treated for COVID 19 pneumonia in December 2019, it is unclear if the patient was hospitalized at that time or treated at the senior care. In addition patient was vaccinated against COVID 19 2 weeks ago. On 08/17/2020 patient was brought into the hospital for evaluation of increasing shortness of breath, fever with a temp of 102.7F, her COVID 19 PCR was positive. Chest x-ray showed mild cardiomegaly and central vessel congestion similar to her prior exam, with mild patchy opacities at the lung bases. She was started on empiric antibiotics in the form of azithromycin and Rocephin. She did receive 1 L of IV fluids in the emergency department, her lab data reveals evidence of acute urinary tract infection, her white blood cell count was 12.4, hemoglobin is 11.6, neutrophils is 10.6, INR is 1.2, CO2 was 35, increased electrolytes and renal profile were unremarkable and plasma lactic acid was 1.8, LFTs were within normal limits, troponin was 0.0.6, proBNP was 1560, pro-calcitonin level came back as 0.02, and subsequently at 0.09. 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 Today's follow-up chest x-ray shows bibasilar increased attenuation, central vascularity and increased interstitial difficult to exclude pleural effusions. Patient remains on IV hydration at a rate of 100 ML per hour. Urine culture and blood culture has been sent and pending at this time. She did have a low-grade fever this morning with a temp of 100.6F, she is lethargic, she is not able to stay awake, blood gas was obtained showing pO2 of 59, pCO2 of 85, and pH 7.2. This was done and FiO2 of 30% and subsequently patient was placed on BiPAP support with pressures of 12.6 and FiO2 of 35%. The fluids have been dropped down to 50 ML per hour. Blood pressure stable. The patient is seen today, 03/21/2020 in follow-up on the regular medical floor. She is much more awake and alert today compared to yesterday. Appropriate. Oriented. Maintaining O2 saturations in the 90s on 3 L/m per nasal cannula. Urine culture positive for gram-negative bacilli. Blood culture reveals no growth. White count 4.8. Hemoglobin 10.8. Sodium 144. Potassium 4.9. Currently on Zosyn. Continued on bronchodilators. Remains on Decadron and Coke recent long with Eliquis for anticoagulation. The patient is seen today 03/22/2020 in follow-up on the regular medical floor. She remains awake and alert in no acute distress. She did not require BiPAP support at all last night. She is maintaining good O2 saturations in the 90s on 3 L/m per nasal cannula. She does have home O2. She is afebrile. Hemodynamically stable. She remains on Zosyn. Anticoagulated with Eliquis. Continued on colchicine and dexamethasone. Urine culture positive for E. coli. Blood cultures reveal no growth. White count 7.3. Hemoglobin 10.9. Sodium 144. Potassium 5.0. Creatinine 0.7. Objective - Vital Signs Vital signs: Vital Signs Temp 97.5 F L 03/22/20 10:00 Pulse 81 03/22/20 10:00 Resp 19 03/22/20 10:00 BP 121/52 03/22/20 10:00 Pulse Ox 97 03/22/20 10:00 Intake & Output 03/21/20 03/22/20 03/22/20 18:59 06:59 18:59 Output Total 400 Balance -400 Weight 98.5 kg Output: Urine 400 Other: Voiding Method External Catheter External Catheter External Catheter # Voids 1 # Bowel Movements 0 1 - Exam GENERAL EXAM: Awake, alert 89-year-old female patient, morbidly obese, currently on 3 L of oxygen comfortable in no apparent distress. HEAD: Normocephalic/atraumatic. EYES: Normal reaction of pupils, equal size. Conjunctiva pink, sclera white. NOSE: Clear with pink turbinates. THROAT: No erythema or exudates. NECK: No masses, no JVD, no thyroid enlargement, no adenopathy. CHEST: No chest wall deformity. Symmetrical expansion. LUNGS: Equal air entry with few scattered rhonchi, crackles in the posterior bases CVS: Regular rate and rhythm, normal S1 and S2, no gallops, no murmurs, no rubs ABDOMEN: Soft, nontender. No hepatosplenomegaly, normal bowel sounds, no g uarding or rigidity. EXTREMITIES: No clubbing, no edema, no cyanosis, 2+ pulses and upper and lower extremities. MUSCULOSKELETAL: Muscle strength and tone normal. SPINE: No scoliosis or deformity SKIN: No rashes CENTRAL NERVOUS SYSTEM: Drowsy. No focal deficits, tone is normal in all 4 extremities. - Labs CBC & Chem 7: 03/22/20 06:04 03/22/20 06:04 Labs: Abnormal Lab Results - Last 24 Hours (Table) 03/22/20 03/22/20 Range/Units 06:04 06:04 RBC 3.57 L (3.80-5.40) m/uL Hgb 10.9 L (11.4-16.0) gm/dL MCHC 30.6 L (31.0-37.0) g/dL Carbon Dioxide 34.5 H (21.6-31.8) mmol/L BUN/Creatinine Ratio 37.14 H (12.00-20.00) Ratio Glucose 120 H (70-110) mg/dL Microbiology - Last 24 Hours (Table) 03/19/20 07:20 Blood Culture - Preliminary Blood No Growth after 72 hours 03/19/20 07:20 Blood Culture - Preliminary Blood No Growth after 72 hours 03/19/20 16:00 Urine Culture - Final Urine,Voided Escherichia coli Assessment and Plan Assessment: 1 Acute on chronic hypoxic and hypercapnic respiratory failure, likely related to component of mild fluid overload, acute urinary tract infection and acute exacerbation of COPD. Chest x-ray shows pulmonary central vascularity, prominent interstitium possibly small pleural effusions 2 Positive COVID 19 PCR, however patient was treated for COVID 19 infection back in December 2019, recently vaccinated 2 weeks ago. Patient's presentation is more consistent with UTI with sepsis, mild fluid overload and secondary altered mental status. Inflammatory markers are normal 3 Altered mental status related to acute E. coli urinary tract infection, rec overed, awake and alert 4 History of obstructive sleep apnea on CPAP 5 Chronic COPD on home oxygen usually at 2 L/m 6 Hypothyroidism 7 Chronic A. 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 Munoz Continue current treatment plan Follow-up chest x-ray in a.m. We'll continue to follow I, the cosigning physician, performed a history & physical examination of the patient. Lungs sounds with few scattered rhonchi, basilar crackles. Maintaining good O2 saturations in the 90s on 3 L/m per nasal cannula. I discussed the assessment and plan of care with my nurse practitioner, Clair Amos. I attest to the above note as dictated by her.
--- NOTE | 2020-03-22 18:45 | PN ---
PROGRESS NOTE DATE OF SERVICE: 03/22/2020 This 89-year-old woman who was admitted with bilateral pneumonia, also had COPD acute exacerbation and possibly aspiration was considered at this time. Dr. uMnoz is following the patient closely. The most recent chest x-ray which was reviewed personally by me showed some improvement. No chest pain. No palpitations. The patient continues to be confused. PHYSICAL EXAMINATION: Pulse 81, blood pressure 120/52, respiration 19, temperature 97.2, pulse ox 97% on 3 L. HEENT: Conjunctivae normal. NECK: No JVD. CARDIOVASCULAR: S1, S2 muffled. RESPIRATION: Breath sounds diminished in the bases. Scattered rhonchi and crackles. ABDOMEN: Soft, nontender. LEGS: No edema. No swelling. NERVOUS SYSTEM: No focal deficit. LABS: WBC 7.2, hemoglobin 10.9, sodium 142, potassium 5. ASSESSMENT: 1. Chronic obstructive pulmonary disease acute exacerbation with acute hypercarbic respiratory failure. 2. Bilateral pneumonia, right more the left possibly aspiration pneumonia with sepsis, present on admission. 3. Change in mental status, acute metabolic encephalopathy, multifactorial. 4. Recent Covid 19 infection treated as well as with the vaccination. 5. Anemia, macrocytic. 6. Increased WBC. 7. Acute urinary tract infection with possible sepsis, present on admission. 8. COVID-19 is persistently positive of undetermined significance. 9. Chronic atrial fibrillation. 10.History of cerebrovascular accident/transient ischemic attack. 11.History of pneumonia. 12.History of obstructive sleep apnea. 13.Hypothyroidism. 14.History of right rotator cuff surgery. 15.History of cataracts. 16.History of ESBL and MRSA. 17.Obesity with body mass index of 34. 18.Chronic hypoxic respiratory failure on 2 L nasal cannula. 19.Remote history of nicotine dependence. RECOMMENDATIONS AND DISCUSSION: Recommend to continue current medications, continue to monitor, symptomatic treatment. Otherwise at this time I recommend continue with broad-spectrum IV antibiotics, bronchodilators. PT, OT evaluation, possible ECF rehab. Guarded prognosis. Further recommendations to follow. MMODL / IJN: [id number] /
[2020-03-22] MEDS: MONTELUKAST 10 MG TAB PO SCH (21:10)
[2020-03-22] MEDS: MELATONIN 5 MG TABLET PO SCH (21:10)
[2020-03-22] MEDS: ATORVASTATIN 20 MG TAB PO SCH (21:10)
[2020-03-22] MEDS: ERTAPENEM 1 GM in SODIUM CHLORIDE 0.9% 50 ML IVPB SCH (22:45)
--- NOTE | 2020-03-22 23:41 | PN ---
PROGRESS NOTE DATE OF SERVICE: 03/22/2020 REASON FOR FOLLOWUP: UTI and pneumonia. INTERVAL HISTORY: Patient is currently afebrile. The patient is more awake and alert. She is breathing more comfortably. Denies having any chest pain or cough. No abdominal pain. No diarrhea. PHYSICAL EXAMINATION: Blood pressure 139/67 with a pulse of 77. Temperature 97.4. She is 99%. General description is an elderly female lying in bed in no distress. Respiratory system: Unlabored breathing with decreased intensity of breath sounds. No wheeze. Heart S1, S2. Regular rate and rhythm. ABDOMEN: Soft, no tenderness. LABS: Urine has been finalized with ESBL E coli. Low colony count. Hemoglobin is 10.9 with white count 7.3. DIAGNOSTIC IMPRESSION AND PLAN: Patient admitted to hospital with fever in this patient with concern for pneumonia and urinary tract infection. Urine now finalized with an ESBL pathogen. We will switch antibiotic therapy to Invanz. Repeat urine culture and continue supportive care. MMODL / IJN: [id number] /
[2020-03-23] MEDS: SODIUM CHLORIDE 0.9% 1,000 ML IV SCH (02:12)
[2020-03-23] MEDS: LEVOTHYROXINE 75 MCG TAB PO SCH (05:14)
[2020-03-23 06:52] LABS: Basophils % (A) 0 %; Eosinophils % (A) 0 %; HCT 34.4 % (34.0-46.0); HGB 10.8 gm/dL (11.4-16.0); Hypochromasia Marked; Lymphocytes # (A) 1.4 k/uL (1.0-4.8); Lymphocytes % (A) 16 %; MCH 31.1 pg (25.0-35.0); MCHC 31.4 g/dL (31.0-37.0); MCV 98.9 fL (80.0-100.0); Mean Platelet Volume 10.3; Monocytes # (A) 0.5 k/uL (0-1.0); Monocytes % (A) 6 %; Neutrophils # (A) 6.6 k/uL (1.3-7.7); Neutrophils % (A) 76 %; Platelet Count 163 k/uL (150-450); RBC 3.48 m/uL (3.80-5.40); RDW 14.7 % (11.5-15.5); WBC 8.7 k/uL (3.8-10.6)
[2020-03-23] MEDS: METOPROLOL TARTRATE 12.5 MG TAB PO SCH ×2 (07:51→20:28)
[2020-03-23] MEDS: POTASSIUM CHLORIDE ER 10 MEQ TAB.ER.PRT PO SCH (07:51)
[2020-03-23] MEDS: MULTIVITAMINS, THERA 1 EACH TAB PO SCH (07:52)
[2020-03-23] MEDS: APIXABAN 2.5 MG TABLET PO SCH ×2 (07:52→20:28)
[2020-03-23] MEDS: DEXAMETHASONE SOD PHOSPHATE 10 MG/ML 1 ML VIAL IV SCH (07:54)
[2020-03-23] MEDS: COLCHICINE 0.6 MG EACH PO SCH ×2 (08:01→20:28)
[2020-03-23] MEDS: SYMBICORT 80-4.5 MCG INHALER INHALATION SCH ×2 (08:35→20:12)
[2020-03-23] MEDS: ALBUTEROL HFA INHALER INHALATION SCH ×4 (08:35→20:12)
[2020-03-23] MEDS: TIOTROPIUM 2.5 MCG INHALER INHALATION SCH (08:35)
[2020-03-23 08:49] LABS: African American GFR (CKD) 107.8 (60.0-200.0); Anion Gap 1.8 mmol/L (4.00-12.00); BUN/Creat Ratio 52.5 Ratio (12.00-20.00); Calcium 8.9 mg/dL (8.7-10.3); Carbon Dioxide 37.2 mmol/L (21.6-31.8); Potassium 4.6 mmol/L (3.5-5.5)
--- NOTE | 2020-03-23 10:22 | XR ---
EXAMINATION TYPE: XR chest 1V portable DATE OF EXAM: 03/23/2020 COMPARISON: Chest x-ray 03/22/2020 HISTORY: Congestive heart failure TECHNIQUE: Single frontal view of the chest is obtained. FINDINGS: Patient is rotated. Cardiac mediastinal silhouette is stable. There is perihilar vascular indistinctness, prominence of interstitium and central vascularity, patchy bilateral airspace disease . No evident pneumothorax. Left hemidiaphragm is obscured. Aorta is dense. IMPRESSION: Correlate for congestive heart failure, pneumonia not excluded.
[2020-03-23] MEDS: FUROSEMIDE 10 MG/ML 4 ML VIAL IV STA ×2 (12:02→12:13)
--- NOTE | 2020-03-23 13:59 | P.PN ---
Subjective Progress Note Date: 03/23/20 HISTORY OF PRESENT ILLNESS This is a 89-year-old female who resides at [facility]. Patient was tra nsferred to the hospital due to shortness of breath and difficulty breathing. She does have history of COVID-19 and subsequently received vaccine 2 weeks ago. Patient presented with temperature of 102.7, heart rate 125, respiratory rate 30, blood pressure 177/91, pulse ox 90%. WBC 12.4, creatinine 0.54. CMP is essentially normal except for blood sugar 149 and CO2 35. LDH 531, CK 45, troponin negative. C-reactive protein 9.5. Pro-BNP 1470. Covid 19 positive. Chest x-ray reveals mild cardiomegaly and central vascular congestion similar to prior. Mild patchy opacities in the lung bases. May represent atelectasis, infiltrate or edema. Patient was started on azithromycin and Zosyn. She is status post 1 L of IV fluids. Patient is unable to provide reliable history. 03/23: Patient denies any chest pain, no cough, no nausea or vomiting, no diarrhea. She is currently maintained on ertapenem 1 g IV piggyback daily. Urine culture is ESBL E. coli. Midline will be ordered today and plan for 1 week of IV Invanz after discharge. Patient is been afebrile, heart rate 50, blood pressure 120/75, pulse ox 98% on 3 L. PHYSICAL EXAMINATION Gen: This is an 89-year-old obese female. She is resting in bed and appears to be comfortable. No acute respiratory distress is noted. HEENT: Head is atraumatic, normocephalic. Pupils equal, round. Sclerae is anicteric. NECK: Supple. No JVD. LUNGS: Diminished at bases No wheezes or rhonchi. No intercostal retractions. HEART: Regular rate and rhythm. ABDOMEN: Soft. Bowel sounds are present. No masses. No tenderness. EXTREMITIES: No pedal edema. No calf tenderness. NEUROLOGICAL: Patient is awake, opens eyes to verbal stimuli. Significant generalized weakness. ASSESSMENT Sepsis secondary to ESBL E. coli urinary tract infection and component of Gram- negative pneumonia Recent Covid infection and status post vaccine PLAN Continue ertapenem 1 g daily Midline ordered Plan for Invanz 1 week after discharge. The above dictated assessment and findings were discussed with Dr. Villanueva. The impression and plan of care have been directed as dictated. Jada Yeboah nurse practitioner acting as scribe for Dr. Villanueva. Objective - Vital Signs Vital signs: Vital Signs Temp 97.8 F 03/23/20 09:18 Pulse 50 L 03/23/20 09:18 Resp 20 03/23/20 09:18 BP 128/75 03/23/20 09:18 Pulse Ox 98 03/23/20 09:18 Intake & Output 03/22/20 03/23/20 03/23/20 18:59 06:59 18:59 Output Total 250 Balance -250 Weight 100 kg Output: Urine 250 Other: Voiding Method External Catheter Diaper External Catheter # Voids 1 # Bowel Movements 1 - Labs CBC & Chem 7: 03/23/20 06:27 03/23/20 06:27 Labs: Abnormal Lab Results - Last 24 Hours (Table) 03/23/20 03/23/20 Range/Units 06:27 06:27 RBC 3.48 L (3.80-5.40) m/uL Hgb 10.8 L (11.4-16.0) gm/dL Carbon Dioxide 37.2 H (21.6-31.8) mmol/L Anion Gap 1.80 L (4.00-12.00) mmol/L Creatinine 0.4 L (0.6-1.5) mg/dL BUN/Creatinine Ratio 52.50 H (12.00-20.00) Ratio Microbiology - Last 24 Hours (Table) 03/19/20 07:20 Blood Culture - Preliminary Blood No Growth after 96 hours 03/19/20 07:20 Blood Culture - Preliminary Blood No Growth after 96 hours
--- NOTE | 2020-03-23 15:01 | P.PN ---
Subjective Progress Note Date: 03/23/20 Principal diagnosis: Fever, pneumonia, hypoxia. The patient is seen today, 03/21/2020 in follow-up on the regular medical floor. She is much more awake and alert today compared to yesterday. Appropriate. Oriented. Maintaining O2 saturations in the 90s on 3 L/m per nasal cannula. Urine culture positive for gram-negative bacilli. Blood culture reveals no growth. White count 4.8. Hemoglobin 10.8. Sodium 144. Potassium 4.9. Currently on Zosyn. Continued on bronchodilators. Remains on Decadron and Coke recent long with Eliquis for anticoagulation. The patient is seen today 03/22/2020 in follow-up on the regular medical floor. She remains awake and alert in no acute distress. She did not require BiPAP support at all last night. She is maintaining good O2 saturations in the 90s on 3 L/m per nasal cannula. She does have home O2. She is afebrile. Hemodynam ically stable. She remains on Zosyn. Anticoagulated with Eliquis. Continued on colchicine and dexamethasone. Urine culture positive for E. coli. Blood cultures reveal no growth. White count 7.3. Hemoglobin 10.9. Sodium 144. Potassium 5.0. Creatinine 0.7. Progress note dated 03/23/2020. 89-year-old female admitted with a diagnosis of acute on chronic hypoxemic and hypercapnic respiratory failure, secondary to COPD exacerbation, fluid overload, and urinary tract infection. The patient was also positive for COVID 19 PCR back in December 2019 and did receive a vaccine 2 or 3 weeks prior. Currently, she is resting comfortably in bed. She is on a couple of liters of nasal O2. The patient appears to be progressing nicely. In addition, she has a history of mental status changes, which are improved, secondary to acute E. coli urinary tract infection, sleep apnea syndrome, chronic COPD, hypothyroidism, chronic atrial fibrillation, hypertension, hyperlipidemia, CHF, CVA, and general medical debility. The patient is hemodynamically stable. White count is 8.7, hemoglobin is stable at 10.8, hematocrit is 34.4, with a platelet count of 163,000. Sodium is 144, potassium 4.6, chlorides 105, CO2 37, anion gap 2, and BUN and creatinine 21 and 0.4, respectively. The E. coli in the urine is a extended spectrum beta-lactamase producing E. coli. The patient's on appropriate antibiotics in the form of ertapenem. Chest x-rays consistent with either CHF and/or pneumonia. Objective - Vital Signs Vital signs: Vital Signs Temp 97.8 F 03/23/20 14:00 Pulse 62 03/23/20 14:00 Resp 18 03/23/20 14:00 BP 127/60 03/23/20 14:00 Pulse Ox 96 03/23/20 14:00 Intake & Output 03/22/20 03/23/20 03/23/20 18:59 06:59 18:59 Output Total 250 Balance -250 Weight 100 kg Output: Urine 250 Other: Voiding Method External Catheter Diaper External Catheter # Voids 1 # Bowel Movements 1 - Exam No acute distress, oriented 3. Nasal O2 at 3 L/m. No acute respiratory distress, or conversational dyspnea, or use of accessory muscles. HEENT examination is grossly unremarkable. Mucous membranes are moist. No oral lesions. Neck supple. Full range of motion. No adenopathy thyromegaly or neck vein distention. Cardiovascular examination reveals regular rhythm rate. S1-S2 normal. No S3 or S4. No discernible murmur noted. Heart rate is 62 bpm. Lungs reveal bibasilar crackles. A few scattered rhonchi noted. There are no wheezes. Breath sounds equal bilaterally. Abdomen soft bowel sounds are heard. No masses or tenderness. Extremities are intact. No cyanosis clubbing or edema. Skin is without rash or lesion. Neurologic examination is brief but nonfocal. - Labs CBC & Chem 7: 03/23/20 06:27 03/23/20 06:27 Labs: Abnormal Lab Results - Last 24 Hours (Table) 03/23/20 03/23/20 Range/Units 06:27 06:27 RBC 3.48 L (3.80-5.40) m/uL Hgb 10.8 L (11.4-16.0) gm/dL Carbon Dioxide 37.2 H (21.6-31.8) mmol/L Anion Gap 1.80 L (4.00-12.00) mmol/L Creatinine 0.4 L (0.6-1.5) mg/dL BUN/Creatinine Ratio 52.50 H (12.00-20.00) Ratio Microbiology - Last 24 Hours (Table) 03/19/20 16:00 Urine Culture - Final Urine,Voided Escherichia coli 03/19/20 07:20 Blood Culture - Preliminary Blood No Growth after 96 hours 03/19/20 07:20 Blood Culture - Preliminary Blood No Growth after 96 hours Assessment and Plan Assessment: 1 Acute on chronic hypoxic and hypercapnic respiratory failure, likely related to component of mild fluid overload, acute urinary tract infection and acute exacerbation of COPD. Chest x-ray shows pulmonary central vascularity, pr ominent interstitium possibly small pleural effusions 2 Positive COVID 19 PCR, however patient was treated for COVID 19 infection back in December 2019, recently vaccinated 2 weeks ago. Patient's presentation is more consistent with UTI with sepsis, mild fluid overload and secondary altered mental status. Inflammatory markers are normal 3 Altered mental status related to acute E. coli urinary tract infection, recovered, awake and alert 4 History of obstructive sleep apnea on CPAP 5 Chronic COPD on home oxygen usually at 2 L/m 6 Hypothyroidism 7 Chronic A. fib on Eliquis 8 Hypertension 9 Hypercholesterolemia 10 Chronic CHF with diastolic dysfunction 11 CVA/TIA by history 12 Chronic medical debility, gait dysfunction, uses a walker 13 Former smoker, stopped smoking in 1988 Plan: Plan dated 03/23/2020. Today's chest x-ray is reviewed. It is consistent with either fluid overload and/or pneumonia. Currently, she is on 3 L nasal cannula. Clinically, she feels improved. Her labs are reviewed. She's on appropriate antibiotics in the form of ertapenem for her extended spectrum beta-lactamase producing E. coli urinary tract infection. We will continue to follow make additional recommendations. She likely will be discharged in 2 or 3 days. Additional recommendations and suggestions are forthcoming. She will follow with my bashir sauer in the office for her underlying COPD. Time with Patient: Less than 30
--- NOTE | 2020-03-23 16:43 | P.PN ---
Subjective Progress Note Date: 03/23/20 This is an 89-year-old female who was recently admitted with bilateral pneumonia, also had chronic obstructive pulmonary disease acute exacerbation and possible aspiration is being considered and is being closely monitored. Pulmonary following along with infectious disease. Patient is maintained on IV Invanz. Urine cultures finalized showing E. coli ESBL and patient is currently awaiting a midline for outpatient IV antibiotic therapy. Patient did receive a dose of IV Lasix today. Patient continues to be dyspneic with exertion and currently maintained on 3 L of oxygen via nasal cannula. Patient normally is 2 L O2 dependent in the outpatient setting. No reports of chest pain or palpitations noted. Patient is afebrile. Review of systems: Constitutional: reports fatigue, no reports of fever, or chills Cardiovascular: No reports of chest pain or palpitations Respiratory: Reports shortness of breath with exertion GI: No reports of nausea, vomiting, or diarrhea : No reports of dysuria or retention Neurovascular: No reports of weakness or numbness All medications have been reviewed Active Medications Acetaminophen (Acetaminophen Tab 325 Mg Tab) 650 mg PO Q6H PRN PRN Reason: Mild Pain or Fever > 100.5 Last Admin: 03/20/20 06:05 Dose: 650 mg Documented by: Al Hydroxide/Mg Hydroxide (Mag Hydrox/Al Hydrox/Simeth 30 Ml Cup) 30 ml PO Q4H PRN PRN Reason: UPSET STOMACH Albuterol Sulfate (Albuterol Hfa Inhaler) 2 puff INHALATION RT-QID [facility] Last Admin: 03/23/20 15:51 Dose: 2 puff Documented by: Apixaban (Apixaban 2.5 Mg Tablet) 2.5 mg PO BID [facility] Last Admin: 03/23/20 07:52 Dose: 2.5 mg Documented by: Atorvastatin Calcium (Atorvastatin 20 Mg Tab) 20 mg PO HS [facility] Last Admin: 03/22/20 21:10 Dose: 20 mg Documented by: Budesonide/Formoterol Fumarate (Symbicort 80-4.5 Mcg Inhaler) 2 puff INHALATION RT-BID [facility] Last Admin: 03/23/20 08:35 Dose: 2 puff Documented by: Colchicine (Colchicine 0.6 Mg Each) 0.6 mg PO BID [facility] Last Admin: 03/23/20 08:01 Dose: 0.6 mg Documented by: Dexamethasone Sodium Phosphate (Dexamethasone Sod Phosphate 10 Mg/Ml 1 Ml Vial) 6 mg IV DAILY [facility] Last Admin: 03/23/20 07:54 Dose: 6 mg Documented by: Ertapenem 1 gm/ Sodium (Chloride) 50 mls @ 100 mls/hr IVPB Q24H [facility]; Protocol Last Admin: 03/22/20 22:45 Dose: 100 mls/hr Documented by: Levothyroxine Sodium (Levothyroxine 75 Mcg Tab) 75 mcg PO DAILY@0600 [facility] Last Admin: 03/23/20 05:14 Dose: 75 mcg Documented by: Melatonin (Melatonin 5 Mg Tablet) 10 mg PO [facility] Last Admin: 03/22/20 21:10 Dose: 10 mg Documented by: Metoprolol Tartrate (Metoprolol Tartrate 12.5 Mg Tab) 12.5 mg PO BID [facility] Last Admin: 03/23/20 07:51 Dose: 12.5 mg Documented by: Miscellaneous Information (Pneumonia Protocol Utilized 1 Each Misc) 1 each PO ONCE PRN PRN Reason: Per Protocol Montelukast Sodium (Montelukast 10 Mg Tab) 10 mg PO [facility] Last Admin: 03/22/20 21:10 Dose: 10 mg Documented by: Multivitamins (Multivitamins, Thera 1 Each Tab) 1 each PO DAILY [facility] Last Admin: 03/23/20 07:52 Dose: 1 each Documented by: Potassium Chloride (Potassium Chloride Er 10 Meq Tab.Er.Prt) 10 meq PO DAILY [facility] Last Admin: 03/23/20 07:51 Dose: 10 meq Documented by: Tiotropium Oblong (Tiotropium 2.5 Mcg Inhaler) 1 puff INHALATION RT-DAILY [facility] Last Admin: 03/23/20 08:35 Dose: 1 puff Documented by: Objective - Vital Signs Vital signs: Vital Signs Temp 97.8 F 03/23/20 14:00 Pulse 62 03/23/20 14:00 Resp 18 03/23/20 14:00 BP 127/60 03/23/20 14:00 Pulse Ox 98 03/23/20 15:51 Intake & Output 03/22/20 03/23/20 03/23/20 18:59 06:59 18:59 Output Total 250 Balance -250 Weight 100 kg Output: Urine 250 Other: Voiding Method External Catheter Diaper External Catheter # Voids 1 # Bowel Movements 1 - Exam Gen: This is a 89-year-old female currently sitting up in the chair asleep although arousable, alert and oriented 3, well-developed, well-nourished, obese. Temp is 97.8F, pulse is 62, respirations are 18, blood pressure is 127/60, oxygen saturation is 96% on 3 L via nasal cannula. HEENT: Head is atraumatic, normocephalic. Pupils equal, round. Sclerae is a nicteric. NECK: Supple. No JVD. No lymphadenopathy. No thyromegaly. LUNGS: Breath sounds diminished at the bases with some scattered rhonchi and crackles noted. No intercostal retractions. HEART: S1, S2 are muffled ABDOMEN: Soft. Obese. Bowel sounds are present. No masses. No tenderness. EXTREMITIES: No pedal edema. No calf tenderness. NEUROLOGICAL: Patient is asleep although easily arousable, alert and oriented x3. No focal deficits noted - Labs CBC & Chem 7: 03/23/20 06:27 03/23/20 06:27 Labs: Abnormal Lab Results - Last 24 Hours (Table) 03/23/20 03/23/20 Range/Units 06:27 06:27 RBC 3.48 L (3.80-5.40) m/uL Hgb 10.8 L (11.4-16.0) gm/dL Carbon Dioxide 37.2 H (21.6-31.8) mmol/L Anion Gap 1.80 L (4.00-12.00) mmol/L Creatinine 0.4 L (0.6-1.5) mg/dL BUN/Creatinine Ratio 52.50 H (12.00-20.00) Ratio Microbiology - Last 24 Hours (Table) 03/19/20 16:00 Urine Culture - Final Urine,Voided Escherichia coli 03/19/20 07:20 Blood Culture - Preliminary Blood No Growth after 96 hours 03/19/20 07:20 Blood Culture - Preliminary Blood No Growth after 96 hours Assessment and Plan Assessment: Chronic obstructive pulmonary disease, acute exacerbation with acute hypercarbic respiratory failure Bilateral pneumonia, right more than left possibly aspiration pneumonia with sepsis, present on admission Change in mental status, acute metabolic encephalopathy, multifactorial Recent Covid 19 infection treated as well as with the vaccination Anemia, macrocytic Increased white blood count Acute urinary tract infection with possible sepsis, present on admission Covid 19 is persistently positive of undetermined significance Chronic atrial fibrillation History of cerebrovascular accident, TIA History of pneumonia history of obstructive sleep apnea Hypothyroidism history of right rotator cuff surgery history of cataracts history of ESBL and MRSA Obesity with body mass index of 35.6 Chronic hypoxic respiratory failure on 2 L nasal cannula Remote history of nicotine dependence Recommendations and discussion: Recommend to continue with current medications, management, and symptomatic treatment. Continue with IV antibiotics in the form of Invanz and currently awaiting to receive a midline for outpatient IV antibiotic therapy. Infectious disease along with pulmonary following. Patient will be returning to [facility] on [facility] [address] [place] as she is a resident there. Patient continues to be weak and PT OT evaluating the patient. Patient is currently on 3 L of oxygen via nasal cannula and normally is 2 L O2 dependent. Due to multiple complex medical issues, prognosis is guarded. Further recommendations to follow based on the clinical course of the patient. Social work is following and working on discharge planning. Possible discharge in 24-48 hours.
[2020-03-23 17:28] LABS: Appearance,Urine Clear (Clear); Bilirubin,Urine Negative (Negative); Blood,Urine Small (Negative); Color,Urine Light Yellow; Glucose,Urine (UA) Negative (Negative); Ketones,Urine Negative (Negative); Leukocyte Esterase,Urine Negative (Negative); Mucus,Urine Rare /hpf; Nitrite,Urine Negative (Negative); PH, Urine 5.5 (5.0-8.0); Protein,Urine Negative (Negative); RBC,Urine 12 /hpf (0-5); Specific Gravity,Urine 1.008 (1.001-1.035); Squamous Epithelial Cell,Urine <1 /hpf (0-4); Urobilinogen,Urine <2.0 mg/dL (<2.0); WBC,Urine <1 /hpf (0-5)
[2020-03-23] MEDS: ATORVASTATIN 20 MG TAB PO SCH (20:28)
[2020-03-23] MEDS: MELATONIN 5 MG TABLET PO SCH (20:28)
[2020-03-23] MEDS: MONTELUKAST 10 MG TAB PO SCH (20:28)
[2020-03-23] MEDS: ERTAPENEM 1 GM in SODIUM CHLORIDE 0.9% 50 ML IVPB SCH (22:43)
[2020-03-24] MEDS: ACETAMINOPHEN TAB 325 MG TAB PO PRN (03:20)
[2020-03-24 04:10] VITALS: RESP 20
[2020-03-24] MEDS: LEVOTHYROXINE 75 MCG TAB PO SCH (05:24)
[2020-03-24] MEDS: SYMBICORT 80-4.5 MCG INHALER INHALATION SCH (07:56)
[2020-03-24] MEDS: ALBUTEROL HFA INHALER INHALATION SCH ×2 (07:56→11:15)
[2020-03-24] MEDS: TIOTROPIUM 2.5 MCG INHALER INHALATION SCH (07:56)
[2020-03-24] MEDS: APIXABAN 2.5 MG TABLET PO SCH (09:14)
[2020-03-24] MEDS: POTASSIUM CHLORIDE ER 10 MEQ TAB.ER.PRT PO SCH (09:14)
[2020-03-24] MEDS: METOPROLOL TARTRATE 12.5 MG TAB PO SCH (09:14)
[2020-03-24] MEDS: MULTIVITAMINS, THERA 1 EACH TAB PO SCH (09:15)
[2020-03-24] MEDS: COLCHICINE 0.6 MG EACH PO SCH (09:15)
[2020-03-24] MEDS: DEXAMETHASONE SOD PHOSPHATE 10 MG/ML 1 ML VIAL IV SCH (09:17)
[2020-03-24 11:05] VITALS: BP 127/65; PULSE 65; TEMP 97.5
--- NOTE | 2020-03-24 13:39 | P.DS ---
Providers Date of admission: 03/19/20 06:27 Expected date of discharge: 03/24/20 Attending physician: Margarito Barboza Consults: 03/19/20 06:26 Consult Physician Routine Consulting Provider: Álvaro Villanueva Consult Reason/Comments: fever Do you want consulting provider notified?: Yes 03/19/20 15:09 Consult Physician Routine Consulting Provider: Maria Alejandra Munoz Consult Reason/Comments: covid-19 pneumonia Do you want consulting provider notified?: Yes 03/19/20 20:51 Consult Physician Routine Consulting Provider: Maria Alejandra Munoz Consult Reason/Comments: Pneumonia Do you want consulting provider notified?: Yes Primary care physician: Rubio Mace Hospital Course: Final diagnosis Chronic obstructive pulmonary disease, acute exacerbation with acute hypercarbic respiratory failure Bilateral pneumonia, right more than left possibly aspiration pneumonia with sepsis, present on admission Change in mental status, acute metabolic encephalopathy, multifactorial Recent Covid 19 infection treated as well as with the vaccination Anemia, macrocytic Increased white blood count Acute urinary tract infection with possible sepsis, present on admission Covid 19 is persistently positive of undetermined significance Chronic atrial fibrillation History of cerebrovascular accident, TIA History of pneumonia history of obstructive sleep apnea Hypothyroidism history of right rotator cuff surgery history of cataracts history of ESBL and MRSA Obesity with body mass index of 35.6 Chronic hypoxic respiratory failure on 2 L nasal cannula Remote history of nicotine dependence Discharge disposition Patient is being discharged in a stable condition with guarded prognosis to [facility] as she is a resident there. Patient will follow-up with Dr. Mace in the outpatient setting upon discharge. Patient is to continue with IV Invanz via midline as scheduled for the next 1 week per infectious disease recommendations. She will also continue on dexamethasone for the next 5 days along with colchicine to complete the course and then may discontinue. Total time taken is greater than 35 minutes. Hospital course This is an 89-year-old female who was recently admitted with bilateral pneumonia also with chronic obstructive pulmonary disease acute exacerbation with the possibility of aspiration and was being closely monitored. Pulmonary along with infectious disease following the patient. Patient's also being treated for acute urinary tract infection with urine cultures finalizing showing E. coli with ESBL noted in the urine and will continue with IV Invanz daily for the next 1 week and patient has received a midline. Patient will also continue with dexamethasone 6 mg daily for the next 5 days along with colchicine 0.6 mg twice daily to complete the course. Currently no reports of chest pain, worsening shortness of breath, or palpitations. Patient is afebrile. No reports of nausea or vomiting and patient is tolerating diet. Patient will be going to [facility] on the [address] today . Guarded prognosis On exam vital signs are stable. Temp is 97.5F, pulse is 65, respirations are 20, blood pressure is 127/65, oxygen saturation is 97% on 2 L via nasal cannula. Patient does require 2 L in the outpatient setting. Cardio S1, S2 are muffled. Respiratory system shows diminished breath sounds at the bases with no wheezing or rhonchi noted. Abdomen is soft and obese, and nontender. Nervous system shows diffuse weakness. Please refer to medication reconciliation sheet for a list of medications. Patient Condition at Discharge: Fair Plan - Discharge Summary Discharge Rx Participant: No New Discharge Prescriptions: New Ertapenem [INVanz] 1 gm IVPB Q24H #7 vial Colchicine [Colcrys] 0.6 mg PO BID 2 Days #4 each Dexamethasone 6 mg PO DAILY 5 Days #5 tablet Tiotropium 2.5 Mcg/Puff [Spiriva Respimat 2.5 Mcg] 1 puff INHALATION RT-DAILY puff Albuterol Inhaler [Ventolin Hfa Inhaler] 2 puff INHALATION RT-QID puff Continue Simvastatin [Zocor] 40 mg PO HS Montelukast [Singulair] 10 mg PO HS Multivitamins, Thera [Multivitamin (formulary)] 1 tab PO DAILY Levothyroxine Sodium [Synthroid] 75 mcg PO DAILY@0730 Potassium Chloride ER [K-Dur 10] 10 meq PO DAILY Metoprolol Tartrate [Lopressor] 12.5 mg PO BID Fluticasone/Salmeterol [Advair 250-50 Diskus] 1 puff INHALATION RT-BID Apixaban [Eliquis] 2.5 mg PO BID tablet Acetaminophen Tab [Tylenol] 650 mg PO Q6H PRN PRN Reason: Pain Or Fever > 100.5 Melatonin 10 mg PO HS Biotin 5 mg PO DAILY Mylanta 30 ml PO Q4H PRN PRN Reason: UPSET STOMACH predniSONE 2.5 mg PO DAILY #0 Discharge Medication List Simvastatin [Zocor] 40 mg PO HS 09/25/13 [History] Montelukast [Singulair] 10 mg PO HS 02/11/16 [History] Multivitamins, Thera [Multivitamin (formulary)] 1 tab PO DAILY 03/14/16 [History] Levothyroxine Sodium [Synthroid] 75 mcg PO DAILY@0730 12/06/18 [History] Potassium Chloride ER [K-Dur 10] 10 meq PO DAILY 12/06/18 [History] Fluticasone/Salmeterol [Advair 250-50 Diskus] 1 puff INHALATION RT-BID 07/02/19 [History] Metoprolol Tartrate [Lopressor] 12.5 mg PO BID 07/02/19 [History] Apixaban [Eliquis] 2.5 mg PO BID tablet 07/04/19 [Rx] Acetaminophen Tab [Tylenol] 650 mg PO Q6H PRN 03/19/20 [History] Biotin 5 mg PO DAILY 03/19/20 [History] Melatonin 10 mg PO HS 03/19/20 [History] Mylanta 30 ml PO Q4H PRN 03/19/20 [History] Ertapenem [INVanz] 1 gm IVPB Q24H #7 vial 03/23/20 [Rx] Albuterol Inhaler [Ventolin Hfa Inhaler] 2 puff INHALATION RT-QID puff 03/24/20 [Rx] Colchicine [Colcrys] 0.6 mg PO BID 2 Days #4 each 03/24/20 [Rx] Dexamethasone 6 mg PO DAILY 5 Days #5 tablet 03/24/20 [Rx] Tiotropium 2.5 Mcg/Puff [Spiriva Respimat 2.5 Mcg] 1 puff INHALATION RT-DAILY puff 03/24/20 [Rx] predniSONE 2.5 mg PO DAILY #0 03/24/20 [Rx] Follow up Appointment(s)/Referral(s): Rubio Mace MD [Primary Care Provider] - 1-2 days [facility] on the [place], [NON-STAFF] - As Needed Activity/Diet/Wound Care/Special Instructions: Patient is going to [facility] as tolerated continue current diet continue with abx for one week via IV per infectious disease follow up with primary care provider upon discharge continue with dexamethasone for 5 days and then may discontinue continue with colchicine for 2 days then discontinue Discharge Disposition: TRANSFER TO SNF/F
--- NOTE | 2020-03-24 16:40 | P.PN ---
Subjective Progress Note Date: 03/24/20 Principal diagnosis: ESBL urinary tract infection, recent history of COVID 19 pneumonia The patient is seen today, 03/21/2020 in follow-up on the regular medical floor. She is much more awake and alert today compared to yesterday. Appropriate. Oriented. Maintaining O2 saturations in the 90s on 3 L/m per nasal cannula. Urine culture positive for gram-negative bacilli. Blood culture reveals no growth. White count 4.8. Hemoglobin 10.8. Sodium 144. Potassium 4.9. Curr ently on Zosyn. Continued on bronchodilators. Remains on Decadron and Coke recent long with Eliquis for anticoagulation. The patient is seen today 03/22/2020 in follow-up on the regular medical floor. She remains awake and alert in no acute distress. She did not require BiPAP support at all last night. She is maintaining good O2 saturations in the 90s on 3 L/m per nasal cannula. She does have home O2. She is afebrile. Hemodynamically stable. She remains on Zosyn. Anticoagulated with Eliquis. Continued on colchicine and dexamethasone. Urine culture positive for E. coli. Blood cultures reveal no growth. White count 7.3. Hemoglobin 10.9. Sodium 144. Potassium 5.0. Creatinine 0.7. Progress note dated 03/23/2020. 89-year-old female admitted with a diagnosis of acute on chronic hypoxemic and hypercapnic respiratory failure, secondary to COPD exacerbation, fluid overload, and urinary tract infection. The patient was also positive for COVID 19 PCR back in December 2019 and did receive a vaccine 2 or 3 weeks prior. Currently, she is resting comfortably in bed. She is on a couple of liters of nasal O2. The patient appears to be progressing nicely. In addition, she has a history of mental status changes, which are improved, secondary to acute E. coli urinary tract infection, sleep apnea syndrome, chronic COPD, hypothyroidism, chronic atr ial fibrillation, hypertension, hyperlipidemia, CHF, CVA, and general medical debility. The patient is hemodynamically stable. White count is 8.7, hemoglobin is stable at 10.8, hematocrit is 34.4, with a platelet count of 163,000. Sodium is 144, potassium 4.6, chlorides 105, CO2 37, anion gap 2, and BUN and creatinine 21 and 0.4, respectively. The E. coli in the urine is a extended spectrum beta-lactamase producing E. coli. The patient's on appropriate antibiotics in the form of ertapenem. Chest x-rays consistent with either CHF and/or pneumonia. On 03/24/2020 patient seen in follow-up on medical floor, is resting comfortably in bed, she denies any difficulty breathing, no cough, she is on 2 L of oxygen, pulse ox is 97%, she is breathing comfortably, she's been afebrile, hemodynami viviana patient has been stable, she was on antibiotics for ESBL urinary tract infection. Vital signs stable overnight, no acute events, repeat urinalysis today showed small amount of blood, and no clear evidence of infection. Chest x-ray from yesterday shows perihilar vascular indistinctness prominent interstitium and central vascularity, patchy bilateral airspace disease Objective - Vital Signs Vital signs: Vital Signs Temp 97.5 F L 03/24/20 10:00 Pulse 65 03/24/20 10:00 Resp 20 03/24/20 10:00 BP 127/65 03/24/20 10:00 Pulse Ox 97 03/24/20 10:00 Intake & Output 03/23/20 03/24/20 03/24/20 18:59 06:59 18:59 Intake Total 150 Balance 150 Weight 102.5 kg Intake: Oral 150 Other: Voiding Method External Catheter Diaper # Bowel Movements 2 1 - Exam GENERAL EXAM: Alert, very pleasant, 89-year-old white female, is approximately pulse ox of 97%, comfortable in no apparent distress. HEAD: Normocephalic/atraumatic. EYES: Normal reaction of pupils, equal size. Conjunctiva pink, sclera white. NOSE: Clear with pink turbinates. THROAT: No erythema or exudates. NECK: No masses, no JVD, no thyroid enlargement, no adenopathy. CHEST: No chest wall deformity. Symmetrical expansion. LUNGS: Equal air entry with no crackles, wheeze, rhonchi or dullness. CVS: Regular rate and rhythm, normal S1 and S2, no gallops, no murmurs, no rubs ABDOMEN: Soft, nontender. No hepatosplenomegaly, normal bowel sounds, no guarding or rigidity. EXTREMITIES: No clubbing, no edema, no cyanosis, 2+ pulses and upper and lower extremities. MUSCULOSKELETAL: Muscle strength and tone normal. SPINE: No scoliosis or deformity SKIN: No rashes CENTRAL NERVOUS SYSTEM: Alert and oriented -3. No focal deficits, tone is normal in all 4 extremities. PSYCHIATRIC: Alert and oriented -3. Appropriate affect. Intact judgment and insight. - Labs CBC & Chem 7: 03/23/20 06:27 03/23/20 06:27 Labs: Abnormal Lab Results - Last 24 Hours (Table) 03/23/20 Range/Units 17:13 Urine Blood Small H (Negative) Urine RBC 12 H (0-5) /hpf Urine Mucus Rare H (None) /hpf Microbiology - Last 24 Hours (Table) 03/19/20 07:20 Blood Culture - Preliminary Blood No Growth after 120 hours 03/19/20 07:20 Blood Culture - Preliminary Blood No Growth after 120 hours 03/19/20 16:00 Urine Culture - Final Urine,Voided Escherichia coli Assessment and Plan Plan: Assessment: #1. Acute on chronic hypoxic and hypercapnic respiratory failure, likely related to component of mild fluid overload, acute urinary tract infection and acute exacerbation of COPD. Chest x-ray shows pulmonary central vascularity, prominent interstitium possibly small pleural effusions #2. Positive COVID 19 PCR, however patient was treated for COVID 19 infection back in December 2019, recently vaccinated 2 weeks ago. Patient's presentation is more consistent with UTI with sepsis, mild fluid overload and secondary altered mental status. Inflammatory markers are normal #3. Altered mental status related to acute urinary tract infection, possibility of mild fluid overload #4. History of obstructive sleep apnea on CPAP #5. Chronic COPD on home oxygen usually at 2 L/m #6. Hypothyroidism #7. Chronic A. fib on Eliquis #8. Hypertension #9. Hypercholesterolemia #10. 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 Chronic medical debility, gait dysfunction, uses a walker #13. Former smoker, stopped smoking in 1988 Plan: Patient has been stable overnight, no acute events, no worsening dyspnea, she is in antibiotics for ESBL urinary tract infection, a repeat urinalysis shows no evidence of infection. No fever or chills, altered mentation, she is breathing comfortably, she is being discharged back to the ECF today. Patient is stable for discharge back to the ECF today from pulmonary perspective I performed a history & physical examination of the patient and discussed their management with my nurse practitioner, Lin Martinez. I reviewed the nurse practitioner's note and agree with the documented findings and plan of care. Lung sounds are positive for diminished breath sounds. The findings and the impression was discussed with the patient. I attest to the documentation by the nurse practitioner. Time with Patient: Less than 30
--- NOTE | 2020-03-24 16:41 | PN ---
PROGRESS NOTE DATE OF SERVICE: 03/24/2020 REASON FOR FOLLOWUP: ESBL E coli urinary tract infection and pneumonia. INTERVAL HISTORY: The patient is seen on rounds this afternoon. The patient has been afebrile. She has been breathing comfortably on nasal cannula oxygen. Denies having any chest pain. Occasional cough. No abdominal pain. No diarrhea has been reported. PHYSICAL EXAMINATION: Blood pressure 127/65, pulse 65, temperature 97.5. She is 97% on 2 L nasal cannula. General description is an elderly female lying in bed in no distress. RESPIRATORY SYSTEM: Unlabored breathing, clear to auscultation anteriorly. HEART: S1, S2. Regular rate and rhythm. ABDOMEN: Soft, no tenderness. LABS: Hemoglobin is 10.8, white count 8.7, creatinine 0.4. DIAGNOSTIC IMPRESSION AND PLAN: Patient admitted to the hospital with fever, concerning for an ESBL Escherichia coli urinary tract infection plus minus for pneumonia, overall improvement. She will be Invanz 1 gram daily for about a week and close outpatient followup. MMODL / IJN: [id number] /
== END 2020-03-24 14:36 | DRG 871 ==
LOC: EC 05:31 → 4SSUR 06:27
PROVIDERS: ADMIT Hospitalist; ATTEND Hospitalist
PROC: 5A09457 Assistance with Respiratory Ventilation, 24-96 Consecutive Hours, Continuous Positive Airway Pressure (ICD-10-PCS; principal; 2020-03-20)
PROC: 05HF33Z Insertion of Infusion Device into Left Cephalic Vein, Percutaneous Approach (ICD-10-PCS; 2020-03-23 10:40)
DX: A41.51 Sepsis due to Escherichia coli [E. coli] (principal); J96.22 Acute and chronic respiratory failure with hypercapnia; J96.21 Acute and chronic respiratory failure with hypoxia; J69.0 Pneumonitis due to inhalation of food and vomit; G93.41 Metabolic encephalopathy; J44.1 Chronic obstructive pulmonary disease with (acute) exacerbation; I48.92 Unspecified atrial flutter; I48.20 Chronic atrial fibrillation, unspecified; I50.32 Chronic diastolic (congestive) heart failure; Z16.12 Extended spectrum beta lactamase (ESBL) resistance; I11.0 Hypertensive heart disease with heart failure; F03.90 Unspecified dementia, unspecified severity, without behavioral disturbance, psychotic disturbance, mood disturbance, and anxiety; Z99.81 Dependence on supplemental oxygen; G47.33 Obstructive sleep apnea (adult) (pediatric); E03.9 Hypothyroidism, unspecified; E86.0 Dehydration; E78.00 Pure hypercholesterolemia, unspecified; N30.90 Cystitis, unspecified without hematuria; E66.9 Obesity, unspecified; R26.9 Unspecified abnormalities of gait and mobility; R53.81 Other malaise; D53.9 Nutritional anemia, unspecified; Z86.19 Personal history of other infectious and parasitic diseases; Z68.35 Body mass index [BMI] 35.0-35.9, adult; E78.5 Hyperlipidemia, unspecified; Z79.890 Hormone replacement therapy; Z79.899 Other long term (current) drug therapy; Z79.82 Long term (current) use of aspirin; Z79.01 Long term (current) use of anticoagulants; Z79.51 Long term (current) use of inhaled steroids; Z86.73 Personal history of transient ischemic attack (TIA), and cerebral infarction without residual deficits; Z87.01 Personal history of pneumonia (recurrent); Z86.16 Personal history of COVID-19; Z86.14 Personal history of Methicillin resistant Staphylococcus aureus infection; Z96.653 Presence of artificial knee joint, bilateral; Z98.42 Cataract extraction status, left eye; Z98.41 Cataract extraction status, right eye; Z98.890 Other specified postprocedural states; Z87.891 Personal history of nicotine dependence; Z88.1 Allergy status to other antibiotic agents; Z88.7 Allergy status to serum and vaccine; Z88.8 Allergy status to other drugs, medicaments and biological substances
CPT/HCPCS: 36410; 36600; 70450; 71045; 76937; 80048; 80053; 81001; 82550; 82728; 82805; 83605; 83615; 83735; 83880; 84145; 84484; 85025; 85379; 85610; 85730; 86140; 87040; 87077; 87086; 87186; 87635; 93005; 94640; 94660; 94760; 96365; 96375; 99285

== ENCOUNTER 2020-04-02 14:27 | Inpatient (IN) | payer MEDICARE, OTHER ==
[2020-04-02 14:50] LABS: VBG PH 7.4 (7.31-7.41)
[2020-04-02 15:00] LABS: ALT 32 U/L (4-34); AST 29 U/L (14-36); African American GFR (CKD) >90 (>60 ml/min/1.73 sqM); Albumin 3.4 g/dL (3.5-5.0); Alkaline Phosphatase 45 U/L (38-126); Blood Urea Nitrogen 20 mg/dL (7-17); Calcium 8.9 mg/dL (8.4-10.2); Chloride 94 mmol/L (98-107); Glucose 127 mg/dL (74-99); Magnesium 1.9 mg/dL (1.6-2.3); Non-African American GFR(CKD) 85 (>60 ml/min/1.73 sqM); Potassium 4.3 mmol/L (3.5-5.1); Sodium 142 mmol/L (137-145); Total Bilirubin 1.3 mg/dL (0.2-1.3); Total Protein 6.1 g/dL (6.3-8.2)
[2020-04-02 15:04] LABS: Basophils # (A) 0.1 k/uL (0-0.2); Basophils % (A) 0 %; Eosinophils # (A) 0.6 k/uL (0-0.7); Eosinophils % (A) 5 %; HCT 38.6 % (34.0-46.0); HGB 11.6 gm/dL (11.4-16.0); Hypochromasia Marked; Lymphocytes # (A) 1.3 k/uL (1.0-4.8); Lymphocytes % (A) 10 %; MCH 29.7 pg (25.0-35.0); MCV 99.3 fL (80.0-100.0); Macrocytosis Slight; Mean Platelet Volume 11.5; Monocytes # (A) 0.5 k/uL (0-1.0); Monocytes % (A) 4 %; Neutrophils # (A) 10.8 k/uL (1.3-7.7); Neutrophils % (A) 81 %; Platelet Count 159 k/uL (150-450); RBC 3.89 m/uL (3.80-5.40); RDW 15.1 % (11.5-15.5); WBC 13.4 k/uL (3.8-10.6)
[2020-04-02 15:05] LABS: INR 1.1 (<1.2); Prothrombin Time 11.8 sec (9.0-12.0)
[2020-04-02 15:07] LABS: Anion Gap 4 mmol/L; Partial Thromboplastin Time 21.5 sec (22.0-30.0)
--- NOTE | 2020-04-02 15:14 | XR ---
EXAMINATION TYPE: XR chest 1V portable DATE OF EXAM: 04/02/2020 HISTORY: Shortness of breath. COMPARISON: March 23, 2020 TECHNIQUE: Single view of the chest is submitted. FINDINGS: Demonstrated are scattered senescent parenchymal change. There is improved pulmonary venous congestion. Patchy left lower lobe infiltrate persists. Suspect sm all effusions. Cardiomegaly again noted. Hilar and mediastinal structures are within normal limits. Degenerative changes are seen of the dorsal spine. IMPRESSION: 1. There is improved pulmonary venous congestion. Patchy left lower lobe infiltrate persists. Suspec t small effusions. Cardiomegaly again noted.
[2020-04-02 15:19] LABS: Carbon Dioxide 44 mmol/L (22-30)
[2020-04-02 15:25] LABS: Large Platelets Present
--- NOTE | 2020-04-02 15:25 | ED ---
General Adult HPI - General Chief complaint: Shortness of Breath Stated complaint: SOB Time Seen by Provider: 04/02/20 14:30 Source: patient, EMS, RN notes reviewed, old records reviewed Mode of arrival: EMS Limitations: no limitations - History of Present Illness Initial comments: 89-year-old female presenting for evaluation of dyspnea. Patient was tr ansported from the skilled nursing. She has history of COPD, and CHF. Patient uncertain exactly why she is here. She states she feels fine. She had coronavirus approximately 2 months ago. She is currently on nasal cannula and according to EMS was in moderate respiratory distress upon arrival. There is no reported fever. Mild cough. No vomiting. No central chest pain. - Related Data Home Medications Medication Instructions Recorded Confirmed Simvastatin [Zocor] 40 mg PO HS@209909/25/13 04/02/20 Montelukast [Singulair] 10 mg PO HS@209902/11/16 04/02/20 Multivitamins, Thera [Multivitamin 1 tab PO DAILY@0900 03/14/16 04/02/20 (formulary)] Levothyroxine Sodium [Synthroid] 75 mcg PO HS@209912/06/18 04/02/20 Potassium Chloride ER [K-Dur 10] 10 meq PO DAILY@0900 12/06/18 04/02/20 Fluticasone/Salmeterol [Advair 1 puff INHALATION RT-BID@0900,209907/02/19 04/02/20 250-50 Diskus] Metoprolol Tartrate [Lopressor] 12.5 mg PO BID@09,209907/02/19 04/02/20 Acetaminophen Tab [Tylenol] 650 mg PO Q6H PRN 03/19/20 04/02/20 Biotin 5 mg PO DAILY@0900 03/19/20 04/02/20 Melatonin 10 mg PO HS@209903/19/20 04/02/20 Mylanta 30 ml PO Q4H PRN 03/19/20 04/02/20 Apixaban [Eliquis] 2.5 mg PO BID@0900,209904/02/20 04/02/20 Clotrimazole/Betamethasone Dip 1 applic TOPICAL Q12H 04/02/20 04/02/20 [Lotrisone Cream] Cranberry 450mg 450 mg PO HS@209904/02/20 04/02/20 Dexamethasone 6 mg PO DAILY@89904/02/20 04/02/20 Ertapenem [INVanz] 1 gm IVPB HS@209904/02/20 04/02/20 Furosemide [Lasix] 40 mg PO DAILY@89904/02/20 04/02/20 Tiotropium 2.5 Mcg/Puff [Spiriva 1 puff INHALATION RT-DAILY@89904/02/20 04/02/20 Respimat 2.5 Mcg] predniSONE 2.5 mg PO DAILY@89904/02/20 04/02/20 Previous Rx's Medication Instructions Recorded Albuterol Inhaler [Ventolin Hfa 2 puff INHALATION RT-QID puff 03/24/20 Inhaler] Allergies Allergy/AdvReac Type Severity Reaction Status Date / Time bacitracin Allergy Rash/Hives Verified 04/02/20 14:46 bacitracin zinc Allergy Rash/Hives Verified 04/02/20 14:46 [From Neosporin ([id number])] dimethicone Allergy Rash/Hives Verified 04/02/20 14:46 [From A & D Emollient] glycerin Allergy Rash/Hives Verified 04/02/20 14:46 [From A & D Emollient] neomycin sulfate Allergy Rash/Hives Verified 04/02/20 14:46 [From Neosporin ([id number])] polymyxin B Allergy Rash/Hives Verified 04/02/20 14:46 [From Neosporin ([id number])] stearyl alcohol Allergy Rash/Hives Verified 04/02/20 14:46 [From A & D Emollient] Tetanus Vaccines and Toxoid Allergy swelling Verified 04/02/20 14:46 and severe redness and hardness at site Review of Systems ROS Statement: Those systems with pertinent positive or pertinent negative responses have been documented in the HPI. ROS Other: All systems not noted in ROS Statement are negative. Past Medical History Past Medical History: COPD, CVA/TIA, Eye Disorder, Pneumonia, Sleep Apnea/CPAP/BIPAP, Thyroid Disorder Additional Past Medical History / Comment(s): TEAR RT ROTATOR CUFFS, RT cataracts, O2 @ 2 liters 12/09 History of Any Multi-Drug Resistant Organisms: ESBL, MRSA Date of last positivie culture/infection: 02/12/20 ESBL-E.coli; 09/23/13 MRSA MDRO Source:: Urine-ESBL; MRSA-Right Leg Past Surgical History: Joint Replacement, Orthopedic Surgery Additional Past Surgical History / Comment(s): ATTEMPTED REPAIR OF RT ROTATOR CUFF. BILATERAL KNEE REPLACEMENTS, LEFT AND RIGHT CATARACT REMOVED Past Anesthesia/Blood Transfusion Reactions: No Reported Reaction Additional Past Anesthesia/Blood Transfusion Reaction / Comment(s): no hx blood transfusion Past Psychological History: No Psychological Hx Reported Smoking Status: Never smoker Past Alcohol Use History: Occasional Past Drug Use History: None Reported - Past Family History Mother Family Medical History: No Reported History Additional Family Medical History / Comment(s): mother at age 93 of "old age" Father Family Medical History: No Reported History Additional Family Medical History / Comment(s): states at age 89 with no known medical problems General Exam Limitations: no limitations General appearance: alert, in no apparent distress Head exam: Present: atraumatic, normocephalic Eye exam: Present: normal appearance, PERRL ENT exam: Present: normal exam Neck exam: Present: normal inspection. Absent: tenderness, meningismus Respiratory exam: Present: rales, decreased breath sounds. Absent: respiratory distress, wheezes Cardiovascular Exam: Present: regular rate, irregular rhythm GI/Abdominal exam: Present: soft. Absent: distended, guarding, rebound Extremities exam: Present: pedal edema Neurological exam: Present: alert, oriented X3, CN II-XII intact Psychiatric exam: Present: normal affect, normal mood Skin exam: Present: warm, dry, intact. Absent: cyanosis, diaphoretic Course Vital Signs 04/02/20 04/02/20 14:30 15:00 Temperature 98.6 F Pulse Rate 51 L 52 L Respiratory 18 20 Rate Blood Pressure 116/50 100/58 O2 Sat by Pulse 100 98 Oximetry EKG Findings - EKG Comments: EKG Findings:: EKG: Sinus rhythm versus atrial flutter with a rate of 56, right bundle branch block, no ST segment elevation, QRS duration 114, QTC 405 Medical Decision Making - Medical Decision Making 89-year-old female presenting with dyspnea, hypoxia, chronic oxygen dependent. Patient has both COPD and CHF. She does appear fluid overloaded, she has bilateral pitting edema. She has Rales on lung auscultation. Chest x-ray confirming both effusion and pulmonary congestion. She has a mild leukocytosis. Stable hemoglobin. She has CO2 on venous gas which is elevated as well as some elevated bicarb suggestive of chronic CO2 retention. She has an elevated BNP. She has been given a liter, Atrovent, steroids, and Lasix in the emergency department. She will be admitted for accommodation COPD and CHF. Case discussed with Dr. Barboza who will admit. - Lab Data Result diagrams: 04/02/20 14:41 04/02/20 14:41 Lab Results 04/02/20 04/02/20 04/02/20 Range/Units 14:41 14:41 14:41 WBC 13.4 H (3.8-10.6) k/uL RBC 3.89 (3.80-5.40) m/uL Hgb 11.6 (11.4-16.0) gm/dL Hct 38.6 (34.0-46.0) % MCV 99.3 (80.0-100.0) fL MCH 29.7 (25.0-35.0) pg MCHC 30.0 L (31.0-37.0) g/dL RDW 15.1 (11.5-15.5) % Plt Count 159 (150-450) k/uL MPV 11.5 Neutrophils % 81 % Lymphocytes % 10 % Monocytes % 4 % Eosinophils % 5 % Basophils % 0 % Neutrophils # 10.8 H (1.3-7.7) k/uL Lymphocytes # 1.3 (1.0-4.8) k/uL Monocytes # 0.5 (0-1.0) k/uL Eosinophils # 0.6 (0-0.7) k/uL Basophils # 0.1 (0-0.2) k/uL Manual Slide Review Performed Large Platelets Present Hypochromasia Marked Macrocytosis Slight PT 11.8 (9.0-12.0) sec INR 1.1 (<1.2) APTT 21.5 L (22.0-30.0) sec D-Dimer Cancelled VBG pH (7.31-7.41) VBG pCO2 (37-51) mmHg VBG HCO3 (24-28) mmol/L Sodium 142 (137-145) mmol/L Potassium 4.3 (3.5-5.1) mmol/L Chloride 94 L (98-107) mmol/L Carbon Dioxide 44 H* (22-30) mmol/L Anion Gap 4 mmol/L BUN 20 H (7-17) mg/dL Creatinine 0.53 (0.52-1.04) mg/dL Est GFR (CKD-EPI)AfAm >90 (>60 ml/min/1.73 sqM) Est GFR (CKD-EPI)NonAf 85 (>60 ml/min/1.73 sqM) Glucose 127 H (74-99) mg/dL Plasma Lactic Acid Antonio (0.7-2.0) mmol/L Calcium 8.9 (8.4-10.2) mg/dL Magnesium 1.9 (1.6-2.3) mg/dL Total Bilirubin 1.3 (0.2-1.3) mg/dL AST 29 (14-36) U/L ALT 32 (4-34) U/L Alkaline Phosphatase 45 (38-126) U/L Troponin I (0.000-0.034) ng/mL NT-Pro-B Natriuret Pep pg/mL Total Protein 6.1 L (6.3-8.2) g/dL Albumin 3.4 L (3.5-5.0) g/dL 04/02/20 04/02/20 04/02/20 Range/Units 14:41 14:41 14:41 WBC (3.8-10.6) k/uL RBC (3.80-5.40) m/uL Hgb (11.4-16.0) gm/dL Hct (34.0-46.0) % MCV (80.0-100.0) fL MCH (25.0-35.0) pg MCHC (31.0-37.0) g/dL RDW (11.5-15.5) % Plt Count (150-450) k/uL MPV Neutrophils % % Lymphocytes % % Monocytes % % Eosinophils % % Basophils % % Neutrophils # (1.3-7.7) k/uL Lymphocytes # (1.0-4.8) k/uL Monocytes # (0-1.0) k/uL Eosinophils # (0-0.7) k/uL Basophils # (0-0.2) k/uL Manual Slide Review Large Platelets Hypochromasia Macrocytosis PT (9.0-12.0) sec INR (<1.2) APTT (22.0-30.0) sec D-Dimer VBG pH (7.31-7.41) VBG pCO2 (37-51) mmHg VBG HCO3 (24-28) mmol/L Sodium (137-145) mmol/L Potassium (3.5-5.1) mmol/L Chloride (98-107) mmol/L Carbon Dioxide (22-30) mmol/L Anion Gap mmol/L BUN (7-17) mg/dL Creatinine (0.52-1.04) mg/dL Est GFR (CKD-EPI)AfAm (>60 ml/min/1.73 sqM) Est GFR (CKD-EPI)NonAf (>60 ml/min/1.73 sqM) Glucose (74-99) mg/dL Plasma Lactic Acid Antonio 1.3 (0.7-2.0) mmol/L Calcium (8.4-10.2) mg/dL Magnesium (1.6-2.3) mg/dL Total Bilirubin (0.2-1.3) mg/dL AST (14-36) U/L ALT (4-34) U/L Alkaline Phosphatase (38-126) U/L Troponin I 0.026 (0.000-0.034) ng/mL NT-Pro-B Natriuret Pep 2210 pg/mL Total Protein (6.3-8.2) g/dL Albumin (3.5-5.0) g/dL 04/02/20 Range/Units 14:41 WBC (3.8-10.6) k/uL RBC (3.80-5.40) m/uL Hgb (11.4-16.0) gm/dL Hct (34.0-46.0) % MCV (80.0-100.0) fL MCH (25.0-35.0) pg MCHC (31.0-37.0) g/dL RDW (11.5-15.5) % Plt Count (150-450) k/uL MPV Neutrophils % % Lymphocytes % % Monocytes % % Eosinophils % % Basophils % % Neutrophils # (1.3-7.7) k/uL Lymphocytes # (1.0-4.8) k/uL Monocytes # (0-1.0) k/uL Eosinophils # (0-0.7) k/uL Basophils # (0-0.2) k/uL Manual Slide Review Large Platelets Hypochromasia Macrocytosis PT (9.0-12.0) sec INR (<1.2) APTT (22.0-30.0) sec D-Dimer VBG pH 7.40 (7.31-7.41) VBG pCO2 69 H (37-51) mmHg VBG HCO3 41 H (24-28) mmol/L Sodium (137-145) mmol/L Potassium (3.5-5.1) mmol/L Chloride (98-107) mmol/L Carbon Dioxide (22-30) mmol/L Anion Gap mmol/L BUN (7-17) mg/dL Creatinine (0.52-1.04) mg/dL Est GFR (CKD-EPI)AfAm (>60 ml/min/1.73 sqM) Est GFR (CKD-EPI)NonAf (>60 ml/min/1.73 sqM) Glucose (74-99) mg/dL Plasma Lactic Acid Antonio (0.7-2.0) mmol/L Calcium (8.4-10.2) mg/dL Magnesium (1.6-2.3) mg/dL Total Bilirubin (0.2-1.3) mg/dL AST (14-36) U/L ALT (4-34) U/L Alkaline Phosphatase (38-126) U/L Troponin I (0.000-0.034) ng/mL NT-Pro-B Natriuret Pep pg/mL Total Protein (6.3-8.2) g/dL Albumin (3.5-5.0) g/dL Disposition Clinical Impression: Acute exacerbation of chronic obstructive pulmonary disease, Congestive heart failure Disposition: ADMITTED IP TO THIS HOSP Condition: Stable Is patient prescribed a controlled substance at d/c from ED?: No Referrals: Rubio Mace MD [Primary Care Provider] - 1-2 days Decision to Admit Reason: Admit from EC Decision Date: 04/02/20 Decision Time: 16:12
[2020-04-02] MEDS ORDERED: FUROSEMIDE 10 MG/ML 4 ML VIAL IV STA (15:43)
[2020-04-02] MEDS ORDERED: methylPREDNISolone SOD SUCCI 125 MG/2 ML VIAL IV STA (15:44)
[2020-04-02] MEDS ORDERED: ALBUTEROL NEBULIZED 2.5 MG/3 ML INHALATION STA (15:44)
[2020-04-02] MEDS ORDERED: IPRATROPIUM-ALBUTEROL 3 ML NEB INHALATION STA (15:44)
[2020-04-02] MEDS ORDERED: IPRATROPIUM-ALBUTEROL 3 ML NEB INHALATION PRN (16:09)
[2020-04-02] MEDS: methylPREDNISolone SOD SUCCI 125 MG/2 ML VIAL IV SCH (18:38)
[2020-04-02] MEDS: IPRATROPIUM-ALBUTEROL 3 ML NEB INHALATION SCH (20:20)
[2020-04-02] MEDS: FUROSEMIDE 10 MG/ML 4 ML VIAL IV SCH (22:40)
[2020-04-03] MEDS: methylPREDNISolone SOD SUCCI 125 MG/2 ML VIAL IV SCH ×2 (00:39→05:26)
[2020-04-03] MEDS: FUROSEMIDE 10 MG/ML 4 ML VIAL IV SCH ×3 (08:38→23:51)
[2020-04-03] MEDS: IPRATROPIUM-ALBUTEROL 3 ML NEB INHALATION SCH ×4 (08:53→19:06)
[2020-04-03] MEDS ORDERED: predniSONE 2.5 MG TAB PO SCH (09:00)
[2020-04-03] MEDS ORDERED: FLUTICASONE INHALATION SCH (11:23)
[2020-04-03] MEDS ORDERED: ACETAMINOPHEN TAB 325 MG TAB PO PRN (11:23)
[2020-04-03] MEDS ORDERED: SALMETEROL INHALATION SCH (11:23)
[2020-04-03 11:40] LABS: Glucose,Whole Blood 275 mg/dL (75-99)
[2020-04-03] MEDS ORDERED: ALBUTEROL HFA INHALER INHALATION SCH (12:00)
[2020-04-03] MEDS: APIXABAN 2.5 MG TABLET PO SCH ×2 (12:19→21:24)
[2020-04-03] MEDS: CLOTRIMAZOLE/BETAMETH 1-0.05% CREAM 45 GM TUBE TOPICAL SCH ×2 (12:19→21:36)
[2020-04-03] MEDS: INSULIN ASPART (NovoLOG) 100 UNIT/ML VIAL SQ SCH ×3 (12:19→21:25)
[2020-04-03] MEDS: METOPROLOL TARTRATE 12.5 MG TAB PO SCH ×2 (12:19→21:24)
[2020-04-03] MEDS: MULTIVITAMINS, THERA 1 EACH TAB PO SCH (12:19)
[2020-04-03] MEDS: POTASSIUM CHLORIDE ER 10 MEQ TAB.ER.PRT PO SCH (12:19)
[2020-04-03] MEDS: BUDESONIDE 1 MG/2 ML NEBU INHALATION SCH ×2 (12:44→19:06)
[2020-04-03] MEDS: FORMOTEROL FUMARATE 20 MCG/2 ML NEBU INHALATION SCH ×2 (12:44→19:06)
--- NOTE | 2020-04-03 15:30 | P.CNPUL ---
History of Present Illness Consult date: 04/03/20 Reason for consult: dyspnea History of present illness: 89-year-old female patient known to us from previous hospitalizations. The patient is coming in for another admission because of worsening shortness of breath and she was admitted under the diagnosis of COPD and CHF exacerbation. She is currently on IV Lasix. I noted the chest x-ray showing some worsening of the left-sided pleural effusion and there is also cardiomegaly with pulmonary vessel congestion. She is currently doing well. She is a poor historian in general. She denies having any chest pain. She does have chronic lower extremity edema. She is known to us from previous hospitalizations. Her echocardiogram at shown ejection fraction of 55-60% along with grade 2 diastolic heart failure and RV was mildly enlarged and there was evidence of [id number] pulmonary hypertension with a PA pressure 44.. Recurrent proBNP level is elevated at 2210. Covid 19 testing came back negative. Serum bicarb is at 44. Renal function stable with a creatinine of 0.5. The patient has a baseline FEV1 of 0.77 L which is only 40% of predicted. She has chronic hypoxic respiratory failure maintained on home O2. She has also hypothyroidism and she was quite debilitated because of osteoarthritis and previous knee replacement surgeries. She is chronically short of breath and oxygen dependent. No angina. No altered mentation Review of Systems Constitutional: Reports weakness, Denies chills, Denies fever Eyes: denies blurred vision, denies pain Ears, nose, mouth and throat: Denies headache, Denies sore throat Cardiovascular: Denies shortness of breath Respiratory: Reports cough, Reports dyspnea, Reports home oxygen, Reports wheezing Gastrointestinal: Reports nausea, Reports vomiting, Denies abdominal pain, Denies diarrhea Genitourinary: Denies dysuria, Denies hematuria Musculoskeletal: Denies myalgias Integumentary: Denies pruritus, Denies rash Neurological: Denies numbness, Denies weakness Psychiatric: Denies anxiety, Denies depression Endocrine: Denies fatigue, Denies weight change Past Medical History Past Medical History: Heart Failure, COPD, CVA/TIA, Eye Disorder, Sleep Apnea/CPAP/BIPAP, Thyroid Disorder Additional Past Medical History / Comment(s): Severe COPD with FEV1 of 40%, chronic hypoxic respiratory failure, hypothyroidism, hyperlipidemia, oste oarthritis, cataracts, history of atrial flutter/fibrillation, diastolic heart failure with secondary pulmonary hypertension, history of rotator cuff tear, COVID 19 in dec 2019 History of Any Multi-Drug Resistant Organisms: ESBL, MRSA Date of last positivie culture/infection: 02/12/20 ESBL-E.coli; 09/23/13 MRSA MDRO Source:: Urine-ESBL; MRSA-Right Leg Past Surgical History: Joint Replacement, Orthopedic Surgery Additional Past Surgical History / Comment(s): ATTEMPTED REPAIR OF RT ROTATOR CUFF. BILATERAL KNEE REPLACEMENTS, LEFT AND RIGHT CATARACT REMOVED Past Anesthesia/Blood Transfusion Reactions: No Reported Reaction Additional Past Anesthesia/Blood Transfusion Reaction / Comment(s): no hx blood transfusion Past Psychological History: No Psychological Hx Reported Additional Psychological History / Comment(s): Pt resides at [facility]. She ambulates with a rollator walker. She wears oxygen at 2L/NC PRN. Smoking Status: Former smoker Past Alcohol Use History: Occasional Additional Past Alcohol Use History / Comment(s): quit smoking 1988, 1ppd Past Drug Use History: None Reported - Past Family History Mother Family Medical History: No Reported History Additional Family Medical History / Comment(s): mother at age 93 of "old age" Father Family Medical History: No Reported History Additional Family Medical History / Comment(s): states at age 89 with no known medical problems Medications and Allergies Home Medications Medication Instructions Recorded Confirmed Type Simvastatin [Zocor] 40 mg PO HS@209909/25/13 04/02/20 History Montelukast [Singulair] 10 mg PO HS@209902/11/16 04/02/20 History Multivitamins, Thera [Multivitamin 1 tab PO DAILY@0900 03/14/16 04/02/20 History (formulary)] Levothyroxine Sodium [Synthroid] 75 mcg PO HS@209912/06/18 04/02/20 History Potassium Chloride ER [K-Dur 10] 10 meq PO DAILY@0900 12/06/18 04/02/20 History Fluticasone/Salmeterol [Advair 1 puff INHALATION RT-BID@0900,209907/02/19 04/02/20 History 250-50 Diskus] Metoprolol Tartrate [Lopressor] 12.5 mg PO BID@0900,209907/02/19 04/02/20 History Acetaminophen Tab [Tylenol] 650 mg PO Q6H PRN 03/19/20 04/02/20 History Biotin 5 mg PO DAILY@0903/19/20 04/02/20 History Melatonin 10 mg PO HS@209903/19/20 04/02/20 History Mylanta 30 ml PO Q4H PRN 03/19/20 04/02/20 History Albuterol Inhaler [Ventolin Hfa 2 puff INHALATION RT-QID puff 03/24/20 04/02/20 Rx Inhaler] Apixaban [Eliquis] 2.5 mg PO BID@0900,209904/02/20 04/02/20 History Clotrimazole/Betamethasone Dip 1 applic TOPICAL Q12H 04/02/20 04/02/20 History [Lotrisone Cream] Cranberry 450mg 450 mg PO HS@209904/02/20 04/02/20 History Dexamethasone 6 mg PO DAILY@89904/02/20 04/02/20 History Ertapenem [INVanz] 1 gm IVPB HS@209904/02/20 04/02/20 History Furosemide [Lasix] 40 mg PO DAILY@89904/02/20 04/02/20 History Tiotropium 2.5 Mcg/Puff [Spiriva 1 puff INHALATION RT-DAILY@89904/02/20 04/02/20 History Respimat 2.5 Mcg] predniSONE 2.5 mg PO DAILY@00 04/02/20 04/02/20 History Allergies Allergy/AdvReac Type Severity Reaction Status Date / Time bacitracin Allergy Rash/Hives Verified 04/02/20 14:46 bacitracin zinc Allergy Rash/Hives Verified 04/02/20 14:46 [From Neosporin ([id number])] dimethicone Allergy Rash/Hives Verified 04/02/20 14:46 [From A & D Emollient] glycerin Allergy Rash/Hives Verified 04/02/20 14:46 [From A & D Emollient] neomycin sulfate Allergy Rash/Hives Verified 04/02/20 14:46 [From Neosporin ([id number])] polymyxin B Allergy Rash/Hives Verified 04/02/20 14:46 [From Neosporin ([id number])] stearyl alcohol Allergy Rash/Hives Verified 04/02/20 14:46 [facility] Tetanus Vaccines and Toxoid Allergy swelling Verified 04/02/20 14:46 and severe redness and hardness at site Physical Exam Vitals: Vital Signs Temp Pulse Pulse Resp BP BP Pulse Ox 04/03/20 14:00 98.0 F 57 L 17 133/78 98 04/03/20 07:20 98.4 F 65 18 138/69 98 04/03/20 02:29 96.6 F L 59 L 18 143/71 99 04/02/20 22:54 97.9 F 88 20 154/71 98 04/02/20 22:21 64 20 113/64 98 04/02/20 20:46 65 20 104/65 97 04/02/20 20:31 56 L 04/02/20 20:21 56 L 04/02/20 19:45 64 18 123/48 97 04/02/20 16:41 52 L 04/02/20 16:24 52 L Intake and Output 04/03/20 04/03/20 04/03/20 06:59 14:59 22:59 Output Total 900 1100 Balance -900 -1100 Output: Urine 900 1100 Other: Voiding Method Incontinent External Catheter # Voids 1 Weight 99.8 kg GENERAL EXAM: Awake, alert 89-year-old female patient, morbidly obese, currently on 3 L of oxygen comfortable in no apparent distress. HEAD: Normocephalic/atraumatic. EYES: Normal reaction of pupils, equal size. Conjunctiva pink, sclera white. NOSE: Clear with pink turbinates. THROAT: No erythema or exudates. NECK: No masses, no JVD, no thyroid enlargement, no adenopathy. CHEST: No chest wall deformity. Symmetrical expansion. LUNGS: Equal air entry with few scattered rhonchi, crackles in the posterior bases CVS: Regular rate and rhythm, normal S1 and S2, no gallops, no murmurs, no rubs ABDOMEN: Soft, nontender. No hepatosplenomegaly, normal bowel sounds, no guarding or rigidity. EXTREMITIES: No clubbing, bilateral edema, no cyanosis, 2+ pulses and upper and lower extremities. MUSCULOSKELETAL: Muscle strength and tone normal. SPINE: No scoliosis or deformity SKIN: No rashes CENTRAL NERVOUS SYSTEM: Drowsy. No focal deficits, tone is normal in all 4 extremities. Results - Laboratory Findings CBC and BMP: 04/02/20 14:41 04/02/20 14:41 PT/INR, D-dimer PT 11.8 sec (9.0-12.0) 04/02/20 14:41 INR 1.1 (<1.2) 04/02/20 14:41 D-Dimer Cancelled 04/02/20 14:41 Abnormal lab findings: Abnormal Labs 04/02/20 04/02/20 04/02/20 14:41 14:41 14:41 WBC 13.4 H MCHC 30.0 L Neutrophils # 10.8 H APTT 21.5 L VBG pCO2 VBG HCO3 Chloride 94 L Carbon Dioxide 44 H* BUN 20 H Glucose 127 H POC Glucose (mg/dL) Total Protein 6.1 L Albumin 3.4 L 04/02/20 04/03/20 14:41 11:39 WBC MCHC Neutrophils # APTT VBG pCO2 69 H VBG HCO3 41 H Chloride Carbon Dioxide BUN Glucose POC Glucose (mg/dL) 275 H Total Protein Albumin - Diagnostic Findings Chest x-ray: image reviewed Assessment and Plan Plan: 1 Acute on chronic hypoxic and hypercapnic respiratory failure, in addition to shortness of breath most likely secondary to combination of COPD/CHF exacerbation. Chest x-ray showing some worsening in the left-sided pleural effusion. Also there is no vessel congestion and the proBNP level is quite elevated. 2 Positive COVID 19 PCR, however patient was treated for COVID 19 infection back in December 2019, with subsequent vaccination 3 previous admissions for E. coli urinary tract infection, recovered 4 History of obstructive sleep apnea on CPAP 5 Chronic COPD on home oxygen usually at 2 L/m 6 Hypothyroidism 7 Chronic A. 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 We'll continue to follow
[2020-04-03 16:26] LABS: Glucose,Whole Blood 118 mg/dL (75-99)
[2020-04-03] MEDS: methylPREDNISolone SOD SUCCI 40 MG/ML 1 ML VIAL IV SCH ×2 (17:15→23:52)
[2020-04-03 18:20] LABS: Appearance,Urine Clear (Clear); Bilirubin,Urine Negative (Negative); Blood,Urine Negative (Negative); Color,Urine Light Yellow; Glucose,Urine (UA) Negative (Negative); Ketones,Urine Negative (Negative); Leukocyte Esterase,Urine Negative (Negative); Nitrite,Urine Negative (Negative); PH, Urine 5.5 (5.0-8.0); Protein,Urine Negative (Negative); Specific Gravity,Urine 1.013 (1.001-1.035); Urobilinogen,Urine <2.0 mg/dL (<2.0)
[2020-04-03 21:13] LABS: Glucose,Whole Blood 240 mg/dL (75-99)
[2020-04-03] MEDS: MELATONIN 5 MG TABLET PO SCH (21:23)
--- NOTE | 2020-04-03 21:23 | P.HPIM ---
History of Present Illness H&P Date: 04/03/20 Chief Complaint: Short of breath History of presenting complaint: This is a 89-year-old patient of Dr. brown. resident of [facility] on the [place]. Chronic stable medical conditions include COPD, obstructive sleep apnea, home oxygen 2 L, hypothyroid,. At her baseline uses a walker. Patient was recently discharged from the hospital on March 24. Was treated with IV Invanz for UTI with E. coli/ESBL. Patient had tested positive for COVID 19 on March 19. Patient took another 5 days of dexamethasone. IV Invanz for 7 days. This admission-Admitted from the ER. As per the EMS: Patient had increased respiration, pursed lip breathing, 2 L nasal cannula. Patient alert but tired. Difficulty breathing. No chest pain. Oxygen increased to 6 L. Patient was preferred to sitting up. Patient is afebrile. Patient this morning feeling better. States not sure why she's been brought here. Review of systems: GEN.: Tired EYES: None HEENT: None NECK: None RESPIRATORY: Some shortness of breath CARDIOVASCULAR: None GASTROINTESTINAL: None GENITOURINARY: None MUSCULOSKELETAL: Joint pains LYMPHATICS: None HEMATOLOGICAL: None PSYCHIATRY: None NEUROLOGICAL: None Past medical history to include: COPD, TIA, obstructive sleep apnea, hypothyroid, right rotator cuff injury, oxygen 2 L, essential hypertension, hypercholesterolemia, hypothyroid, congestive heart failure from diastolic tics dysfunction, home oxygen 2 L, atrial flutter fibrillation. COVID 19 diagnosed on 03/19/2020 Social history: resident of [facility] in the [place], uses a walker. oxygen 2 L nasal cannula. Patient stopped smoking in 1988. Smoked a pack a day for many years. Physical examination: VITAL SIGNS: 98.6, 51, 18, 116/50, 100% on 4 L-up on presentation GENERAL: BMI 35.5, laying in bed, declining, tired EYES: Pupils equal. Conjunctiva normal. HEENT: External appearance of nose and ears normal, oral cavity normal NECK: JVD unable to assess; masses not palpable. HEART: First and second heart sounds are normal; no edema. LUNGS: Respiratory rate increased, decreased breath sounds , prolonged expiration. ABDOMEN: Soft, nontender, liver spleen not palpable, no masses palpable. PSYCH: Answering questions NEUROLOGICAL: Cranial nerves grossly intact; no facial asymmetry, power and sensation grossly intact. MUSCULAR skeletal: Evidence of OA LYMPHATICS: No lymph nodes palpable in the axilla and neck INVESTIGATIONS, reviewed in the clinical context: White count 13.4 hemoglobin 11.6 platelets 159 potassium 4.3 creatinine 0.53 blood glucose 127 Troponin I 0.026, proBNP 2210. UA-negative Coronavirus [PCR]-not detected EKG tracing personally reviewed by me-questionable second-degree block. As I can see P waves in lead V2 and V3, with variable conduction/do not appear to be flutter waves. Chest x-ray film personally reviewed by me-patchy left lower lobe infiltrate-, venous prominence Previous testing: Coronavirus [PCR]-detected on 03/19/2020 Assessment: -Acute COPD exacerbation in a ex-smoker. Started on DuoNeb, IV Solu-Medrol -Acute on Chronic congestive heart failure from diastolic dysfunction EF 55-60%. IV Lasix -Negative COVID 19 PCR on this admission. [Patient was positive on 03/19/2020- was treated for the same computed course] -Essential hypertension-continue with Lopressor -Hypercholesterolemia -Hypothyroid -Acute on Chronic hypoxic respiratory failure with 2 L oxygen at home. Patient required 6 L initially by the EMS. -Paroxysmal atrial flutter fibrillation chronically on eliquis -Questionable second-degree block on the admitting EKG, with variable conductions. Consult cardiology for their opinion -Obstructive sleep apnea Past Medical History Past Medical History: COPD, CVA/TIA, Eye Disorder, Pneumonia, Sleep Apnea/CPAP/BIPAP, Thyroid Disorder Additional Past Medical History / Comment(s): TEAR RT ROTATOR CUFFS, RT cataracts, O2 @ 2 liters 12/09 History of Any Multi-Drug Resistant Organisms: ESBL, MRSA Date of last positivie culture/infection: 02/12/20 ESBL-E.coli; 09/23/13 MRSA MDRO Source:: Urine-ESBL; MRSA-Right Leg Past Surgical History: Joint Replacement, Orthopedic Surgery Additional Past Surgical History / Comment(s): ATTEMPTED REPAIR OF RT ROTATOR CUFF. BILATERAL KNEE REPLACEMENTS, LEFT AND RIGHT CATARACT REMOVED Past Anesthesia/Blood Transfusion Reactions: No Reported Reaction Additional Past Anesthesia/Blood Transfusion Reaction / Comment(s): no hx blood transfusion Past Psychological History: No Psychological Hx Reported Additional Psychological History / Comment(s): Pt resides at [facility]. She ambulates with a rollator walker. She wears oxygen at 2L/NC PRN. Smoking Status: Former smoker Past Alcohol Use History: Occasional Additional Past Alcohol Use History / Comment(s): quit smoking 1988, 1ppd Past Drug Use History: None Reported - Past Family History Mother Family Medical History: No Reported History Additional Family Medical History / Comment(s): mother at age 93 of "old age" Father Family Medical History: No Reported History Additional Family Medical History / Comment(s): states at age 89 with no known medical problems Medications and Allergies Home Medications Medication Instructions Recorded Confirmed Type Simvastatin [Zocor] 40 mg PO HS@09/25/04/02/20 History Montelukast [Singulair] 10 mg PO HS@209902/11/16 04/02/20 History Multivitamins, Thera [Multivitamin 1 tab PO DAILY@0900 03/14/16 04/02/20 History (formulary)] Levothyroxine Sodium [Synthroid] 75 mcg PO HS@209912/06/18 04/02/20 History Potassium Chloride ER [K-Dur 10] 10 meq PO DAILY@0900 12/06/18 04/02/20 History Fluticasone/Salmeterol [Advair 1 puff INHALATION RT-BID@0900,209907/02/19 04/02/20 History 250-50 Diskus] Metoprolol Tartrate [Lopressor] 12.5 mg PO BID@0900,209907/02/19 04/02/20 History Acetaminophen Tab [Tylenol] 650 mg PO Q6H PRN 03/19/20 04/02/20 History Biotin 5 mg PO DAILY@0900 03/19/20 04/02/20 History Melatonin 10 mg PO HS@209903/19/20 04/02/20 History Mylanta 30 ml PO Q4H PRN 03/19/20 04/02/20 History Albuterol Inhaler [Ventolin Hfa 2 puff INHALATION RT-QID puff 03/24/20 04/02/20 Rx Inhaler] Apixaban [Eliquis] 2.5 mg PO BID@0900,209904/02/20 04/02/20 History Clotrimazole/Betamethasone Dip 1 applic TOPICAL Q12H 04/02/20 04/02/20 History [Lotrisone Cream] Cranberry 450mg 450 mg PO HS@209904/02/20 04/02/20 History Dexamethasone 6 mg PO DAILY@89904/02/20 04/02/20 History Ertapenem [INVanz] 1 gm IVPB HS@209904/02/20 04/02/20 History Furosemide [Lasix] 40 mg PO DAILY@89904/02/20 04/02/20 History Tiotropium 2.5 Mcg/Puff [Spiriva 1 puff INHALATION RT-DAILY@89904/02/20 04/02/20 History Respimat 2.5 Mcg] predniSONE 2.5 mg PO DAILY@89904/02/20 04/02/20 History Allergies Allergy/AdvReac Type Severity Reaction Status Date / Time bacitracin Allergy Rash/Hives Verified 04/02/20 14:46 bacitracin zinc Allergy Rash/Hives Verified 04/02/20 14:46 [From Neosporin ([id number])] dimethicone Allergy Rash/Hives Verified 04/02/20 14:46 [From A & D Emollient] glycerin Allergy Rash/Hives Verified 04/02/20 14:46 [From A & D Emollient] neomycin sulfate Allergy Rash/Hives Verified 04/02/20 14:46 [From Neosporin ([id number])] polymyxin B Allergy Rash/Hives Verified 04/02/20 14:46 [From Neosporin ([id number])] stearyl alcohol Allergy Rash/Hives Verified 04/02/20 14:46 [From A & D Emollient] Tetanus Vaccines and Toxoid Allergy swelling Verified 04/02/20 14:46 and severe redness and hardness at site Physical Exam Vitals: Vital Signs Temp Pulse Pulse Resp BP BP Pulse Ox 04/03/20 07:20 98.4 F 65 18 138/69 98 04/03/20 02:29 96.6 F L 59 L 18 143/71 99 04/02/20 22:54 97.9 F 88 20 154/71 98 04/02/20 22:21 64 20 113/64 98 04/02/20 20:46 65 20 104/65 97 04/02/20 20:31 56 L 04/02/20 20:21 56 L 04/02/20 19:45 64 18 123/48 97 04/02/20 16:41 52 L 04/02/20 16:24 52 L 04/02/20 15:00 52 L 20 100/58 98 04/02/20 14:30 98.6 F 51 L 18 116/50 100 Intake and Output 04/02/20 04/03/20 04/03/20 22:59 06:59 14:59 Output Total 900 Balance -900 Output: Urine 900 Other: Voiding Method External Catheter Incontinent External Catheter # Voids 1 Weight 99.3 kg 99.8 kg Results CBC & Chem 7: 04/02/20 14:41 04/02/20 14:41 Labs: Abnormal Lab Results - Last 24 Hours (Table) 04/02/20 04/02/20 04/02/20 Range/Units 14:41 14:41 14:41 WBC 13.4 H (3.8-10.6) k/uL MCHC 30.0 L (31.0-37.0) g/dL Neutrophils # 10.8 H (1.3-7.7) k/uL APTT 21.5 L (22.0-30.0) sec VBG pCO2 (37-51) mmHg VBG HCO3 (24-28) mmol/L Chloride 94 L (98-107) mmol/L Carbon Dioxide 44 H* (22-30) mmol/L BUN 20 H (7-17) mg/dL Glucose 127 H (74-99) mg/dL Total Protein 6.1 L (6.3-8.2) g/dL Albumin 3.4 L (3.5-5.0) g/dL 04/02/20 Range/Units 14:41 WBC (3.8-10.6) k/uL MCHC (31.0-37.0) g/dL Neutrophils # (1.3-7.7) k/uL APTT (22.0-30.0) sec VBG pCO2 69 H (37-51) mmHg VBG HCO3 41 H (24-28) mmol/L Chloride (98-107) mmol/L Carbon Dioxide (22-30) mmol/L BUN (7-17) mg/dL Glucose (74-99) mg/dL Total Protein (6.3-8.2) g/dL Albumin (3.5-5.0) g/dL Thrombosis Risk Factor Assmnt - Choose All That Apply Any of the Below Risk Factors Present?: Yes Each Factor Represents 1 point: Abnormal pulmonary function (COPD), Obesity (BMI >25), Serious lung disease incl. pneumonia (< 1month), Swollen legs (current) Other Risk Factors: No Other congenital or acquired thrombophilia - If yes, enter type in comment: No Thrombosis Risk Factor Assessment Total Risk Factor Score: 4 Thrombosis Risk Factor Assessment Level: Moderate Risk
[2020-04-03] MEDS: MONTELUKAST 10 MG TAB PO SCH (21:24)
[2020-04-03] MEDS: LEVOTHYROXINE 75 MCG TAB PO SCH (21:24)
[2020-04-03] MEDS: ATORVASTATIN 20 MG TAB PO SCH (21:24)
[2020-04-04 06:29] LABS: African American GFR (CKD) >90 (>60 ml/min/1.73 sqM); Blood Urea Nitrogen 34 mg/dL (7-17); Calcium 8.6 mg/dL (8.4-10.2); Chloride 88 mmol/L (98-107); Glucose 163 mg/dL (74-99); Non-African American GFR(CKD) 83 (>60 ml/min/1.73 sqM); Potassium 4.5 mmol/L (3.5-5.1); Sodium 139 mmol/L (137-145)
[2020-04-04 06:35] LABS: Anion Gap 3 mmol/L
[2020-04-04 06:49] LABS: Carbon Dioxide 48 mmol/L (22-30)
[2020-04-04 07:18] LABS: Glucose,Whole Blood 150 mg/dL (75-99)
[2020-04-04] MEDS: FORMOTEROL FUMARATE 20 MCG/2 ML NEBU INHALATION SCH ×2 (07:29→19:39)
[2020-04-04] MEDS: BUDESONIDE 1 MG/2 ML NEBU INHALATION SCH ×2 (07:29→19:39)
[2020-04-04] MEDS: IPRATROPIUM-ALBUTEROL 3 ML NEB INHALATION SCH ×4 (07:32→19:39)
[2020-04-04] MEDS: MULTIVITAMINS, THERA 1 EACH TAB PO SCH (08:16)
[2020-04-04] MEDS: APIXABAN 2.5 MG TABLET PO SCH ×2 (08:16→20:51)
[2020-04-04] MEDS: METOPROLOL TARTRATE 12.5 MG TAB PO SCH ×2 (08:17→20:52)
[2020-04-04] MEDS: POTASSIUM CHLORIDE ER 10 MEQ TAB.ER.PRT PO SCH (08:17)
[2020-04-04] MEDS: INSULIN ASPART (NovoLOG) 100 UNIT/ML VIAL SQ SCH ×4 (08:17→20:51)
[2020-04-04] MEDS: FUROSEMIDE 10 MG/ML 4 ML VIAL IV SCH ×2 (08:17→20:51)
[2020-04-04] MEDS: methylPREDNISolone SOD SUCCI 40 MG/ML 1 ML VIAL IV SCH ×2 (08:18→20:52)
[2020-04-04] MEDS: NON FORMULARY DRUG (Biotin [Biotin] 5 MG Capsule) PO SCH (08:19)
[2020-04-04 12:13] LABS: Glucose,Whole Blood 246 mg/dL (75-99)
--- NOTE | 2020-04-04 12:24 | P.CRDCN ---
History of Present Illness Consult date: 04/04/20 Reason for Consult (text): Questional second-degree heart block History of present illness: History of present illness: This is an 89-year-old female with past medical history of hyperlipidemia, chronic diastolic heart failure, persistent atrial fibrillation, COPD, chronic hypoxic respiratory failure, COVID19 infection. Patient presented [facility] due to increasing shortness of breath and diagnosed with COPD exacerbation and CHF exacerbation. WBC 13.4, hemoglobin 11.6. CO2 44, creatinine 0.53. Troponin 0.026. ProBNP 2210. Coronavirus PCR not detected. Chest x-ray shows pulmonary venous congestion. Patchy left lower lobe infiltrate persists. Suspect small effusions. Cardiomegaly. EKG atrial fibrillation. home health attendant has been atrial fibrillation. Patient was started on IV Lasix 40 mg every 8 hours. Weight is down 1.5 kg. Echocardiogram from April 2019 reveals EF of 55-60%, trace mitral regurgitation, mild tricuspid regurgitation, mild to moderate pulmonary hypertension. Review Of Systems: Constitutional: No fever, no chills. Reports weakness, reports fatigue or lethargy. EENT: No headache. No dizziness. Lungs: Reports shortness of breath. Reports shortness of breath with exertion. Cardiovascular: No chest pain, reports lower extremity edema. No palpitations. No syncopal episodes. Abdominal: No abdominal pain. No nausea, vomiting. No diarrhea. Musculoskeletal: Reports muscle weakness. Integumentary: No rash or pruritus. Neurologic: No aphasia. No facial droop. No change in mentation. Physical examination: Gen: This is an 89-year-old female. VS: Afebrile, heart rate in the 50s and 60s, blood pressure 112/63, pulse ox 98% on 3 L nasal cannula. HEENT: Head is atraumatic, normocephalic. Pupils equal, round. Sclerae is anicteric. NECK: Supple. No JVD. No lymphadenopathy. No thyromegaly. LUNGS: Scattered rhonchi and diminished in the bases. No intercostal retractions. HEART: Regular rate and rhythm. No murmur. ABDOMEN: Soft. Bowel sounds are present. No masses. No tenderness. EXTREMITIES: Bilateral 3+ pedal edema. No calf tenderness. NEUROLOGICAL: Patient is awake, alert and oriented x3. Cranial nerves 2 through 12 are grossly intact. Assessment: Acute on chronic diastolic heart failure Persistent atrial fibrillation on eliquis COPD exacerbation Recent Covid 19 infection Plan: Continue Lasix 40 mg IV every 8 hours Monitor I&O and daily weights Monitor renal function and electrolytes Continue eliquis 2.5 mg twice daily, Lopressor 12.5 mg twice daily. Hold Lopressor if heart rate less than 70. Obtain 2-D echocardiogram and Doppler study to assess cardiac structure and function Further recommendations to follow based upon clinical course Thank you kindly for this consultation. Nurse practitioner note has been reviewed, I agree with documented findings and plan of care. Patient was seen and examined. Past Medical History Past Medical History: COPD, CVA/TIA, Eye Disorder, Pneumonia, Sleep Apnea/CPAP/BIPAP, Thyroid Disorder Additional Past Medical History / Comment(s): TEAR RT ROTATOR CUFFS, RT cataracts, O2 @ 2 liters 12/09 History of Any Multi-Drug Resistant Organisms: ESBL, MRSA Date of last positivie culture/infection: 02/12/20 ESBL-E.coli; 09/23/13 MRSA MDRO Source:: Urine-ESBL; MRSA-Right Leg Past Surgical History: Joint Replacement, Orthopedic Surgery Additional Past Surgical History / Comment(s): ATTEMPTED REPAIR OF RT ROTATOR CUFF. BILATERAL KNEE REPLACEMENTS, LEFT AND RIGHT CATARACT REMOVED Past Anesthesia/Blood Transfusion Reactions: No Reported Reaction Additional Past Anesthesia/Blood Transfusion Reaction / Comment(s): no hx blood transfusion Past Psychological History: No Psychological Hx Reported Additional Psychological History / Comment(s): Pt resides at [facility]. She ambulates with a rollator walker. She wears oxygen at 2L/NC PRN. Smoking Status: Former smoker Past Alcohol Use History: Occasional Additional Past Alcohol Use History / Comment(s): quit smoking 1988, 1ppd Past Drug Use History: None Reported - Past Family History Mother Family Medical History: No Reported History Additional Family Medical History / Comment(s): mother at age 93 of "old age" Father Family Medical History: No Reported History Additional Family Medical History / Comment(s): states at age 89 with no known medical problems Medications and Allergies Home Medications Medication Instructions Recorded Confirmed Type Simvastatin [Zocor] 40 mg PO HS@2100 09/25/13 04/02/20 History Montelukast [Singulair] 10 mg PO HS@2100 02/11/16 04/02/20 History Multivitamins, Thera [Multivitamin 1 tab PO DAILY@89903/14/16 04/02/20 History (formulary)] Levothyroxine Sodium [Synthroid] 75 mcg PO HS@209912/06/18 04/02/20 History Potassium Chloride ER [K-Dur 10] 10 meq PO DAILY@89912/06/18 04/02/20 History Fluticasone/Salmeterol [Advair 1 puff INHALATION RT-BID@899,209907/02/19 04/02/20 History 250-50 Diskus] Metoprolol Tartrate [Lopressor] 12.5 mg PO BID@899,209907/02/19 04/02/20 History Acetaminophen Tab [Tylenol] 650 mg PO Q6H PRN 03/19/20 04/02/20 History Biotin 5 mg PO DAILY@89903/19/20 04/02/20 History Melatonin 10 mg PO HS@209903/19/20 04/02/20 History Mylanta 30 ml PO Q4H PRN 03/19/20 04/02/20 History Albuterol Inhaler [Ventolin Hfa 2 puff INHALATION RT-QID puff 03/24/20 04/02/20 Rx Inhaler] Apixaban [Eliquis] 2.5 mg PO BID@899,209904/02/20 04/02/20 History Clotrimazole/Betamethasone Dip 1 applic TOPICAL Q12H 04/02/20 04/02/20 History [Lotrisone Cream] Cranberry 450mg 450 mg PO HS@209904/02/20 04/02/20 History Dexamethasone 6 mg PO DAILY@89904/02/20 04/02/20 History Ertapenem [INVanz] 1 gm IVPB HS@209904/02/20 04/02/20 History Furosemide [Lasix] 40 mg PO DAILY@89904/02/20 04/02/20 History Tiotropium 2.5 Mcg/Puff [Spiriva 1 puff INHALATION RT-DAILY@89904/02/20 04/02/20 History Respimat 2.5 Mcg] predniSONE 2.5 mg PO DAILY@89904/02/20 04/02/20 History Allergies Allergy/AdvReac Type Severity Reaction Status Date / Time bacitracin Allergy Rash/Hives Verified 04/02/20 14:46 bacitracin zinc Allergy Rash/Hives Verified 04/02/20 14:46 [From Neosporin ([id number])] dimethicone Allergy Rash/Hives Verified 04/02/20 14:46 [From A & D Emollient] glycerin Allergy Rash/Hives Verified 04/02/20 14:46 [From A & D Emollient] neomycin sulfate Allergy Rash/Hives Verified 04/02/20 14:46 [From Neosporin ([id number])] polymyxin B Allergy Rash/Hives Verified 04/02/20 14:46 [From Neosporin ([id number])] stearyl alcohol Allergy Rash/Hives Verified 04/02/20 14:46 [From A & D Emollient] Tetanus Vaccines and Toxoid Allergy swelling Verified 04/02/20 14:46 and severe redness and hardness at site Physical Exam Vitals: Vital Signs Temp Pulse Pulse Resp BP Pulse Ox 04/04/20 07:46 64 04/04/20 07:40 60 04/04/20 07:33 56 L 97 04/04/20 07:23 97.9 F 55 L 16 112/63 98 04/04/20 02:00 97.7 F 56 L 17 117/60 98 04/03/20 20:00 57 L 17 04/03/20 19:35 97.5 F L 110 H 19 117/57 97 04/03/20 19:30 64 04/03/20 19:18 66 04/03/20 19:16 66 04/03/20 19:06 64 04/03/20 15:50 56 L 04/03/20 15:35 60 04/03/20 14:00 98.0 F 57 L 17 133/78 98 Intake and Output 04/03/20 04/04/20 04/04/20 22:59 06:59 14:59 Output Total 1500 450 Balance -1500 -450 Output: Urine 1500 450 Other: Voiding Method Incontinent External Catheter External Catheter # Voids 1 Weight 98 kg Results 04/02/20 14:41 04/04/20 05:30 Comprehensive Metabolic Panel 04/04/20 Range/Units 05:30 Sodium 139 (137-145) mmol/L Potassium 4.5 (3.5-5.1) mmol/L Chloride 88 L (98-107) mmol/L Carbon Dioxide 48 H* (22-30) mmol/L BUN 34 H (7-17) mg/dL Creatinine 0.57 (0.52-1.04) mg/dL Glucose 163 H (74-99) mg/dL Calcium 8.6 (8.4-10.2) mg/dL Current Medications Generic Name Dose Route Start Last Admin Trade Name Freq PRN Reason Stop Dose Admin Acetaminophen 650 mg 04/03/20 11:23 04/03/20 18:08 Acetaminophen Tab 325 Mg Tab PO 650 mg Q6H PRN Administration Pain or Fever > 100.5 Albuterol/Ipratropium 3 ml 04/02/20 16:09 Ipratropium-Albuterol 3 Ml Neb INHALATION RT-Q4H PRN Shortness Of Breath Or Wheezing Albuterol/Ipratropium 3 ml 04/02/20 20:00 04/04/20 07:32 Ipratropium-Albuterol 3 Ml Neb INHALATION 3 ml RT-QID ANNM[facility]IE Administration Apixaban 2.5 mg 04/03/20 11:23 04/04/20 08:16 Apixaban 2.5 Mg Tablet PO 2.5 mg BID@0900,2100 ANNM[facility]IE Administration Atorvastatin Calcium 20 mg 04/03/20 21:00 04/03/20 21:24 Atorvastatin 20 Mg Tab PO 20 mg HS@2100 AN[facility] Administration Betamethasone/Clotrimazole 1 applic 04/03/20 11:30 04/03/20 21:36 Clotrimazole/Betameth 1-0.05% Cream 45 Gm Tube TOPICAL 1 applic Q12H ANNMARIE Administration Budesonide 1 mg 04/03/20 11:28 04/04/20 07:29 Budesonide 1 Mg/2 Ml Nebu INHALATION 1 mg RT-BID ANNMARIE Administration Formoterol Fumarate 20 mcg 04/03/20 11:28 04/04/20 07:29 Formoterol Fumarate 20 Mcg/2 Ml Nebu INHALATION 20 mcg RT-BID ANNMARIE Administration Furosemide 40 mg 04/03/20 16:00 04/04/20 08:17 Furosemide 10 Mg/Ml 4 Ml Vial IV 40 mg Q8HR ANNMARIE Administration Insulin Aspart 0 unit 04/03/20 12:30 04/04/20 08:17 Insulin Aspart (Novolog) 100 Unit/Ml Vial SQ 1 unit ACHS ANNMARIE Administration Protocol Levothyroxine Sodium 75 mcg 04/03/20 21:00 04/03/20 21:24 Levothyroxine 75 Mcg Tab PO 75 mcg HS@2100 AN[facility] Administration Melatonin 10 mg 04/03/20 21:00 04/03/20 21:23 Melatonin 5 Mg Tablet PO 10 mg HS@2100 AN[facility] Administration Methylprednisolone Sodium Succinate 40 mg 04/03/20 16:00 04/04/20 08:18 Methylprednisolone Sod Succi 40 Mg/Ml 1 Ml Vial IV 40 mg Q8HR [facility] Administration Metoprolol Tartrate 12.5 mg 04/03/20 12:00 04/04/20 08:17 Metoprolol Tartrate 12.5 Mg Tab PO 12.5 mg BID@0900,2100 [facility] Administration Montelukast Sodium 10 mg 04/03/20 21:00 04/03/20 21:24 Montelukast 10 Mg Tab PO 10 mg HS@2100 [facility] Administration Multivitamins 1 each 04/03/20 12:00 04/04/20 08:16 Multivitamins, Thera 1 Each Tab PO 1 each DAILY@0900 [facility] Administration Non-Formulary Medication 5 mg 04/04/20 09:00 04/04/20 08:19 Biotin [Biotin] PO Not Given DAILY@0900 [facility] Potassium Chloride 10 meq 04/03/20 12:00 04/04/20 08:17 Potassium Chloride Er 10 Meq Tab.Er.Prt PO 10 meq DAILY@0900 [facility] Administration Intake and Output 04/03/20 04/04/20 04/04/20 22:59 06:59 14:59 Output Total 1500 450 Balance -1500 -450 Output: Urine 1500 450 Other: Voiding Method Incontinent External Catheter External Catheter # Voids 1 Weight 98 kg 04/02/20 14:41 04/04/20 05:30
[2020-04-04] MEDS: CLOTRIMAZOLE/BETAMETH 1-0.05% CREAM 45 GM TUBE TOPICAL SCH ×2 (13:11→22:01)
--- NOTE | 2020-04-04 13:55 | P.PN ---
Subjective Progress Note Date: 04/04/20 89-year-old female patient known to us from previous hospitalizations. The patient is coming in for another admission because of worsening shortness of breath and she was admitted under the diagnosis of COPD and CHF exacerbation. She is currently on IV Lasix. I noted the chest x-ray showing some worsening of the left-sided pleural effusion and there is also cardiomegaly with pulmonary vessel congestion. She is currently doing well. She is a poor historian in general. She denies having any chest pain. She does have chronic lower extremity edema. She is known to us from previous hospitalizations. Her echocardiogram at shown ejection fraction of 55-60% along with grade 2 diastolic heart failure and RV was mildly enlarged and there was evidence of [id number] pulmonary hypertension with a PA pressure 44.. Recurrent proBNP level is elevated at 2210. Covid 19 testing came back negative. Serum bicarb is at 44. Renal function stable with a creatinine of 0.5. The patient has a baseline FEV1 of 0.77 L which is only 40% of predicted. She has chronic hypoxic respiratory failure maintained on home O2. She has also hypothyroidism and she was quite debilitated because of osteoarthritis and previous knee replacement surgeries. She is chronically short of breath and oxygen dependent. No angina. No altered mentation On today's evaluation the patient is clinically improving. She is diuresing aggressively on Lasix 40 mg IV every 8 hours. She is a negative fluid balance o f at least 3 L. Her serum bicarb is up to 48. Based on that, I may give her a dose of Diamox and reduce diuretics. She is doing well. She is not having any major respiratory distress. She is still swollen and she would benefit from ongoing diuresis at a slower rate. No chest pain. No altered mentation. Electrolytes show major abnormalities other than the metabolic alkalosis. Serum bicarb is at 48. BUN is at 34 with a creatinine of 0.57. Blood sugars at 246 from this morning and this is related to systemic steroids. Urinalysis is negative. Cultures have been negative. Cardiology consultation is appreciated. Objective - Vital Signs Vital signs: Vital Signs Temp 97.9 F 04/04/20 07:23 Pulse 60 04/04/20 11:25 Resp 16 04/04/20 07:23 BP 112/63 04/04/20 07:23 Pulse Ox 95 04/04/20 11:11 Intake & Output 04/03/20 04/04/20 04/04/20 18:59 06:59 18:59 Intake Total 240 Output Total 1100 1949 Balance -1099 -1949 240 Weight 98 kg Intake: Oral 240 Output: Urine 1099 1949 Other: Voiding Method Incontinent Incontinent External Catheter External Catheter External Catheter # Voids 1 - Exam GENERAL EXAM: Awake, alert 89-year-old female patient, morbidly obese, currently on 3 L of oxygen comfortable in no apparent distress. HEAD: Normocephalic/atraumatic. EYES: Normal reaction of pupils, equal size. Conjunctiva pink, sclera white. NOSE: Clear with pink turbinates. THROAT: No erythema or exudates. NECK: No masses, no JVD, no thyroid enlargement, no adenopathy. CHEST: No chest wall deformity. Symmetrical expansion. LUNGS: Equal air entry with few scattered rhonchi, crackles in the posterior bases CVS: Regular rate and rhythm, normal S1 and S2, no gallops, no murmurs, no rubs ABDOMEN: Soft, nontender. No hepatosplenomegaly, normal bowel sounds, no guarding or rigidity. EXTREMITIES: No clubbing, bilateral edema, no cyanosis, 2+ pulses and upper and lower extremities. MUSCULOSKELETAL: Muscle strength and tone normal. SPINE: No scoliosis or deformity SKIN: No rashes CENTRAL NERVOUS SYSTEM: Drowsy. No focal deficits, tone is normal in all 4 extremities. - Labs CBC & Chem 7: 04/02/20 14:41 04/04/20 05:30 Labs: Abnormal Lab Results - Last 24 Hours (Table) 04/03/20 04/03/20 04/04/20 Range/Units 16:23 21:11 05:30 Chloride 88 L (98-107) mmol/L Carbon Dioxide 48 H* (22-30) mmol/L BUN 34 H (7-17) mg/dL Glucose 163 H (74-99) mg/dL POC Glucose (mg/dL) 118 H 240 H (75-99) mg/dL 04/04/20 04/04/20 Range/Units 07:10 12:03 Chloride (98-107) mmol/L Carbon Dioxide (22-30) mmol/L BUN (7-17) mg/dL Glucose (74-99) mg/dL POC Glucose (mg/dL) 150 H 246 H (75-99) mg/dL Assessment and Plan Plan: 1 Acute on chronic hypoxic and hypercapnic respiratory failure, in addition to shortness of breath most likely secondary to combination of COPD/CHF exacerbation. Chest x-ray showing some worsening in the left-sided pleural effusion. Also there is no vessel congestion and the proBNP level is quite elevated. 2 Positive COVID 19 PCR, however patient was treated for COVID 19 infection back in December 2019, with subsequent vaccination 3 previous admissions for E. coli urinary tract infection, recovered 4 History of obstructive sleep apnea on CPAP 5 Chronic COPD on home oxygen usually at 2 L/m 6 Hypothyroidism 7 Chronic A. fib on Eliquis 8 Hypertension 9 Hypercholesterolemia 10 Chronic CHF with diastolic dysfunction 11 CVA/TIA by history 12 Chronic medical debility, gait dysfunction, uses a walker 13 Former smoker, stopped smoking in 1988 Plan: Clinically improving Reduce IV Lasix 40 mg every 12 hours, and give the patient 2 doses of Diamox to 50 mg IV every 12 hours regarding her metabolic alkalosis. The serum bicarb is up to 48 for now. Monitor electrolytes and urine output Monitor respiratory status, which is currently stable Short course of systemic steroids and IV Solu Medrol 40 mg every 12 hours Resume of including Eliquis Continue current treatment plan Follow-up chest x-ray in a.m. We'll continue to follow
[2020-04-04 17:51] LABS: Glucose,Whole Blood 160 mg/dL (75-99)
[2020-04-04 20:25] LABS: Glucose,Whole Blood 211 mg/dL (75-99)
[2020-04-04] MEDS: MONTELUKAST 10 MG TAB PO SCH (20:51)
[2020-04-04] MEDS: LEVOTHYROXINE 75 MCG TAB PO SCH (20:51)
[2020-04-04] MEDS: ATORVASTATIN 20 MG TAB PO SCH (20:51)
[2020-04-04] MEDS: MELATONIN 5 MG TABLET PO SCH (20:52)
--- NOTE | 2020-04-04 21:52 | P.PN ---
Progress Note - Text Progress Note Date: 04/04/20 Chief Complaint: Short of breath History of presenting complaint: This is a 89-year-old patient of Dr. brown. resident of [facility] [place]. Chronic stable medical conditions include COPD, obstructive sleep apnea, home oxygen 2 L, hypothyroid,. At her baseline uses a walker. Patient was recently discharged from the hospital on March 24. Was treated with IV Invanz for UTI with E. coli/ESBL. Patient had tested positive for COVID 19 on March 19. Patient took another 5 days of dexamethasone. IV Invanz for 7 days. This admission-Admitted from the ER. As per the EMS: Patient had increased respiration, pursed lip breathing, 2 L nasal cannula. Patient alert but tired. Difficulty breathing. No chest pain. Oxygen increased to 6 L. Patient was preferred to sitting up. Patient is afebrile. Patient this morning feeling better. States not sure why she's been brought here. Admitted with COPD and CHF exacerbation. Put on IV Lasix, bronchodilators and IV steroids. Today-laying in bed. Breathing a bit better. Oral intake any 100% Review of systems: Was done for constitutional, cardiovascular, GI, pulmonary. relevant finding as above Active Medications Acetaminophen (Acetaminophen Tab 325 Mg Tab) 650 mg PO Q6H PRN PRN Reason: Pain or Fever > 100.5 Last Admin: 04/03/20 18:08 Dose: 650 mg Documented by: Acetazolamide Sodium (Acetazolamide Sodium 500 Mg Vial) 250 mg IV Q12HR [facility] Stop: 04/05/20 14:01 Last Admin: 04/04/20 21:04 Dose: 250 mg Documented by: Albuterol/Ipratropium (Ipratropium-Albuterol 3 Ml Neb) 3 ml INHALATION RT-Q4H PRN PRN Reason: Shortness Of Breath Or Wheezing Albuterol/Ipratropium (Ipratropium-Albuterol 3 Ml Neb) 3 ml INHALATION RT-QID [facility] Last Admin: 04/04/20 19:39 Dose: 3 ml Documented by: Apixaban (Apixaban 2.5 Mg Tablet) 2.5 mg PO BID@0900,2100 [facility] Last Admin: 04/04/20 20:51 Dose: 2.5 mg Documented by: Atorvastatin Calcium (Atorvastatin 20 Mg Tab) 20 mg PO HS@2100 [facility] Last Admin: 04/04/20 20:51 Dose: 20 mg Documented by: Betamethasone/Clotrimazole (Clotrimazole/Betameth 1-0.05% Cream 45 Gm Tube) 1 applic TOPICAL Q12H [facility] Last Admin: 04/04/20 13:11 Dose: Not Given Documented by: Budesonide (Budesonide 1 Mg/2 Ml Nebu) 1 mg INHALATION RT-BID [facility] Last Admin: 04/04/20 19:39 Dose: 1 mg Documented by: Formoterol Fumarate (Formoterol Fumarate 20 Mcg/2 Ml Nebu) 20 mcg INHALATION RT-BID [facility] Last Admin: 04/04/20 19:39 Dose: 20 mcg Documented by: Furosemide (Furosemide 10 Mg/Ml 4 Ml Vial) 40 mg IV Q12HR [facility] Last Admin: 04/04/20 20:51 Dose: 40 mg Documented by: Insulin Aspart (Insulin Aspart (Novolog) 100 Unit/Ml Vial) 0 unit SQ [facility]; Protocol Last Admin: 04/04/20 20:51 Dose: 4 unit Documented by: Levothyroxine Sodium (Levothyroxine 75 Mcg Tab) 75 mcg PO HS@2099 [facility] Last Admin: 04/04/20 20:51 Dose: 75 mcg Documented by: Melatonin (Melatonin 5 Mg Tablet) 10 mg PO HS@2099 [facility] Last Admin: 04/04/20 20:52 Dose: 10 mg Documented by: Methylprednisolone Sodium Succinate (Methylprednisolone Sod Succi 40 Mg/Ml 1 Ml Vial) 40 mg IV Q12HR [facility] Last Admin: 04/04/20 20:52 Dose: 40 mg Documented by: Metoprolol Tartrate (Metoprolol Tartrate 12.5 Mg Tab) 12.5 mg PO BID@0900,2099 [facility] Last Admin: 04/04/20 20:52 Dose: Not Given Documented by: Montelukast Sodium (Montelukast 10 Mg Tab) 10 mg PO HS@2100 [facility] Last Admin: 04/04/20 20:51 Dose: 10 mg Documented by: Multivitamins (Multivitamins, Thera 1 Each Tab) 1 each PO DAILY@0900 [facility] Last Admin: 04/04/20 08:16 Dose: 1 each Documented by: Non-Formulary Medication (Biotin [Biotin]) 5 mg PO DAILY@0900 [facility] Last Admin: 04/04/20 08:19 Dose: Not Given Documented by: Potassium Chloride (Potassium Chloride Er 10 Meq Tab.Er.Prt) 10 meq PO DAILY@0900 [facility] Last Admin: 04/04/20 08:17 Dose: 10 meq Documented by: Past medical history to include: COPD, TIA, obstructive sleep apnea, hypothyroid, right rotator cuff injury, oxygen 2 L, essential hypertension, hypercholesterolemia, hypothyroid, congestive heart failure from diastolic tics dysfunction, home oxygen 2 L, atrial flutter fibrillation. COVID 19 diagnosed on 03/19/2020 Social history: resident of [facility] in [facility], uses a walker. oxygen 2 L nasal cannula. Patient stopped smoking in 1988. Smoked a pack a day for many years. Physical examination: VITAL SIGNS: 97.8, 63, 20, 101/51, 94% on 2 L GENERAL:, laying in bed, awake EYES: Pupils equal. Conjunctiva normal. HEENT: External appearance of nose and ears normal, oral cavity normal NECK: JVD unable to assess; masses not palpable. HEART: First and second heart sounds are normal; no edema. LUNGS: Respiratory rate increased, decreased breath sounds , ABDOMEN: Soft, nontender, liver spleen not palpable, no masses palpable. PSYCH: Answering questions MUSCULAR skeletal: Evidence of OA INVESTIGATIONS, reviewed in the clinical context: April 04: Potassium 4.5 bicarbonate 48 creatinine 0.57 White count 13.4 hemoglobin 11.6 platelets 159 potassium 4.3 creatinine 0.53 blood glucose 127 Troponin I 0.026, proBNP 2210. UA-negative Coronavirus [PCR]-not detected EKG tracing personally reviewed by me-questionable second-degree block. As I can see P waves in lead V2 and V3, with variable conduction/do not appear to be flutter waves. Chest x-ray film personally reviewed by me-patchy left lower lobe infiltrate-, venous prominence Previous testing: Coronavirus [PCR]-detected on 03/19/2020 Assessment and plan: -Acute COPD exacerbation in a ex-smoker. Started on DuoNeb, IV Ilub-Rlnbpf-[id number] -Acute on Chronic congestive heart failure from diastolic dysfunction EF 55-60%. IV Lasix-improving -Negative COVID 19 PCR on this admission. [Patient was positive on 03/19/2020- was treated for the same computed course] -Metabolic alkalosis from diuresis and steroids -Essential hypertension-continue with Lopressor -Hypercholesterolemia -Hypothyroid -Acute on Chronic hypoxic respiratory failure with 2 L oxygen at home. Patient required 6 L initially by the EMS.-Improving -Paroxysmal atrial flutter fibrillation chronically on eliquis -Obstructive sleep apnea Additionally: Continue IV Solu-Medrol bronchodilators. Lasix cutback. Check BNP and BMP in the morning
[2020-04-05 07:16] LABS: Glucose,Whole Blood 144 mg/dL (75-99)
[2020-04-05 07:26] LABS: African American GFR (CKD) 78 (>60 ml/min/1.73 sqM); Blood Urea Nitrogen 33 mg/dL (7-17); Chloride 89 mmol/L (98-107); Glucose 158 mg/dL (74-99); Non-African American GFR(CKD) 68 (>60 ml/min/1.73 sqM); Sodium 136 mmol/L (137-145)
[2020-04-05 07:33] LABS: Anion Gap 5 mmol/L
[2020-04-05 07:39] LABS: Carbon Dioxide 42 mmol/L (22-30)
[2020-04-05] MEDS: NON FORMULARY DRUG (Biotin [Biotin] 5 MG Capsule) PO SCH (07:55)
[2020-04-05] MEDS: METOPROLOL TARTRATE 12.5 MG TAB PO SCH ×2 (07:55→19:40)
[2020-04-05] MEDS: POTASSIUM CHLORIDE ER 10 MEQ TAB.ER.PRT PO SCH (08:07)
[2020-04-05] MEDS: MULTIVITAMINS, THERA 1 EACH TAB PO SCH (08:07)
[2020-04-05] MEDS: methylPREDNISolone SOD SUCCI 40 MG/ML 1 ML VIAL IV SCH ×2 (08:08→19:41)
[2020-04-05] MEDS: APIXABAN 2.5 MG TABLET PO SCH ×2 (08:08→19:41)
[2020-04-05] MEDS: INSULIN ASPART (NovoLOG) 100 UNIT/ML VIAL SQ SCH ×4 (08:08→19:41)
[2020-04-05] MEDS: FUROSEMIDE 10 MG/ML 4 ML VIAL IV SCH ×2 (08:09→19:41)
[2020-04-05] MEDS: BUDESONIDE 1 MG/2 ML NEBU INHALATION SCH ×2 (08:26→19:10)
[2020-04-05] MEDS: FORMOTEROL FUMARATE 20 MCG/2 ML NEBU INHALATION SCH ×2 (08:26→19:10)
[2020-04-05] MEDS: IPRATROPIUM-ALBUTEROL 3 ML NEB INHALATION SCH ×4 (08:27→19:10)
--- NOTE | 2020-04-05 11:25 | P.PN ---
Subjective Progress Note Date: 04/05/20 89-year-old female patient known to us from previous hospitalizations. The patient is coming in for another admission because of worsening shortness of breath and she was admitted under the diagnosis of COPD and CHF exacerbation. She is currently on IV Lasix. I noted the chest x-ray showing some worsening of the left-sided pleural effusion and there is also cardiomegaly with pulmonary vessel congestion. She is currently doing well. She is a poor historian in general. She denies having any chest pain. She does have chronic lower extremity edema. She is known to us from previous hospitalizations. Her echocardiogram at shown ejection fraction of 55-60% along with grade 2 diastolic heart failure and RV was mildly enlarged and there was evidence of [id number] pulmonary hypertension with a PA pressure 44.. Recurrent proBNP level is elevated at 2210. Covid 19 testing came back negative. Serum bicarb is at 44. Renal function stable with a creatinine of 0.5. The patient has a baseline FEV1 of 0.77 L which is only 40% of predicted. She has chronic hypoxic respiratory failure maintained on home O2. She has also hypothyroidism and she was quite debilitated because of osteoarthritis and previous knee replacement surgeries. She is chronically short of breath and oxygen dependent. No angina. No altered mentation On today's evaluation the patient is clinically improving. She is diuresing aggressively on Lasix 40 mg IV every 8 hours. She is a negative fluid balance of at least 3 L. Her serum bicarb is up to 48. Based on that, I may give her a dose of Diamox and reduce diuretics. She is doing well. She is not having any major respiratory distress. She is still swollen and she would benefit from ongoing diuresis at a slower rate. No chest pain. No altered mentation. Electrolytes show major abnormalities other than the metabolic alkalosis. Serum bicarb is at 48. BUN is at 34 with a creatinine of 0.57. Blood sugars at 246 from this morning and this is related to systemic steroids. Urinalysis is negative. Cultures have been negative. Cardiology consultation is appreciated. The patient is seen today in 04/05/2020 in follow-up on the regular medical floor. She is currently sitting up in bed. Awake and alert in no acute distress. Maintaining O2 saturations in the 90s on room air. She's afebrile. Hemodynamically stable. Continues with lower extremity edema. Sodium 136. Potassium 4.0. Bicarb 42. Creatinine 0.79. ProBNP 3020. Glucose 158. She remains on Diamox, IV Lasix. She's on DuoNeb inhalations, Pulmicort and Perforomist inhalations, IV Solu-Medrol. Anticoagulated with Eliquis. Objective - Vital Signs Vital signs: Vital Signs Temp 98.3 F 04/05/20 07:40 Pulse 57 L 04/05/20 07:40 Resp 16 04/05/20 07:40 BP 128/54 04/05/20 07:40 Pulse Ox 93 L 04/05/20 07:40 Intake & Output 04/04/20 04/05/20 04/05/20 18:59 06:59 18:59 Intake Total 240 240 Output Total 600 1700 Balance -360 -1700 240 Weight 97 kg Intake: Oral 240 240 Output: Urine 600 1700 Other: Voiding Method External Catheter Incontinent External Catheter - Exam GENERAL EXAM: Awake, alert 89-year-old female patient, morbidly obese, currently on 1 L of oxygen comfortable in no apparent distress. HEAD: Normocephalic/atraumatic. EYES: Normal reaction of pupils, equal size. Conjunctiva pink, sclera white. NOSE: Clear with pink turbinates. THROAT: No erythema or exudates. NECK: No masses, no JVD, no thyroid enlargement, no adenopathy. CHEST: No chest wall deformity. Symmetrical expansion. LUNGS: Equal air entry with few scattered rhonchi, crackles in the posterior bases CVS: Regular rate and rhythm, normal S1 and S2, no gallops, no murmurs, no rubs ABDOMEN: Soft, nontender. No hepatosplenomegaly, normal bowel sounds, no guarding or rigidity. EXTREMITIES: No clubbing, bilateral edema, no cyanosis, 2+ pulses and upper and lower extremities. MUSCULOSKELETAL: Muscle strength and tone normal. SPINE: No scoliosis or deformity SKIN: No rashes CENTRAL NERVOUS SYSTEM: Alert. No focal deficits, tone is normal in all 4 extremities. - Labs CBC & Chem 7: 04/02/20 14:41 04/05/20 06:52 Labs: Abnormal Lab Results - Last 24 Hours (Table) 04/04/20 04/04/20 04/04/20 Range/Units 12:03 17:12 20:23 Sodium (137-145) mmol/L Chloride (98-107) mmol/L Carbon Dioxide (22-30) mmol/L BUN (7-17) mg/dL Glucose (74-99) mg/dL POC Glucose (mg/dL) 246 H 160 H 211 H (75-99) mg/dL 04/05/20 04/05/20 Range/Units 06:52 07:07 Sodium 136 L (137-145) mmol/L Chloride 89 L (98-107) mmol/L Carbon Dioxide 42 H* (22-30) mmol/L BUN 33 H (7-17) mg/dL Glucose 158 H (74-99) mg/dL POC Glucose (mg/dL) 144 H (75-99) mg/dL Assessment and Plan Assessment: 1 Acute on chronic hypoxic and hypercapnic respiratory failure, in addition to shortness of breath most likely secondary to combination of COPD/CHF exacerbation. Chest x-ray showing some worsening in the left-sided pleural effusion. Also there is no venous congestion and the proBNP level is quite elevated. 2 Positive COVID 19 PCR, however patient was treated for COVID 19 infection back in December 2019, with subsequent vaccination 3 Previous admissions for E. coli urinary tract infection, recovered 4 History of obstructive sleep apnea on CPAP 5 Chronic COPD on home oxygen usually at 2 L/m 6 Hypothyroidism 7 Chronic A. 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 Munoz Improving from the pulmonary standpoint Continue the current treatment plan We'll continue to follow I, the cosigning physician, performed a history & physical examination of the patient. Lungs sounds scattered rhonchi, crackles in the posterior bases. Maintaining good O2 saturations in the 90s on 1 L/m per nasal cannula. I discussed the assessment and plan of care with my nurse practitioner, Clair Amos. I attest to the above note as dictated by her.
--- NOTE | 2020-04-05 11:29 | P.PN ---
Subjective Progress Note Date: 04/05/20 History of present illness: This is an 89-year-old female with past medical history of hyperlipi demia, chronic diastolic heart failure, persistent atrial fibrillation, COPD, chronic hypoxic respiratory failure, COVID19 infection. Patient presented [facility] due to increasing shortness of breath and diagnosed with COPD exacerbation and CHF exacerbation. WBC 13.4, hemoglobin 11.6. CO2 44, creatinine 0.53. Troponin 0.026. ProBNP 2210. Coronavirus PCR not detected. Chest x-ray shows pulmonary venous congestion. Patchy left lower lobe infiltrate persists. Suspect small effusions. Cardiomegaly. EKG atrial fibrillation. 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 Patient was started on IV Lasix 40 mg every 8 hours. Weight is down 1.5 kg. Echocardiogram from April 2019 reveals EF of 55-60%, trace mitral regurgitation, mild tricuspid regurgitation, mild to moderate pulmonary hypertension. 04/05: Cardiogram has been obtained and report is pending. Patient has been in atrial fibrillation with controlled rate. She did not receive last evenings her this morning's Lopressor due to parameters in place for holding if heart rate is less than 70. She has had very good urine output but continues to have lower extremity edema. Weight is down 1 kg from yesterday. Patient denies having any chest pain. Blood work reveals sodium 136, potassium 4.0, chloride 89, CO2 42, BUN 33 and creatinine 0.79. Patient is seen today without oxygen and maintaining adequate pulse ox. Physical examination: Gen: This is an 89-year-old female. VS: Afebrile, heart rate in the 50s and 60s, blood pressure 128/54, pulse ox 93% on room air HEENT: Head is atraumatic, normocephalic. Pupils equal, round. Sclerae is anicteric. NECK: Supple. No JVD. No lymphadenopathy. No thyromegaly. LUNGS: Scattered rhonchi and diminished in the bases. No intercostal retractions. HEART: Regular rate and rhythm. No murmur. ABDOMEN: Soft. Bowel sounds are present. No masses. No tenderness. EXTREMITIES: Bilateral 3+ pedal edema. No calf tenderness. NEUROLOGICAL: Patient is awake, alert and oriented x3. Cranial nerves 2 through 12 are grossly intact. Assessment: Acute on chronic diastolic heart failure Persistent atrial fibrillation on eliquis COPD exacerbation Recent Covid 19 infection Plan: Continue Lasix 40 mg IV decreased to every 12 hours Monitor I&O and daily weights Monitor renal function and electrolytes Continue eliquis 2.5 mg twice daily, Lopressor 12.5 mg twice daily. Hold Lopressor if heart rate less than 70. Obtain 2-D echocardiogram and Doppler study to assess cardiac structure and function Further recommendations to follow based upon clinical course Thank you kindly for this consultation. Nurse practitioner note has been reviewed, I agree with documented findings and plan of care. Patient was seen and examined. Objective - Vital Signs Vital signs: Vital Signs Temp 98.3 F 04/05/20 07:40 Pulse 57 L 04/05/20 07:40 Resp 16 04/05/20 07:40 BP 128/54 04/05/20 07:40 Pulse Ox 93 L 04/05/20 07:40 Intake & Output 04/04/20 04/05/20 04/05/20 18:59 06:59 18:59 Intake Total 240 Output Total 600 1700 Balance -360 -1700 Weight 97 kg Intake: Oral 240 Output: Urine 600 1700 Other: Voiding Method External Catheter Incontinent External Catheter - Labs CBC & Chem 7: 04/02/20 14:41 04/05/20 06:52 Labs: Abnormal Lab Results - Last 24 Hours (Table) 04/04/20 04/04/20 04/04/20 Range/Units 12:03 17:12 20:23 Sodium (137-145) mmol/L Chloride (98-107) mmol/L Carbon Dioxide (22-30) mmol/L BUN (7-17) mg/dL Glucose (74-99) mg/dL POC Glucose (mg/dL) 246 H 160 H 211 H (75-99) mg/dL 04/05/20 04/05/20 Range/Units 06:52 07:07 Sodium 136 L (137-145) mmol/L Chloride 89 L (98-107) mmol/L Carbon Dioxide 42 H* (22-30) mmol/L BUN 33 H (7-17) mg/dL Glucose 158 H (74-99) mg/dL POC Glucose (mg/dL) 144 H (75-99) mg/dL
[2020-04-05 11:51] LABS: Glucose,Whole Blood 138 mg/dL (75-99)
[2020-04-05] MEDS: CLOTRIMAZOLE/BETAMETH 1-0.05% CREAM 45 GM TUBE TOPICAL SCH ×2 (13:34→19:39)
[2020-04-05 17:39] LABS: Glucose,Whole Blood 224 mg/dL (75-99)
[2020-04-05 19:31] LABS: Glucose,Whole Blood 252 mg/dL (75-99)
[2020-04-05] MEDS: MONTELUKAST 10 MG TAB PO SCH (19:41)
[2020-04-05] MEDS: LEVOTHYROXINE 75 MCG TAB PO SCH (19:41)
[2020-04-05] MEDS: MELATONIN 5 MG TABLET PO SCH (19:41)
[2020-04-05] MEDS: ATORVASTATIN 20 MG TAB PO SCH (19:41)
--- NOTE | 2020-04-05 21:30 | P.PN ---
Progress Note - Text Progress Note Date: 04/05/20 Chief Complaint: Short of breath History of presenting complaint: This is a 89-year-old patient of Dr. brown. [facility] [place]. Chronic stable medical conditions include COPD, obstructive sleep apnea, home oxygen 2 L, hypothyroid,. At her baseline uses a walker. Patient was recently discharged from the hospital on March 24. Was treated with IV Invanz for UTI with E. coli/ESBL. Patient had tested positive for COVID 19 on March 19. Patient took another 5 days of dexamethasone. IV Invanz for 7 days. This admission-Admitted from the ER. As per the EMS: Patient had increased respiration, pursed lip breathing, 2 L nasal cannula. Patient alert but tired. Difficulty breathing. No chest pain. Oxygen increased to 6 L. Patient was preferred to sitting up. Patient is afebrile. Patient this morning feeling better. States not sure why she's been brought here. Admitted with COPD and CHF exacerbation. Put on IV Lasix, bronchodilators and IV steroids. Today-laying in bed. Breathing continues to improve. Some edema present. Oral intake good. Daughter the bedside. Review of systems: Was done for constitutional, cardiovascular, GI, pulmonary. relevant finding as above Active Medications Acetaminophen (Acetaminophen Tab 325 Mg Tab) 650 mg PO Q6H PRN PRN Reason: Pain or Fever > 100.5 Last Admin: 04/03/20 18:08 Dose: 650 mg Documented by: Albuterol/Ipratropium (Ipratropium-Albuterol 3 Ml Neb) 3 ml INHALATION RT-Q4H PRN PRN Reason: Shortness Of Breath Or Wheezing Albuterol/Ipratropium (Ipratropium-Albuterol 3 Ml Neb) 3 ml INHALATION RT-QID PENDING SALE TO [facility] Last Admin: 04/05/20 19:10 Dose: 3 ml Documented by: Apixaban (Apixaban 2.5 Mg Tablet) 2.5 mg PO BID@0900,2100 PENDING SALE TO [facility] Last Admin: 04/05/20 19:41 Dose: 2.5 mg Documented by: Atorvastatin Calcium (Atorvastatin 20 Mg Tab) 20 mg PO HS@2100 PENDING SALE TO [facility] Last Admin: 04/05/20 19:41 Dose: 20 mg Documented by: Betamethasone/Clotrimazole (Clotrimazole/Betameth 1-0.05% Cream 45 Gm Tube) 1 applic TOPICAL Q12H PENDING SALE TO [facility] Last Admin: 04/05/20 19:39 Dose: Not Given Documented by: Budesonide (Budesonide 1 Mg/2 Ml Nebu) 1 mg INHALATION RT-BID PENDING SALE TO [facility] Last Admin: 04/05/20 19:10 Dose: 1 mg Documented by: Formoterol Fumarate (Formoterol Fumarate 20 Mcg/2 Ml Nebu) 20 mcg INHALATION RT-BID PENDING SALE TO [facility] Last Admin: 04/05/20 19:10 Dose: 20 mcg Documented by: Furosemide (Furosemide 10 Mg/Ml 4 Ml Vial) 40 mg IV Q12HR PENDING SALE TO [facility] Last Admin: 04/05/20 19:41 Dose: 40 mg Documented by: Insulin Aspart (Insulin Aspart (Novolog) 100 Unit/Ml Vial) 0 unit SQ [facility]; Protocol Last Admin: 04/05/20 19:41 Dose: 6 unit Documented by: Levothyroxine Sodium (Levothyroxine 75 Mcg Tab) 75 mcg PO HS@2100 PENDING SALE TO [facility] Last Admin: 04/05/20 19:41 Dose: 75 mcg Documented by: Melatonin (Melatonin 5 Mg Tablet) 10 mg PO HS@2100 PENDING SALE TO [facility] Last Admin: 04/05/20 19:41 Dose: 10 mg Documented by: Methylprednisolone Sodium Succinate (Methylprednisolone Sod Succi 40 Mg/Ml 1 Ml Vial) 40 mg IV Q12HR PENDING SALE TO [facility] Last Admin: 04/05/20 19:41 Dose: 40 mg Documented by: Metoprolol Tartrate (Metoprolol Tartrate 12.5 Mg Tab) 12.5 mg PO BID@0900,2100 PENDING SALE TO [facility] Last Admin: 04/05/20 19:40 Dose: 12.5 mg Documented by: Montelukast Sodium (Montelukast 10 Mg Tab) 10 mg PO HS@2100 PENDING SALE TO [facility] Last Admin: 04/05/20 19:41 Dose: 10 mg Documented by: Multivitamins (Multivitamins, Thera 1 Each Tab) 1 each PO DAILY@0900 PENDING SALE TO [facility] Last Admin: 04/05/20 08:07 Dose: 1 each Documented by: Non-Formulary Medication (Biotin [Biotin]) 5 mg PO DAILY@0900 PENDING SALE TO [facility] Last Admin: 04/05/20 07:55 Dose: Not Given Documented by: Potassium Chloride (Potassium Chloride Er 10 Meq Tab.Er.Prt) 10 meq PO DAILY@0900 PENDING SALE TO [facility] Last Admin: 04/05/20 08:07 Dose: 10 meq Documented by: Past medical history to include: COPD, TIA, obstructive sleep apnea, hypothyroid, right rotator cuff injury, oxygen 2 L, essential hypertension, hypercholesterolemia, hypothyroid, congestive heart failure from diastolic tics dysfunction, home oxygen 2 L, atrial flutter fibrillation. COVID 19 diagnosed on 03/19/2020 Social history: resident [facility] in the [place], uses a walker. oxygen 2 L nasal cannula. Patient stopped smoking in 1988. Smoked a pack a day for many years. Physical examination: VITAL SIGNS: 98.3, 79, 20, 123/62, 90% on 1 L GENERAL:, laying in bed, awake EYES: Pupils equal. Conjunctiva normal. HEENT: External appearance of nose and ears normal, oral cavity normal NECK: JVD unable to assess; masses not palpable. HEART: First and second heart sounds are normal; some edema. LUNGS: Respiratory rate increased, decreased breath sounds , ABDOMEN: Soft, nontender, liver spleen not palpable, no masses palpable. PSYCH: Answering questions MUSCULAR skeletal: Evidence of OA INVESTIGATIONS, reviewed in the clinical context: April 05: Potassium 4 bicarbonate 42 creatinine 0.79 proBNP 3020 April 04: Potassium 4.5 bicarbonate 48 creatinine 0.57 White count 13.4 hemoglobin 11.6 platelets 159 potassium 4.3 creatinine 0.53 blood glucose 127 Troponin I 0.026, proBNP 2210. UA-negative Coronavirus [PCR]-not detected EKG tracing personally reviewed by me-questionable second-degree block. As I can see P waves in lead V2 and V3, with variable conduction/do not appear to be flutter waves. Chest x-ray film personally reviewed by me-patchy left lower lobe infiltrate-, venous prominence Previous testing: Coronavirus [PCR]-detected on 03/19/2020 Assessment and plan: -Acute COPD exacerbation in a ex-smoker. Started on DuoNeb, IV [id number]. Change to oral prednisone -Acute on Chronic congestive heart failure from diastolic dysfunction EF 55-60%. IV Lasix-improving -Negative COVID 19 PCR on this admission. [Patient was positive on 03/19/2020- was treated for the same computed course] -Metabolic alkalosis from diuresis and steroids -Essential hypertension-continue with Lopressor -Hypercholesterolemia -Hypothyroid -Acute on Chronic hypoxic respiratory failure with 2 L oxygen at home. Patient required 6 L initially by the EMS.-Improving -Paroxysmal atrial flutter fibrillation chronically on eliquis -Obstructive sleep apnea Additionally: Change to oral prednisone. On IV Lasix 40 mg every 12. Repeat check stat x- rays in the morning. Doing better. Hopefully DC in next 24-48 hours
[2020-04-06 07:05] LABS: Glucose,Whole Blood 165 mg/dL (75-99)
[2020-04-06] MEDS: FORMOTEROL FUMARATE 20 MCG/2 ML NEBU INHALATION SCH (07:32)
[2020-04-06] MEDS: IPRATROPIUM-ALBUTEROL 3 ML NEB INHALATION SCH ×3 (07:32→15:02)
[2020-04-06] MEDS: BUDESONIDE 1 MG/2 ML NEBU INHALATION SCH (07:32)
[2020-04-06] MEDS: METOPROLOL TARTRATE 12.5 MG TAB PO SCH (08:42)
[2020-04-06] MEDS: FUROSEMIDE 10 MG/ML 4 ML VIAL IV SCH (08:48)
[2020-04-06] MEDS: INSULIN ASPART (NovoLOG) 100 UNIT/ML VIAL SQ SCH ×2 (08:50→12:25)
[2020-04-06] MEDS: APIXABAN 2.5 MG TABLET PO SCH (08:50)
[2020-04-06] MEDS: MULTIVITAMINS, THERA 1 EACH TAB PO SCH (08:50)
[2020-04-06] MEDS: NON FORMULARY DRUG (Biotin [Biotin] 5 MG Capsule) PO SCH (08:50)
[2020-04-06] MEDS: CLOTRIMAZOLE/BETAMETH 1-0.05% CREAM 45 GM TUBE TOPICAL SCH (08:51)
[2020-04-06] MEDS: POTASSIUM CHLORIDE ER 10 MEQ TAB.ER.PRT PO SCH (08:51)
[2020-04-06 08:54] LABS: African American GFR (CKD) 80 (>60 ml/min/1.73 sqM); Anion Gap 7 mmol/L; Blood Urea Nitrogen 34 mg/dL (7-17); Calcium 9.5 mg/dL (8.4-10.2); Carbon Dioxide 38 mmol/L (22-30); Chloride 92 mmol/L (98-107); Glucose 178 mg/dL (74-99); Magnesium 2.2 mg/dL (1.6-2.3); Non-African American GFR(CKD) 69 (>60 ml/min/1.73 sqM); Potassium 4.4 mmol/L (3.5-5.1); Sodium 137 mmol/L (137-145)
[2020-04-06] MEDS ORDERED: predniSONE 20 MG TAB PO SCH (09:00)
--- NOTE | 2020-04-06 09:07 | XR ---
EXAMINATION TYPE: XR chest 1V portable DATE OF EXAM: 04/06/2020 COMPARISON: 04/02/2020 HISTORY: Cough, pneumonia TECHNIQUE: Single frontal view of the chest is obtained. FINDINGS: Bilateral lower lobe infiltrate and pleural effusion stable. Heart size stable. Arthropath y of the shoulders with diffuse osteopenia. No pneumothorax. Coarsened interstitium stable. IMPRESSION: Pleural-parenchymal changes are stable correlate for pneumonia.
[2020-04-06 11:41] LABS: Glucose,Whole Blood 155 mg/dL (75-99)
--- NOTE | 2020-04-06 13:57 | P.DS ---
Providers Date of admission: 04/02/20 16:09 Attending physician: Margarito Barboza Consults: 04/03/20 21:23 Consult Physician Routine Consulting Provider: Placido Ball Consult Reason/Comments: Questionable second-degree block on admitting EKG Do you want consulting provider notified?: Yes 04/04/20 14:07 Consult Physician Routine Consulting Provider: Jae Lau Consult Reason/Comments: chf/copd Do you want consulting provider notified?: Already Contacted Primary care physician: Rubio Mace Hospital Course: Diagnoses: -Acute COPD exacerbation in a ex-smoker. -Acute on Chronic congestive heart failure from diastolic dysfunction EF 55-60%. IV Lasix-improving -Negative COVID 19 PCR on this admission. [Patient was positive on 03/19/2020- was treated for the same computed course] -Metabolic alkalosis from diuresis and steroids -Essential hypertension-continue with Lopressor -Hypercholesterolemia -Hypothyroid -Acute on Chronic hypoxic respiratory failure with 2 L oxygen at home. Patient required 6 L initially by the EMS.-Improving -Paroxysmal atrial flutter fibrillation chronically on eliquis -Obstructive sleep apnea Hospital course: This is a 89-year-old patient of Dr. mace. resident of [facility] on the [place]. Chronic stable medical conditions include COPD, obstructive sleep apnea, home oxygen 2 L, hypothyroid,. At her baseline uses a walker. Patient was recently discharged from the hospital on March 24. Was treated with IV Invanz for UTI with E. coli/ESBL. Patient had tested positive for COVID 19 on March 19. Patient took another 5 days of dexamethasone. IV Invanz for 7 days. This admission-Admitted from the ER Currently she is saturating 92% on 2 L oxygen via nasal cannula. Patient today she feels better, she is awake and alert, she thinks she can go to her [facility] today. She denies chest pain or dyspnea. No change in urine or bowel habits. No fever. Patient was cleared for discharge by pulmonary and cardiology services Patient will be discharged on oral Lasix and tapered dose of prednisone and then continue with home dose of 2.5 mg daily Problems and management plan were discussed with the patient and he verbalized understanding and acceptance Patient was found stable and can be discharged home however he needs follow-up as an outpatient. Patient was instructed to follow up with PCP within one week and patient agrees Physical exam -Gen: patient is a AAOx3, no distress. Generalized weakness CVS: S1-S2, RRR, no murmur Lungs: B/L CTA, no wheezing Abdomen: soft, no distention, no tenderness, positive bowel sounds Extremity: Bilateral pitting leg edema, no induration Time spent more than 35 minutes Patient Condition at Discharge: Stable Plan - Discharge Summary Discharge Rx Participant: Yes New Discharge Prescriptions: New predniSONE [Deltasone] 20 mg PO DAILY #10 tab Ipratropium-Albuterol Nebulize [Duoneb 0.5 mg-3 mg/3 ml Soln] 3 ml INHALATION RT-Q4H PRN ml PRN Reason: Shortness Of Breath Or Wheezing Ipratropium-Albuterol Nebulize [Duoneb 0.5 mg-3 mg/3 ml Soln] 3 ml INHALATION RT-QID ml Furosemide [Lasix] 40 mg PO BID #60 tablet INSULIN ASPART (NovoLOG) [NovoLOG (formulary)] 0 unit SQ [facility]CHS vial Formoterol Fumarate [Perforomist] 20 mcg INHALATION RT-BID nebu Continue Simvastatin [Zocor] 40 mg PO HS@2100 Montelukast [Singulair] 10 mg PO HS@2100 Multivitamins, Thera [Multivitamin (formulary)] 1 tab PO DAILY@0900 Levothyroxine Sodium [Synthroid] 75 mcg PO HS@2100 Potassium Chloride ER [K-Dur 10] 10 meq PO DAILY@0900 Metoprolol Tartrate [Lopressor] 12.5 mg PO BID@0900,2100 Fluticasone/Salmeterol [Advair 250-50 Diskus] 1 puff INHALATION RT-BID@0900,2100 Acetaminophen Tab [Tylenol] 650 mg PO Q6H PRN PRN Reason: Pain Or Fever > 100.5 Melatonin 10 mg PO HS@2100 Biotin 5 mg PO DAILY@0900 Mylanta 30 ml PO Q4H PRN PRN Reason: UPSET STOMACH Albuterol Inhaler [Ventolin Hfa Inhaler] 2 puff INHALATION RT-QID puff Cranberry 450mg 450 mg PO HS@2100 predniSONE 2.5 mg PO DAILY@0900 Tiotropium 2.5 Mcg/Puff [Spiriva Respimat 2.5 Mcg] 1 puff INHALATION RT- DAILY@0900 Apixaban [Eliquis] 2.5 mg PO BID@899,2099 Clotrimazole/Betamethasone Dip [Lotrisone Cream] 1 applic TOPICAL Q12H Discontinued Dexamethasone 6 mg PO DAILY@899 Ertapenem [INVanz] 1 gm IVPB HS@2099 Furosemide [Lasix] 40 mg PO DAILY@0900 Discharge Medication List Simvastatin [Zocor] 40 mg PO HS@209909/25/13 [History] Montelukast [Singulair] 10 mg PO HS@209902/11/16 [History] Multivitamins, Thera [Multivitamin (formulary)] 1 tab PO DAILY@89903/14/16 [History] Levothyroxine Sodium [Synthroid] 75 mcg PO HS@209912/06/18 [History] Potassium Chloride ER [K-Dur 10] 10 meq PO DAILY@89912/06/18 [History] Fluticasone/Salmeterol [Advair 250-50 Diskus] 1 puff INHALATION RT-BID@899,209907/02/19 [History] Metoprolol Tartrate [Lopressor] 12.5 mg PO BID@899,209907/02/19 [History] Acetaminophen Tab [Tylenol] 650 mg PO Q6H PRN 03/19/20 [History] Biotin 5 mg PO DAILY@89903/19/20 [History] Melatonin 10 mg PO HS@209903/19/20 [History] Mylanta 30 ml PO Q4H PRN 03/19/20 [History] Albuterol Inhaler [Ventolin Hfa Inhaler] 2 puff INHALATION RT-QID puff 03/24/20 [Rx] Apixaban [Eliquis] 2.5 mg PO BID@09,209904/02/20 [History] Clotrimazole/Betamethasone Dip [Lotrisone Cream] 1 applic TOPICAL Q12H 04/02/20 [History] Cranberry 450mg 450 mg PO HS@209904/02/20 [History] Tiotropium 2.5 Mcg/Puff [Spiriva Respimat 2.5 Mcg] 1 puff INHALATION RT- DAILY@89904/02/20 [History] predniSONE 2.5 mg PO DAILY@89904/02/20 [History] Formoterol Fumarate [Perforomist] 20 mcg INHALATION RT-BID nebu 04/06/20 [Rx] Furosemide [Lasix] 40 mg PO BID #60 tablet 04/06/20 [Rx] INSULIN ASPART (NovoLOG) [NovoLOG (formulary)] 0 unit SQ ACHS vial 04/06/20 [Rx] Ipratropium-Albuterol Nebulize [Duoneb 0.5 mg-3 mg/3 ml Soln] 3 ml INHALATION RT-Q4H PRN ml 04/06/20 [Rx] Ipratropium-Albuterol Nebulize [Duoneb 0.5 mg-3 mg/3 ml Soln] 3 ml INHALATION RT-QID ml 04/06/20 [Rx] predniSONE [Deltasone] 20 mg PO DAILY #10 tab 04/06/20 [Rx] Follow up Appointment(s)/Referral(s): Rubio Mace MD [Primary Care Provider] - 1-2 days [facility] [place], [NON-STAFF] - As Needed
[2020-04-06 14:47] VITALS: BP 125/62; RESP 20; TEMP 97.6
--- NOTE | 2020-04-06 14:56 | P.PN ---
Subjective Progress Note Date: 04/06/20 Principal diagnosis: Acute exacerbation COPD and CHF 89-year-old female patient known to us from previous hospitalizations. The patient is coming in for another admission because of worsening shortness of breath and she was admitted under the diagnosis of COPD and CHF exacerbation. She is currently on IV Lasix. I noted the chest x-ray showing some worsening of the left-sided pleural effusion and there is also cardiomegaly with pulmonary vessel congestion. She is currently doing well. She is a poor historian in general. She denies having any chest pain. She does have chronic lower extremity edema. She is known to us from previous hospitalizations. Her echocardiogram at shown ejection fraction of 55-60% along with grade 2 diastolic heart failure and RV was mildly enlarged and there was evidence of [id number] pulmonary hypertension with a PA pressure 44.. Recurrent proBNP level is elevated at 2210. Covid 19 testing came back negative. Serum bicarb is at 44. Renal function stable with a creatinine of 0.5. The patient has a baseline FEV1 of 0.77 L which is only 40% of predicted. She has chronic hypoxic respiratory failure maintained on home O2. She has also hypothyroidism and she was quite debilitated because of osteoarthritis and previous knee replacement surgeries. She is chronically short of breath and oxygen dependent. No angina. No altered mentation On today's evaluation the patient is clinically improving. She is diuresing a ggressively on Lasix 40 mg IV every 8 hours. She is a negative fluid balance of at least 3 L. Her serum bicarb is up to 48. Based on that, I may give her a dose of Diamox and reduce diuretics. She is doing well. She is not having any major respiratory distress. She is still swollen and she would benefit from ongoing diuresis at a slower rate. No chest pain. No altered mentation. Electrolytes show major abnormalities other than the metabolic alkalosis. Serum bicarb is at 48. BUN is at 34 with a creatinine of 0.57. Blood sugars at 246 from this morning and this is related to systemic steroids. Urinalysis is negative. Cultures have been negative. Cardiology consultation is appreciated. The patient is seen today in 04/05/2020 in follow-up on the regular medical floor. She is currently sitting up in bed. Awake and alert in no acute distress. Maintaining O2 saturations in the 90s on room air. She's afebrile. Hemodynamically stable. Continues with lower extremity edema. Sodium 136. Potassium 4.0. Bicarb 42. Creatinine 0.79. ProBNP 3020. Glucose 158. She remains on Diamox, IV Lasix. She's on DuoNeb inhalations, Pulmicort and Perforomist inhalations, IV Solu-Medrol. Anticoagulated with Eliquis. On 04/06/2020 patient seen in follow-up. She is breathing much easier today, she is awake and alert, oriented 2 although she is forgetful. He states her breathing is much better, she is currently on 2 L of oxygen and pulse ox is 92%, remains on IV diuretics, 40 mg every 12 hours, she is in negative fluid balance, lower extremity edema is improving, she is breathing easier, she is less bronchospastic, she has been switched over to oral prednisone, currently at 40 mg, his chest x-ray shows bilateral lower lobe infiltrate and pleural effusion, small, stable in appearance. Clinically patient is improving. She's had no fever or chills, his labs have been reviewed, showing BNP was done only, no CBC, sodium was 137, potassium is 4.4, chloride is 92, CO2 38, BUN is 34, creatinine 0.77. She is on oral anticoagulation in the form of Eliquis for history of atrial fibrillation, vital signs have been stable. Patient is requesting to be discharged back to the [facility] today Objective - Vital Signs Vital signs: Vital Signs Temp 97.3 F L 04/06/20 07:34 Pulse 72 04/06/20 11:24 Resp 18 04/06/20 07:34 BP 152/74 04/06/20 07:34 Pulse Ox 92 L 04/06/20 07:34 Intake & Output 04/05/20 04/06/20 04/06/20 18:59 06:59 18:59 Intake Total 440 Output Total 1800 1200 700 Balance -1360 -1200 -700 Weight 92.5 kg Intake: Oral 440 Output: Urine 1800 1200 700 Other: Voiding Method Incontinent Incontinent External Catheter External Catheter # Bowel Movements 1 - Exam GENERAL EXAM: Alert, very pleasant, 81-year-old white female, 2 L of oxygen pulse ox of 92% comfortable in no apparent distress. HEAD: Normocephalic/atraumatic. EYES: Normal reaction of pupils, equal size. Conjunctiva pink, sclera white. NOSE: Clear with pink turbinates. THROAT: No erythema or exudates. NECK: No masses, no JVD, no thyroid enlargement, no adenopathy. CHEST: No chest wall deformity. Symmetrical expansion. LUNGS: Equal air entry with no crackles, wheeze, rhonchi or dullness. CVS: Irregular rate and rhythm, normal S1 and S2, no gallops, no murmurs, no rubs ABDOMEN: Soft, nontender. No hepatosplenomegaly, normal bowel sounds, no guarding or rigidity. EXTREMITIES: No clubbing, 1+ edema, no cyanosis, 2+ pulses and upper and lower extremities. MUSCULOSKELETAL: Muscle strength and tone normal. SPINE: No scoliosis or deformity SKIN: No rashes CENTRAL NERVOUS SYSTEM: Alert and oriented -2 No focal deficits, tone is normal in all 4 extremities. PSYCHIATRIC: Alert and oriented -2. Appropriate affect. Intact judgment and insight. - Labs CBC & Chem 7: 04/02/20 14:41 04/06/20 08:15 Labs: Abnormal Lab Results - Last 24 Hours (Table) 04/05/20 04/05/20 04/06/20 Range/Units 17:27 19:29 07:03 Chloride (98-107) mmol/L Carbon Dioxide (22-30) mmol/L BUN (7-17) mg/dL Glucose (74-99) mg/dL POC Glucose (mg/dL) 224 H 252 H 165 H (75-99) mg/dL 04/06/20 04/06/20 Range/Units 08:15 11:37 Chloride 92 L (98-107) mmol/L Carbon Dioxide 38 H (22-30) mmol/L BUN 34 H (7-17) mg/dL Glucose 178 H (74-99) mg/dL POC Glucose (mg/dL) 155 H (75-99) mg/dL Assessment and Plan Plan: Assessment: 1 Acute on chronic hypoxic and hypercapnic respiratory failure, in addition to shortness of breath most likely secondary to combination of COPD/CHF exacerbation. Chest x-ray showing some worsening in the left-sided pleural effusion. Also there is no venous congestion and the proBNP level is quite elevated. 2 Positive COVID 19 PCR, however patient was treated for COVID 19 infection back in December 2019, with subsequent vaccination 3 Previous admissions for E. coli urinary tract infection, recovered 4 History of obstructive sleep apnea on CPAP 5 Chronic COPD on home oxygen usually at 2 L/m 6 Hypothyroidism 7 Chronic A. 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 Continue nebulized bronchodilators, from pulmonary perspective she can be considered for discharge back to [facility] today. I performed a history & physical examination of the patient and discussed their management with my nurse practitioner, Lin Martinez. I reviewed the nurse practitioner's note and agree with the documented findings and plan of care. Lung sounds are positive for diminished breath sounds. The findings and the impression was discussed with the patient. I attest to the documentation by the nurse practitioner. Time with Patient: Less than 30
[2020-04-06 15:03] VITALS: PULSE 72
[2020-04-07] MEDS ORDERED: predniSONE 20 MG TAB PO SCH (09:00)
--- NOTE | 2020-04-15 13:23 | ECHOF ---
Referral Reason:LVF MEASUREMENTS -------- HEIGHT: 167.6 cm WEIGHT: 98.0 kg BP: 112/63 RVIDd: 3.6 cm (< 3.3) IVSd: 1.4 cm (0.6 - 1.1) LVIDd: 3.9 cm (3.9 - 5.3) LVPWd: 1.3 cm (0.6 - 1.1) IVSs: 1.7 cm LVIDs: 2.6 cm LVPWs: 1.7 cm LA Diam: 4.0 cm (2.7 - 3.8) LAESV Index (A-L): 37.57 ml/m Ao Diam: 3.1 cm (2.0 - 3.7) AV Cusp: 1.4 cm (1.5 - 2.6) MV EXCURSION: 16.659 mm (> 18.000) MV EF SLOPE: 77 mm/s (70 - 150) EPSS: 0.4 cm RAP: 15.00 mmHg RVSP: 65.34 mmHg FINDINGS -------- Atrial fibrillation. This was a technically adequate study. The left ventricular size is normal. There is moderate concentric left ventricular hypertrophy. O verall left ventricular systolic function is normal with, an EF between 55 - 60 %. The right ventricle is mildly enlarged. LA is moderately dilated 34-39 ml/m2 The right atrium is normal in size. Interatrial and interventricular septum intact. There is mild aortic valve sclerosis. Mild mitral annular calcification present. [id number] tricuspid regurgitation present. There is severe pulmonary hypertension. The rig ht ventricular systolic pressure, as measured by Doppler, is 65.34mmHg. Trace/mild (physiologic) pulmonic regurgitation. The aortic root size is normal. The inferior vena cava is dilated with no significant inspiratory collapse which is consistent estima jose luis right atrial pressure of >15 mmHg. There is no pericardial effusion. CONCLUSIONS -------- 1. The left ventricular size is normal. 2. There is moderate concentric left ventricular hypertrophy. 3. Overall left ventricular systolic function is normal with, an EF between 55 - 60 %. 4. The right ventricle is mildly enlarged. 5. LA is moderately dilated 34-39 ml/m2 6. There is mild aortic valve sclerosis. 7. Mild mitral annular calcification present. 8. [id number] tricuspid regurgitation present. 9. There is severe pulmonary hypertension. 10. The right ventricular systolic pressure, as measured by Doppler, is 65.34mmHg. 11. Trace/mild (physiologic) pulmonic regurgitation. 12. The inferior vena cava is dilated with no significant inspiratory collapse which is consistent es timated right atrial pressure of >15 mmHg. 13. There is no pericardial effusion. COMMUNICATIONS INSTRUCTOR: Wanda Joseph RDCS
== END 2020-04-06 15:54 | DRG 291 ==
LOC: EC 14:27 → 4SSUR 16:09
PROVIDERS: ADMIT Hospitalist; ATTEND Hospitalist
DX: I11.0 Hypertensive heart disease with heart failure (principal); J96.21 Acute and chronic respiratory failure with hypoxia; J96.22 Acute and chronic respiratory failure with hypercapnia; J44.1 Chronic obstructive pulmonary disease with (acute) exacerbation; E87.3 Alkalosis; I48.92 Unspecified atrial flutter; I50.33 Acute on chronic diastolic (congestive) heart failure; I27.29 Other secondary pulmonary hypertension; E66.01 Morbid (severe) obesity due to excess calories; I48.0 Paroxysmal atrial fibrillation; Z20.822 Contact with and (suspected) exposure to COVID-19; I44.1 Atrioventricular block, second degree; E78.5 Hyperlipidemia, unspecified; M19.90 Unspecified osteoarthritis, unspecified site; E78.00 Pure hypercholesterolemia, unspecified; R73.9 Hyperglycemia, unspecified; T38.0X5A Adverse effect of glucocorticoids and synthetic analogues, initial encounter; R26.9 Unspecified abnormalities of gait and mobility; I07.1 Rheumatic tricuspid insufficiency; G47.33 Obstructive sleep apnea (adult) (pediatric); E03.9 Hypothyroidism, unspecified; Z68.35 Body mass index [BMI] 35.0-35.9, adult; Z86.16 Personal history of COVID-19; Z99.81 Dependence on supplemental oxygen; Z79.01 Long term (current) use of anticoagulants; Z79.890 Hormone replacement therapy; Z79.51 Long term (current) use of inhaled steroids; Z79.899 Other long term (current) drug therapy; Z87.891 Personal history of nicotine dependence; Z86.73 Personal history of transient ischemic attack (TIA), and cerebral infarction without residual deficits; Z87.01 Personal history of pneumonia (recurrent); Z87.39 Personal history of other diseases of the musculoskeletal system and connective tissue; Z86.14 Personal history of Methicillin resistant Staphylococcus aureus infection; Z86.19 Personal history of other infectious and parasitic diseases; Z96.653 Presence of artificial knee joint, bilateral; Z98.42 Cataract extraction status, left eye; Z98.41 Cataract extraction status, right eye; Z98.890 Other specified postprocedural states; Z88.3 Allergy status to other anti-infective agents; Z88.7 Allergy status to serum and vaccine; Z88.8 Allergy status to other drugs, medicaments and biological substances
CPT/HCPCS: 36415; 71045; 80048; 80053; 81003; 82803; 83605; 83735; 83880; 84484; 85025; 85610; 85730; 87635; 93005; 93306; 94640; 94760; 96374; 96375; 96376; 99285